=== PATIENT | male | born 1965 | race Caucasian/White ===

== ENCOUNTER 2020-11-05 18:00 | Emergency (ER) | payer OTHER, SELFPAY ==
--- NOTE | ~2020-11-05 | XR_ITS ---
EXAMINATION: XR CHEST CLINICAL INFORMATION: Chest pain COMPARISON: 08/10/2014 TECHNIQUE: Frontal view of the chest was obtained. FINDINGS: No significant abnormality is noted involving the heart, lungs, mediastinum, bony thorax or soft tissues. XR/XR chest 1V IMPRESSION: Unremarkable examination.
[2020-11-05 18:03] VITALS: BP 166/105; PULSE 109; RESP 18; TEMP 36.6; O2SAT 98; BMI 30.3
[2020-11-05 18:48] VITALS: BP 160/88; PULSE 93; RESP 16; O2SAT 98
--- NOTE | 2020-11-05 18:52 | ED_ITS ---
HPI - Chest Pain General Chief Complaint: Chest Pain Stated Complaint: CHEST PAIN HBP Time Seen by Provider: 11/05/20 18:52 Source: patient Mode of arrival: ambulatory Limitations: no limitations History of Present Illness HPI narrative: Patient with history of hypertension no known coronary artery disease no significant family history of coronary artery disease woke up at 07:30 and noticed left-sided chest pain which lasted for about 15-20 seconds without any shortness of breath or diaphoresis no radiation of pain. Patient got better and then again at noon time had similar pain but lasted about 20 seconds got better and since 17:00 patient been having similar pain lasting longer than before almost every 10 minutes patient denies any shortness of breath no cough no syncope no palpitation. Patient never had similar pain in the past. Patient check his blood pressure was 180/100 on arrival patient's blood pressure was 1 60 x 88 pulse rate 93 saturating 98% at room air MD complaint: chest pain Related Data Home Medications Medication Instructions Recorded Confirmed valsartan-hydrochlorothiazide 1 tab PO DAILY 11/05/20 11/05/20 Allergies Allergy/AdvReac Type Severity Reaction Status Date / Time No Known Allergies Allergy Unverified 05/19/20 14:58 [No Known Allergies*] Review of Systems Review of Systems: Constitutional : No Weight loss, No Fever, No Chills ENT/Mouth : No sore throat, No Rhinorrhea Eyes: No Eye Pain, No Swelling Cardiovascular : ++ Chest Pain, no palpitations Respiratory : No Cough, No Sputum, no shortness of breath Gastrointestinal : no Nausea, No Vomiting, No Diarrhea, No abdominal Pain, no black stools Genitourinary : No Dysuria, No Urinary Frequency Musculoskeletal : No joint pain, No Myalgias, No Joint Swelling Skin : No Skin Lesions, No rash Neuro : No Weakness, No Numbness, No Dizziness, No Headache Psych : No Anxiety/Panic, No Depression Heme/Lymph: No Bruising, No Lymphadenopathy Endocrine : No Polyuria, No Polydipsia All other systems reviewed and are negative [facility] Past Medical History Medical History HTN (hypertension) Social History Social History Alcohol intake: current Alcohol intake frequency: 0-2 drinks per day Alcohol type: beer and wine Smoking Status: Never smoker Use of substances other than those prescribed or required for medical reasons: No Advance Directives: No Advance Directives Information Provided: Yes Physical Exam Vital Signs: Vital Signs: Last Vital Signs Temp 98.6 F 11/05/20 22:16 Pulse 92 11/05/20 22:16 Resp 18 11/05/20 22:16 BP 138/94 H 11/05/20 22:16 Pulse Ox 96 11/05/20 22:16 Body Mass Index 30.3 Appearance: Alert. Oriented X3. No acute distress. Eyes: Pupils equal, round and reactive to light. ENT: Pharynx normal. Neck: Normal inspection. Neck supple. CVS: Normal heart rate and rhythm. Pulses normal. Respiratory: No respiratory distress. Breath sounds normal. Abdomen: Soft and nontender. Bowel sounds are present, no mass palpable, no CVA tenderness Skin: Skin warm and dry. Normal skin color. Normal skin turgor. Extremities: No lower extremity edema. Neuro: Oriented X 3. No motor deficit. No sensory deficit. MDM - Chest Pain MDM Narrative Medical decision making narrative: Patient with chest pain etiology not very clear likely from cardiac origin. Initial troponin is 4.3 which is negative will repeat troponin as patient had increased pain since 17:00 although there is no EKG changes Repeat troponin also negative for significant delta change. Patient denies any significant pain at this time. Will discharge patient home advised to follow with drawer liner to take baby aspirin daily Differential Diagnosis Differential diagnosis: Likely stable angina, unstable angina pectoris, atypical chest pain and chest pain Lab Data Result diagrams: 11/05/20 19:33 11/05/20 19:33 Labs: Lab Results 11/05/20 11/05/20 11/05/20 Range/Units 19:33 19:33 19:33 WBC 8.8 (4.8-10.8) X10*3/uL RBC 5.14 (4.60-5.80) X10*6/uL Hgb 16.2 (14.0-18.0) g/dl Hct 46.4 (42-52) % MCV 90.3 (80-98) fL MCH 31.5 (27.0-33.0) pg MCHC 34.9 (31.0-36.0) g/dl RDW 12.0 (11.0-16.0) % Plt Count 243 (160-400) X10*3/uL MPV 9.5 (9.4-12.4) fL Immature Gran % (Auto) 0.7 H (0.0-0.4) % Neut % (Auto) 76.1 H (45-73) % Lymph % (Auto) 13.0 L (20-40) % [place] % (Auto) 8.4 (2-11) % Eos % (Auto) 0.9 (0-4) % Baso % (Auto) 0.9 (0-2) % Lymph # (Auto) 1.1 L (1.2-4.9) X10*3/uL [place] # (Auto) 0.7 (0.1-1.2) X10*3/uL Eos # (Auto) 0.1 (0.0-0.4) X10*3/uL Baso # (Auto) 0.1 (0.0-0.2) X10*3/uL Abs Immat Gran (auto) 0.06 H (0.00-0.03) X10*3/uL Absolute Neuts (auto) 6.7 (2.0-8.3) X10*3/uL Absolute Nucleated RBC 0.000 (0.0-0.012) X10*3/uL Nucleated RBC % (auto) 0.0 (0.0-0.2) /100WBC PT (10.8-13.0) SEC INR (0.9-1.1) APTT (24.1-38.0) SEC Sodium 142 (135-145) mmol/L Potassium 4.9 (3.3-5.1) mmol/L Chloride 104 (96-108) mmol/L Carbon Dioxide 26 (22-29) mmol/L Anion Gap 17 (12-20) BUN 14 (9-16) mg/dL Creatinine 0.88 (0.5-1.4) mg/dL Estim Creat Clear Calc 120.2 Estimated GFR > 60 Random Glucose 101 (60-115) mg/dL Calcium 9.2 (8.4-10.2) mg/dL Troponin I High Sens 4.3 (<3.5-35.0) ng/L 11/05/20 11/05/20 Range/Units 19:33 21:59 WBC (4.8-10.8) X10*3/uL RBC (4.60-5.80) X10*6/uL Hgb (14.0-18.0) g/dl Hct (42-52) % MCV (80-98) fL MCH (27.0-33.0) pg MCHC (31.0-36.0) g/dl RDW (11.0-16.0) % Plt Count (160-400) X10*3/uL MPV (9.4-12.4) fL Immature Gran % (Auto) (0.0-0.4) % Neut % (Auto) (45-73) % Lymph % (Auto) (20-40) % [place] % (Auto) (2-11) % Eos % (Auto) (0-4) % Baso % (Auto) (0-2) % Lymph # (Auto) (1.2-4.9) X10*3/uL [place] # (Auto) (0.1-1.2) X10*3/uL Eos # (Auto) (0.0-0.4) X10*3/uL Baso # (Auto) (0.0-0.2) X10*3/uL Abs Immat Gran (auto) (0.00-0.03) X10*3/uL Absolute Neuts (auto) (2.0-8.3) X10*3/uL Absolute Nucleated RBC (0.0-0.012) X10*3/uL Nucleated RBC % (auto) (0.0-0.2) /100WBC PT 12.2 (10.8-13.0) SEC INR 1.0 (0.9-1.1) APTT 31.6 (24.1-38.0) SEC Sodium (135-145) mmol/L Potassium (3.3-5.1) mmol/L Chloride (96-108) mmol/L Carbon Dioxide (22-29) mmol/L Anion Gap (12-20) BUN (9-16) mg/dL Creatinine (0.5-1.4) mg/dL Estim Creat Clear Calc Estimated GFR Random Glucose (60-115) mg/dL Calcium (8.4-10.2) mg/dL Troponin I High Sens 4.7 (<3.5-35.0) ng/L ECG Data ECG #1: Attestation: I personally reviewed and interpreted this ECG as follows: Interpretation: Normal sinus rhythm heart rate 86 beats per minute normal intervals normal axis patient PACs no acute ST T wave changes impression no ischemia Discharge Plan Discharge Clinical Impression: Chest pain Patient Disposition: Home, Self-Care Instructions: Chest Pain (ED) Additional Instructions: Take baby aspirin daily. Follow-up with drawer liner. Go to the ER if increased chest pain Prescriptions: No Action valsartan-hydrochlorothiazide 160-12.5 mg tablet 1 tab PO DAILY RF: 0 Referrals: Avi Farah MD [Physician] - 1 week Interventions: ED Discharge Assessment Last Done: 11/05/20 23:05 Discharge Date/Time: 11/05/20 23:05
--- NOTE | 2020-11-05 18:58 | ECG_ITS ---
Test Reason : CHEST PAIN Blood Pressure : / mmHG Vent. Rate : 086 BPM Atrial Rate : 086 BPM P-R Int : 170 ms QRS Dur : 080 ms QT Int : 364 ms P-R-T Axes : 047 002 060 degrees QTc Int : 435 ms Sinus rhythm with marked sinus arrhythmia Otherwise normal ECG No previous ECGs available Referred By: Obed Hernandez Electronically Signed By:OMAYRA JON
[2020-11-05 19:19] VITALS: BP 156/90; PULSE 95; RESP 17; TEMP 37.1; O2SAT 98
[2020-11-05] MEDS: Aspirin 81 MG TAB.CHEW 324 MG PO (19:21)
[2020-11-05 19:22] VITALS: BP 156/90; PULSE 106
[2020-11-05] MEDS: Nitroglycerin 2 % Oint 1 GM Packet 1 INCH TRANSDERMA (19:22)
[2020-11-05 19:41] LABS: MANUAL DIFF FLAG NO
[2020-11-05 19:43] LABS: Basophils Absolute Auto 0.1 X10*3/uL (0.0-0.2); Basophils Percent Auto 0.9 % (0-2); Eosinophils Absolute Auto 0.1 X10*3/uL (0.0-0.4); Eosinophils Percent Auto 0.9 % (0-4); Hematocrit 46.4 % (42-52); Hemoglobin 16.2 g/dl (14.0-18.0); Imm Gran Abs Auto 0.06 X10*3/uL (0.00-0.03); Imm Gran Pct Auto 0.7 % (0.0-0.4); Lymphocytes Absolute Auto 1.1 X10*3/uL (1.2-4.9); Mean Corpuscular HGB Conc 34.9 g/dl (31.0-36.0); Mean Corpuscular Hemoglobin 31.5 pg (27.0-33.0); Mean Corpuscular Volume 90.3 fL (80-98); Mean Platelet Volume 9.5 fL (9.4-12.4); Monocytes Absolute Auto 0.7 X10*3/uL (0.1-1.2); Monocytes Percent Auto 8.4 % (2-11); Neutrophils Absolute Auto 6.7 X10*3/uL (2.0-8.3); Neutrophils Percent Auto 76.1 % (45-73); Platelet Count 243 X10*3/uL (160-400); Red Blood Count 5.14 X10*6/uL (4.60-5.80); White Blood Count 8.8 X10*3/uL (4.8-10.8)
[2020-11-05 20:15] LABS: Prothrombin Time 12.2 SEC (10.8-13.0)
[2020-11-05 20:17] LABS: Anion Gap 17 (12-20); Blood Urea Nitrogen 14 mg/dL (9-16); Calcium 9.2 mg/dL (8.4-10.2); Carbon Dioxide 26 mmol/L (22-29); Chloride 104 mmol/L (96-108); Creatinine Clr Calc Pharmacy 120.2; Estimated Glomerular Filt Rate > 60; Glucose Random 101 mg/dL (60-115); Potassium 4.9 mmol/L (3.3-5.1); Sodium 142 mmol/L (135-145)
[2020-11-05 20:18] LABS: Partial Thromboplastin Time 31.6 SEC (24.1-38.0)
[2020-11-05 20:24] LABS: Troponin-I High Sensitivity 4.3 ng/L (<3.5-35.0)
[2020-11-05 21:35] VITALS: BP 138/94; PULSE 98; RESP 16; TEMP 36.6; O2SAT 97
[2020-11-05 22:16] VITALS: BP 138/94; PULSE 92; RESP 18; TEMP 37; O2SAT 96
[2020-11-05 22:36] LABS: Troponin-I High Sensitivity 4.7 ng/L (<3.5-35.0)
== END 2020-11-05 23:05 | disposition home or self-care (01) ==
PROVIDERS: Emergency Provider Internal Medicine; PCP Physician Assistant
DX: R07.9 Chest pain, unspecified (principal); I10 Essential (primary) hypertension
CPT/HCPCS: 36415; 71045; 80048; 84484; 85025; 85610; 85730; 93005; 99284; 99285

== ENCOUNTER → 2020-11-22 11:09 | Outpatient (BNVA) | payer OTHER, SELFPAY | PROVIDERS: PCP Physician Assistant; Visit Provider Nurse Practitioner Family ==

== ENCOUNTER → 2020-11-28 08:09 | Outpatient (REF) | payer OTHER, SELFPAY ==
--- NOTE | 2020-11-28 08:13 | CA_ITS ---
Acquisition Time: 2020-11-28 08:25:31 Total Exercise Time: 00:08:40 Test Indications: Chest Pain Medications: ASA VALSARTAN/HCTZ Protocol: ZACHARY Max HR: 164 BPM 99% of Pred: 165 BPM Max BP: 210/098 mmHG Max Work Load: 10.1 METS Exercise stress test using Zachary protocol, total of 8 min 40 sec. METS 10.10, TAPHR up to 98 %, Test terminated as pt's BP up to 210/98. Pt had no anginal sx. EKG with no arrythmias, mild ST depressions seen inferiorly and lateraly. Hypertensive response to exercise. Test reviewed with Dr. Farah. Referred By: Kathleen Lima Overread By: Simran Jacobs NP
== END ==
LOC: HO.CARD 08:09
PROVIDERS: Visit Provider Nurse Practitioner Family
DX: R07.89 Other chest pain (principal)
CPT/HCPCS: 93016; 93017; 93018

== ENCOUNTER → 2020-12-30 14:02 | Outpatient (REF) | payer OTHER, SELFPAY ==
--- NOTE | 2020-12-30 14:05 | CA_ITS ---
Transthoracic Echocardiogram Patient (Last, First, Middle): Jose Alberto Reina E Gender: Male Date of : 1965 Age: 55 Procedure Date: 12/30/2020 Procedure Type: Transthoracic Echocardiogram Location: OP Height: 185.42 cm Weight: 104.33 kg BSA: 2.28 m2 Heart Rate: bpm BP: 148 / 95 mmHg Hot Head Machine Operator: HOMER Referring MD: Kathleen Lima SENIOR PAINTER-C Environmental Lead: Avi Farah MD Symptoms: R07.89 - Other chest pain Study Quality: Fair ECG Rhythm: Sinus Conclusions: - 1. Normal LV systolic and diastolic function 2. Mildly dilated ascending aorta at the level of sinus of Valsalva 3. Normal cardiac valvular Doppler 4. Normal RV systolic pressure 5. No pericardial effusion Findings Left Ventricle Normal left ventricular size, thickness, and systolic function. The visually estimated ejection fraction is between 65-70%. There is no dynamic left ventricular outflow tract obstruction. Diastolic function is normal for age. There is mild septal asymmetric hypertrophy. Right Ventricle Normal right ventricular cavity size and systolic function. Atria The left atrium is likely dilated. The right atrium is normal in size. Aortic Valve The aortic valve structure and function is likely normal. There is no aortic valve stenosis. There is no aortic valve regurgitation. Mitral Valve Normal mitral valve structure and function. There is trace mitral valve regurgitation. There is no mitral valve stenosis. Pulmonic Valve The pulmonic valve was not well visualized. Tricuspid Valve Likely normal tricuspid valve structure and function. There is trace tricuspid valve regurgitation. The right ventricular systolic pressure is normal. The right ventricular systolic pressure is 29 mmHg. Normal right atrial pressure. There is no evidence of pulmonary hypertension. Great Vessels The pulmonary artery was not well visualized. There is mild dilatation of the sinuses of Valsalva measuring 4.30 cm. Venous The inferior vena cava is normal in size and collapses greater than 50% with inspiration. Pericardium/Pleural There is no evidence of pericardial effusion. Prior Study Comparison No prior study available for comparison. Measurements M-Mode Liner Measurements Normals - Women/Men AOV Cusps: 2.50 1.5-2.6 cm/m2 2D Linear Measurements IVSd: 0.90 0.6-0.9/0.6-1.0 cm LVIDd: 5.00 3.9-5.3/4.2-5.9 cm LVIDd Index: 2.19 2.4-3.2/2.2-3.1 cm/m2 LVIDs: 2.78 2.0-3.6 cm LVPWd: 0.90 0.7-1.1 cm Ao Root: 4.30 2.1-3.5 cm LA Diam: 3.40 2.7-3.8/3.0-4.0 cm LAIDs Index: 1.49 1.5-2.3 cm/m2 LV Mass: 197.88 67-162/88-224 g LV Mass Index: 86.79 43-95/49-115 g/m2 LVOT Diam: 2.50 3.0+(-)1.3 cm 2D Systolic Function EF 4C: 68.80 >55% EF 2C: 62.60 >55% EF BiP: 64.10 >55% Mitral Valve MV Pk E: 1.00 MV PK A: 0.55 MV Decel Time: 171.00 E/A: 1.80 E'Lateral: 10.70 E'Medial: 8.92 E/E' Med: 11.20 E/E' Lat: 9.30 PHT: 50.00 MVA PHT: 4.40 Decel [place]: 5.87 Aortic Valve AoV Pk Jose R: 1.43 AoV Mn Jose R: 1.10 AoV VTI: 0.32 AoV Pk Grad: 8.00 Aov Mn Grad: 5.00 MICHAEL Cont.VTI: 4.24 LVOT LVOT Pk Joes R: 1.23 LVOT Mn Jose R: 0.95 LVOT VTI: 0.28 LVOT Pk Grad: 6.00 LVOT Mn Grad: 4.00 LVOT Diam: 2.50 LVOT Area: 4.91 Diastolic Function MV Pk E: 1.00 MV Pk A: 0.55 E/A: 1.80 E'Medial: 8.92 E/E' Med: 11.20 E' Laterial: 10.70 E/E' Lat: 9.30 Tricuspid Valve TR Pk Jose R: 2.53 TR Pk Grad: 26.00 RA Press: 3.00 RVSP: 29.00 Great Vessels Aorta Ao Root-2D: 4.30 2.0-3.7 cm Sinus of Valsalva: 4.30 2.0-3.5 cm Ao Asc: 3.40 2.1-3.4 cm Ao Arch: 2.90 Pulmonary Valve PV Pk Jose R: 1.17 Peak PV Grad: 5.00 Updated in Other Vendor System with Status of Final Avi Farah MD electronically signed on 12/31/2020 11:36:14 AM with status of Final
== END ==
LOC: HO.CARD 14:02
PROVIDERS: Visit Provider Nurse Practitioner Family
DX: R07.89 Other chest pain (principal)
CPT/HCPCS: 93306

== ENCOUNTER → 2021-01-03 09:38 | Outpatient (BNVA) | payer OTHER, SELFPAY | PROVIDERS: PCP Physician Assistant; Visit Provider Nurse Practitioner Family ==

== ENCOUNTER 2021-01-13 09:52 | Outpatient (REF) | payer OTHER, SELFPAY ==
[2021-01-13 11:00] LABS: Anion Gap 13 (12-20); Blood Urea Nitrogen 13 mg/dL (9-16); Calcium 9.9 mg/dL (8.4-10.2); Carbon Dioxide 30 mmol/L (22-29); Chloride 102 mmol/L (96-108); Estimated Glomerular Filt Rate > 60; Glucose Random 108 mg/dL (60-115); Potassium 4.7 mmol/L (3.3-5.1); Sodium 140 mmol/L (135-145)
== END 2021-01-13 09:53 | disposition home or self-care (01) ==
LOC: HO.LAB 09:52
PROVIDERS: PCP Physician Assistant; Visit Provider Nurse Practitioner Family
DX: I10 Essential (primary) hypertension (principal)
CPT/HCPCS: 36415; 80048

== ENCOUNTER 2021-03-24 08:42 | Outpatient (REF) | payer OTHER, SELFPAY ==
[2021-03-24 09:11] LABS: MANUAL DIFF FLAG NO
[2021-03-24 09:18] LABS: Basophils Absolute Auto 0.1 X10*3/uL (0.0-0.2); Eosinophils Absolute Auto 0.4 X10*3/uL (0.0-0.4); Eosinophils Percent Auto 4.6 % (0-4); Hematocrit 44.9 % (42-52); Hemoglobin 15.6 g/dl (14.0-18.0); Imm Gran Abs Auto 0.04 X10*3/uL (0.00-0.03); Imm Gran Pct Auto 0.5 % (0.0-0.4); Lymphocytes Absolute Auto 1.5 X10*3/uL (1.2-4.9); Lymphocytes Percent Auto 19.5 % (20-40); Mean Corpuscular HGB Conc 34.7 g/dl (31.0-36.0); Mean Corpuscular Hemoglobin 30.8 pg (27.0-33.0); Mean Corpuscular Volume 88.7 fL (80-98); Mean Platelet Volume 9.4 fL (9.4-12.4); Monocytes Absolute Auto 0.9 X10*3/uL (0.1-1.2); Monocytes Percent Auto 10.9 % (2-11); Neutrophils Percent Auto 63.5 % (45-73); Platelet Count 267 X10*3/uL (160-400); Red Blood Count 5.06 X10*6/uL (4.60-5.80); Red Cell Distribution Width 12.1 % (11.0-16.0); White Blood Count 7.9 X10*3/uL (4.8-10.8)
[2021-03-24 09:36] LABS: Alanine Aminotransferase 34 U/L (0-40); Albumin Level 4.1 g/dL (3.5-5.0); Alkaline Phosphatase 60 U/L (39-117); Anion Gap 13 (12-20); Aspartate Amino Transferase 20 U/L (5-37); Bilirubin Total 0.4 mg/dL (0.0-1.0); Blood Urea Nitrogen 11 mg/dL (9-16); Calcium 9.5 mg/dL (8.4-10.2); Carbon Dioxide 26 mmol/L (22-29); Chloride 103 mmol/L (96-108); Cholesterol 221 mg/dL; Estimated Glomerular Filt Rate > 60; Glucose Fasting 101 mg/dL (60-99); HDL Cholesterol 39 mg/dL; LDL Cholesterol Calculated 118 mg/dl; Potassium 4.1 mmol/L (3.3-5.1); Sodium 138 mmol/L (135-145); Total Protein 7.1 g/dL (6.5-8.0); Triglycerides 320 mg/dL
[2021-03-24 09:40] LABS: Estimated Average Glucose 97 mg/dL
[2021-03-24 09:58] LABS: Prostate Specific Antigen Scr 1.22 ng/mL (<0.05-4.0)
== END 2021-03-24 08:43 | disposition home or self-care (01) ==
LOC: HO.LAB 08:42
PROVIDERS: PCP Physician Assistant; Visit Provider Physician Assistant
DX: Z12.5 Encounter for screening for malignant neoplasm of prostate (principal); J30.9 Allergic rhinitis, unspecified; I10 Essential (primary) hypertension; E66.09 Other obesity due to excess calories
CPT/HCPCS: 36415; 80053; 80061; 83036; 84153; 85025

== ENCOUNTER 2021-04-06 07:15 | Outpatient (REF) | payer OTHER, SELFPAY ==
--- NOTE | ~2021-04-06 | XR_ITS ---
EXAMINATION: XR AP STANDING VIEW OF BOTH KNEES XR 2 VIEWS OF THE LEFT KNEE CLINICAL INFORMATION: Left knee pain. COMPARISON: None. TECHNIQUE: AP standing view of both knees and sunrise and lateral views of the left knee. FINDINGS: There is mild narrowing of the medial joint space compartments bilaterally. The lateral joint space and patellofemoral joints are well maintained. No significant spurring is appreciated. No left knee effusion is seen. XR/XR knee standing BI IMPRESSION: Mild narrowing of the medial joint space compartments bilaterally.
--- NOTE | ~2021-04-06 | XR_ITS ---
EXAMINATION: XR AP STANDING VIEW OF BOTH KNEES XR 2 VIEWS OF THE LEFT KNEE CLINICAL INFORMATION: Left knee pain. COMPARISON: None. TECHNIQUE: AP standing view of both knees and sunrise and lateral views of the left knee. FINDINGS: There is mild narrowing of the medial joint space compartments bilaterally. The lateral joint space and patellofemoral joints are well maintained. No significant spurring is appreciated. No left knee effusion is seen. XR/XR knee LT 2V IMPRESSION: Mild narrowing of the medial joint space compartments bilaterally.
== END 2021-04-06 07:16 | disposition home or self-care (01) ==
LOC: HO.HOSX 07:15
PROVIDERS: Visit Provider Physician Assistant
DX: M23.92 Unspecified internal derangement of left knee (principal); M25.561 Pain in right knee; M22.2X9 Patellofemoral disorders, unspecified knee
CPT/HCPCS: 73560; 73565

== ENCOUNTER 2021-04-20 18:47 | Outpatient (REF) | payer OTHER, SELFPAY ==
--- NOTE | ~2021-04-20 | MR_ITS ---
EXAMINATION: MR KNEE WITHOUT CONTRAST, LEFT CLINICAL INFORMATION: Lifting injury. Medial to lateral pain. Symptoms for 2-3 weeks. Pain and swelling. Internal derangement. COMPARISON: Left knee radiographs dated 04/06/2021. TECHNIQUE: MRI of the knee without contrast was performed using routine sequences on a high-field scanner. FINDINGS: MENISCI: Medial Meniscus: Oblique inner margin tearing of the meniscal body which extends through the posterior horn and root. Parameniscal cyst adjacent to the posterior horn/root measuring up to 1.5 cm. Lateral Meniscus: Intact LIGAMENTS: Cruciate: Intact Collateral: Intact EXTENSOR MECHANISM: Intact quadriceps and patellar tendons. There is lobulated subcutaneous fluid ventral to the patella which could represent mild prepatellar bursitis. ARTICULAR CARTILAGE/BONE: Patellofemoral Compartment: Normal Medial Compartment: Weightbearing articular cartilage signal heterogeneity with tiny marginal osteophytes. Marrow edema within the medial tibial plateau, consistent with an osseous contusion. Lateral Compartment: Normal JOINT FLUID AND BURSAE: Small joint effusion and small Hancock's cyst. MR/MR knee LT wo con IMPRESSION: 1. Oblique inner margin tearing of the medial meniscal body extending to the posterior horn and root. Parameniscal cysts adjacent to the posterior horn/root measuring 1.5 cm. 2. Underlying mild osseous contusion within the medial tibial plateau. 3. Mild medial compartment arthrosis. Small joint effusion and small Hancock's cyst.
== END 2021-04-20 18:48 | disposition home or self-care (01) ==
LOC: HO.MRI 18:47
PROVIDERS: Visit Provider Physician Assistant
DX: M23.92 Unspecified internal derangement of left knee (principal)
CPT/HCPCS: 73721

== ENCOUNTER → 2021-05-03 08:37 | Outpatient (BNVA) | payer OTHER, SELFPAY | PROVIDERS: PCP Physician Assistant; Visit Provider Physician Assistant ==

== ENCOUNTER 2021-05-11 19:34 | Outpatient (REF) | payer OTHER, SELFPAY ==
--- NOTE | ~2021-05-11 | MR_ITS ---
EXAMINATION: MR ELBOW WITHOUT CONTRAST, LEFT CLINICAL INFORMATION: Posterior left elbow pain. Anterior tenderness. COMPARISON: None TECHNIQUE: Multisequence MR imaging of the left elbow was obtained without contrast on a high-field strength scanner. FINDINGS: Ulnar collateral ligament: Mild edema adjacent to the proximal ulnar collateral ligament, consistent with a mild ligament sprain. No measurable defect. Common flexor tendon: Edema adjacent to the common flexor tendon, consistent with mild tendinosis. Radial collateral ligament: Intact. Common extensor tendon: Mild common extensor tendinosis. Biceps/triceps tendon: Thickening of the distal biceps tendon with prominent adjacent soft tissue edema, consistent with a distal tendon strain. No measurable tendon defect. Intact triceps tendon. Articular cartilage/bone: Intact articular cartilage. No marrow edema. Ulnar nerve: Intact. Joint fluid/soft tissues: No significant joint effusion. Lobulated soft tissue dorsal to the olecranon, consistent with olecranon bursitis. Adjacent subcutaneous edema. MR/MR elbow LT wo con IMPRESSION: 1. Posterior olecranon bursitis with associated soft tissue edema. 2. Acute strain/partial tear of the distal biceps tendon insertion without a measurable tendon defect. 3. Mild common extensor tendinosis. 4. Mild common flexor tendinosis. Mild straightening of the proximal ulnar collateral ligament without a measurable ligament defect.
== END 2021-05-11 19:35 | disposition home or self-care (01) ==
LOC: HO.MRI 19:34
PROVIDERS: PCP Physician Assistant; Visit Provider Physician Assistant
DX: S46.302D Unspecified injury of muscle, fascia and tendon of triceps, left arm, subsequent encounter (principal)
CPT/HCPCS: 73221

== ENCOUNTER → 2021-06-08 15:37 | Outpatient (BNVA) | payer OTHER, SELFPAY | PROVIDERS: Visit Provider Physician Assistant ==

== ENCOUNTER → 2021-06-22 08:23 | Outpatient (REF) | payer OTHER, SELFPAY ==
--- NOTE | 2021-06-22 08:30 | CA_ITS ---
Transthoracic Echocardiogram Patient (Last, First, Middle): Jose Alberto Reina E Gender: Male Date of : 1965 Age: 56 Procedure Date: 06/22/2021 Procedure Type: Transthoracic Echocardiogram Location: OP Height: 185.42 cm Weight: 101.61 kg BSA: 2.26 m2 Heart Rate: bpm BP: 120 / 75 mmHg Cleaning And Washing Equipment Operator: JESENIA Referring MD: Kathleen Lima ASSEMBLER HANDBAGSRizwana Symptoms: I77.810 - Thoracic aortic ectasia Study Quality: Fair ECG Rhythm: Sinus Conclusions: - The left ventricular systolic function is normal. The calculated ejection fraction is 61% by biplane method. - There is mild aortic annular dilatation, mild dilatation of the sinuses of Valsalva measuring 4.50 cm, and mild dilatation of the ascending aorta measuring 3.70 cm. Findings Left Ventricle Normal left ventricular cavity size. There is mildly increased left ventricular wall thickness. The left ventricular systolic function is normal. The calculated ejection fraction is 61% by biplane method. There is no evidence of regional wall motion abnormalities. Diastolic function is normal for age. There is moderate septal and moderate basal asymmetric hypertrophy. Great Vessels The aortic arch is normal in size. There is mild aortic annular dilatation, mild dilatation of the sinuses of Valsalva measuring 4.50 cm, and mild dilatation of the ascending aorta measuring 3.70 cm. Prior Study Comparison Changes noted compared to prior study dated: 12/30/2020. Previous measurement at sinus of valsalva- 4.3cm. Measurements 2D Linear Measurements IVSd: 1.51 0.6-0.9/0.6-1.0 cm LVIDd: 4.00 3.9-5.3/4.2-5.9 cm LVIDd Index: 1.77 2.4-3.2/2.2-3.1 cm/m2 LVIDs: 2.69 2.0-3.6 cm LVPWd: 1.13 0.7-1.1 cm Ao Root: 4.30 2.1-3.5 cm LV Mass: 237.91 67-162/88-224 g LV Mass Index: 105.27 43-95/49-115 g/m2 2D Systolic Function EF 4C: 49.10 >55% EF 2C: 67.90 >55% EF BiP: 60.50 >55% Mitral Valve MV Pk E: 0.77 MV PK A: 0.45 MV Decel Time: 208.00 E/A: 1.70 E'Lateral: 13.20 E'Medial: 9.14 E/E' Med: 8.40 E/E' Lat: 5.80 PHT: 61.00 MVA PHT: 3.61 Decel Kemper: 3.68 Diastolic Function MV Pk E: 0.77 MV Pk A: 0.45 E/A: 1.70 E'Medial: 9.14 E/E' Med: 8.40 E' Laterial: 13.20 E/E' Lat: 5.80 Great Vessels Aorta Ao Root-2D: 4.30 2.0-3.7 cm Ao Annulus: 3.60 1.4-2.6 cm Sinus of Valsalva: 4.50 2.0-3.5 cm Ao Asc: 3.70 2.1-3.4 cm Ao Arch: 3.00 Updated in Other Vendor System with Status of Final Romel Starr MD electronically signed on 06/24/2021 11:02:45 AM with status of Final
== END ==
LOC: HO.CARD 08:23
PROVIDERS: PCP Physician Assistant; Visit Provider Nurse Practitioner Family
DX: I10 Essential (primary) hypertension (principal); I77.810 Thoracic aortic ectasia; R07.89 Other chest pain
CPT/HCPCS: 93308; Q9957

== ENCOUNTER → 2021-06-28 13:19 | Outpatient (BNVA) | payer OTHER, SELFPAY | PROVIDERS: Referring Provider Physician Assistant; Visit Provider Nurse Practitioner Family ==

== ENCOUNTER 2021-07-13 13:00 | Outpatient (RCR) | payer OTHER, SELFPAY | END 2022-01-04 15:03 | disposition home or self-care (01) | LOC: HO.PTWFD 13:00 | PROVIDERS: PCP Physician Assistant; Visit Provider Physician Assistant | DX: S83.242D Other tear of medial meniscus, current injury, left knee, subsequent encounter (principal) | CPT/HCPCS: 97014; 97110; 97140; 97162; 97164; 97535 ==

== ENCOUNTER 2021-07-14 06:53 | Day surgery (SDC) | payer OTHER, SELFPAY ==
[2021-07-14 07:34] VITALS: BP 130/78; PULSE 76; RESP 16; TEMP 36.4; O2SAT 97; BMI 29.7
--- NOTE | 2021-07-14 07:42 | HO.ANESPROP2 ---
[facility] Active Problems Active Problems: All Active Problems (Updated 07/07/21 @ 15:38 by Leeanna Oglesby RN) Chest discomfort (Acute) Acute gout (Acute) Mild ascending aorta dilatation (Acute) Annual physical exam (Acute) Internal derangement of left knee (Acute) Acute medial meniscus tear of left knee (Acute) Osteoarthritis of left knee (Acute) Left elbow pain (Acute) Injury of triceps (Acute) Strain of left biceps (Acute) Hyperlipidemia (Acute) HTN (hypertension) (Acute) Past Medical History Medical History Carcinoid tumor, rectal, benign HTN (hypertension) Hx of chest pain Hyperlipidemia Rupture of left biceps tendon Seasonal allergies Snores Family History Family History Mother Irregular heart beat Surgical History Surgical History History of Achilles tendon repair History of appendectomy History of umbilical hernia repair Hx of colonoscopy History of Problems with Anesthesia: No Social History Social History Housing: House Alcohol intake: current Alcohol intake frequency: a few times a week Alcohol type: beer and wine Patient Tobacco Use Status: Never used Tobacco e-Cigarette/Vaping Use: Never Used Second Hand Smoke Exposure: No Use of substances other than those prescribed or required for medical reasons: No Are you DNR?: No Advance Directives: No Advance Directives Information Provided: Yes service: No Current occupational status: employed 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 Meds Allergies Allergy/AdvReac Type Severity Reaction Status Date / Time No Known Allergies Allergy Verified 07/07/21 15:42 [No Known Allergies*] Home Medications Medication Instructions Recorded Confirmed Last Taken Type aspirin 81 mg tablet,delayed 81 mg PO DAILY 11/22/20 07/14/21 07/07/21 History release (Adult Low Dose Aspirin) cholecalciferol (vitamin D3) 25 25 mcg PO DAILY 07/07/21 07/07/21 Unknown History mcg (1,000 unit) capsule (Vitamin D3) fexofenadine 180 mg tablet 180 mg PO DAILY 07/07/21 07/07/21 Unknown History omega 1-swt-azl-fish oil 1,000 mg 1 cap PO DAILY 07/07/21 07/07/21 Unknown History (120 mg-180 mg) capsule (Fish Oil) Exam Exam Date and Time: July 14, 2021 0742 Height,Weight and Vital Signs: Height 6 ft 1 in Weight 102.058 kg Last Vital Signs Temp 97.6 F 07/14/21 07:34 Pulse 76 07/14/21 07:34 Resp 16 07/14/21 07:34 BP 130/78 07/14/21 07:34 Pulse Ox 97 07/14/21 07:34 Airway Mallampati Class: II TM Dist: >3cm Neck ROM: Full Loose/Missing/Broken Teeth: No Heart: RRR Lungs: cta Assessment and Plan Assessment Anesthesia Assessment: Anesthesia Plan Discussed and Chart Reviewed Final Anesthetic Review History of Problems with Anesthesia: No NPO: Yes ASA Class: II Final Preanesthetic Review: Meds/Allgs Chart Reviewed, Consent Obtained/Reviewed and Anes Risks/Benef Reviewed Patient Risk: Low Procedure Risk: Low Anesthetic Plan Anesthetic Plan: MAC: Disposition: Standard PACU
--- NOTE | 2021-07-14 07:59 | MHC.SHP ---
Pre-Procedural Eval Section A Date of Service: 07/14/21 The patient is an INPATIENT: No The History & Physical has been completed within 30 days and I have reviewed it.: Yes Section B Chief Complaint: screening Allergies: Allergies Allergy/AdvReac Type Severity Reaction Status Date / Time No Known Allergies Allergy Verified 07/07/21 15:42 [No Known Allergies*] Plan I have reviewed the history and physical and performed a pertinent physical examination on my patient. No changes have occurred unless specified.
[2021-07-14] MEDS: Lactated Ringers 1,000 ML 50 ML IVCONT (08:03)
--- NOTE | 2021-07-14 08:31 | P.BOP_ITS ---
Brief Operative Note Date of Service: 07/14/21 Pre-op diagnosis: screening Post-op diagnosis: other (colon polyps) Procedure: colonoscopy Surgeon: Franco Valdez Anesthesia: MAC Was an Ambulance Dispatcher used for this Procedure?: No Estimated blood loss (mL): 0 Pathology: other (polyps x2) Condition: stable Disposition: PACU
--- NOTE | 2021-07-14 09:50 | OP_ITS ---
SURGEON: Franco Valdez MD INDICATIONS: Colon cancer screening and prior history of colon polyps. PREOPERATIVE DIAGNOSIS: POSTOPERATIVE DIAGNOSIS: PROCEDURE PERFORMED: Colonoscopy to the terminal ileum with snare polypectomy. ESTIMATED BLOOD LOSS: COMPLICATIONS: ANESTHESIA: ASSISTANTS: SPECIMENS: MEDICATIONS: Monitored anesthesia care. DESCRIPTION OF PROCEDURE: History and physical performed. The risks and benefits of the procedure were explained to the patient. Informed consent was obtained. The patient was placed in left lateral decubitus position. A digital rectal exam was performed and was found to be normal. The Olympus pediatric video colonoscope was introduced into the rectum and advanced to the cecum without difficulty. The cecum was identified by transillumination, palpation, and identification of ileocecal valve. Examination was performed and the scope was removed. He tolerated the procedure well and was taken to recovery area in stable condition. FINDINGS: The terminal ileum was normal. The visualized colonic mucosa was normal. Two polyps were identified and removed with a snare, both measured approximately 6 mm. One was located at the ileocecal valve. The second was located at 30 cm. No other polyps were identified. There was mild sigmoid diverticulosis. Retroflexed examination was normal. IMPRESSION: Colon polyps. RECOMMENDATION: Follow up the biopsy results. MD AMINAH Kern/EMILIA / [id number]
== END 2021-07-14 09:25 | disposition home or self-care (01) ==
PROVIDERS: PCP Physician Assistant; Visit Provider Internal Medicine Gastroenterology
PROC: 0DJD8ZZ Inspection of Lower Intestinal Tract, Via Natural or Artificial Opening Endoscopic (ICD-10-PCS; CPT 45378; principal; 2021-07-14 08:10)
DX: Z12.11 Encounter for screening for malignant neoplasm of colon (principal); Z86.010 Personal history of colon polyps; Z83.71 Family history of colonic polyps; D12.0 Benign neoplasm of cecum; K63.5 Polyp of colon; K57.30 Diverticulosis of large intestine without perforation or abscess without bleeding; K64.8 Other hemorrhoids; I10 Essential (primary) hypertension; J30.2 Other seasonal allergic rhinitis; Z79.899 Other long term (current) drug therapy
CPT/HCPCS: 45385; 88305

== ENCOUNTER → 2021-08-02 13:04 | Outpatient (BNVA) | payer OTHER, SELFPAY | PROVIDERS: PCP Physician Assistant; Referring Provider Physician Assistant; Visit Provider Internal Medicine ==

== ENCOUNTER → 2021-08-14 12:57 | Outpatient (REF) | payer OTHER, SELFPAY | LOC: HO.SL 12:57 | PROVIDERS: PCP Physician Assistant; Visit Provider Internal Medicine | DX: G47.33 Obstructive sleep apnea (adult) (pediatric) (principal); R06.83 Snoring; R40.0 Somnolence | CPT/HCPCS: 95806 ==

== ENCOUNTER → 2021-08-31 09:02 | Outpatient (BNVA) | payer OTHER, SELFPAY | PROVIDERS: PCP Physician Assistant; Visit Provider Physician Assistant ==

== ENCOUNTER 2021-10-13 13:30 | Outpatient (RCR) | payer OTHER, SELFPAY ==
--- NOTE | 2021-10-13 15:05 | MHC.OT.DC ---
[address] [phone] F: [phone] Occupational Therapy Discharge Note Provider: CLAYTON Mayer Diagnosis: Elbow bursitis Date of Surgery: Date of Evaluation: Date of Discharge: 10/13/21 Treatments to Date: 15 Cancellations to Date: No Shows to Date: Discharge Status: Discharge Summary: Left elbow circumference equal to right dominant elbow ,however skin fold on right is 5 cm and on left 8 cm. Pt is indep in self massage and compression sleeve. I anticipate con't improvement with self management. Pt with unrelated ulnar wrist pain with mild edema, Pain improved with a Wrist Widget. Possible TFCC strain, pain primarily with rotation. Goals met for olecranon bursitis Electronically Signed By: Cadence Chapman OT CHT CLT Reviewed/agree with student documentation: N/A Therapist: Please Sign and return to therapist, thank you for your referral.
== END 2021-10-13 15:05 | disposition home or self-care (01) ==
LOC: HO.OT 13:30
PROVIDERS: PCP Physician Assistant; Visit Provider Physician Assistant
DX: S46.212D Strain of muscle, fascia and tendon of other parts of biceps, left arm, subsequent encounter (principal)
CPT/HCPCS: 97035; 97140

== ENCOUNTER 2021-10-20 15:55 | Outpatient (REF) | payer OTHER, SELFPAY ==
[2021-10-20 16:37] LABS: Appearance Urine HAZY; Color Urine YELLOW; Glucose Urine UA NEG (NEG); Leukocyte Esterase Urine NEG (NEG); Nitrite Urine NEG (NEG); Urine Blood NEG (NEG); Urine Ketones NEG (NEG); Urine Protein NEG (NEG-TRACE)
[2021-10-20 17:01] LABS: Vitamin D 25-OH Total 30.5 ng/mL (>30)
== END 2021-10-20 15:56 | disposition home or self-care (01) ==
LOC: HO.LAB 15:55
PROVIDERS: PCP Physician Assistant; Visit Provider Physician Assistant
DX: R30.0 Dysuria (principal)
CPT/HCPCS: 36415; 81003; 82306

== ENCOUNTER → 2021-11-07 15:32 | Outpatient (BNVA) | payer OTHER, SELFPAY | PROVIDERS: PCP Physician Assistant; Visit Provider Internal Medicine ==

== ENCOUNTER 2021-12-12 15:57 | Outpatient (REF) | payer OTHER, SELFPAY ==
--- NOTE | ~2021-12-12 | XR_ITS ---
EXAMINATION: XR hand wrist RT, XR hand wrist LT CLINICAL INFORMATION: Pain COMPARISON: None TECHNIQUE: 4 views of the bilateral hands and wrists XR/XR hand wrist RT FINDINGS/IMPRESSION: RIGHT HAND AND WRIST: No fracture or dislocation. Moderate degenerative changes of the first carpometacarpal joint with loss of joint space. There is mild degenerative changes of the fifth distal interphalangeal joint with persistent flexion of the joint across all views. Soft tissues are unremarkable. LEFT HAND AND WRIST: No fracture or dislocation. Joint spaces are maintained. Soft tissues are unremarkable.
--- NOTE | ~2021-12-12 | XR_ITS ---
EXAMINATION: XR hand wrist RT, XR hand wrist LT CLINICAL INFORMATION: Pain COMPARISON: None TECHNIQUE: 4 views of the bilateral hands and wrists XR/XR hand wrist LT FINDINGS/IMPRESSION: RIGHT HAND AND WRIST: No fracture or dislocation. Moderate degenerative changes of the first carpometacarpal joint with loss of joint space. There is mild degenerative changes of the fifth distal interphalangeal joint with persistent flexion of the joint across all views. Soft tissues are unremarkable. LEFT HAND AND WRIST: No fracture or dislocation. Joint spaces are maintained. Soft tissues are unremarkable.
[2021-12-12 16:49] LABS: C Reactive Protein 0.94 mg/dL (< or = 0.50); Rheumatoid Factor < 15.0 IU/mL (<15.0)
[2021-12-12 17:13] LABS: Erythrocyte Sedimentation Rate 2 MM/HR (0-15)
[2021-12-13 15:06] LABS: Anti Nuclear Antibody Screen NEGATIVE (NEGATIVE)
[2021-12-14 16:05] LABS: Cyclic Citrullinated Peptide <16 UNITS
== END 2021-12-12 15:58 | disposition home or self-care (01) ==
LOC: HO.XRAY 15:57
PROVIDERS: PCP Physician Assistant; Visit Provider Physician Assistant
DX: M79.641 Pain in right hand (principal); M79.642 Pain in left hand
CPT/HCPCS: 36415; 73110; 73130; 85652; 86038; 86039; 86140; 86200; 86431

== ENCOUNTER 2022-01-09 08:47 | Outpatient (REF) | payer OTHER, SELFPAY ==
--- NOTE | ~2022-01-09 | XR_ITS ---
EXAMINATION: XR HAND, RIGHT CLINICAL INFORMATION: Pain in the right hand. COMPARISON: Radiograph of the right hand and wrist dated from 12/12/2021. TECHNIQUE: PA, lateral, and oblique views of the right hand. FINDINGS: Persistent pronounced flexure of the DIP joint of the fifth digit. No associated bony fractures are identified. There is surrounding soft tissue swelling around the distal fifth digit. Redemonstration of moderate degenerative osteoarthritis of the first CMC joint and triscaphe space. No unexpected radiopaque foreign bodies. XR/XR hand RT min 3V IMPRESSION: No bony fractures. Persistent flexion of the DLP of the right fifth digit, suggesting ligamentous injury. 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
== END 2022-01-09 08:48 | disposition home or self-care (01) ==
LOC: HO.HOSX 08:47
PROVIDERS: Visit Provider Orthopaedic Surgery
DX: M20.011 Mallet finger of right finger(s) (principal)
CPT/HCPCS: 73130

== ENCOUNTER → 2022-01-18 10:35 | Outpatient (BNVA) | payer OTHER, SELFPAY | PROVIDERS: PCP Physician Assistant; Visit Provider Internal Medicine Rheumatology | DX: M20.011 Mallet finger of right finger(s) (principal) ==

== ENCOUNTER → 2022-01-19 12:47 | Outpatient (BNVA) | payer OTHER, SELFPAY | PROVIDERS: PCP Physician Assistant; Visit Provider Urology | DX: N48.1 Balanitis (principal) ==

== ENCOUNTER 2022-01-19 14:11 | Outpatient (REF) | payer OTHER, SELFPAY ==
--- NOTE | ~2022-01-19 | XR_ITS ---
EXAMINATION: BILATERAL FOOT X-RAY CLINICAL INFORMATION: Pain COMPARISON: Right foot MRI December 2017 and heel x-ray March 2014 TECHNIQUE: 3 views of each foot FINDINGS: Right: Bone alignment is normal. No fracture or dislocation is seen. The joint spaces are normal. Increasing osteophyte formation at the Achilles tendon insertion to the calcaneus. There is increasing cystic change. There are increasing soft tissue calcifications deep to the Achilles tendon. There is increasing soft tissue swelling of the Achilles tendon and overlying superficial soft tissues. Left: No fracture or dislocation. There is mild hallux valgus deformity at the first MTP joint. There is mild degenerative change at the first MTP joint with joint space narrowing and small osteophytes. There is a lucency or cystic change of the first metatarsal head. There is overlying soft tissue swelling. The joint spaces are otherwise normal. No calcaneal spur is seen. There may be soft tissue calcification of the myotendinous junction of the left Achilles tendon. XR/XR foot LT min 3V IMPRESSION: Right: Increasing Achilles tendinopathy. Left: Arthritis and mild hallux valgus deformity at the first MTP joint. Question faint soft tissue calcification at the myotendinous junction of the left Achilles tendon.
--- NOTE | ~2022-01-19 | XR_ITS ---
EXAMINATION: BILATERAL FOOT X-RAY CLINICAL INFORMATION: Pain COMPARISON: Right foot MRI December 2017 and heel x-ray March 2014 TECHNIQUE: 3 views of each foot FINDINGS: Right: Bone alignment is normal. No fracture or dislocation is seen. The joint spaces are normal. Increasing osteophyte formation at the Achilles tendon insertion to the calcaneus. There is increasing cystic change. There are increasing soft tissue calcifications deep to the Achilles tendon. There is increasing soft tissue swelling of the Achilles tendon and overlying superficial soft tissues. Left: No fracture or dislocation. There is mild hallux valgus deformity at the first MTP joint. There is mild degenerative change at the first MTP joint with joint space narrowing and small osteophytes. There is a lucency or cystic change of the first metatarsal head. There is overlying soft tissue swelling. The joint spaces are otherwise normal. No calcaneal spur is seen. There may be soft tissue calcification of the myotendinous junction of the left Achilles tendon. XR/XR foot RT min 3V IMPRESSION: Right: Increasing Achilles tendinopathy. Left: Arthritis and mild hallux valgus deformity at the first MTP joint. Question faint soft tissue calcification at the myotendinous junction of the left Achilles tendon.
[2022-01-19 15:13] LABS: Erythrocyte Sedimentation Rate 3 MM/HR (0-15)
[2022-01-21 15:47] LABS: TS Negative Control Passed; TS Panel A 0; TS Panel B 0; TS Positive Control Passed; TSpotTB Negative (Negative)
[2022-01-22 04:00] LABS: HBS Num1 1.71 mIU/mL (0-7.99); HBc Num1 0.08 S/CO (0.00-0.79); HBsAGNum1 0.22 S/CO (0.00-0.99); Hepatitis B Core Antibody Nonreactive (Nonreactive); Hepatitis B Surface Antigen Negative (Negative); ~HepC Num1 0.15 S/CO (0.00-0.79); ~Hepatitis B Surface Antibody NONREACTIVE (Nonreactive); ~Hepatitis C Antibody Nonreactive (Nonreactive)
[2022-01-24 06:41] LABS: Hepatitis A Antibody IgM 0.16 Index (0-0.79); ~Hepatitis A Antibody IgM Nonreactive (Nonreactive)
== END 2022-01-19 14:12 | disposition home or self-care (01) ==
LOC: HO.LAB 14:11
PROVIDERS: PCP Physician Assistant; Visit Provider Internal Medicine Rheumatology
DX: Z11.1 Encounter for screening for respiratory tuberculosis (principal); M79.672 Pain in left foot; M79.671 Pain in right foot; M79.641 Pain in right hand; M79.642 Pain in left hand; F90.9 Attention-deficit hyperactivity disorder, unspecified type; Z79.899 Other long term (current) drug therapy
CPT/HCPCS: 36415; 73630; 85652; 86140; 86481; 86704; 86706; 86709; 86803; 87340

== ENCOUNTER 2022-01-22 05:51 | Day surgery (SDC) | payer OTHER, SELFPAY ==
--- NOTE | 2022-01-19 09:59 | P.CONAN_ITS ---
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) Foot pain, bilateral (Acute) Mallet deformity of right little finger (Acute) Polyarthralgia (Acute) Bilateral hand pain (Acute) DOROTHY (obstructive sleep apnea) (Acute) Obesity (BMI 30-39.9) (Acute) Essential hypertension (Acute) Ascending aortic aneurysm (Acute) Mild ascending aorta dilatation (Acute) Acute medial meniscus tear of left knee (Acute) Osteoarthritis of left knee (Acute) Hyperlipidemia (Acute) HTN (hypertension) (Acute) Past Medical History Medical History Carcinoid tumor, rectal, benign Foot pain, bilateral HTN (hypertension) Hx of chest pain Hyperlipidemia 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 care use of drug Obesity (BMI 30-39.9) DOROTHY (obstructive sleep apnea) Psoriatic arthritis Rupture of left biceps tendon Seasonal allergies Snores Family History Family History Mother Irregular heart beat Surgical History Surgical History History of Achilles tendon repair History of appendectomy History of umbilical hernia repair Hx of colonoscopy History of Problems with Anesthesia: No Social History Social History Housing: House Alcohol intake: current Alcohol intake frequency: 3 or more drinks per day Alcohol type: beer and wine Patient Tobacco Use Status: Never used Tobacco e-Cigarette/Vaping Use: Never Used Second Hand Smoke Exposure: No Use of substances other than those prescribed or required for medical reasons: No Are you DNR?: No Advance Directives: No Advance Directives Information Provided: Yes service: No Current occupational status: employed 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6 mg PO DAILY PRN tab 11/07/21 01/18/22 Unknown History fexofenadine 180 mg tablet 180 mg PO DAILY PRN 11/07/21 01/18/22 Unknown History betamethasone dipropionate 0.05 % 1 appl TOPICAL DAILY 01/18/22 01/18/22 Unknown History lotion clobetasol 0.025 % topical cream 1 appl TOPICAL DAILY 01/18/22 01/18/22 Unknown History nystatin 100,000 unit/gram topical 1 appl TOPICAL DAILY PRN g 01/18/22 Unknown History cream clobetasol 0.05 % topical cream g TOPICAL 01/19/22 Unknown History Exam Exam Date and Time: January 19, 2022 0959 Narrative Narrative: ECHO 06/2021 Conclusions: - The left ventricular systolic function is normal.? The ? calculated ejection fraction is 61% by biplane method. ? - There is mild aortic annular dilatation, mild dilatation of the sinuses of Valsalva measuring 4.50 cm, and mild dilatation of the ascending aorta measuring 3.70 cm. ? Stress 10/2020 Protocol: LAMONT ? Max HR: 164 BPM? 99% of? Pred: 165 BPM Max BP: 210/098 mmHG Max Work Load: 10.1 METS ? Exercise stress test using Lamont protocol, total of 8 min 40 sec.? METS 10.10, ?TAPHR up to 98 %,? Test terminated as pt's BP up to 210/98.? Pt had no anginal ?sx.? EKG with no arrythmias, mild ST depressions seen inferiorly and lateraly. ?Hypertensive response to exercise.? Test reviewed with Dr. Farah.? 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 - Patient denies illicit drug use Foot pain, bilateral (Acute) Mallet deformity of right little finger (Acute) Polyarthralgia (Acute) Bilateral hand pain (Acute) DOROTHY (obstructive sleep apnea) (Acute). Uses CPAP machine Obesity (BMI 30-39.9) (Acute) Essential hypertension (Acute) Ascending aortic aneurysm (Acute)- 3.7cm Mild ascending aorta dilatation (Acute) Acute medial meniscus tear of left knee (Acute) Osteoarthritis of left knee (Acute) Hyperlipidemia (Acute) HTN (hypertension) (Acute) Past Medical History Medical History Carcinoid tumor, rectal, benign Foot pain, bilateral HTN (hypertension) Hx of chest pain Hyperlipidemia senior care use of drug Obesity (BMI 30-39.9) DOROTHY (obstructive sleep apnea) Psoriatic arthritis Rupture of left biceps tendon Seasonal allergies Snores Family History Family History Mother Irregular heart beat Family history of problems with anesthesia: No Surgical History Surgical History History of Achilles tendon repair History of appendectomy History of umbilical hernia repair Hx of colonoscopy Social History Social History Housing: House Alcohol intake: current Alcohol intake frequency: 3 or more drinks per day Alcohol type: beer and wine Patient Tobacco Use Status: Never used Tobacco e-Cigarette/Vaping Use: Never Used Second Hand Smoke Exposure: No Use of substances other than those prescribed or required for medical reasons: No Are you DNR?: No Advance Directives: No Advance Directives Information Provided: Yes service: No Current occupational status: employed 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6 mg PO DAILY PRN tab 11/07/21 01/18/22 Unknown History fexofenadine 180 mg tablet 180 mg PO DAILY PRN 11/07/21 01/18/22 Unknown History betamethasone dipropionate 0.05 % 1 appl TOPICAL DAILY 01/18/22 01/18/22 Unknown History lotion clobetasol 0.025 % topical cream 1 appl TOPICAL DAILY 01/18/22 01/18/22 Unknown History nystatin 100,000 unit/gram topical 1 appl TOPICAL DAILY PRN g 01/18/22 Unknown History cream clobetasol 0.05 % topical cream g TOPICAL 01/19/22 Unknown History Exam Height,Weight and Vital Signs: Height 6 ft 1 in Weight 104.78 kg Vital Signs Temp Pulse Resp BP Pulse Ox 97.4 F 88 16 149/89 H 97 01/22/22 06:22 01/22/22 06:22 01/22/22 06:22 01/22/22 06:22 01/22/22 06:22 Airway Mallampati Class: III TM Dist: >3cm Neck ROM: Full (Increased neck circumference ) Loose/Missing/Broken Teeth: No Heart: RRR Lungs: CTAB Assessment and Plan Assessment Anesthesia Assessment: Anesthesia Plan Discussed Final Anesthetic Review Family History of Problems with Anesthesia: No NPO: Yes ASA Class: III Final Preanesthetic Review: No Changes in Pt Med Stat, Meds/Allgs Chart Reviewed, Consent Obtained/Reviewed and Anes Risks/Benef Reviewed Patient Risk: Intermediate Procedure Risk: Low Assessment/Block/Sedation in SS: Assess/Block/Sedation-SS Anesthetic Plan Anesthetic Plan: GA Disposition: Standard PACU
[2022-01-22] VITALS (7 sets, daily range): BP systolic 121–149; BP diastolic 78–90; PULSE 84–92; RESP 14–16; TEMP 36.3; O2SAT 96–100; BMI 30.4
--- NOTE | ~2022-01-22 | FL_ITS ---
EXAMINATION: XR FLUOROSCOPY WITH IMAGES CLINICAL INFORMATION: Small finger extensor tendon repair. COMPARISON: Previous x-ray 01/09/2022. TECHNIQUE: Fluoroscopy performed by Edith Meyer MD Fluoroscopy time: 7.6 seconds DAP: 3476 Gy-cm2 Images: 2 FINDINGS: Images demonstrate a K-wire across the DIP joint of the 5th finger. There is anatomic alignment. No fracture is seen. FL/FL guidance in OR IMPRESSION: Fluoroscopic guidance for surgery to the right 5th finger.
[2022-01-22] MEDS: Lactated Ringers 1,000 ML 100 ML IVCONT (06:33)
--- NOTE | 2022-01-22 07:46 | MHC.SHP ---
Pre-Procedural Eval Section A Date of Service: 01/22/22 The patient is an INPATIENT: No Changes since office visit: No Cold of Flu in the past 2 weeks, No New Medical Problems, No Changes in Medication and No Patient answered all questions The History & Physical has been completed within 30 days and I have reviewed it.: Yes Section B Chief Complaint: Mallet finger of right finger(s) Allergies: Allergies Allergy/AdvReac Type Severity Reaction Status Date / Time No Known Allergies Allergy Verified 01/18/22 11:20 [No Known Allergies*] Plan I have reviewed the history and physical and performed a pertinent physical examination on my patient. No changes have occurred unless specified.
--- NOTE | 2022-01-22 07:46 | W.PM.OPN ---
Operative Note Operative Note Date of Service: 01/22/22 Narrative: Operative Note Narrative: Preop diagnosis: 1. Right small finger soft tissue mallet finger Postop diagnosis: Same Procedure: 1. Right small finger D IP joint extensor tendon repair 2. Right small finger D IP joint CRPP 3. Right ulnar nerve block Surgeon: Edith Meyer MD Anesthesia: General Findings: Extensor tendon repair Implants: 0.045 K-wire x1 Tourniquet time: Twenty-three minutes EBL: 5.0 ml Specimen: None Drains: None Complications: None Disposition: Brought to the recovery room in stable condition Plan: Follow-up in 10-14 days for wound check, suture removal . Teach pin site care. Provide with a volar splint to allow for PIP motion Anticipate K-wire removal 6+ weeks after surgery Indications: The patient is a 56 year old man with psoriatic arthritis and a spontaneous soft tissue mallet finger of the right small finger . The risks and benefits of operative treatment, including but not limited to risk of damage to blood vessels, nerves, tendons, infection, recurrence, persistent pain or numbness, incomplete resolution of preoperative symptoms, or need for further surgery were discussed with the patient and they wished to proceed with surgery. Procedure: Once consent was obtained patient was brought back to the operating suite and placed in the operating table in a supine position. . Perioperative antibiotics and anesthesia was administered by the anesthesia team. A tourniquet was applied to the proximal aspect of the right upper extremity and the limb was prepped and draped in a standard surgical fashion. The limb was elevated exsanguinated with Esmarch bandage and the tourniquet inflated to 250 mm of mercury for a total tourniquet time of 23 minutes. an S shaped incision was made over the dorsal aspect of the right small finger D IP joint. The incision was made through the skin to the subcutaneous tissues using a 15. Blade. Tenotomy scissors were then used to dissect down to the level of the extensor tendon and the D IP joint. The extensor tendon was found to have ruptured from the D IP joint, and retracted approximately 8-10 mm. It attempted to heal, with tissue bridging the gap. The patient however has A 45 degree mallet deformity. The D IP joint was reduced into an extended position. A 0.045 K-wire was then advanced retrograde through the tip of the distal phalanx, across the D IP joint and down to the base of the middle phalanx holding the D IP joint in an extended position. Fluoroscopic images were obtained to facilitate placement. Once satisfied with the position of this K-wire the pin was bent cut short and had a pin cap applied. I 1st excised about 5 mm of the healing tissue in the gap created by the retracted tendon. This was done using a 15. Blade. I then used tenotomy scissors to mobilize the tendon. I then repaired the extensor tendon to the insertion on the D IP joint using some 4-0 FiberWire suture. At this point the tourniquet was deflated and hemostasis obtained with a brief period of local pressure and bipolar electrocautery. The wound was copiously irrigated with normal saline. The skin edges were reapproximated with 5-0 nylon suture. An ulnar nerve block was performed by infiltrating about the ulnar nerve at the wrist With some 0.25% Marcaine for postop pain control. A sterile dressing and volar splint extending from the fingertips of the small and ring fingers to the base of the palm was applied. The patient appears to have tolerated the procedure well and with no complications. All digits were well vascularized conclusion of the case.
[2022-01-22] MEDS: Acetaminophen 325 MG TABLET 650 MG PO (10:08)
[2022-01-22] MEDS: oxyCODONE HCl Immed Release 5 MG TABLET PO (10:09)
== END 2022-01-22 11:09 ==
LOC: HO.SSS 05:52
PROVIDERS: PCP Physician Assistant; Visit Provider Orthopaedic Surgery
PROC: (CPT 26433; principal; 2022-01-22 07:30)
DX: M20.011 Mallet finger of right finger(s) (principal); L40.51 Distal interphalangeal psoriatic arthropathy; I10 Essential (primary) hypertension; E78.5 Hyperlipidemia, unspecified; G47.33 Obstructive sleep apnea (adult) (pediatric); D3A.026 Benign carcinoid tumor of the rectum; J30.2 Other seasonal allergic rhinitis; E66.9 Obesity, unspecified; Z68.31 Body mass index [BMI] 31.0-31.9, adult
CPT/HCPCS: 26433; 26776; J0690; J1100; J1885; J2250; J2370; J2405; J3010

== ENCOUNTER → 2022-01-26 12:58 | Outpatient (REF) | payer OTHER, SELFPAY ==
--- NOTE | 2022-01-26 13:02 | CA_ITS ---
Transthoracic Echocardiogram Amended Patient (Last, First, Middle): Jose Alberto Reina E Gender: Male Date of : 1965 Age: 56 Procedure Date: 01/26/2022 Procedure Type: Transthoracic Echocardiogram Location: OP Height: 185.42 cm Weight: 104.33 kg BSA: 2.28 m2 Heart Rate: bpm BP: 142 / 88 mmHg Sub Acute Care Nurse: TO Referring MD: Romel Starr MD [employer] Sales: Lane Figueredo MD Symptoms: I71.2 - Thoracic aortic aneurysm, without rupture Study Quality: Fair ECG Rhythm: Sinus Conclusions: - Normal left ventricular size, thickness, and systolic function. The visually estimated ejection fraction is between 60-65%. Diastolic function is normal for age. - Normal right ventricular cavity size and systolic function. - There is mild dilatation of the ascending aorta measuring 3.70 cm and mild dilatation of the aortic arch measuring 3.40 cm. Findings Left Ventricle Normal left ventricular size, thickness, and systolic function. The visually estimated ejection fraction is between 60-65%. Diastolic function is normal for age. Right Ventricle Normal right ventricular cavity size and systolic function. Atria The left atrium is mildly dilated. The right atrium is normal in size. Aortic Valve There is a normal trileaflet aortic valve. There is no aortic valve stenosis. There is no aortic valve regurgitation. Mitral Valve Normal mitral valve structure and function. There is no mitral valve regurgitation. There is no mitral valve stenosis. Pulmonic Valve Normal pulmonic valve structure and function. Tricuspid Valve Normal tricuspid valve structure and function. There is trace tricuspid valve regurgitation. Normal right atrial pressure. There is no evidence of pulmonary hypertension. Great Vessels There is mild dilatation of the ascending aorta measuring 3.70 cm and mild dilatation of the aortic arch measuring 3.40 cm. The visualized portions of the pulmonary artery and branches are normal. Venous The inferior vena cava is normal in size and collapses greater than 50% with inspiration. Pericardium/Pleural There is no evidence of pericardial effusion. Prior Study Comparison No significant change compared to prior study dated: 06/22/2021. Measurements 2D Linear Measurements IVSd: 1.05 0.6-0.9/0.6-1.0 cm LVIDd: 5.26 3.9-5.3/4.2-5.9 cm LVIDd Index: 2.31 2.4-3.2/2.2-3.1 cm/m2 LVIDs: 2.54 2.0-3.6 cm LVPWd: 0.93 0.7-1.1 cm LA Diam: 3.50 2.7-3.8/3.0-4.0 cm LAIDs Index: 1.54 1.5-2.3 cm/m2 LV Mass: 243.00 67-162/88-224 g LV Mass Index: 106.58 43-95/49-115 g/m2 LVOT Diam: 2.20 3.0+(-)1.3 cm 2D Volumes LA Vol: 30.50 2D Systolic Function EF 4C: 61.40 >55% EF 2C: 58.20 >55% EF BiP: 61.00 >55% Mitral Valve MV Pk E: 0.82 MV PK A: 0.71 MV Decel Time: 209.00 E/A: 1.20 E'Lateral: 11.60 E'Medial: 8.16 E/E' Med: 10.00 E/E' Lat: 7.10 PHT: 61.00 MVA PHT: 3.61 Decel Weston: 3.93 Aortic Valve AoV Pk Jose R: 1.66 AoV Mn Jose R: 1.25 AoV VTI: 0.39 AoV Pk Grad: 11.00 Aov Mn Grad: 7.00 MICHAEL Cont.VTI: 3.24 LVOT LVOT Pk Jose R: 1.56 LVOT Mn Jose R: 1.10 LVOT VTI: 0.33 LVOT Pk Grad: 10.00 LVOT Mn Grad: 6.00 LVOT Diam: 2.20 LVOT Area: 3.80 Diastolic Function MV Pk E: 0.82 MV Pk A: 0.71 E/A: 1.20 E'Medial: 8.16 E/E' Med: 10.00 E' Laterial: 11.60 E/E' Lat: 7.10 Right Ventricle TAPSE (mm): 23.00 TVS' Jose R: 15.00 Tricuspid Valve TR Pk Jose R: 2.02 TR Pk Grad: 16.00 RA Press: 3.00 RVSP: 19.00 Great Vessels Aorta Ao Asc: 3.70 2.1-3.4 cm Ao Arch: 3.40 Updated in Other Vendor System with Status of Final Lane Figueredo MD electronically signed on 02/01/2022 9:43:24 AM with status of Final
== END ==
LOC: HO.CARD 12:58
PROVIDERS: PCP Physician Assistant; Visit Provider Internal Medicine
DX: I71.2 Thoracic aortic aneurysm, without rupture (principal)
CPT/HCPCS: 93306

== ENCOUNTER → 2022-01-31 12:01 | Outpatient (BNVA) | payer OTHER, SELFPAY | PROVIDERS: Visit Provider Orthopaedic Surgery | DX: I71.2 Thoracic aortic aneurysm, without rupture (principal); Z47.89 Encounter for other orthopedic aftercare; I10 Essential (primary) hypertension; R07.89 Other chest pain; G47.33 Obstructive sleep apnea (adult) (pediatric); M20.011 Mallet finger of right finger(s); Z98.890 Other specified postprocedural states | CPT/HCPCS: 93005 ==

== ENCOUNTER 2022-03-07 08:15 | Outpatient (REF) | payer OTHER, SELFPAY ==
--- NOTE | ~2022-03-07 | XR_ITS ---
EXAMINATION: XR HAND, RIGHT CLINICAL INFORMATION: Fracture COMPARISON: Previous x-ray December 2021 TECHNIQUE: PA, lateral, and oblique views of the right hand. FINDINGS: There is a pin or K wire across the DIP joint of the fifth finger. Alignment is anatomic. No fracture or dislocation. The bones are osteopenic. Soft tissues are unremarkable. XR/XR hand RT min 3V IMPRESSION: K wire across the DIP joint of the fifth finger. Osteopenia.
== END 2022-03-07 08:16 | disposition home or self-care (01) ==
LOC: HO.HOSX 08:15
PROVIDERS: Visit Provider Orthopaedic Surgery
DX: M79.641 Pain in right hand (principal)
CPT/HCPCS: 73130

== ENCOUNTER 2022-03-28 12:55 | Outpatient (REF) | payer OTHER, SELFPAY ==
[2022-03-28 13:16] LABS: MANUAL DIFF FLAG NO
[2022-03-28 13:22] LABS: Basophils Absolute Auto 0.1 X10*3/uL (0.0-0.2); Basophils Percent Auto 0.9 % (0-2); Eosinophils Absolute Auto 0.3 X10*3/uL (0.0-0.4); Eosinophils Percent Auto 3.6 % (0-4); Hematocrit 45.7 % (42.0-52.0); Hemoglobin 15.6 g/dl (14.0-18.0); Imm Gran Abs Auto 0.05 X10*3/uL (0.00-0.03); Imm Gran Pct Auto 0.6 % (0.0-0.4); Lymphocytes Absolute Auto 1.4 X10*3/uL (1.2-4.9); Lymphocytes Percent Auto 15.9 % (20-40); Mean Corpuscular HGB Conc 34.1 g/dl (31.0-36.0); Mean Corpuscular Hemoglobin 30.6 pg (27.0-33.0); Mean Corpuscular Volume 89.6 fL (80.0-98.0); Mean Platelet Volume 9.5 fL (9.4-12.4); Monocytes Absolute Auto 0.7 X10*3/uL (0.1-1.2); Monocytes Percent Auto 8.6 % (2-11); Neutrophils Percent Auto 70.4 % (45-73); Platelet Count 303 X10*3/uL (160-400); Red Cell Distribution Width 12.6 % (11.0-16.0); White Blood Count 8.6 X10*3/uL (4.8-10.8)
[2022-03-28 14:18] LABS: Alanine Aminotransferase 24 U/L (0-40); Albumin Level 4.2 g/dL (3.5-5.0); Alkaline Phosphatase 71 U/L (39-117); Anion Gap 13 (12-20); Aspartate Amino Transferase 17 U/L (5-37); Bilirubin Total 0.5 mg/dL (0.0-1.0); Blood Urea Nitrogen 13 mg/dL (9-16); Calcium 9.3 mg/dL (8.4-10.2); Carbon Dioxide 25 mmol/L (22-29); Chloride 107 mmol/L (96-108); Estimated Glomerular Filt Rate > 60; Glucose Random 104 mg/dL (60-115); Potassium 4.8 mmol/L (3.3-5.1); Sodium 140 mmol/L (135-145); Total Protein 7.5 g/dL (6.5-8.0)
== END 2022-03-28 12:56 | disposition home or self-care (01) ==
LOC: HO.LAB 12:55
PROVIDERS: PCP Physician Assistant; Visit Provider Internal Medicine Rheumatology
DX: L40.50 Arthropathic psoriasis, unspecified (principal); Z79.899 Other long term (current) drug therapy
CPT/HCPCS: 36415; 80053; 85025

== ENCOUNTER 2022-05-02 08:15 | Outpatient (REF) | payer OTHER, SELFPAY ==
[2022-05-02 09:38] LABS: Hematocrit 48.5 % (42.0-52.0); Hemoglobin 16.5 g/dl (14.0-18.0); Mean Corpuscular Hemoglobin 30.3 pg (27.0-33.0); Mean Corpuscular Volume 89.2 fL (80.0-98.0); Mean Platelet Volume 9.9 fL (9.4-12.4); Platelet Count 278 X10*3/uL (160-400); Red Blood Count 5.44 X10*6/uL (4.60-5.80); Red Cell Distribution Width 13.1 % (11.0-16.0); White Blood Count 5.9 X10*3/uL (4.8-10.8)
[2022-05-02 10:08] LABS: Alanine Aminotransferase 33 U/L (0-40); Albumin Level 4.2 g/dL (3.5-5.0); Alkaline Phosphatase 69 U/L (39-117); Anion Gap 16 (12-20); Aspartate Amino Transferase 24 U/L (5-37); Bilirubin Total 0.3 mg/dL (0.0-1.0); Blood Urea Nitrogen 12 mg/dL (9-16); Calcium 9.1 mg/dL (8.4-10.2); Carbon Dioxide 24 mmol/L (22-29); Chloride 106 mmol/L (96-108); Cholesterol 220 mg/dL; Estimated Glomerular Filt Rate > 60; Glucose Fasting 101 mg/dL (60-99); HDL Cholesterol 50 mg/dL; LDL Cholesterol Calculated 134 mg/dl; Potassium 4.7 mmol/L (3.3-5.1); Sodium 141 mmol/L (135-145); Total Protein 7.5 g/dL (6.5-8.0); Triglycerides 181 mg/dL
[2022-05-02 10:32] LABS: Prostate Specific Antigen Scr 1.33 ng/mL (<0.05-4.0); TSH reflex Free T4 2.11 uIU/mL (0.32-4.0)
== END 2022-05-02 08:16 | disposition home or self-care (01) ==
LOC: HO.LAB 08:15
PROVIDERS: PCP Physician Assistant; Visit Provider Physician Assistant
DX: Z12.5 Encounter for screening for malignant neoplasm of prostate (principal); I10 Essential (primary) hypertension
CPT/HCPCS: 36415; 80053; 80061; 84153; 84443; 85027

== ENCOUNTER 2022-05-22 09:11 | Outpatient (REF) | payer OTHER, SELFPAY ==
--- NOTE | ~2022-05-22 | XR_ITS ---
EXAMINATION: XR HAND, RIGHT CLINICAL INFORMATION: M79.641 - Pain in right hand COMPARISON: Radiographs right hand 03/07/2022, 01/09/2022 TECHNIQUE: PA, lateral, and oblique views of the right hand. FINDINGS: The 5th finger K wire noted on prior imaging 03/07/2022 has been removed. There is no acute fracture or dislocation. Again, there is hyperflexion at the fifth DIP joint joint. There is questionable irregular contour, or lateral neck middle phalanx. Remainder of the bony structures are unremarkable. XR/XR hand RT min 3V IMPRESSION: Interval removal fifth finger K wires since prior imaging 01/09/2022. Hyperflexion fifth finger DIP joint.
== END 2022-05-22 09:12 | disposition home or self-care (01) ==
LOC: HO.HOSX 09:11
PROVIDERS: Visit Provider Orthopaedic Surgery
DX: M79.641 Pain in right hand (principal)
CPT/HCPCS: 73130

== ENCOUNTER → 2022-08-08 11:03 | Outpatient (BNVA) | payer OTHER, SELFPAY | PROVIDERS: PCP Physician Assistant; Visit Provider Internal Medicine Rheumatology | DX: Z23 Encounter for immunization (principal); L40.50 Arthropathic psoriasis, unspecified; M20.011 Mallet finger of right finger(s); Z79.899 Other long term (current) drug therapy | CPT/HCPCS: 90471; 90686 ==

== ENCOUNTER → 2022-08-16 11:02 | Outpatient (BNVA) | payer OTHER, SELFPAY | PROVIDERS: PCP Physician Assistant; Visit Provider Internal Medicine Rheumatology | DX: Z79.4 Long term (current) use of insulin (principal) ==

== ENCOUNTER → 2022-09-10 11:28 | Outpatient (BNVA) | payer OTHER, SELFPAY | PROVIDERS: PCP Physician Assistant; Visit Provider Internal Medicine | DX: Z13.89 Encounter for screening for other disorder (principal) ==

== ENCOUNTER 2023-01-01 08:38 | Outpatient (REF) | payer OTHER, SELFPAY ==
[2023-01-01 09:29] LABS: MANUAL DIFF FLAG NO
[2023-01-01 09:37] LABS: Basophils Absolute Auto 0.1 X10*3/uL (0.0-0.2); Basophils Percent Auto 1.5 % (0-2); Eosinophils Absolute Auto 0.3 X10*3/uL (0.0-0.4); Eosinophils Percent Auto 5.1 % (0-4); Hematocrit 49.1 % (42.0-52.0); Hemoglobin 17.1 g/dl (14.0-18.0); Imm Gran Abs Auto 0.05 X10*3/uL (0.00-0.03); Imm Gran Pct Auto 0.8 % (0.0-0.4); Lymphocytes Absolute Auto 1.7 X10*3/uL (1.2-4.9); Lymphocytes Percent Auto 27.8 % (20-40); Mean Corpuscular HGB Conc 34.8 g/dl (31.0-36.0); Mean Corpuscular Hemoglobin 31.4 pg (27.0-33.0); Mean Corpuscular Volume 90.3 fL (80.0-98.0); Mean Platelet Volume 9.4 fL (9.4-12.4); Monocytes Absolute Auto 0.7 X10*3/uL (0.1-1.2); Monocytes Percent Auto 11.7 % (2-11); Neutrophils Absolute Auto 3.2 x10*3/uL (2.0-8.3); Neutrophils Percent Auto 53.1 % (45-73); Platelet Count 261 X10*3/uL (160-400); Red Blood Count 5.44 X10*6/uL (4.60-5.80); Red Cell Distribution Width 12.6 % (11.0-16.0); White Blood Count 6.1 X10*3/uL (4.8-10.8)
[2023-01-01 10:00] LABS: C Reactive Protein < 0.10 mg/dL (< or = 0.50)
[2023-01-01 10:19] LABS: Erythrocyte Sedimentation Rate 1 MM/HR (0-15)
== END 2023-01-01 08:39 | disposition home or self-care (01) ==
LOC: HO.LAB 08:38
PROVIDERS: PCP Physician Assistant; Visit Provider Internal Medicine Rheumatology
DX: M20.011 Mallet finger of right finger(s) (principal); M17.12 Unilateral primary osteoarthritis, left knee; L40.50 Arthropathic psoriasis, unspecified; Z79.899 Other long term (current) drug therapy
CPT/HCPCS: 36415; 85025; 85652; 86140

== ENCOUNTER → 2023-01-25 09:50 | Outpatient (REF) | payer OTHER, SELFPAY ==
--- NOTE | 2023-01-25 09:52 | CA_ITS ---
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 The calculated ejection fraction is 69% by biplane method. - Severe focal hypertrophy of the basal septum. - No obvious valvular pathology seen on this study. - There is mild dilatation of the sinuses of Valsalva measuring 4.48 cm and mild dilatation of the ascending aorta measuring 3.70 cm. Findings Left Ventricle Normal left ventricular cavity size. There is mildly increased left ventricular wall thickness. The left ventricular systolic function is normal. The calculated ejection fraction is 69% by biplane method. There is no evidence of regional wall motion abnormalities. Diastolic function is normal for age. Severe focal hypertrophy of the basal septum. Right Ventricle Normal right ventricular cavity size and systolic function. Atria Both atria are normal in size. Aortic Valve There is a normal trileaflet aortic valve. There is mild calcification of the aortic valve. There is no aortic valve stenosis. There is trace (trivial) aortic valve regurgitation. Mitral Valve The mitral valve appears normal. There is no mitral valve regurgitation. There is no mitral valve stenosis. Pulmonic Valve The pulmonic valve is likely normal. Tricuspid Valve There is trace tricuspid valve regurgitation. There is no evidence of pulmonary hypertension. Great Vessels There is mild dilatation of the sinuses of Valsalva measuring 4.48 cm and mild dilatation of the ascending aorta measuring 3.70 cm. Venous The inferior vena cava is normal in size and collapses greater than 50% with inspiration. Pericardium/Pleural There is no evidence of pericardial effusion. Prior Study Comparison No significant change compared to prior study dated: 01/26/2022. Recommendations, Care & Conclusions No obvious valvular pathology seen on this study. Measurements 2D Linear Measurements IVSd: 1.89 0.6-0.9/0.6-1.0 cm LVIDd: 3.62 3.9-5.3/4.2-5.9 cm LVIDd Index: 1.57 2.4-3.2/2.2-3.1 cm/m2 LVIDs: 2.56 2.0-3.6 cm LVPWd: 1.11 0.7-1.1 cm LA Diam: 4.00 2.7-3.8/3.0-4.0 cm LAIDs Index: 1.73 1.5-2.3 cm/m2 LV Mass: 252.39 67-162/88-224 g LV Mass Index: 109.26 43-95/49-115 g/m2 LVOT Diam: 2.30 3.0+(-)1.3 cm 2D Systolic Function EF 4C: 66.30 >55% EF 2C: 72.00 >55% EF BiP: 68.90 >55% Mitral Valve MV VTI: 0.39 MV Pk Jose R: 1.23 MV Mn Jose R: 0.58 MV Pk Grad: 6.00 MV Mn Grad: 2.00 MV Pk E: 0.98 MV PK A: 0.42 MV Decel Time: 214.00 E/A: 2.30 E'Lateral: 10.60 E'Medial: 8.70 E/E' Med: 11.30 E/E' Lat: 9.30 PHT: 63.00 MVA PHT: 3.49 MVA Continuity: 3.73 Decel [place]: 4.58 Aortic Valve AoV Pk Jose R: 1.79 AoV Mn Jose R: 1.30 AoV VTI: 0.37 AoV Pk Grad: 13.00 Aov Mn Grad: 8.00 MICHAEL Cont.VTI: 3.91 LVOT LVOT Pk Jose R: 1.63 LVOT Mn Jose R: 1.19 LVOT VTI: 0.35 LVOT Pk Grad: 11.00 LVOT Mn Grad: 6.00 LVOT Diam: 2.30 LVOT Area: 4.15 Diastolic Function MV Pk E: 0.98 MV Pk A: 0.42 E/A: 2.30 E'Medial: 8.70 E/E' Med: 11.30 E' Laterial: 10.60 E/E' Lat: 9.30 Right Ventricle TAPSE (mm): 20.70 TVS' Jose R: 12.40 Tricuspid Valve TR Pk Jose R: 2.50 TR Pk Grad: 25.00 RA Press: 3.00 RVSP: 28.00 Great Vessels Aorta Sinus of Valsalva: 4.48 2.0-3.5 cm Ao Asc: 3.70 2.1-3.4 cm Updated in Other Vendor System with Status of Final Romel Starr MD electronically signed on 01/27/2023 12:15:03 PM with status of Final
== END ==
LOC: HO.CARD 09:50
PROVIDERS: PCP Physician Assistant; Visit Provider Internal Medicine
DX: I71.20 Thoracic aortic aneurysm, without rupture, unspecified (principal)
CPT/HCPCS: 93306

== ENCOUNTER → 2023-02-01 15:41 | Outpatient (BNVA) | payer OTHER, SELFPAY | PROVIDERS: PCP Physician Assistant; Visit Provider Urology ==

== ENCOUNTER → 2023-02-04 11:07 | Outpatient (BNVA) | payer OTHER, SELFPAY | PROVIDERS: PCP Physician Assistant; Referring Provider Physician Assistant; Visit Provider Internal Medicine | DX: R07.89 Other chest pain (principal); I71.20 Thoracic aortic aneurysm, without rupture, unspecified; I10 Essential (primary) hypertension | CPT/HCPCS: 93005 ==

== ENCOUNTER 2023-03-25 10:40 | Outpatient (AMB) | payer OTHER, SELFPAY ==
--- NOTE | 2023-03-25 10:42 | MHC.OFFVIS ---
Intake Vital Signs 03/25/23 10:44 Height 6 ft 1 in Weight 236 lb 15.951 oz BMI 31.3 BP 124/72 Blood Pressure Location Lt brachial Position Sitting Pulse 91 Pulse Source Pulse Oximeter Pulse Oximetry (%) 96 Oxygen Delivery Method Room Air Intake Visit Reasons: Obstructive sleep apnea Intake Note: Pt presents today for a 6 month follow up for his obstructive sleep apnea. He reports the CPAP has been working well. He is concerned after getting diagnosed with strep throat and has some technical questions about the machine. He wonders if the CPAP caused the strep throat through poor cleaning. He also bought a travel CPAP machine and would like to discuss how to connect the data from this new machine with his older one. Allergies No Known Allergies [No Known Allergies*] Allergy (Verified 03/25/23 10:49) Medication List - Last Reconciled 03/25/23 by Chastity Bond MD adalimumab (Humira(CF) Pen) 40 mg (0.4 mL) subcut Q2W amlodipine 2.5 mg PO DAILY 90 days aspirin (Adult Low Dose Aspirin) 81 mg PO DAILY betamethasone dipropionate 0.05% 1 appl topical DAILY PRN cholecalciferol (vitamin D3) (Vitamin D3) 25 mcg PO DAILY clotrimazole-betamethasone 1-0.05 % 1 appl topical BID 4 weeks colchicine 0.6 mg PO DAILY PRN fexofenadine 180 mg PO DAILY PRN nystatin 1 appl topical DAILY PRN omega 2-bpw-zul-fish oil 1,000 mg (120 mg-180 mg) (Fish Oil) 1 cap PO DAILY valsartan 320 mg PO DAILY Do you need a note to return to daycare/school/sports/work: No HPI Obstructive sleep apnea HPI Details This 58 years old gentleman, is here for follow-up after 6 months. He has moderate obesity, and obstructive sleep apnea for the past many years. He uses his CPAP very regularly, and gets good sleep. He travels frequently. So he has bought a portable unit ( AIR-[employer] ) which he uses whenever he travels. He say is it works very well, except that it does not provide as much to medication as the regular CPAP device. Recently he had a strep throat infection and wonders if the use of CPAP had promoted the infection. Weight new[place] there has been no special change. He also hasPsoriatic arthritis and has been started on Humira, injections. This may be another reason why he is more prone to get respiratory infection. [facility] Medical History Carcinoid tumor, rectal, benign Foot pain, bilateral HTN (hypertension) Hx of chest pain Hyperlipidemia senior care use of drug Obesity (BMI 30-39.9) DOROTHY (obstructive sleep apnea) Psoriatic arthritis Rupture of left biceps tendon Seasonal allergies Snores Surgical History History of Achilles tendon repair History of appendectomy History of umbilical hernia repair Hx of colonoscopy Family History Mother Irregular heart beat Social History Housing: House Alcohol intake: current Alcohol intake frequency: 3 or more drinks per day Alcohol type: beer and wine Patient Tobacco Use Status: Never used Tobacco e-Cigarette/Vaping Use: Never Used Second Hand Smoke Exposure: No service: No Current occupational status: employed 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 Cognitive needs: No Hearing needs: No Vision needs: No Review of Systems Const All systems reviewed & are unremarkable except as noted in HPI and below Eyes Reports no additional complaints ENT Reports nasal congestion (Mild occasional) Card Denies chest pain (History of , not at present), Denies irregular heart rhythm and Denies leg edema Resp Reports no additional complaints, Denies cough and Denies wheezing GI Reports no additional complaints Reports no additional complaints Musc Reports arthralgias (Shoulder and elbow) Skin/Breast Reports system reviewed and no additional complaints, except as documented Neuro Reports no additional complaints Psych Reports no additional complaints Aller/Immun Denies wheezing Physical Exam Vital Signs: Last Vital Signs Pulse 91 03/25/23 10:44 BP 124/72 03/25/23 10:44 Pulse Ox 96 03/25/23 10:44 Oxygen Delivery Method Room Air 03/25/23 10:44 BMI result Body Mass Index 31.3 Const General: healthy appearing (Except for being overweight), comfortable, no acute distress, alert and awake Orientation/consciousness: patient oriented x3 HEENT Head: Yes normal to inspection General nose exam: No nasal polyps present and No nasal discharge present Face and sinus: Yes sinuses nontender Mouth: oropharynx abnormals (Narrow and somewhat crowded, Mallampati class 4) Throat: Yes posterior oropharynx normal Eyes General: appearance normal, both eyes and all related structures Neck Neck: Yes normal visual inspection, Yes no lymphadenopathy, Yes trachea midline, Yes no JVD and Yes other (Neck circumference 18 in) Thyroid: Thyroid normal Chest Chest palpation & inspection: normal inspection of the chest, normal palpation of entire chest wall and no tenderness Resp Effort & Inspection: normal respiratory effort Auscultation: clear to auscultation bilaterally, no crackles and no wheezes Percussion: percussion normal Cardio Palpation: normal PMI Rate: regular rate Rhythm: regular rhythm Heart sounds: no gallops and no murmurs Peripheral pulses: Peripheral pulses 2+ throughout GI Palpation (GI): Soft to palpation, nontender, No hepatosplenomegaly present and no masses Auscultation: normal bowel sounds Back/Spine/Pelvis Thoracic/Lumbar Spine: thoracic and lumbar spine normal to inspection Skin General skin exam: no rashes or lesions noted Neuro General: patient oriented x3 and no focal motor deficits Cranial nerves: Yes CN's II-XII intact bilaterally Extrem General: Yes normal to inspection, Yes no clubbing, cyanosis or edema and Yes no calf tenderness Psych Appearance: grossly normal and well kempt Speech and movement: Normal speech and movement present Results Reviewed Results Reviewed: Compliance report for the la USED NIGHTS , 90% . FOR THE REST 3 NIGHTS HE WAS TRAVELING AND USE THE PORTABLE UNIT. USES NASAL PILLOWS WHICH IS VERY COMFORTABLE, PRESSURE SETTING 6-20 CM, HIS 95 PERCENTILE PRESSURE IS 9-10 CM , RESIDUAL AHI ONLY 0.4. Assessment & Plan Assessment & Plan (1) Obesity (BMI 30-39.9): Comment: This gentleman is moderately obese. He is fully aware of this problem. He tries to remain very active, and watches his diet Code(s): E66.9 - Obesity, unspecified (2) DOROTHY (obstructive sleep apnea): Comment: PATIENT IS A KNOWN CASE OF OBSTRUCTIVE SLEEP APNEA, HE IS VERY REGULAR USER OF THE CPAP. * I TOLD HIM THAT LONG HE IS CLEANING HIS CPAP DEVICE ACCORDING TO INSTRUCTIONS, HE IS NOT APT TO INCREASE THE INCIDENCE OF RESPIRATORY INFECTIONS. HOWEVER HE IS MORE PRONE TO GET RESPIRATORY INFECTIONS DUE TO THE FACT THAT HE IS ON HUMIRA THERAPY, FOR PSORIATIC ARTHRITIS. I LOOKED AT HIS PORTABLE CPAP UNIT, IT IS VERY COMPACT AND CONVENIENT TO USE. HE DOES PROVIDE DAY-TO-DAY COMPLIANCE DATA . WE WILL LOOK INTO IF THE THE COMPLIANCE DATA CAN BE INTEGRATED WITH THE COMPLIANCE REPORT OF HIS REGULAR CPAP. Code(s): G47.33 - Obstructive sleep apnea (adult) (pediatric) Coding Level of Care Code Est Pt Level 3 (98035) Diagnoses Obesity (BMI 30-39.9) E66.9 DOROTHY (obstructive sleep apnea) G47.33
[2023-03-25 10:44] VITALS: BP 124/72; PULSE 91; O2SAT 96; BMI 31.3
== END 2023-03-25 11:15 | disposition home or self-care (01) ==
PROVIDERS: PCP Physician Assistant; Visit Provider Internal Medicine
DX: E66.9 Obesity, unspecified (principal); G47.33 Obstructive sleep apnea (adult) (pediatric)
CPT/HCPCS: 99213

== ENCOUNTER → 2023-03-25 10:40 | Outpatient (BNVA) | payer OTHER, SELFPAY | PROVIDERS: PCP Physician Assistant; Visit Provider Internal Medicine ==

== ENCOUNTER 2023-04-04 10:53 | Outpatient (AMB) | payer OTHER, SELFPAY ==
[2023-04-04 11:06] VITALS: BP 138/86; PULSE 95; TEMP 36.4; O2SAT 95; BMI 30.8
--- NOTE | 2023-04-04 11:06 | A.OFFVIS_ITS ---
Intake Vital Signs 04/04/23 11:06 Height 6 ft 1 in Weight 233 lb 11.04 oz BMI 30.8 BP 138/86 Blood Pressure Location Rt brachial Position Sitting Pulse 95 Pulse Source Pulse Oximeter Temp 97.5 F Temp Source Skin Pulse Oximetry (%) 95 Intake Visit Reasons: Rash Intake Note: Pt seen today for rash. He states it popped up on Saturday. He is on Humira, reports he had strep 3wks ago was on abx, finished abx last and resumed Humira Saturday, woke up next day with spots on legs. Equipment Detailer Required: No Accompanied by: Self / Same As Patient Allergies No Known Allergies [No Known Allergies*] Allergy (Verified 04/04/23 11:07) HPI HPI Comments History of Present Illness Details The patient presents today with complaint of skin rash. This developed 2 days ago. He had taken his Humira shot for his psoriatic arthritis on Saturday. Prior to that he had finished a 10 day course of antibiotics for strep pharyngitis on the previous . That infection was characterized by a sore throat. He did see urgent care. He said they did some kind of throat swab, told him he had strep and gave him a penicillin drug. He had some loose stools with that but otherwise no side effects. Presently has no shortness of breath, chest pain, lightheadedness, fever, chills, or other skin rash. The spots on the legs have remained the same since the came out 2 days ago. He has a picture them and is phone and that seems to be assessment 1 would make from looking at the picture and looking at the legs today. The joints were a bit more achy here than usual this week. He thinks that was because he held the Humira for a about a week and that delayed his dosing. The joints feel fine today. [facility] Medical History (Updated 04/04/23 @ 11:21 by Montez Galdamez MD) Carcinoid tumor, rectal, benign Foot pain, bilateral HTN (hypertension) Hx of chest pain Hyperlipidemia group home use of drug Obesity (BMI 30-39.9) DOROTHY (obstructive sleep apnea) Psoriatic arthritis Rupture of left biceps tendon Seasonal allergies Snores Surgical History History of Achilles tendon repair History of appendectomy History of umbilical hernia repair Hx of colonoscopy Family History Mother Irregular heart beat Social History Housing: House Alcohol intake: current Alcohol intake frequency: 3 or more drinks per day Alcohol type: beer and wine Patient Tobacco Use Status: Never used Tobacco e-Cigarette/Vaping Use: Never Used Second Hand Smoke Exposure: No service: No Current occupational status: employed 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 Card Details: Negative chest pain, edema and syncope Resp Details: Negative for SOB, cough and wheezing GI Details: Negative indigestion/heartburn, nausea, abdominal pain, bowel changes, diarrhea, constipation and bloody stool. Details: Negative for dysuria, hematuria, nocturia, decreased force/flow and genital discharge Skin/Breast Details: Nonpruritic rashes noted above. Negative for itching hives, Raynaud's symptoms, sun sensitivity, and skin cancer Neuro Details: Negative for epilepsy, palsy, stroke, changes in speech, tingling and weakness Psych Details: Negative for anxiety, depression and stress Endo Details: Negative for polyuria and polydypsia Ankit/Lymph Details: Negative for excessive bruising or bleeding. Physical Exam Vital Signs: Last Vital Signs Temp 97.5 F 04/04/23 11:06 Pulse 95 04/04/23 11:06 BP 138/86 04/04/23 11:06 Pulse Ox 95 04/04/23 11:06 BMI result Body Mass Index 30.8 APPEARANCE: Patient in no acute distress EYES no redness, pupils equal and reactive to light, eyelids normal EARS: External ear normal, canal clear and tympanic membrane normal. NOSE/SINUS: Airflow through both nares, no nasal discharge, no bleeding THROAT: Oral mucosa moist, no ulcerations NECK: No thyromegaly or masses, no adenopathy, trachea midline. HEART: Regulrar rhythm, S1-S2 heard, no murmurs, rubs or gallops. LUNG: Clear to percussion and auscultation ABD: Normal bowel sounds, no organomegaly, masses or tenderness. EXTREMITIES: No edema, no calf tenderness, normal peripheral pulses. SKIN: There are small, perhaps 2 mm papules scattered through the skin on the lower legs. None of these are confluent, tender, or blistering. Most of them are slightly palpable and summer flat. JOINT EXAM: Cervical Spine:.? Full range of motion without pain; no tenderness. Thoracic Spine:.? No scoliosis.? No tenderness on palpation. Lumbar Spine:.? Alignment normal.? Full range of motion without pain, no tenderness. Chest Wall:.? No tenderness, swelling, increased warmth or erythema. Hands:? Right:? There is no swelling or tenderness at the base of the thumb.? There is mild swelling at the 1st 2 MCP joints.? The MCP are not tender.? There is no flexor tendon tenderness or triggering.? There is flexion deformity at the 5th DIP.? He seems to have no ability to extend the distal phalanx in that finger. There is no other tenderness or swelling in the hand joints.? Left:? Mild bony enlargement without tenderness at the base of the thumb.? ?There is slight swelling without tenderness at the thumb MCP.? Other MCP joints and PIP joints have no swelling or tenderness.? He has no flexor tendon triggering, thenar atrophy or sensory loss. Wrists:? Left:? There is no pain with flexion extension is 75 degrees.? There is no tenderness, swelling, redness or warmth.? Negative Phalen's and Tinel signs.? Right:Normal pain-free range of motion without tenderness, swelling, increased warmth or erythema.? Negative Phalen's and Tinel signs. Elbows:.? Right:? Normal pain-free range of motion without tenderness, swelling, increased warmth or erythema.? Left:? no discomfort at full extension.? There is some slight thickening over the olecranon bursa without tenderness or swelling.? No redness or warmth.? No tenderness or swelling over the joint space.? There is some mild lateral epicondylar tenderness. Shoulders:.?? Full range of motion without pain. No tenderness, weakness, swelling, increased warmth or erythema. Hips:.? Full range of motion without pain. Hip bursa:.? No tenderness. Knees:? Left:? Normal pain-free range of motion with some minimal medial compartment tenderness.? There is no effusion, redness or warmth.? No popliteal swelling or tenderness.? Right:? Normal pain-free range of motion with mild patellofemoral crepitus but no effusion, tenderness, swelling, increased warmth or erythema.? Ankles:? Left:? No discomfort with extremes of AP motion.? ? The distal Achilles tendon has a firm, nodular mass.? It is slightly tender but not red, warm or fluctuant.?? Right:? Slight discomfort over the Achilles tendon with extremes of motion.? Minimal tenderness but no swelling, increased warmth or erythema. Feet:? Right:? There is mild to moderate bony enlargement with no tenderness at the 1st MTP joint.? There is fusiform enlargement but no tenderness of the 2nd toe consistent with some dactylitis.? Some slight thickening at the 5th MTP but it is not tender.? A few of the nails have some dystrophic changes.? Left:? Mild bony enlargement without tenderness at the 1st MTP.? There is no swelling or t enderness of the other MTP joints or the toes.? The 5th toe slides underneath the 4th toe and is not tender.? ? ? 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 This came on with 1 phase so far. He does not seem ill in terms of systemic symptoms and does not have any signs on exam of an active infection. I suspect this could be a viral rash related to his pharyngitis. He might have had additional infection with a virus that was not tested for. One would not think it was due to the antibiotics since he did not get it in till he was off the antibiotic for 4 days. It did come on the day after the Humira administration but has not progressed and I would think the Humira would still be in his system for now. We will check some blood work looking for abnormalities with renal function, liver function, CBC and inflammatory markers. I told him that if the rash subsides he could do another dose of the Humira as planned in 12 days or so with the usual interval 14 days between the injections. Orders: Orders Comprehensive Met. Panel Today R21 - Rash and other nonspecific skin eruption, Z79.899 - Other [place] [facility] (current[facility] drug therapy C Reactive Protein Today R21 - Rash and other nonspecific skin eruption, Z79.899 - Other terminal clerk (current) drug therapy Protein Creatinine Ratio, Ur Today R21 - Rash and other nonspecific skin eruption, Z79.899 - Other [place] [facility] (current) drug therapy Complete Blood Count Auto Diff Today R21 - Rash and other nonspecific skin eruption, Z79.899 - Other terminal clerk (current) drug therapy Erythrocyte Sedimentation Rate Today R21 - Rash and other nonspecific skin eruption, Z79.899 - Other [place] [facility] (current) drug therapy Coding Level of Care Code Est Pt Level 3 (64285) Diagnoses 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
== END 2023-04-04 11:23 | disposition home or self-care (01) ==
PROVIDERS: PCP Physician Assistant; Visit Provider Internal Medicine Rheumatology
DX: Z79.899 Other long term (current) drug therapy (principal); L40.50 Arthropathic psoriasis, unspecified; R21 Rash and other nonspecific skin eruption
CPT/HCPCS: 99213

== ENCOUNTER → 2023-04-04 10:53 | Outpatient (BNVA) | payer OTHER, SELFPAY | PROVIDERS: PCP Physician Assistant; Visit Provider Internal Medicine Rheumatology ==

== ENCOUNTER 2023-04-04 12:34 | Outpatient (REF) | payer OTHER, SELFPAY ==
[2023-04-04 13:15] LABS: MANUAL DIFF FLAG NO
[2023-04-04 13:44] LABS: Basophils Absolute Auto 0.1 X10*3/uL (0.0-0.2); Basophils Percent Auto 1.6 % (0-2); Eosinophils Absolute Auto 0.2 X10*3/uL (0.0-0.4); Eosinophils Percent Auto 2.1 % (0-4); Hematocrit 47.7 % (42.0-52.0); Hemoglobin 16.3 g/dl (14.0-18.0); Imm Gran Abs Auto 0.09 X10*3/uL (0.00-0.03); Imm Gran Pct Auto 1.3 % (0.0-0.4); Lymphocytes Absolute Auto 2.1 X10*3/uL (1.2-4.9); Mean Corpuscular HGB Conc 34.2 g/dl (31.0-36.0); Mean Corpuscular Volume 90.7 fL (80.0-98.0); Monocytes Absolute Auto 0.6 X10*3/uL (0.1-1.2); Platelet Count 358 X10*3/uL (160-400); Red Blood Count 5.26 X10*6/uL (4.60-5.80); Red Cell Distribution Width 11.7 % (11.0-16.0)
[2023-04-04 14:19] LABS: Alanine Aminotransferase 43 U/L (0-40); Albumin Level 4.2 g/dL (3.5-5.0); Alkaline Phosphatase 55 U/L (39-117); Anion Gap 18 (12-20); Aspartate Amino Transferase 21 U/L (5-37); Bilirubin Total 0.5 mg/dL (0.0-1.0); Blood Urea Nitrogen 10 mg/dL (9-16); C Reactive Protein 0.35 mg/dL (< or = 0.50); Carbon Dioxide 23 mmol/L (22-29); Chloride 106 mmol/L (96-108); Estimated Glomerular Filt Rate > 60; Glucose Random 149 mg/dL (60-115); Potassium 4.5 mmol/L (3.3-5.1); Sodium 142 mmol/L (135-145)
[2023-04-04 14:31] LABS: Erythrocyte Sedimentation Rate 7 MM/HR (0-15)
[2023-04-04 14:50] LABS: Creatinine Urine 261.82 mg/dL; Total Protein Urine Random 26 mg/dL (<12)
== END 2023-04-04 12:35 | disposition home or self-care (01) ==
LOC: HO.10HDL 12:34
PROVIDERS: Visit Provider Internal Medicine Rheumatology
DX: R21 Rash and other nonspecific skin eruption (principal); Z79.899 Other long term (current) drug therapy
CPT/HCPCS: 36415; 80053; 84156; 85025; 85652; 86140

== ENCOUNTER 2023-05-11 09:43 | Outpatient (REF) | payer OTHER, SELFPAY ==
[2023-05-11 10:31] LABS: Hematocrit 46.5 % (42.0-52.0); Hemoglobin 16.4 g/dl (14.0-18.0); Mean Corpuscular HGB Conc 35.3 g/dl (31.0-36.0); Mean Corpuscular Hemoglobin 31.6 pg (27.0-33.0); Mean Corpuscular Volume 89.6 fL (80.0-98.0); Mean Platelet Volume 9.6 fL (9.4-12.4); Platelet Count 255 X10*3/uL (160-400); Red Blood Count 5.19 X10*6/uL (4.60-5.80); Red Cell Distribution Width 12.3 % (11.0-16.0)
[2023-05-11 11:20] LABS: Alanine Aminotransferase 49 U/L (0-40); Albumin Level 4.1 g/dL (3.5-5.0); Alkaline Phosphatase 48 U/L (39-117); Anion Gap 12 (12-20); Aspartate Amino Transferase 25 U/L (5-37); Bilirubin Total 0.8 mg/dL (0.0-1.0); Blood Urea Nitrogen 11 mg/dL (9-16); Calcium 9.3 mg/dL (8.4-10.2); Carbon Dioxide 26 mmol/L (22-29); Chloride 105 mmol/L (96-108); Cholesterol 226 mg/dL (<200); Estimated Glomerular Filt Rate > 60; Glucose Fasting 110 mg/dL (60-99); HDL Cholesterol 48 mg/dL (>40); LDL Cholesterol Calculated 140 mg/dL (<100); Potassium 4.4 mmol/L (3.3-5.1); Sodium 139 mmol/L (135-145); Total Protein 7.4 g/dL (6.5-8.0); Triglycerides 192 mg/dL (<150)
[2023-05-11 11:32] LABS: Prostate Specific Antigen Scr 1.04 ng/mL (<0.05-4.0)
[2023-05-11 11:37] LABS: TSH reflex Free T4 1.62 uIU/mL (0.32-4.0)
== END 2023-05-11 09:44 | disposition home or self-care (01) ==
LOC: HO.LAB 09:43
PROVIDERS: PCP Physician Assistant; Visit Provider Physician Assistant
DX: Z12.5 Encounter for screening for malignant neoplasm of prostate (principal); I10 Essential (primary) hypertension; E78.2 Mixed hyperlipidemia
CPT/HCPCS: 36415; 80053; 80061; 84153; 84443; 85027

== ENCOUNTER 2023-05-13 13:32 | Outpatient (REF) | payer OTHER, SELFPAY ==
[2023-05-13 14:47] LABS: Creatinine Urine 84.52 mg/dL; Microalbumin Urine < 5.0 mg/L
== END 2023-05-13 13:33 | disposition home or self-care (01) ==
LOC: HO.LNP 13:32
PROVIDERS: Visit Provider Physician Assistant
DX: I10 Essential (primary) hypertension (principal); R73.09 Other abnormal glucose; E78.2 Mixed hyperlipidemia
CPT/HCPCS: 82043; 82570

== ENCOUNTER 2023-05-13 15:29 | Outpatient (AMB) | payer OTHER, SELFPAY ==
[2023-05-13 15:36] VITALS: BP 128/88; PULSE 88; RESP 16; O2SAT 99; BMI 30.9
--- NOTE | 2023-05-13 15:36 | A.OFFPC_ITS ---
Vital Signs 05/13/23 15:36 Height 6 ft 1 in Weight 234 lb 2 oz BMI 30.9 BP 128/88 Blood Pressure Location Lt brachial Position Sitting Respiration 16 Pulse 88 Pulse Source Pulse Oximeter Pulse Oximetry (%) 99 Oxygen Delivery Method Room Air Intake Visit Reasons: Annual Exam Intake Note: Patient is here today for a physical. Enterprise Services Manager Required: No Accompanied by: Self / Same As Patient Allergies No Known Allergies [No Known Allergies*] Allergy (Verified 05/13/23 16:08) Medication List - Last Reconciled 05/13/23 by Cameron Man PA-C adalimumab (Humira(CF) Pen) 40 mg (0.4 mL) subcut Q2W amlodipine 2.5 mg PO DAILY 90 days aspirin (Adult Low Dose Aspirin) 81 mg PO DAILY betamethasone dipropionate 0.05% 1 appl topical DAILY PRN cholecalciferol (vitamin D3) (Vitamin D3) 25 mcg PO DAILY clotrimazole-betamethasone 1-0.05 % 1 appl topical BID 4 weeks fexofenadine 180 mg PO DAILY PRN nystatin 1 appl topical DAILY PRN omega 4-eky-itc-fish oil 1,000 mg (120 mg-180 mg) (Fish Oil) 1 cap PO DAILY valsartan 320 mg PO DAILY Tobacco use date assessed: 05/13/23 Dental Screening Dental Screen Date: 05/13/23 Did you have a dental visit in the last 12 months?: Yes Did you have a dental problem in the last 6 months where you did not have access to dental care?: No Was dental information given to patient?: Patient has dentist HPI Annual Exam HPI Details Rico is a 58 y/o M here today for a PE . Patient has a pmhx significant for HLD,? HTN, Allergic rhinitis.DOROTHY, Psoriatic arthritis .. Psoriatic arthritis: Has establish care with [facility] a&p technician in has had workup consistent with psoriatic arthritis in his hands. Has been started on Humira and pain and symptoms have been much better Would like to reestablish with a dog license officer supervisor for his psoriasis. ?.. ?HTN: Patient reports his blood? pressure has been controlled, gets his blood pressure taken at his podiatry? office and has been stable, No issues with headaches or chest pain reported. .. DOROTHY: HAs started on CPAP machine and feels his sleep is much improved. He also has noted his blood pressures have been much more controlled. ?. ?Labs: Reviewed with patient and noted elevated fasting blood sugar. ?Vaccine: Tdap UTD (2012) , UTD Shingrix? vaccine, UTD with COVID? done in near future, UTD with PCV ?.. ?Colonoscopy-last done in? 2020--> tubular adenoma polyp Gets colon done q 5 years due to fmhx of colon PFSH Medical History (Updated 05/15/23 @ 07:43 by Cameron Man PA-C) Mallet deformity of right little finger Psoriatic arthritis residential use of drug Foot pain, bilateral DOROTHY (obstructive sleep apnea) Obesity (BMI 30-39.9) Hx of chest pain Rupture of left biceps tendon Carcinoid tumor, rectal, benign Seasonal allergies Snores Hyperlipidemia HTN (hypertension) Surgical History History of appendectomy History of Achilles tendon repair Hx of colonoscopy History of umbilical hernia repair Family History Mother Irregular heart beat Social History (Updated 05/13/23 @ 16:16 by Cameron Man PA-C) Housing: House Alcohol intake: current Alcohol intake frequency: 3 or more drinks per day Alcohol type: beer and wine Patient Tobacco Use Status: Never used Tobacco e-Cigarette/Vaping Use: Never Used Second Hand Smoke Exposure: No service: No Current occupational status: employed 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 1. Little interest or pleasure in doing things: not at all 2. Feeling down, depressed, or hopeless: not at all 3. Trouble falling or staying asleep, or sleeping too much: not at all 4. Feeling tired or having little energy: not at all 5. Poor appetite or overeating: not at all 6. Feeling bad about yourself - or that you are a failure or have let yourself or your family down: not at all 7. Trouble concentrating on things, such as reading the newspaper or watching television: not at all 8. Moving or speaking so slowly that other people could have noticed. Or the o pposite - being so fidgety or restless that you have been moving around a lot more than usual: not at all 9. Thoughts that you would be better off or of hurting yourself in some way: not at all Total score: 0 Depression Screening Interpretation: Negative 82484 - PHQ-9 Billing: Yes Source: Developed by Drs. Papi Roblero, Alisa Hernandez, Charles Colon and colleagues, with an educational paula from [employer]. Thrive Questionnaire Date Thrive assessed: 05/13/23 I am a: Patient What is your living situation today?: I have a steady place to live Within the past 12 months, did the food you bought not last and you didn't have the money to get more?: Never true Within the past 12 months, did you worry whether your food would run out before you got money to buy more?: Never true Do you have trouble paying for medicines?: No Do you have trouble getting transportation to medical appointments?: No Do you have trouble paying your heating and electricity bill?: No Do you have trouble taking care of your child, family member or friend?: No Do you have trouble with day-to-day activities such as bathing, preparing meals, shopping, managing finances, etc.?: No Are you currently unemployed and looking for a job?: No Are you interested in more education?: No Please select the resources that you would like help with: None Currently or been in a relationship where the following occur: no concerns reported AUDIT C Alcohol Use Questionnaire (AUDIT-C) 1. How often do you have a drink containing alcohol?: 2-3 times a week 3. How often do you have six or more drinks on one occasion?: Never Total Score: 3 KAREN-7 AMB Questionnaire KAREN-7 Date KAREN - 7 assessed: 05/13/23 Feeling nervous, anxious, or on edge: 0 = Not at all Not being able to stop or control worryin = Not at all Worrying too much about different things: 0 = Not at all Trouble relaxin = Not at all Being so restless that it is hard to sit still: 0 = Not at all Becoming easily annoyed or irritable: 0 = Not at all Feeling afraid as if something awful might happen: 0 = Not at all Total KAREN-7 score (0-4 normal; 5-9 mild; 10-14 moderate; 15-21 severe): 0 Source: Developed by Drs. Papi Roblero, Alisa Hernandez, Charles Colon and colleagues, with an educational paula from [employer]. KAREN-7 Assessment Billing KAREN-7 Assessment Tool: KAREN-7 Assessment 35404 Review of Systems Const Denies body aches, Denies chills, Denies excessive sweating, Denies fatigue, Denies fever(s) and Denies headache(s) Eyes Denies blurry vision ENT Denies dysphagia, Denies vertigo, Denies dizziness, Denies headache(s), Denies hearing loss and Denies tinnitus Card Denies chest pain, Denies chest pain with activity, Denies syncope, Denies irreg ular heart rhythm and Denies dyspnea Resp Denies chest congestion, Denies cough, Denies hemoptysis, Denies dyspnea and Denies wheezing GI Denies abdominal pain, Denies melena, Denies hematochezia, Denies coffee ground emesis, Denies dysphagia, Denies diarrhea, Denies nausea and Denies vomiting Denies difficulty urinating, Denies dysuria, Denies urinary frequency, Denies urinary hesitancy and Denies urinary urgency Musc Denies arthralgias, Denies limited range of motion, Denies muscle cramps and Denies muscle weakness Skin/Breast Denies rash and Denies skin ulcer Neuro Denies Abnormal speech present, Denies confusion, Denies vertigo, Denies dizziness, Denies syncope, Denies headache(s), Denies memory loss and Denies seizure-like activity Psych Denies anxiety, Denies confusion, Denies depression, Denies memory loss, Denies panic attacks and Denies paranoia Endo Denies excessive sweating, Denies fatigue, Denies flushing, Denies polydipsia and Denies polyuria Aller/Immun Denies wheezing Physical exam (Primary Care) Vital Signs: Last Vital Signs Pulse 88 05/13/23 15:36 Resp 16 05/13/23 15:36 BP 128/88 09/11/23 15:36 Pulse Ox 99 05/13/23 15:36 Oxygen Delivery Method Room Air 05/13/23 15:36 BMI result Body Mass Index 30.9 BMI Assessment/Plan discussion: High Tobacco/Smoking Status: Tobacco use Status Tobacco use date assessed 05/13/23 05/13/23 15:43 Patient Tobacco Use Status Never used Tobacco 05/13/23 16:16 e-Cigarette/Vaping Use Never Used 05/13/23 16:16 PHQ-9: PHQ-9 Score PHQ-9: Total score 0 05/13/23 16:09 Depression Screening Interpretation: Negative Thrive Assessment: Date of Thrive Assessment Date Thrive assessed 05/13/23 05/13/23 15:43 Currently or been in a relationship where the following occur: no concerns reported Const Other: Obese General: cooperative, comfortable, no acute distress, alert and awake; No confusion Orientation/consciousness: oriented to person, oriented to place, patient oriented x3 and No confusion HENMT Head: Yes normocephalic Ears: external ears normal and TM's normal bilaterally Face and sinus: No sinus tenderness Mouth: Normal oral and palatal mucosa present and tongue normal Teeth and gingiva: dentition normal and gingiva normal Throat: Yes posterior oropharynx normal, Yes tonsils normal and Yes uvula midline Eyes Conjunctivae: conjunctivae normal Sclerae: sclerae normal Pupils: Equal, round and reactive pupils present EOM: EOMs intact bilaterally Direct Ophthalmoscopy: No no photophobia Neck Neck: Yes no lymphadenopathy, No tender and Yes no JVD Thyroid: Thyroid normal Carotids: no bruits Chest Chest palpation & inspection: no tenderness Resp Effort & Inspection: normal respiratory effort, no audible wheezes, not labored and no stridor Auscultation: no crackles, no rales, no rhonchi and no wheezes Cardio Jugular venous distension: no JVD Rate: regular rate, not bradycardic and not tachycardic Rhythm: regular rhythm Bruits: no carotid bruits Peripheral pulses: Peripheral pulses 2+ throughout GI Inspection: Yes normal to inspection, No abdominal wall ecchymosis and No visible herniation Palpation (GI): Soft to palpation, nontender, no guarding, not rigid and No hepatosplenomegaly present Auscultation: normoactive bowel sounds General: Yes no CVA tenderness Back/Spine/Pelvis Back: no CVA tenderness and No back tenderness Cervical Spine: cervical ROM normal Thoracic/Lumbar Spine: thoracic and lumbar spine normal to inspection, straight leg raise negative bilaterally, No thoraco-lumbar ROM limited and No lumbar spinal tenderness Skin Lesions: no lesions Rashes: no rashes Wounds: no wounds Neuro General: oriented to person, oriented to place, patient oriented x3, CN's II-XI intact bilaterally and No confusion Cranial nerves: Yes Equal, round and reactive pupils present and Yes Normal accommodation reflex present Cognition (Neuro): normal cognition Speech: No Abnormal speech present Gait exam (Neuro): Normal gait present Motor exam (neuro): 5/5 motor strength present throughout Extrem Right upper extremity: full ROM; no cyanosis Left upper extremity: full ROM; no cyanosis Right lower extremity: no edema Left lower extremity: no edema Psych Appearance: grossly normal Mental Status: mental status grossly normal Affect: normal affect Attitude: cooperative Thought process: Normal thought process present Assessment and Plan Assessment & Plan (1) Annual physical exam: Code(s): Z00.00 - Encounter for general adult medical examination without abnormal findings (2) Psoriatic arthritis: Comment: Humira since 08/23 Code(s): L40.50 - Arthropathic psoriasis, unspecified Plan: Now followed by a&p technician and continues on disease modifying drug (Humira) which has drastically reduced his arthritic flares. (3) Essential hypertension: Code(s): I10 - Essential (primary) hypertension Plan: Patient's blood pressure acceptable in office today. Will continue current dose of valsartan with goal blood pressure be below 140/90 (4) Hyperlipidemia: Code(s): E78.5 - Hyperlipidemia, unspecified Qualifiers: Hyperlipidemia type: mixed hyperlipidemia Qualified Code(s): E78.2 - Mixed hyperlipidemia Plan: Patient's most recent lipid panel showing elevated total cholesterol and slightly elevated LDL. At this time patient interested in starting medication for his cholesterol like to work on lifestyle modifications. Continues again on [place] threes. (5) Impaired glucose metabolism: Code(s): R73.09 - Other abnormal glucose Plan: Patient's most recent fasting blood sugar at 110. Will work on lifestyle modifications to reduce his elevated fasting blood sugar. (6) Psoriasis: Code(s): L40.9 - Psoriasis, unspecified Plan: Would like to establish care with another dog license officer supervisor as he would like refills on special compound cream for his psoriasis plaques on his hands. (7) DOROTHY (obstructive sleep apnea): Comment: PATIENT IS A KNOWN CASE OF OBSTRUCTIVE SLEEP APNEA, HE IS VERY REGULAR USER OF THE CPAP. * I TOLD HIM THAT LONG HE IS CLEANING HIS CPAP DEVICE ACCORDING TO INSTRUCTIONS, HE IS NOT APT TO INCREASE THE INCIDENCE OF RESPIRATORY INFECTIONS. HOWEVER HE IS MORE PRONE TO GET RESPIRATORY INFECTIONS DUE TO THE FACT THAT HE IS ON HUMIRA THERAPY, FOR PSORIATIC ARTHRITIS. I LOOKED AT HIS PORTABLE CPAP UNIT, IT IS VERY COMPACT AND CONVENIENT TO USE. HE DOES PROVIDE DAY-TO-DAY COMPLIANCE DATA . WE WILL LOOK INTO IF THE THE COMPLIANCE DATA CAN BE INTEGRATED WITH THE COMPLIANCE REPORT OF HIS REGULAR CPAP. Code(s): G47.33 - Obstructive sleep apnea (adult) (pediatric) Plan: Patient does follow pulmonology in does use CPAP on a nightly basis with good effect (8) Obese: Code(s): E66.9 - Obesity, unspecified Qualifiers: Obesity type: due to excess calories Obesity classification: adult class 1 (BMI 30 - 34.9) Serious obesity comorbidity presence: without serious comorbidity Body mass index: BMI 30.0-30.9 Qualified Code(s): E66.09 - Other obesity due to excess calories; Z68.30 - Body mass index [BMI] 30.0-30.9, adult Plan: Patient does understand his BMI is over 30 will work on being more physically active and adapting to better eating habits to reduce his weight Orders: Orders Hemoglobin A1c 05/13/23 R73.09 - Other abnormal glucose Lipid Panel 05/13/23 E78.2 - Mixed hyperlipidemia Microalbumin, Random (w Creat) 05/13/23 I10 - Essential (primary) hypertension Comprehensive [place]. Panel Fast 05/13/23 R73.09 - Other abnormal glucose Complete Blood Count no Diff 05/13/23 I10 - Essential (primary) hypertension Coding Level of Care Code Est Pt Prev Care 40-64y(54100) Diagnoses Annual physical exam Z00.00 Psoriatic arthritis L40.50 Essential hypertension I10 Mixed hyperlipidemia E78.2 Hyperlipidemia type: mixed hyperlipidemia Impaired glucose metabolism R73.09 Psoriasis L40.9 DOROTHY (obstructive sleep apnea) G47.33 Class 1 obesity due to excess calories without serious comorbidity with body mass index (BMI) of 30.0 to 30.9 in adult E66.09; Z68.30 Obesity type: due to excess calories Obesity classification: adult class 1 (BMI 30 - 34.9) Serious obesity comorbidity presence: without serious comorbidity Body mass index: BMI 30.0-30.9 Additional Codes KAREN-7 Assessment Billing - KAREN-7 Assessment Tool: KAREN-7 Assessment [id number] ([id number])
== END 2023-05-13 16:35 | disposition home or self-care (01) ==
PROVIDERS: PCP Physician Assistant; Visit Provider Physician Assistant
DX: Z00.00 Encounter for general adult medical examination without abnormal findings (principal); L40.50 Arthropathic psoriasis, unspecified; Z68.30 Body mass index [BMI] 30.0-30.9, adult; I10 Essential (primary) hypertension; E66.09 Other obesity due to excess calories; E78.2 Mixed hyperlipidemia; R73.09 Other abnormal glucose; L40.9 Psoriasis, unspecified; G47.33 Obstructive sleep apnea (adult) (pediatric)
CPT/HCPCS: 99396

== ENCOUNTER 2023-06-03 08:50 | Outpatient (AMB) | payer OTHER, SELFPAY ==
--- NOTE | 2023-06-03 09:01 | A.OFFVIS_ITS ---
Intake Vital Signs 06/03/23 09:06 Height 6 ft 1 in Weight 239 lb 10.279 oz BMI 31.6 BP 120/70 Blood Pressure Location Rt brachial Position Sitting Pulse 87 Pulse Source Pulse Oximeter Temp 97.3 F Temp Source Skin Pulse Oximetry (%) 97 Oxygen Delivery Method Room Air Intake Visit Reasons: PSA Intake Note: Patient presents today for PsA follow up. Reports increased feet pain. Humira does not last the 2 weeks but is able to tolerate pain for a few days until next dose. [employer] Founder Required: No Accompanied by: Self / Same As Patient Allergies No Known Allergies [No Known Allergies*] Allergy (Verified 06/03/23 09:08) HPI HPI Comments History of Present Illness Details The patient returns for evaluation of his psoriatic arthritis and psoriasis. He says he feels reasonably comfortable with the current Humira at 40 mg every 2 weeks. There is still some discomfort in the right 5th MTP and the 5th PIP joints in each hand. These tend to respond after the Humira with becoming less swollen and tender. At his last visit he had these pruritic papules on the legs. He finally decided this was probably some sand fleas that had attacked him while he was on [employer]. Those skin lesions have not returned. He has not noticed any recent psoriasis. [facility] Medical History (Updated 05/15/23 @ 07:43 by Cameron Man PA-C) Mallet deformity of right little finger Psoriatic arthritis detention use of drug Foot pain, bilateral DOROTHY (obstructive sleep apnea) Obesity (BMI 30-39.9) Hx of chest pain Rupture of left biceps tendon Carcinoid tumor, rectal, benign Seasonal allergies Snores Hyperlipidemia HTN (hypertension) Surgical History History of appendectomy History of Achilles tendon repair Hx of colonoscopy History of umbilical hernia repair Family History Mother Irregular heart beat Social History (Updated 05/13/23 @ 16:16 by Cameron Man PA-C) Housing: House Alcohol intake: current Alcohol intake frequency: 3 or more drinks per day Alcohol type: beer and wine Patient Tobacco Use Status: Never used Tobacco e-Cigarette/Vaping Use: Never Used Second Hand Smoke Exposure: No service: No Current occupational status: employed 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 Skin/Breast Details: Negative for itching, rash, hives, Raynaud's symptoms, sun sensitivity, and skin cancer Ankit/Lymph Details: Negative for excessive bruising or bleeding. Physical Exam Vital Signs: Last Vital Signs Temp 97.3 F 06/03/23 09:06 Pulse 87 06/03/23 09:06 BP 120/70 06/03/23 09:06 Pulse Ox 97 06/03/23 09:06 Oxygen Delivery Method Room Air 06/03/23 09:06 BMI result Body Mass Index 31.6 APPEARANCE: Patient in no acute distress EYES no redness, pupils equal and reactive to light, eyelids normal Cervical Spine:.? Full range of motion without pain; no tenderness. Thoracic Spine:.? No scoliosis.? No tenderness on palpation. Lumbar Spine:.? Alignment normal.? Full range of motion without pain, no tenderness. Chest Wall:.? No tenderness, swelling, increased warmth or erythema. Hands:? Right:? There is no swelling or tenderness at the base of the thumb.? There is mild swelling at the 1st 2 MCP joints.? The MCP are not tender.? There is no flexor tendon tenderness or triggering.? There is flexion deformity at the 5th DIP.? He seems to have no ability to extend the distal phalanx in that finger. There is Slight tenderness without swelling at the 5th PIP joint.? Left:? Mild bony enlargement without tenderness at the base of the thumb.? ?There is slight swelling without tenderness at the thumb MCP.? Other MCP joints and PIP joints have no swelling But there is some slight tenderness at the 5th PIP. He has no flexor tendon triggering, thenar atrophy or sensory loss. Wrists:? Left:? There is no pain with flexion extension is 75 degrees.? There is no tenderness, swelling, redness or warmth.? Negative Phalen's and Tinel signs.? Right:Normal pain-free range of motion without tenderness, swelling, increased warmth or erythema.? Negative Phalen's and Tinel signs. Elbows:.? Right:? Normal pain-free range of motion without tenderness, swelling, increased warmth or erythema.? Left:? no discomfort at full extension.? There is some slight thickening over the olecranon bursa without tenderness or swelling.? No redness or warmth.? No tenderness or swelling over the joint space.? There is some mild lateral epicondylar tenderness. Shoulders:.?? Full range of motion without pain. No tenderness, weakness, swelling, increased warmth or erythema. Hips:.? Full range of motion without pain. Hip bursa:.? No tenderness. Knees:? Left: Normal pain-free range of motion with some minimal medial compartment tenderness.? There is no effusion, redness or warmth.? No popliteal swelling or tenderness.? Right:? Normal pain-free range of motion with mild patellofemoral crepitus but no effusion, tenderness, swelling, increased warmth or erythema.? Ankles:? Left:? No discomfort with extremes of AP motion.? ? The distal Achilles tendon has a firm, nodular mass.? It is slightly tender but not red, warm or fluctuant.?? Right:? Slight discomfort over the Achilles tendon with extremes of motion.? Minimal tenderness but no swelling, increased warmth or erythema. Feet:? Right:? There is mild to moderate bony enlargement with no tenderness at the 1st MTP joint.? There is no swelling or tenderness in the other toes . He has some slight thickening at the 5th MTP but it is not tender. A few of the nails have some dystrophic changes.? Left:? Mild bony enlargement without tenderness at the 1st MTP.? There is slight soft tissue swelling in the medial aspect of the heel. This almost feels like a callus. It is minimally tender. No redness or warmth or breaks in the skin. He has slight swelling of the 5th MTP which is slightly tender. The 5th toe slides underneath the 4th toe and is not tender.? ? Results Reviewed Results Reviewed: Laboratory Tests 04/04/23 05/11/23 12:40 10:17 WBC 7.0 Hgb 16.4 ESR 7 C-Reactive Protein 0.35 Assessment & Plan Assessment & Plan (1) Psoriasis: Code(s): L40.9 - Psoriasis, unspecified (2) long term use of drug: Code(s): Z79.899 - Other correction (current) drug therapy (3) Psoriatic arthritis: Comment: Shannon since 08/23 Code(s): L40.50 - Arthropathic psoriasis, unspecified Plan Psoriatic arthritis with certainly some improvement in the swelling and tenderness of his joints. The left heel has this subcutaneous nodule which is rather unusual, I suspect that is a cyst involving the plantar fascia. We will get an x-ray of the calcaneus to see if there is any bony involvement. He may need to see a labor training manager if it becomes more bothersome. There is no psoriasis evident so that seemingly is helped by the [place]. He will continue treatment as above and we will plan follow-up in 5-6 months. Orders: Orders XR calcaneus LT min 2V Today L40.50 - Arthropathic psoriasis, unspecified Coding Level of Care Code Est Pt Level 3 (35053) Diagnoses Psoriasis L40.9 detention use of drug Z79.899 Psoriatic arthritis L40.50
[2023-06-03 09:06] VITALS: BP 120/70; PULSE 87; TEMP 36.3; O2SAT 97; BMI 31.6
== END 2023-06-03 09:53 | disposition home or self-care (01) ==
PROVIDERS: PCP Physician Assistant; Visit Provider Internal Medicine Rheumatology
DX: L40.9 Psoriasis, unspecified (principal); Z79.899 Other long term (current) drug therapy; L40.50 Arthropathic psoriasis, unspecified
CPT/HCPCS: 99213

== ENCOUNTER → 2023-06-03 08:50 | Outpatient (BNVA) | payer OTHER, SELFPAY | PROVIDERS: PCP Physician Assistant; Visit Provider Internal Medicine Rheumatology | DX: L40.50 Arthropathic psoriasis, unspecified (principal); Z79.899 Other long term (current) drug therapy ==

== ENCOUNTER 2023-06-05 11:22 | Outpatient (REF) | payer OTHER, SELFPAY | END 2023-06-05 11:23 | disposition home or self-care (01) | LOC: HO.XRAY 11:22 | PROVIDERS: PCP Physician Assistant; Visit Provider Internal Medicine Rheumatology | DX: L40.50 Arthropathic psoriasis, unspecified (principal) | CPT/HCPCS: 73650 ==

== ENCOUNTER 2023-09-24 10:48 | Outpatient (AMB) | payer OTHER, SELFPAY ==
[2023-09-24 10:52] VITALS: BP 140/84; PULSE 75; O2SAT 99; BMI 32.9
--- NOTE | 2023-09-24 10:52 | MHC.OFFVIS ---
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: No Allergies No Known Allergies [No Known Allergies*] Allergy (Verified 09/24/23 11:04) Medication List - Last Reconciled 09/24/23 by Chastity Bond MD adalimumab (Humira(CF) Pen) 40 mg (0.4 mL) subcut Q2W amlodipine 2.5 mg PO DAILY 90 days aspirin (Adult Low Dose Aspirin) 81 mg PO DAILY betamethasone dipropionate 0.05% 1 appl topical DAILY PRN cholecalciferol (vitamin D3) (Vitamin D3) 25 mcg PO DAILY clotrimazole-betamethasone 1-0.05 % 1 appl topical BID 4 weeks fexofenadine 180 mg PO DAILY PRN nystatin 1 appl topical DAILY PRN omega 0-php-pvn-fish oil 1,000 mg (120 mg-180 mg) (Fish Oil) 1 cap PO DAILY valsartan 320 mg PO DAILY Do you need a note to return to daycare/school/sports/work: No HPI Obstructive sleep apnea HPI Details TOYIN IS 58 YEARS OLD MALE, VERY PLEASANT AND FRIENDLY. HE HAS A KNOWN CASE OF OBSTRUCTIVE SLEEP APNEA DIAGNOSED SINCE LAST YEAR. HE HAS BEEN USING CPAP VERY REGULARLY EVERY NIGHT. HE TRAVELS FREQUENTLY AND USES A SMALL SIZED COMPACT CPAP DEVICE WHEN HE TRAVELS. THAT USAGE OF TRAVELING DEVICE DOES NOT SHOW UP ON HIS COMPLIANCE. HE CLAIMS THAT HE SLEEPS MUCH BETTER AND WAKES UP REFRESHED. USES NASAL PILLOWS , WHICH IS COMFORTABLE. HAS NO ISSUES WITH THE CPAP DEVICE. [facility]LY [facility] Medical History Mallet deformity of right little finger Psoriatic arthritis senior care use of drug Foot pain, bilateral DOROTHY (obstructive sleep apnea) Obesity (BMI 30-39.9) Hx of chest pain Rupture of left biceps tendon Carcinoid tumor, rectal, benign Seasonal allergies Snores Hyperlipidemia HTN (hypertension) Surgical History History of appendectomy History of Achilles tendon repair Hx of colonoscopy History of umbilical hernia repair Family History Mother Irregular heart beat Social History Housing: House Alcohol intake: current Alcohol intake frequency: 3 or more drinks per day Alcohol type: beer and wine Patient Tobacco Use Status: Never used Tobacco e-Cigarette/Vaping Use: Never Used Second Hand Smoke Exposure: No service: No Current occupational status: employed 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 Cognitive needs: No Hearing needs: No Vision needs: No Review of Systems Const All systems reviewed & are unremarkable except as noted in HPI and below Eyes Reports no additional complaints ENT Reports nasal congestion (Mild occasional) Card Denies chest pain (History of , not at present), Denies irregular heart rhythm and Denies leg edema Resp Reports no additional complaints, Denies cough and Denies wheezing GI Reports no additional complaints Reports no additional complaints Musc Reports arthralgias (Shoulder and elbow) Skin/Breast Reports system reviewed and no additional complaints, except as documented Neuro Reports no additional complaints Psych Reports no additional complaints Aller/Immun Denies wheezing Physical Exam Vital Signs: Last Vital Signs Pulse 75 09/24/23 10:52 BP 140/84 H 09/24/23 10:52 Pulse Ox 99 09/24/23 10:52 Oxygen Delivery Method Room Air 09/24/23 10:52 BMI result Body Mass Index 32.9 Const General: healthy appearing (Except for being overweight), comfortable, no acute distress, alert and awake Orientation/consciousness: patient oriented x3 HEENT Head: Yes normal to inspection General nose exam: No nasal polyps present and No nasal discharge present Face and sinus: Yes sinuses nontender Mouth: oropharynx abnormals (Narrow and somewhat crowded, Mallampati class 4) Throat: Yes posterior oropharynx normal Eyes General: appearance normal, both eyes and all related structures Neck Neck: Yes normal visual inspection, Yes no lymphadenopathy, Yes trachea midline, Yes no JVD and Yes other (Neck circumference 18 in) Thyroid: Thyroid normal Chest Chest palpation & inspection: normal inspection of the chest, normal palpation of entire chest wall and no tenderness Resp Effort & Inspection: normal respiratory effort Auscultation: clear to auscultation bilaterally, no crackles and no wheezes Percussion: percussion normal Cardio Palpation: normal PMI Rate: regular rate Rhythm: regular rhythm Heart sounds: no gallops and no murmurs Peripheral pulses: Peripheral pulses 2+ throughout GI Palpation (GI): Soft to palpation, nontender, No hepatosplenomegaly present and no masses Auscultation: normal bowel sounds Back/Spine/Pelvis Thoracic/Lumbar Spine: thoracic and lumbar spine normal to inspection Skin General skin exam: no rashes or lesions noted Neuro General: patient oriented x3 and no focal motor deficits Cranial nerves: Yes CN's II-XII intact bilaterally Extrem General: Yes normal to inspection, Yes no clubbing, cyanosis or edema and Yes no calf tenderness Psych Appearance: grossly normal and well kempt Speech and movement: Normal speech and movement present Results Reviewed Results Reviewed: THE COMPLIANCE REPORT FOR THE LAST 30 NIGHTS SHOWS THAT HE HAS USED 27/30 NIGHTS, 90%. THOSE 3 NIGHTS WHICH ARE NOT SHOWN ON THE COMPLIANCE REPORT, IS DUE TO HIS TRAVELING AND USING THE TRAVEL MODEL OF CPAP. AVERAGE USE IT PER NIGHT 7 HOURS 24 MINUTES. NO SIGNIFICANT AIR LEAK RESIDUAL AHI ONLY 0.6 Assessment & Plan Assessment & Plan (1) Obesity (BMI 30-39.9): Comment: This gentleman is moderately obese. He is fully aware of this problem. He tries to remain very active, and watches his diet Code(s): E66.9 - Obesity, unspecified Plan: DISCUSSED WITH HIM THAT HE HAS GAINED SOME WEIGHT AND HE NEEDS TO CONTROL HIS DIET MORE EFFECTIVELY. HIS ABILITY TO EXERCISE MORE ACTIVELY IS LIMITED BECAUSE OF PSORIATIC ARTHRITIS (2) DOROTHY (obstructive sleep apnea): Comment: PATIENT IS A KNOWN CASE OF OBSTRUCTIVE SLEEP APNEA, HE IS VERY REGULAR USER OF THE CPAP. Went traveling he uses a small compact portable CPAP device. HIS COMPLIANCE IS VERY GOOD. Code(s): G47.33 - Obstructive sleep apnea (adult) (pediatric) Plan: COMMENDED FOR GOOD COMPLIANCE AND ADVISED TO CONTINUE USING CPAP REGULARLY Coding Level of Care Code Est Pt Level 3 (77973) Diagnoses Obesity (BMI 30-39.9) E66.9 DOROTHY (obstructive sleep apnea) G47.33
== END 2023-09-24 11:15 | disposition home or self-care (01) ==
PROVIDERS: PCP Physician Assistant; Visit Provider Internal Medicine
DX: E66.9 Obesity, unspecified (principal); G47.33 Obstructive sleep apnea (adult) (pediatric)
CPT/HCPCS: 99213

== ENCOUNTER → 2023-09-24 10:48 | Outpatient (BNVA) | payer OTHER, SELFPAY | PROVIDERS: PCP Physician Assistant; Visit Provider Internal Medicine ==

== ENCOUNTER 2023-11-12 15:32 | Outpatient (AMB) | payer OTHER, SELFPAY ==
[2023-11-12 15:53] VITALS: BP 152/86; PULSE 108; O2SAT 95; BMI 32.5
--- NOTE | 2023-11-12 15:53 | MHC.PC.OV ---
Vital Signs 11/12/23 15:53 Height 6 ft 1 in Weight 246 lb BMI 32.5 BP 152/86 H Blood Pressure Location Lt brachial Position Sitting Pulse 108 H Pulse Source Pulse Oximeter Pulse Oximetry (%) 95 Intake Visit Reasons: f/u HTN/ HLD - IGM Animal Health Technician Required: No Accompanied by: Self / Same As Patient Allergies No Known Allergies [No Known Allergies*] Allergy (Verified 11/12/23 16:26) Medication List - Last Reconciled 11/12/23 by Cameron Man PA-C adalimumab (Humira(CF) Pen) 40 mg (0.4 mL) subcut Q2W amlodipine 2.5 mg PO DAILY aspirin (Adult Low Dose Aspirin) 81 mg PO DAILY betamethasone dipropionate 0.05% 1 appl topical DAILY PRN cholecalciferol (vitamin D3) (Vitamin D3) 25 mcg PO DAILY clotrimazole-betamethasone 1-0.05 % 1 appl topical BID 4 weeks fexofenadine 180 mg PO DAILY PRN nystatin 1 appl topical DAILY PRN omega 4-mrp-emo-fish oil 1,000 mg (120 mg-180 mg) (Fish Oil) 1 cap PO DAILY valsartan 320 mg PO DAILY Tobacco use date assessed: 11/12/23 Dental Screening Dental Screen Date: 11/12/23 Did you have a dental visit in the last 12 months?: Yes Did you have a dental problem in the last 6 months where you did not have access to dental care?: No Was dental information given to patient?: Patient has dentist HPI f/u HTN/ HLD - IGM HPI Details Rico is a 58 y/o M here today for a follow up . Patient has a pmhx significant for HLD,? HTN, Allergic rhinitis.DOROTHY, Psoriatic arthritis .. Psoriatic arthritis: Has established care with [place] principal statistical programmer in has had workup consistent with psoriatic arthritis in his hands. Has been started on Humira and pain and symptoms have been much better Would like to reestablish with a admission nurse coordinator for his psoriasis. He reports his Humira will stopping covered by his insurance and will need an alternative. He will be following up with new principal statistical programmer next month ?.. ?HTN: Patient's blood pressure elevated today in office, he reports it has been few stressful weeks due to family issues. He does not regularly check his blood pressure at home. He denies any chest pain, dizziness or headaches. .. DOROTHY: Has started on CPAP machine and feels his sleep is much improved. Continues follow up with pulmonology He also has noted his blood pressures have been much more controlled. ?. 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 Foot pain, bilateral DOROTHY (obstructive sleep apnea) Obesity (BMI 30-39.9) Hx of chest pain Rupture of left biceps tendon Carcinoid tumor, rectal, benign Seasonal allergies Snores Hyperlipidemia HTN (hypertension) Surgical History History of appendectomy History of Achilles tendon repair Hx of colonoscopy History of umbilical hernia repair Family History Mother Irregular heart beat Social History Housing: House Alcohol intake: current Alcohol intake frequency: 3 or more drinks per day Alcohol type: beer and wine Patient Tobacco Use Status: Never used Tobacco e-Cigarette/Vaping Use: Never Used Second Hand Smoke Exposure: No service: No Current occupational status: employed 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 1. Little interest or pleasure in doing things: not at all 2. Feeling down, depressed, or hopeless: not at all 3. Trouble falling or staying asleep, or sleeping too much: not at all 4. Feeling tired or having little energy: not at all 5. Poor appetite or overeating: not at all 6. Feeling bad about yourself - or that you are a failure or have let yourself or your family down: not at all 7. Trouble concentrating on things, such as reading the newspaper or watching television: not at all 8. Moving or speaking so slowly that other people could have noticed. Or the opposite - being so fidgety or restless that you have been moving around a lot more than usual: not at all 9. Thoughts that you would be better off or of hurting yourself in some way: not at all Total score: 0 Depression Screening Interpretation: Negative Depression Screening Done: Yes 59922 - PHQ-9 Billing: Yes Source: Developed by Drs. Papi Roblero, Alisa Hernandez, Charles Colon and colleagues, with an educational paula from [employer]. Thrive Questionnaire Date Thrive assessed: 11/12/23 I am a: Patient What is your living situation today?: I have a steady place to live Within the past 12 months, did the food you bought not last and you didn't have the money to get more?: Never true Within the past 12 months, did you worry whether your food would run out before you got money to buy more?: Never true Do you have trouble paying for medicines?: No Do you have trouble getting transportation to medical appointments?: No Do you have trouble paying your heating and electricity bill?: No Do you have trouble taking care of your child, family member or friend?: No Do you have trouble with day-to-day activities such as bathing, preparing meals, shopping, managing finances, etc.?: No Are you currently unemployed and looking for a job?: No Are you interested in more education?: No Please select the resources that you would like help with: None Currently or been in a relationship where the following occur: no concerns reported THRIVE Score: 0 AUDIT C Alcohol Use Questionnaire (AUDIT-C) 1. How often do you have a drink containing alcohol?: 2-3 times a week 2. How many drinks containing alcohol do you have on a typical day when you are drinking?: 3 or 4 3. How often do you have six or more drinks on one occasion?: Never Total Score: 4 KAREN-7 AMB Questionnaire KAREN-7 Date KAREN - 7 assessed: 11/12/23 Feeling nervous, anxious, or on edge: 0 = Not at all Not being able to stop or control worryin = Not at all Worrying too much about different things: 0 = Not at all Trouble relaxin = Not at all Being so restless that it is hard to sit still: 0 = Not at all Becoming easily annoyed or irritable: 0 = Not at all Feeling afraid as if something awful might happen: 0 = Not at all Total KAREN-7 score (0-4 normal; 5-9 mild; 10-14 moderate; 15-21 severe): 0 Source: Developed by Drs. Papi Roblero, Alisa Hernandez, Charles Colon and colleagues, with an educational paula from [employer]. KAREN-7 Assessment Billing KAREN-7 Assessment Tool: KAREN-7 Assessment [id number] Review of Systems Const Denies headache(s) Eyes Denies loss of vision ENT Denies vertigo, Denies dizziness, Denies headache(s) and Denies sore throat Card Denies chest pain, Denies leg edema and Denies lightheadedness Resp Denies cough, Denies hemoptysis and Denies wheezing GI Denies abdominal pain, Denies melena, Denies constipation, Denies diarrhea and Denies vomiting Denies dysuria, Denies urinary frequency and Denies urinary urgency Musc Denies arthralgias, Denies joint swelling, Denies numbness and Denies tingling Neuro Denies Abnormal speech present, Denies behavioral changes, Denies vertigo, Denies dizziness, Denies headache(s), Denies loss of vision, Denies memory loss, Denies numbness and Denies tingling Psych Denies anxiety, Denies behavioral changes, Denies depression, Denies memory loss and Denies panic attacks Ankit/Lymph Denies easy bleeding and Denies easy bruising Aller/Immun Denies wheezing Physical exam (Primary Care) Vital Signs: Last Vital Signs Pulse 108 H 11/12/23 15:53 BP 152/86 H 11/12/23 15:53 Pulse Ox 95 11/12/23 15:53 BMI result Body Mass Index 32.5 Tobacco/Smoking Status: Tobacco use Status Tobacco use date assessed 11/12/23 11/12/23 15:58 Patient Tobacco Use Status Never used Tobacco 11/12/23 15:58 e-Cigarette/Vaping Use Never Used 11/12/23 15:58 PHQ-9: PHQ-9 Score PHQ-9: Total score 0 11/13/23 08:07 Depression Screening Interpretation: Negative Thrive Assessment: Date of Thrive Assessment Date Thrive assessed 11/12/23 11/12/23 15:58 Currently or been in a relationship where the following occur: no concerns reported Const General: healthy appearing, no acute distress, alert and awake Nutritional Appearance: well nourished Orientation/consciousness: oriented to person, oriented to place and oriented to time HENMT Ears: TM's normal bilaterally General nose exam: Normal nasal mucous membranes and turbinates present Eyes Conjunctivae: conjunctivae normal Sclerae: sclerae normal Pupils: Equal, round and reactive pupils present Neck Neck: Yes no lymphadenopathy and Yes no JVD Thyroid: Thyroid normal Carotids: no bruits Resp Effort & Inspection: normal respiratory effort and not tachypneic Auscultation: no crackles, no rales, no rhonchi and no wheezes Cardio Rate: regular rate Rhythm: regular rhythm Heart sounds: no murmurs and normal S1 and S2 GI Palpation (GI): Soft to palpation, nontender, no hepatomegaly and no splenomegaly Auscultation: normal bowel sounds Skin General skin exam: no rashes or lesions noted and dry skin Neuro General: oriented to person, oriented to place and oriented to time Cranial nerves: Yes Equal, round and reactive pupils present Speech: No Abnormal speech present Gait exam (Neuro): Normal gait present Motor exam (neuro): no tremor noted Extrem Right upper extremity: full ROM Left upper extremity: full ROM Right lower extremity: full ROM; no edema Left lower extremity: full ROM; no edema Psych Mental Status: mental status grossly normal Speech and movement: Normal speech and movement present Affect: normal affect Attitude: cooperative Thought process: Normal thought process present Assessment and Plan Assessment & Plan (1) Psoriatic arthritis: Comment: Humira since 08/23 Code(s): L40.50 - Arthropathic psoriasis, unspecified Plan: Now followed by principal statistical programmer and continues on disease modifying drug (Humira) which has drastically reduced his arthritic flares. He will be following up with Rheumatology (2) Essential hypertension: Code(s): I10 - Essential (primary) hypertension Plan: Patient's blood pressure slightly elevated today in office. He reports his life has been somewhat stressful as of late due to his mother being placed in a care home. Will continue current dose of valsartan with goal blood pressure be below 140/90 (3) Hyperlipidemia: Code(s): E78.5 - Hyperlipidemia, unspecified Qualifiers: Hyperlipidemia type: mixed hyperlipidemia Qualified Code(s): E78.2 - Mixed hyperlipidemia Plan: Patient's most recent lipid panel showing elevated total cholesterol and slightly elevated LDL. At this time patient interested in starting medication for his cholesterol like to work on lifestyle modifications. Continues again on Boaz threes ect.. . (4) Impaired glucose metabolism: Code(s): R73.09 - Other abnormal glucose Plan: Patient's most recent fasting blood sugar at 110. Will work on lifestyle modifications to reduce his elevated fasting blood sugar. (5) Psoriasis: Code(s): L40.9 - Psoriasis, unspecified Plan: Would like to establish care with another admission nurse coordinator as he would like refills on special compound cream for his psoriasis plaques on his hands. (6) DOROTHY (obstructive sleep apnea): Comment: PATIENT IS A KNOWN CASE OF OBSTRUCTIVE SLEEP APNEA, HE IS VERY REGULAR USER OF THE CPAP. Went traveling he uses a small compact portable CPAP device. HIS COMPLIANCE IS VERY GOOD. Code(s): G47.33 - Obstructive sleep apnea (adult) (pediatric) Plan: Patient does follow pulmonology in does use CPAP on a nightly basis with good effect (7) Obese: Code(s): E66.9 - Obesity, unspecified Qualifiers: Body mass index: BMI 30.0-30.9 Obesity classification: adult class 1 (BMI 30 - 34.9) Obesity type: due to excess calories Serious obesity comorbidity presence: without serious comorbidity Qualified Code(s): E66.09 - Other obesity due to excess calories; Z68.30 - Body mass index [BMI] 30.0-30.9, adult Plan: Patient does understand his BMI is over 30 will work on being more physically active and adapting to better eating habits to reduce his weight Orders: Orders Hemoglobin A1c 6 Months R73.09 - Other abnormal glucose Comprehensive [place]. Panel Fast 6 Months I10 - Essential (primary) hypertension Lipid Panel 6 Months E78.2 - Mixed hyperlipidemia Prostate Specific Antigen Scr 6 Months E78.2 - Mixed hyperlipidemia, Z12.5 - Encounter for screening for malignant neoplasm of prostate Referrals Dermatology Referral L40.9 - Psoriasis, unspecified Coding Level of Care Code Est Pt Level 4 (61865) Diagnoses Psoriatic arthritis L40.50 Essential hypertension I10 Mixed hyperlipidemia E78.2 Hyperlipidemia type: mixed hyperlipidemia Impaired glucose metabolism R73.09 Psoriasis L40.9 DOROTHY (obstructive sleep apnea) G47.33 Class 1 obesity due to excess calories without serious comorbidity with body mass index (BMI) of 30.0 to 30.9 in adult E66.09; Z68.30 Body mass index: BMI 30.0-30.9 Obesity classification: adult class 1 (BMI 30 - 34.9) Obesity type: due to excess calories Serious obesity comorbidity presence: without serious comorbidity Additional Codes KAREN-7 Assessment Billing - KAREN-7 Assessment Tool: KAREN-7 Assessment [id number] ([id number])
== END 2023-11-12 16:46 | disposition home or self-care (01) ==
PROVIDERS: PCP Physician Assistant; Visit Provider Physician Assistant
DX: L40.50 Arthropathic psoriasis, unspecified (principal); I10 Essential (primary) hypertension; E78.2 Mixed hyperlipidemia; R73.09 Other abnormal glucose; L40.9 Psoriasis, unspecified; G47.33 Obstructive sleep apnea (adult) (pediatric); E66.09 Other obesity due to excess calories; Z68.30 Body mass index [BMI] 30.0-30.9, adult
CPT/HCPCS: 99214

== ENCOUNTER 2023-12-04 10:00 | Outpatient (REF) | payer OTHER, SELFPAY ==
[2023-12-04 10:42] LABS: Hemoglobin 16.7 g/dl (14.0-18.0); Mean Corpuscular HGB Conc 34.8 g/dl (31.0-36.0); Mean Corpuscular Hemoglobin 31.3 pg (27.0-33.0); Mean Corpuscular Volume 90.1 fL (80.0-98.0); Mean Platelet Volume 9.8 fL (9.4-12.4); Platelet Count 247 X10*3/uL (160-400); Red Blood Count 5.33 X10*6/uL (4.60-5.80); White Blood Count 6.9 X10*3/uL (4.8-10.8)
[2023-12-04 11:20] LABS: Estimated Average Glucose 94 mg/dL; Hemoglobin A1c % 4.9 % (<6.0)
[2023-12-04 11:32] LABS: Creatinine Urine 136.94 mg/dL; Microalbum/Creatinine Ratio Ur 5.8 ug/mg cr (<30)
[2023-12-04 11:33] LABS: Alanine Aminotransferase 53 U/L (0-40); Albumin Level 4.1 g/dL (3.5-5.0); Alkaline Phosphatase 47 U/L (39-117); Anion Gap 11 (12-20); Aspartate Amino Transferase 24 U/L (5-37); Bilirubin Total 0.9 mg/dL (0.0-1.0); Blood Urea Nitrogen 16 mg/dL (9-16); Calcium 9.3 mg/dL (8.4-10.2); Carbon Dioxide 28 mmol/L (22-29); Chloride 103 mmol/L (96-108); Cholesterol 219 mg/dL (<200); Estimated Glomerular Filt Rate > 60; Glucose Fasting 106 mg/dL (60-99); HDL Cholesterol 50 mg/dL (>40); LDL Cholesterol Calculated 130 mg/dL (<100); Potassium 4.7 mmol/L (3.3-5.1); Sodium 137 mmol/L (135-145); Total Protein 7.3 g/dL (6.5-8.0); Triglycerides 199 mg/dL (<150)
== END 2023-12-04 10:01 | disposition home or self-care (01) ==
LOC: HO.10HDL 10:00
PROVIDERS: Visit Provider Physician Assistant
DX: I10 Essential (primary) hypertension (principal); R73.09 Other abnormal glucose; E78.2 Mixed hyperlipidemia
CPT/HCPCS: 36415; 80053; 80061; 82043; 82570; 83036; 85027

== ENCOUNTER 2023-12-04 10:26 | Outpatient (AMB) | payer OTHER, SELFPAY ==
--- NOTE | 2023-12-04 10:28 | MHC.OFFVIS ---
Intake Vital Signs 12/04/23 10:29 Height 6 ft 1 in Weight 247 lb 12.793 oz BMI 32.7 BP 128/80 Blood Pressure Location Rt brachial Position Sitting Pulse 71 Pulse Source Pulse Oximeter Pulse Oximetry (%) 99 Oxygen Delivery Method Room Air Intake Visit Reasons: psa Intake Note: Patient last seen by Dr Galdamez 06/03/23 presents today for follow up. Reports issues with ins and Humira. 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 Accompanied by: Self / Same As Patient Allergies No Known Allergies [No Known Allergies*] Allergy (Verified 12/04/23 10:39) Medication List - Last Reconciled 12/04/23 by Yumiko Longoria MD amlodipine 2.5 mg PO DAILY aspirin (Adult Low Dose Aspirin) 81 mg PO DAILY betamethasone dipropionate 0.05% 1 appl topical DAILY PRN cholecalciferol (vitamin D3) (Vitamin D3) 25 mcg PO DAILY clotrimazole-betamethasone 1-0.05 % 1 appl topical BID 4 weeks fexofenadine 180 mg PO DAILY PRN Humira(CF) Pen (adalimumab) 40 mg (0.4 mL) subcut Q2W NS nystatin 1 appl topical DAILY PRN omega 8-gdh-yzp-fish oil 1,000 mg (120 mg-180 mg) (Fish Oil) 1 cap PO DAILY valsartan 320 mg PO DAILY HPI HPI Comments History of Present Illness Details 58-year-old male with psoriasis and psoriatic arthritis returns for follow-up. States that he has been doing fairly well overall. No new symptoms. Recently his psoriasis has been worse especially on his palms. He gets intermittent pain in his elbows. Also gets intermittent pain in his fingers. Today his right index is swollen. He states that he had similar swelling about 2 years ago affecting his right 5th DIP, then it ruptured. Then he had surgery but it was not successful. Continues to have bilateral heel pain with walking. His symptoms have improved since he started the Humira Most recent history by Dr. Galdamez 06/2023: The patient returns for evaluation of his psoriatic arthritis and psoriasis. He says he feels reasonably comfortable with the current Humira at 40 mg every 2 weeks. There is still some discomfort in the right 5th MTP and the 5th PIP joints in each hand. These tend to respond after the Humira with becoming less swollen and tender. At his last visit he had these pruritic papules on the legs. He finally decided this was probably some sand fleas that had attacked [place] Those skin lesions have not returned. He has not noticed any recent psoriasis. 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 Foot pain, bilateral DOROTHY (obstructive sleep apnea) Obesity (BMI 30-39.9) Hx of chest pain Rupture of left biceps tendon Carcinoid tumor, rectal, benign Seasonal allergies Snores Hyperlipidemia HTN (hypertension) Surgical History History of appendectomy History of Achilles tendon repair Hx of colonoscopy History of umbilical hernia repair Family History Mother Irregular heart beat Social History Housing: House Alcohol intake: current Alcohol intake frequency: 3 or more drinks per day Alcohol type: beer and wine Patient Tobacco Use Status: Never used Tobacco e-Cigarette/Vaping Use: Never Used Second Hand Smoke Exposure: No service: No Current occupational status: employed 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 Cognitive needs: No Hearing needs: No Vision needs: No Review of Systems Musc Reports arthralgias, Reports joint swelling and Reports stiffness Skin/Breast Reports lesions and Reports rash Physical Exam Vital Signs: Last Vital Signs Pulse 71 12/04/23 10:29 BP 128/80 12/04/23 10:29 Pulse Ox 99 12/04/23 10:29 Oxygen Delivery Method Room Air 12/04/23 10:29 BMI result Body Mass Index 32.7 Const General: cooperative, healthy appearing and comfortable Nutritional Appearance: obese Orientation/consciousness: patient oriented x3 Limitations: no limitations HEENT Head: Yes normocephalic and Yes atraumatic Mouth: moist mucous membranes Resp Effort & Inspection: normal respiratory effort and able to speak in complete sentences Auscultation: clear to auscultation bilaterally Skin Other: Psoriasis patches on both palms Neuro General: patient oriented x3 Extrem Other: Mallet deformity right little finger Right index dactylitis No active synovitis otherwise Soft tissue swelling both heels posteriorly and medially Right foot bunion and bunionette Assessment & Plan Assessment & Plan (1) Psoriasis: Code(s): L40.9 - Psoriasis, unspecified (2) 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 This is his 1st visit with me. He used to follow-up with Dr. Gadlamez. His symptoms are fairly well controlled on current dose of Humira 40 mg every other week. However he continues to have psoriasis patches and has intermittent synovitis. Today as dactylitis affecting right index. Patient is in the process of changing his Humira to a biosimilar. He prefers a biosimilar pen injector. Continue with adalimumab 40 mg every other week. Labs before next visit in 4 months. Will consider advancing it to every week Plan I spent 30 minutes reviewing patient's chart, evaluating patient, ordering diagnostic workup, counseling patient and documenting in the chart Orders: Orders Complete Blood Count Auto Diff 4 Months L40.50 - Arthropathic psoriasis, unspecified C Reactive Protein 4 Months L40.50 - Arthropathic psoriasis, unspecified Erythrocyte Sedimentation Rate 4 Months L40.50 - Arthropathic psoriasis, unspecified Comprehensive Met. Panel 4 Months L40.50 - Arthropathic psoriasis, unspecified Hepatitis A,B,C Profile 4 Months Z11.59 - Encounter for screening for other viral diseases T Spot TB 4 Months Z11.7 - Encounter for testing for latent tuberculosis infection HLA B27 4 Months M45.9 - Ankylosing spondylitis of unspecified sites in spine Coding Level of Care Code Est Pt Level 4 (62047) Diagnoses Psoriasis L40.9 correction use of drug Z79.899 Psoriatic arthritis L40.50
[2023-12-04 10:29] VITALS: BP 128/80; PULSE 71; O2SAT 99; BMI 32.7
== END 2023-12-04 11:12 | disposition home or self-care (01) ==
PROVIDERS: PCP Physician Assistant; Visit Provider Student in an Organized Health Care Education/Training Program
DX: L40.9 Psoriasis, unspecified (principal); Z79.899 Other long term (current) drug therapy; L40.50 Arthropathic psoriasis, unspecified
CPT/HCPCS: 99214

== ENCOUNTER → 2024-01-22 12:59 | Outpatient (REF) | payer OTHER, SELFPAY ==
--- NOTE | 2024-01-22 13:02 | CA_ITS ---
Transthoracic Echocardiogram Patient (Last, First, Middle): Jose Alberto Reina E Gender: Male Date of : 1965 Age: 58 Procedure Date: 01/22/2024 Procedure Type: Transthoracic Echocardiogram Location: OP Height: 185.42 cm Weight: 109.77 kg BSA: 2.33 m2 Heart Rate: bpm BP: 148 / 88 mmHg Graphics Software Engineer: TO Referring MD: Romel Starr MD Culinary Arts Teacher: Avi Farah MD Symptoms: I71.2 - Thoracic aortic aneurysm, without rupture Study Quality: Fair ECG Rhythm: Sinus Conclusions: - 1. Normal LV ejection fraction 60 65% with impaired relaxation filling pattern 2. Moderately dilated left atrium 3. Mildly dilated ascending aorta and moderately dilated aortic root 4. Normal cardiac valvular Doppler 5. No gross pericardial effusion Findings Left Ventricle Normal left ventricular size, thickness, and systolic function. The visually estimated ejection fraction is between 60-65%. There is no dynamic left ventricular outflow tract obstruction. Spectral Doppler is indicative of an impaired relaxation filling pattern. E/E prime ratio is between 8 and 15 consistent with indeterminate filling pressures. There is moderate septal asymmetric hypertrophy. Right Ventricle Normal right ventricular cavity size and systolic function. Atria The left atrium is moderately dilated. There is no evidence of interatrial shunt. The right atrium is likely dilated. Aortic Valve There is mild calcification of the aortic valve. There is mild thickening of the aortic valve. There is no aortic valve stenosis. There is no aortic valve regurgitation. Mitral Valve There is mild anterior and posterior mitral leaflet thickening. There is trace mitral valve regurgitation. There is no mitral valve stenosis. Pulmonic Valve The pulmonic valve was not well visualized. Tricuspid Valve Likely normal tricuspid valve structure and function. There is trace tricuspid valve regurgitation. The right ventricular systolic pressure is normal. The right ventricular systolic pressure is 21 mmHg. Normal right atrial pressure. There is no evidence of pulmonary hypertension. Great Vessels The pulmonary artery was not well visualized. There is moderate dilatation of the sinuses of Valsalva and mild dilatation of the ascending aorta. Venous The inferior vena cava is normal in size and collapses greater than 50% with inspiration. Pericardium/Pleural There is no evidence of pericardial effusion. Prior Study Comparison No significant change compared to prior study dated: 01/25/2023. Measurements 2D Linear Measurements IVSd: 1.61 0.6-0.9/0.6-1.0 cm LVIDd: 4.13 3.9-5.3/4.2-5.9 cm LVIDd Index: 1.77 2.4-3.2/2.2-3.1 cm/m2 LVIDs: 2.72 2.0-3.6 cm LVPWd: 0.91 0.7-1.1 cm LA Diam: 3.50 2.7-3.8/3.0-4.0 cm LAIDs Index: 1.50 1.5-2.3 cm/m2 LV Mass: 233.13 67-162/88-224 g LV Mass Index: 100.06 43-95/49-115 g/m2 LVOT Diam: 2.40 3.0+(-)1.3 cm 2D Systolic Function EF 4C: 64.90 >55% EF 2C: 60.90 >55% EF BiP: 62.70 >55% Mitral Valve MV Pk E: 0.85 MV PK A: 0.42 MV Decel Time: 230.00 E/A: 2.00 E'Lateral: 8.92 E'Medial: 6.09 E/E' Med: 14.00 E/E' Lat: 9.60 PHT: 67.00 MVA PHT: 3.28 Decel [place]: 3.71 Aortic Valve AoV Pk Jose R: 1.71 AoV Mn Jose R: 1.23 AoV VTI: 0.38 AoV Pk Grad: 12.00 Aov Mn Grad: 7.00 MICHAEL Cont.VTI: 3.86 LVOT LVOT Pk Jose R: 1.40 LVOT Mn Jose R: 0.94 LVOT VTI: 0.33 LVOT Pk Grad: 8.00 LVOT Mn Grad: 4.00 LVOT Diam: 2.40 LVOT Area: 4.52 Diastolic Function MV Pk E: 0.85 MV Pk A: 0.42 E/A: 2.00 E'Medial: 6.09 E/E' Med: 14.00 E' Laterial: 8.92 E/E' Lat: 9.60 Right Ventricle TAPSE (mm): 24.00 TVS' Jose R: 11.60 Tricuspid Valve TR Pk Jose R: 2.14 TR Pk Grad: 18.00 RA Press: 3.00 RVSP: 21.00 Great Vessels Aorta Sinus of Valsalva: 4.63 2.0-3.5 cm Ao Asc: 3.80 2.1-3.4 cm Ao Arch: 3.70 Updated in Other Vendor System with Status of Final Avi Farah MD electronically signed on 01/22/2024 2:36:15 PM with status of Final
== END ==
LOC: HO.CARD 12:59
PROVIDERS: PCP Physician Assistant; Visit Provider Internal Medicine
DX: I71.20 Thoracic aortic aneurysm, without rupture, unspecified (principal)
CPT/HCPCS: 93306

== ENCOUNTER → 2024-01-22 13:02 | Outpatient (BNV) | payer OTHER, SELFPAY | PROVIDERS: PCP Physician Assistant; Visit Provider Internal Medicine Cardiovascular Disease | DX: I42.2 Other hypertrophic cardiomyopathy (principal); I35.8 Other nonrheumatic aortic valve disorders | CPT/HCPCS: 93306 ==

== ENCOUNTER 2024-01-23 09:52 | Outpatient (REF) | payer OTHER, SELFPAY ==
[2024-01-23 11:48] LABS: MANUAL DIFF FLAG NO
[2024-01-23 11:54] LABS: Basophils Absolute Auto 0.1 X10*3/uL (0.0-0.2); Basophils Percent Auto 1.3 % (0-2); Eosinophils Absolute Auto 0.3 X10*3/uL (0.0-0.4); Eosinophils Percent Auto 4.9 % (0-4); Hematocrit 47.6 % (42.0-52.0); Hemoglobin 16.8 g/dl (14.0-18.0); Imm Gran Abs Auto 0.06 X10*3/uL (0.00-0.03); Lymphocytes Absolute Auto 1.2 X10*3/uL (1.2-4.9); Lymphocytes Percent Auto 19.8 % (20-40); Mean Corpuscular HGB Conc 35.3 g/dl (31.0-36.0); Mean Corpuscular Hemoglobin 32.4 pg (27.0-33.0); Mean Corpuscular Volume 91.7 fL (80.0-98.0); Monocytes Absolute Auto 0.8 X10*3/uL (0.1-1.2); Monocytes Percent Auto 12.2 % (2-11); Neutrophils Absolute Auto 3.8 x10*3/uL (2.0-8.3); Neutrophils Percent Auto 60.8 % (45-73); Platelet Count 230 X10*3/uL (160-400); Red Blood Count 5.19 X10*6/uL (4.60-5.80); Red Cell Distribution Width 12.6 % (11.0-16.0); White Blood Count 6.2 X10*3/uL (4.8-10.8)
[2024-01-23 12:40] LABS: Alanine Aminotransferase 54 U/L (0-40); Albumin Level 4.2 g/dL (3.5-5.0); Alkaline Phosphatase 54 U/L (39-117); Aspartate Amino Transferase 28 U/L (5-37); Bilirubin Direct 0.2 mg/dL (0.0-0.5); Bilirubin Total 0.6 mg/dL (0.0-1.0); Lipase 27 U/L (8-78); Total Protein 7.5 g/dL (6.5-8.0)
== END 2024-01-23 09:53 | disposition home or self-care (01) ==
LOC: HO.WFDLDS 09:52
PROVIDERS: Visit Provider Internal Medicine Gastroenterology
DX: R07.89 Other chest pain (principal); R79.89 Other specified abnormal findings of blood chemistry
CPT/HCPCS: 36415; 80076; 83690; 85025

== ENCOUNTER 2024-02-06 07:57 | Outpatient (REF) | payer OTHER, SELFPAY ==
--- NOTE | ~2024-02-06 | US_ITS ---
EXAMINATION: US ABDOMEN COMPLETE CLINICAL INFORMATION: Chest pain, pressure, elevated LFTs, abnormal findings on blood chemistry. COMPARISON: CT abdomen 01/27/2015. Ultrasound abdomen complete 01/17/2015. TECHNIQUE: Real-time imaging of the abdominal viscera. Limited visualization due to bowel gas. FINDINGS: PANCREAS: Limited visualization of pancreatic tail and head. Imaged portion of pancreatic body is unremarkable. ABDOMINAL AORTA: Limited visualization. INFERIOR VENA CAVA: Visualized portions are normal. LIVER: Increased hepatic parenchymal heterogeneity and echogenicity could be associated with hepatocellular disease/hepatic steatosis and substantially limits visualization. Correlation with liver function tests and clinical exam recommended to determine further management. 0.7 cm left hepatic cyst. GALLBLADDER: No gallstones. No gallbladder wall thickening. COMMON BILE DUCT: Normal in caliber measuring 0.3 cm in diameter. RIGHT KIDNEY: 0.9 cm midpole cyst. There is no indication for additional imaging at this time. No hydronephrosis or renal calculi. The kidney measures 12.3 cm in maximum dimension. LEFT KIDNEY: No hydronephrosis. No renal calculi. Limited visualization. The kidney measures 12.6 cm in maximum dimension. SPLEEN: Normal. The spleen measures 13.8 cm in maximum dimension. FREE FLUID: None. US/US abdomen complete IMPRESSION: 1. Increased hepatic parenchymal heterogeneity and echogenicity could be associated with hepatocellular disease/hepatic steatosis and substantially limits visualization. Correlation with liver function tests and clinical exam recommended to determine further management. 2. Cholelithiasis.
== END 2024-02-06 07:58 | disposition home or self-care (01) ==
LOC: HO.US 07:57
PROVIDERS: PCP Physician Assistant; Visit Provider Internal Medicine Gastroenterology
DX: R07.89 Other chest pain (principal); R79.89 Other specified abnormal findings of blood chemistry
CPT/HCPCS: 76700

== ENCOUNTER 2024-02-12 12:19 | Outpatient (AMB) | payer OTHER, SELFPAY ==
[2024-02-12 12:33] VITALS: BP 134/78; PULSE 61; BMI 31.7
--- NOTE | 2024-02-12 12:33 | A.OFFVIS_ITS ---
Vital Signs 02/12/24 12:33 Height 6 ft 1 in Weight 240 lb 4.862 oz BMI 31.7 BP 134/78 Blood Pressure Location Lt brachial Position Sitting Pulse 61 Pulse Source Monitor Intake Visit Reasons: 1 year with echo Allergies No Known Allergies [No Known Allergies*] Allergy (Verified 12/04/23 10:39) Medication List - Last Reconciled 02/12/24 by Romel Starr MD adalimumab-adaz (Hyrimoz(CF) Pen) 40 mg (0.4 mL) subcut Q2W amlodipine 2.5 mg PO DAILY aspirin (Adult Low Dose Aspirin) 81 mg PO DAILY betamethasone dipropionate 0.05% 1 appl topical DAILY PRN cholecalciferol (vitamin D3) (Vitamin D3) 25 mcg PO DAILY clotrimazole-betamethasone 1-0.05 % 1 appl topical BID 4 weeks fexofenadine 180 mg PO DAILY PRN Humira(CF) Pen (adalimumab) 40 mg (0.4 mL) subcut Q2W NS nystatin 1 appl topical DAILY PRN omega 7-czq-tun-fish oil 1,000 mg (120 mg-180 mg) (Fish Oil) 1 cap PO DAILY valsartan 320 mg PO DAILY HPI Comments Details: Jose Alberto returns for follow-up. He he was seen in the past for chest pain, hypertension as well as aortic aneurysm. Overall, no specific concerns. He states he is doing very well with absolutely no cardiac symptoms. 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 Foot pain, bilateral DOROTHY (obstructive sleep apnea) Obesity (BMI 30-39.9) Hx of chest pain Rupture of left biceps tendon Carcinoid tumor, rectal, benign Seasonal allergies Snores Hyperlipidemia HTN (hypertension) Surgical History History of appendectomy History of Achilles tendon repair Hx of colonoscopy History of umbilical hernia repair Family History Mother Irregular heart beat Social History Housing: House Alcohol intake: current Alcohol intake frequency: 3 or more drinks per day [place] type: beer and wine Patient Tobacco Use Status: Never used Tobacco e-Cigarette/Vaping Use: Never Used Second Hand Smoke Exposure: No service: No Current occupational status: employed 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 Cognitive needs: No Hearing needs: No Vision needs: No Review of Systems Const Denies weakness ENT Denies dizziness Card Denies chest pain, Denies chest pain with activity, Denies syncope, Denies rapid heart rate, Denies pedal edema, Denies edema, Denies leg edema, Denies lightheadedness, Denies palpitations, Denies dyspnea, Denies dyspnea on exertion and Denies orthopnea Resp Denies cough, Denies dyspnea and Denies dyspnea on exertion GI Denies hematochezia and Denies change in stool character Musc Denies abnormal gait, Denies muscle cramps, Denies muscle weakness, Denies numbness, Denies radiating pain into limb and Denies tingling Neuro Denies abnormal gait, Denies dizziness, Denies syncope, Denies numbness, Denies tingling and Denies weakness Endo Denies palpitations Physical Exam Vital Signs: Last Vital Signs Pulse 61 02/12/24 12:33 BP 134/78 02/12/24 12:33 BMI result Body Mass Index 31.7 Const General: comfortable and no acute distress Orientation/consciousness: patient oriented x3 HEENT Other: Unremarkable Head: Yes normal to inspection Neck Neck: Yes normal visual inspection Chest Chest palpation & inspection: normal inspection of the chest Resp Auscultation: clear to auscultation bilaterally Cardio Palpation: normal PMI Heart sounds: S1 normal heart sound present, S2 normal heart sound present, no gallops, no murmurs and no rubs GI Palpation (GI): Soft to palpation Back/Spine/Pelvis Other: unremarkable Skin General skin exam: no rashes or lesions noted Neuro General: patient oriented x3 Extrem General: Yes normal to inspection Psych Mental Status: mental status grossly normal Office Procedures EKG Details: EKG with sinus rhythm at 61/Min; voltage criteria for LVH; [place] [id number], Complete Assessment & Plan Assessment & Plan (1) Ascending aortic aneurysm: Code(s): I71.2 - Thoracic aortic aneurysm, without rupture Category: Medical Plan: In the most recent echocardiogram, ascending aorta measures 4.6 cm sinus of Valsalva and 3.8 cm in the tubular portion. We will continue to monitor. At this time, no specific implications. (2) Essential hypertension: Code(s): I10 - Essential (primary) hypertension Category: Medical Plan: On valsartan/amlodipine. Off hydrochlorothiazide due to cramps. Seems stable. (3) DOROTHY (obstructive sleep apnea): Comment: Code(s): G47.33 - Obstructive sleep apnea (adult) (pediatric) Category: Medical Plan: Home sleep study shows severe obstructive sleep apnea. Continue CPAP. (4) Obesity (BMI 30-39.9): Code(s): E66.9 - Obesity, unspecified Category: Medical Plan: Overall, unchanged from before. Ideally, weight loss would help. Coding Level of Care Code Est Pt Level 4 (09026) Diagnoses Ascending aortic aneurysm I71.2 Essential hypertension I10 DOROTHY (obstructive sleep apnea) G47.33 Obesity (BMI 30-39.9) E66.9 CPT Codes EKG - CPT: 13004-[id number], Complete ([id number])
== END 2024-02-12 13:09 | disposition home or self-care (01) ==
PROVIDERS: PCP Physician Assistant; Visit Provider Internal Medicine
DX: I71.20 Thoracic aortic aneurysm, without rupture, unspecified (principal); I10 Essential (primary) hypertension; G47.33 Obstructive sleep apnea (adult) (pediatric); E66.9 Obesity, unspecified
CPT/HCPCS: 93010; 99214

== ENCOUNTER → 2024-02-12 12:19 | Outpatient (BNVA) | payer OTHER, SELFPAY | PROVIDERS: PCP Physician Assistant; Visit Provider Internal Medicine | DX: I71.20 Thoracic aortic aneurysm, without rupture, unspecified (principal); I10 Essential (primary) hypertension; G47.33 Obstructive sleep apnea (adult) (pediatric); E66.9 Obesity, unspecified; Z68.31 Body mass index [BMI] 31.0-31.9, adult; Z79.899 Other long term (current) drug therapy; Z99.89 Dependence on other enabling machines and devices | CPT/HCPCS: 93005 ==

== ENCOUNTER 2024-03-30 13:09 | Outpatient (REF) | payer OTHER, SELFPAY ==
[2024-03-30 13:31] LABS: MANUAL DIFF FLAG NO
[2024-03-30 14:03] LABS: Basophils Absolute Auto 0.1 X10*3/uL (0.0-0.2); Basophils Percent Auto 1.3 % (0-2); Eosinophils Absolute Auto 0.3 X10*3/uL (0.0-0.4); Eosinophils Percent Auto 4.1 % (0-4); Hematocrit 47.6 % (42.0-52.0); Hemoglobin 16.4 g/dl (14.0-18.0); Imm Gran Abs Auto 0.07 X10*3/uL (0.00-0.03); Lymphocytes Absolute Auto 1.4 X10*3/uL (1.2-4.9); Lymphocytes Percent Auto 20.9 % (20-40); Mean Corpuscular HGB Conc 34.5 g/dl (31.0-36.0); Mean Corpuscular Hemoglobin 31.7 pg (27.0-33.0); Mean Corpuscular Volume 91.9 fL (80.0-98.0); Mean Platelet Volume 9.8 fL (9.4-12.4); Monocytes Absolute Auto 0.5 X10*3/uL (0.1-1.2); Monocytes Percent Auto 7.2 % (2-11); Neutrophils Absolute Auto 4.5 x10*3/uL (2.0-8.3); Neutrophils Percent Auto 65.5 % (45-73); Platelet Count 247 X10*3/uL (160-400); Red Blood Count 5.18 X10*6/uL (4.60-5.80); Red Cell Distribution Width 12.4 % (11.0-16.0); White Blood Count 6.8 X10*3/uL (4.8-10.8)
[2024-03-30 14:47] LABS: Alanine Aminotransferase 55 U/L (0-40); Albumin Level 4.2 g/dL (3.5-5.0); Alkaline Phosphatase 51 U/L (39-117); Anion Gap 14 (12-20); Aspartate Amino Transferase 28 U/L (5-37); Bilirubin Total 0.6 mg/dL (0.0-1.0); Blood Urea Nitrogen 11 mg/dL (9-16); C Reactive Protein 0.11 mg/dL (< or = 0.50); Calcium 9.3 mg/dL (8.4-10.2); Carbon Dioxide 24 mmol/L (22-29); Chloride 106 mmol/L (96-108); Estimated Glomerular Filt Rate > 60; Glucose Random 146 mg/dL (60-115); Sodium 140 mmol/L (135-145); Total Protein 7.3 g/dL (6.5-8.0)
[2024-03-30 14:48] LABS: Erythrocyte Sedimentation Rate 2 MM/HR (0-15)
[2024-03-31 04:33] LABS: HBc Num1 0.09 S/CO (0.00-0.79); HBsAGNum1 0.33 S/CO (0.00-0.99); Hepatitis A Antibody IgM 0.19 Index (0-0.79); Hepatitis B Core Antibody Nonreactive (Nonreactive); Hepatitis B Surface Antigen Negative (Negative); ~HepC Num1 0.15 S/CO (0.00-0.79); ~Hepatitis A Antibody IgM Nonreactive (Nonreactive); ~Hepatitis B Surface Antibody NONREACTIVE (Nonreactive); ~Hepatitis C Antibody Nonreactive (Nonreactive)
[2024-04-02 02:29] LABS: TS Negative Control Passed; TS Panel A 0; TS Panel B 0; TS Positive Control Passed; TSpotTB Negative (Negative)
[2024-04-02 20:44] LABS: HLA B27 Negative (Negative)
== END 2024-03-30 13:10 | disposition home or self-care (01) ==
LOC: HO.LAB 13:09
PROVIDERS: PCP Physician Assistant; Visit Provider Student in an Organized Health Care Education/Training Program
DX: L40.50 Arthropathic psoriasis, unspecified (principal); Z11.59 Encounter for screening for other viral diseases; M45.9 Ankylosing spondylitis of unspecified sites in spine; Z11.7 Encounter for testing for latent tuberculosis infection
CPT/HCPCS: 36415; 80053; 85025; 85652; 86140; 86481; 86704; 86706; 86709; 86803; 86812; 87340

== ENCOUNTER 2024-03-30 13:30 | Outpatient (AMB) | payer OTHER, SELFPAY ==
[2024-03-30 13:39] VITALS: BP 110/70; PULSE 112; O2SAT 95; BMI 32.7
--- NOTE | 2024-03-30 13:39 | MHC.OFFVIS ---
Vital Signs 03/30/24 13:39 Height 6 ft 1 in Weight 248 lb 0.321 oz BMI 32.7 BP 110/70 Blood Pressure Location Lt brachial Position Sitting Pulse 112 H Pulse Source Pulse Oximeter Pulse Oximetry (%) 95 Oxygen Delivery Method Room Air Intake Visit Reasons: favio Intake Note: pt is here for follow up and states he is fine, using cpap at night, travels with portable.. Barrel Raiser Required: No Allergies No Known Allergies [No Known Allergies*] Allergy (Verified 03/30/24 13:52) Medication List - Last Reconciled 03/30/24 by Chastity Bond MD amlodipine 2.5 mg PO DAILY aspirin (Adult Low Dose Aspirin) 81 mg PO DAILY betamethasone dipropionate 0.05% 1 appl topical DAILY PRN cholecalciferol (vitamin D3) (Vitamin D3) 25 mcg PO DAILY clotrimazole-betamethasone 1-0.05 % 1 appl topical BID 4 weeks fexofenadine 180 mg PO DAILY PRN Hyrimoz(CF) Pen (adalimumab-adaz) 40 mg (0.4 mL) subcut Q2W NS nystatin 1 appl topical DAILY PRN omega 0-llp-bwp-fish oil 1,000 mg (120 mg-180 mg) (Fish Oil) 1 cap PO DAILY valsartan 320 mg PO DAILY Do you need a note to return to daycare/school/sports/work: No HPI HPI favio: Details: MR. CANNON, 59 years old very pleasant gentleman, is here after 6 months for follow-up the sleep apnea. He is a regular user of CPAP every night, and sleeps well. There is no issue with the use of CPAP. He travels quite frequently and then carries his portable CPAP device with. So the compliance record does not reflect the use of portable device. He spends the sometime in his summer house in [place], and also has visited his son down in [place]. During these times he tends to enjoy food. As he has gained about 8 lb of weight, about which we have talked in detail. 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 Foot pain, bilateral FVAIO (obstructive sleep apnea) Obesity (BMI 30-39.9) Hx of chest pain Rupture of left biceps tendon Carcinoid tumor, rectal, benign Seasonal allergies Snores Hyperlipidemia HTN (hypertension) Surgical History History of appendectomy History of Achilles tendon repair Hx of colonoscopy History of umbilical hernia repair Family History Mother Irregular heart beat Social History Housing: House Alcohol intake: current Alcohol intake frequency: 3 or more drinks per day Alcohol type: beer and wine Patient Tobacco Use Status: Never used Tobacco e-Cigarette/Vaping Use: Never Used Second Hand Smoke Exposure: No service: No Current occupational status: employed 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 Cognitive needs: No Hearing needs: No Vision needs: No Review of Systems Const All systems reviewed & are unremarkable except as noted in HPI and below Eyes Reports no additional complaints ENT Reports nasal congestion (Mild occasional) Card Denies chest pain (History of , not at present), Denies irregular heart rhythm and Denies leg edema Resp Reports no additional complaints, Denies cough and Denies wheezing GI Reports no additional complaints Reports no additional complaints Musc Reports arthralgias (Shoulder and elbow) Skin/Breast Reports system reviewed and no additional complaints, except as documented Neuro Reports no additional complaints Psych Reports no additional complaints Aller/Immun Denies wheezing Physical Exam Vital Signs: Last Vital Signs Pulse 112 H 03/30/24 13:39 BP 110/70 03/30/24 13:39 Pulse Ox 95 03/30/24 13:39 Oxygen Delivery Method Room Air 03/30/24 13:39 BMI result Body Mass Index 32.7 Const General: healthy appearing (Except for being overweight), comfortable, no acute distress, alert and awake Orientation/consciousness: patient oriented x3 HEENT Head: Yes normal to inspection General nose exam: No nasal polyps present and No nasal discharge present Face and sinus: Yes sinuses nontender Mouth: oropharynx abnormals (Narrow and somewhat crowded, Mallampati class 4) Throat: Yes posterior oropharynx normal Eyes General: appearance normal, both eyes and all related structures Neck Neck: Yes normal visual inspection, Yes no lymphadenopathy, Yes trachea midline, Yes no JVD and Yes other (Neck circumference 18 in) Thyroid: Thyroid normal Chest Chest palpation & inspection: normal inspection of the chest, normal palpation of entire chest wall and no tenderness Resp Effort & Inspection: normal respiratory effort Auscultation: clear to auscultation bilaterally, no crackles and no wheezes Percussion: percussion normal Cardio Palpation: normal PMI Rate: regular rate Rhythm: regular rhythm Heart sounds: no gallops and no murmurs Peripheral pulses: Peripheral pulses 2+ throughout GI Palpation (GI): Soft to palpation, nontender, No hepatosplenomegaly present and no masses Auscultation: normal bowel sounds Back/Spine/Pelvis Thoracic/Lumbar Spine: thoracic and lumbar spine normal to inspection Skin General skin exam: no rashes or lesions noted Neuro General: patient oriented x3 and no focal motor deficits Cranial nerves: Yes CN's II-XII intact bilaterally Extrem General: Yes normal to inspection, Yes no clubbing, cyanosis or edema and Yes no calf tenderness Psych Appearance: grossly normal and well kempt Speech and movement: Normal speech and movement present Results Reviewed Results Reviewed: Compliance report shows that he has used 17/30 nights, 57%. However on the other nights he has used his portable CPAP device. Average use it per night 6 hours 37 minutes. No significant air leak. And residual AHI only 0.4 Assessment & Plan Assessment & Plan (1) Obesity (BMI 30-39.9): Comment: He is fully aware of being overweight and recent gain up weight by 8 lb Code(s): E66.9 - Obesity, unspecified Category: Medical Plan: Talked about diet and need to increase the level of exercise, (2) FAVIO (obstructive sleep apnea): Comment: Diagnosed to have obstructive sleep apnea, 2 years ago, it has been well treated with the use of CPAP. He denies any daytime sleepiness Code(s): G47.33 - Obstructive sleep apnea (adult) (pediatric) Category: Medical Plan: Encouraged to keep on using CPAP every night even when he is traveling. There are no issues with the CPAP machine or. The mask at this time Coding Level of Care Code Est Pt Level 3 (86318) Diagnoses Obesity (BMI 30-39.9) E66.9 FAVIO (obstructive sleep apnea) G47.33
== END 2024-03-30 13:53 | disposition home or self-care (01) ==
PROVIDERS: PCP Physician Assistant; Visit Provider Internal Medicine
DX: E66.9 Obesity, unspecified (principal); G47.33 Obstructive sleep apnea (adult) (pediatric)
CPT/HCPCS: 99213

== ENCOUNTER 2024-04-06 10:28 | Outpatient (AMB) | payer OTHER, SELFPAY ==
--- NOTE | 2024-04-06 10:44 | MHC.OFFVIS ---
Vital Signs 04/06/24 10:46 Height 6 ft 1 in Weight 246 lb 11.156 oz BMI 32.5 BP 130/70 Blood Pressure Location Lt brachial Position Sitting Pulse 89 Pulse Source Pulse Oximeter Pulse Oximetry (%) 98 Oxygen Delivery Method Room Air Intake Visit Reasons: PsA/CM Intake Note: Patient last seen on 12/04/23 present today for follow up and test results. Allergies No Known Allergies [No Known Allergies*] Allergy (Verified 03/30/24 13:52) Medication List - Last Reconciled 04/06/24 by Yumiko Longoria MD amlodipine 2.5 mg PO DAILY aspirin (Adult Low Dose Aspirin) 81 mg PO DAILY betamethasone dipropionate 0.05% 1 appl topical DAILY PRN cholecalciferol (vitamin D3) (Vitamin D3) 25 mcg PO DAILY clotrimazole-betamethasone 1-0.05 % 1 appl topical BID 4 weeks fexofenadine 180 mg PO DAILY PRN Hyrimoz(CF) Pen (adalimumab-adaz) 40 mg (0.4 mL) subcut Q2W NS nystatin 1 appl topical DAILY PRN omega 8-lrz-usq-fish oil 1,000 mg (120 mg-180 mg) (Fish Oil) 1 cap PO DAILY valsartan 320 mg PO DAILY HPI Comments Details: 59-year-old male with psoriasis and psoriatic arthritis returns for follow-up. States that he has been doing fairly well overall. He was switched to the bio similar Hyrimoz about a month ago, he feels about the same. 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 Most recent history by Dr. Galdamez 06/2023: The patient returns for evaluation of his psoriatic arthritis and psoriasis. He says he feels reasonably comfortable with the current Humira at 40 mg every 2 weeks. There is still some discomfort in the right 5th MTP and the 5th PIP joints in each hand. These tend to respond after the Humira with becoming less swollen and tender. At his last visit he had these pruritic papules on the legs. He finally decided this was probably some sand fleas that had attacked him while he was on [employer]. Those skin lesions have not returned. He has not noticed any recent psoriasis. [facility] Medical History Mallet deformity of right little finger Psoriatic arthritis intermediate use of drug Foot pain, bilateral DOROTHY (obstructive sleep apnea) Obesity (BMI 30-39.9) Hx of chest pain Rupture of left biceps tendon Carcinoid tumor, rectal, benign Seasonal allergies Snores Hyperlipidemia HTN (hypertension) Surgical History History of appendectomy History of Achilles tendon repair Hx of colonoscopy History of umbilical hernia repair Family History Mother Irregular heart beat Social History Housing: House Alcohol intake: current Alcohol intake frequency: 3 or more drinks per day Alcohol type: beer and wine Patient Tobacco Use Status: Never used Tobacco e-Cigarette/Vaping Use: Never Used Second Hand Smoke Exposure: No service: No Current occupational status: employed 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 Cognitive needs: No Hearing needs: No Vision needs: No Review of Systems Musc Reports arthralgias, Reports joint swelling and Reports stiffness Skin/Breast Reports lesions and Reports rash Physical Exam Vital Signs: Last Vital Signs Pulse 89 04/06/24 10:46 BP 130/70 04/06/24 10:46 Pulse Ox 98 04/06/24 10:46 Oxygen Delivery Method Room Air 04/06/24 10:46 BMI result Body Mass Index 32.5 Const General: cooperative, healthy appearing and comfortable Nutritional Appearance: obese Orientation/consciousness: patient oriented x3 Limitations: no limitations HEENT Head: Yes normocephalic and Yes atraumatic Mouth: moist mucous membranes Resp Effort & Inspection: normal respiratory effort and able to speak in complete sentences Auscultation: clear to auscultation bilaterally Skin Other: Psoriasis patches on both palms Neuro General: patient oriented x3 Extrem Other: Mallet deformity right little finger Right index dactylitis No active synovitis otherwise Soft tissue swelling both heels posteriorly and medially Right foot bunion and bunionette Assessment & Plan Assessment & Plan (1) Psoriatic arthritis: Comment: Shannon since 08/23 Code(s): L40.50 - Arthropathic psoriasis, unspecified Category: Medical Plan: This is a 59-year-old male with psoriatic arthritis who presents for follow-up. He was switched to the bio similar Hyrimoz about a month ago. That he feels it is equivalent to Humira. Continues to have pain swelling and stiffness of his right index, continues to have psoriasis on his palms. States that Hyrimoz works well for 7-10 days then he starts to have feel more joint pain and stiffness. Advance Humira to 40 mg weekly. We will work on prior authorization. Labs before next visit in 4 months (2) Psoriasis: Code(s): L40.9 - Psoriasis, unspecified Category: Medical Plan: As mentioned above, continues to have ongoing psoriasis. 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 Patient fully aware. Advised patient to seek medical care JANICE if patient has an infection and advised patient to stop the medication until the infection is resolved. Plan I spent 30 minutes reviewing patient's chart, evaluating patient, ordering diagnostic workup, counseling patient and documenting in the chart Coding Level of Care Code Est Pt Level 4 (11468) Diagnoses Psoriatic arthritis L40.50 Psoriasis L40.9 intermediate use of drug Z79.899
[2024-04-06 10:46] VITALS: BP 130/70; PULSE 89; O2SAT 98; BMI 32.5
== END 2024-04-06 11:27 | disposition home or self-care (01) ==
PROVIDERS: PCP Physician Assistant; Visit Provider Student in an Organized Health Care Education/Training Program
DX: L40.50 Arthropathic psoriasis, unspecified (principal); L40.9 Psoriasis, unspecified; Z79.899 Other long term (current) drug therapy
CPT/HCPCS: 99214

== ENCOUNTER → 2024-04-06 10:28 | Outpatient (BNVA) | payer OTHER, SELFPAY | PROVIDERS: PCP Physician Assistant; Visit Provider Student in an Organized Health Care Education/Training Program ==

== ENCOUNTER 2024-05-12 08:48 | Outpatient (REF) | payer OTHER, SELFPAY ==
[2024-05-12 10:55] LABS: Alanine Aminotransferase 65 U/L (0-40); Alkaline Phosphatase 50 U/L (39-117); Anion Gap 13 (12-20); Aspartate Amino Transferase 31 U/L (5-37); Blood Urea Nitrogen 18 mg/dL (9-16); Calcium 9.1 mg/dL (8.4-10.2); Carbon Dioxide 24 mmol/L (22-29); Chloride 104 mmol/L (96-108); Cholesterol 220 mg/dL (<200); Estimated Glomerular Filt Rate > 60; Glucose Fasting 105 mg/dL (60-99); HDL Cholesterol 47 mg/dL (>40); LDL Cholesterol Calculated 125 mg/dL (<100); Sodium 137 mmol/L (135-145); Total Protein 7.1 g/dL (6.5-8.0); Triglycerides 240 mg/dL (<150)
[2024-05-12 11:21] LABS: Prostate Specific Antigen Scr 1.23 ng/mL (<0.05-4.0)
[2024-05-12 11:25] LABS: Estimated Average Glucose 100 mg/dL; Hemoglobin A1c % 5.1 % (<6.0)
== END 2024-05-12 08:49 | disposition home or self-care (01) ==
LOC: HO.10HDL 08:48
PROVIDERS: Visit Provider Physician Assistant
DX: Z12.5 Encounter for screening for malignant neoplasm of prostate (principal); I10 Essential (primary) hypertension; E78.2 Mixed hyperlipidemia; R73.09 Other abnormal glucose
CPT/HCPCS: 36415; 80053; 80061; 83036; 84153

== ENCOUNTER 2024-05-14 13:23 | Outpatient (AMB) | payer OTHER, SELFPAY ==
--- NOTE | 2024-05-14 13:25 | MHC.PC.OV ---
Vital Signs 05/14/24 13:29 Height 6 ft 1 in Weight 247 lb 4 oz BMI 32.6 BP 134/78 Blood Pressure Location Lt brachial Position Sitting Pulse 96 Pulse Source Pulse Oximeter Pulse Oximetry (%) 98 Oxygen Delivery Method Room Air Intake Visit Reasons: Annual Exam Intake Note: Patient is here today for a physical. Statistical Typist Required: No Accompanied by: Self / Same As Patient Allergies No Known Allergies [No Known Allergies*] Allergy (Verified 05/14/24 13:31) Medication List - Last Reconciled 05/14/24 by Cameron Man PA-C amlodipine 2.5 mg PO DAILY aspirin (Adult Low Dose Aspirin) 81 mg PO DAILY betamethasone dipropionate 0.05% 1 appl topical DAILY PRN cholecalciferol (vitamin D3) (Vitamin D3) 25 mcg PO DAILY clotrimazole-betamethasone 1-0.05 % 1 appl topical BID 4 weeks fexofenadine 180 mg PO DAILY PRN Hyrimoz(CF) Pen (adalimumab-adaz) 40 mg (0.4 mL) subcut Q2W NS nystatin 1 appl topical DAILY PRN omega 9-grn-oog-fish oil 1,000 mg (120 mg-180 mg) (Fish Oil) 1 cap PO DAILY valsartan 320 mg PO DAILY Tobacco use date assessed: 11/12/23 Dental Screening Dental Screen Date: 11/12/23 HPI Annual Exam HPI Details Rico is a 59 y/o M here today for a routine annual physical . Patient has a pmhx significant for HLD,? HTN, .DOROTHY, Psoriatic arthritis .. Psoriatic arthritis: Followed by [facility] vp digital marketing in has had workup consistent with psoriatic arthritis in his hands. Has been started on Humira on a biweekly basis though feels that Humira is not as effective as it once was. Still having a lot of joint pains and stiffness. Also his psoriasis skin issues every appeared. He is followed by a finger cobbler as well for his psoriasis. .. Heel foot lesion: Followed by a hvac commercial salesperson in his due for surgery to remove a mass from his left heel. ?.. ?HTN: Patient's blood pressure elevated today in office, he reports it has been few stressful weeks due to family issues. He does not regularly check his blood pressure at home. He denies any chest pain, dizziness or headaches. .. Borderline high cholesterol: Most recent fasting lipid panel showing borderline high cholesterol. He will continue working on lifestyle and dietary modifications to reduce his cholesterol .. DOROTHY: Has started on CPAP machine and feels his sleep is much improved. Continues follow up with pulmonology He also has noted his blood pressures have been much more controlled. Colonoscopy-last done in? 2020--> tubular adenoma polyp Gets colon done q 5 years due to fmhx of colon Vaccines: Up-to-date with pneumonia, tetanus, shingles, COVID vaccine. 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 Foot pain, bilateral DOROTHY (obstructive sleep apnea) Obesity (BMI 30-39.9) Hx of chest pain Rupture of left biceps tendon Carcinoid tumor, rectal, benign Seasonal allergies Snores Hyperlipidemia HTN (hypertension) Surgical History History of appendectomy History of Achilles tendon repair Hx of colonoscopy History of umbilical hernia repair Family History Mother Irregular heart beat Social History (Updated 05/14/24 @ 13:34 by Cameron Man PA-C) Housing: House Alcohol intake: current Alcohol intake frequency: a few times a week Alcohol type: beer and wine Patient Tobacco Use Status: Never used Tobacco e-Cigarette/Vaping Use: Never Used Second Hand Smoke Exposure: No service: No Current occupational status: employed 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 1. Little interest or pleasure in doing things: not at all 2. Feeling down, depressed, or hopeless: not at all 3. Trouble falling or staying asleep, or sleeping too much: not at all 4. Feeling tired or having little energy: not at all 5. Poor appetite or overeating: not at all 6. Feeling bad about yourself - or that you are a failure or have let yourself or your family down: not at all 7. Trouble concentrating on things, such as reading the newspaper or watching television: not at all 8. Moving or speaking so slowly that other people could have noticed. Or the opposite - being so fidgety or restless that you have been moving around a lot more than usual: not at all 9. Thoughts that you would be better off or of hurting yourself in some way: not at all Total score: 0 Depression Screening Interpretation: Negative Depression Screening Done: Yes 88533 - PHQ-9 Billing: Yes Source: Developed by Drs. Papi Roblero, Alisa Hernandez, Charles Colon and colleagues, with an educational paula from [employer]. Thrive Questionnaire Date Thrive assessed: 05/14/24 I am a: Patient What is your living situation today?: I have a steady place to live Within the past 12 months, did the food you bought not last and you didn't have the money to get more?: I choose not to answer this question Within the past 12 months, did you worry whether your food would run out before you got money to buy more?: I choose not to answer this question Do you have trouble paying for medicines?: I choose not to answer this question Do you have trouble getting transportation to medical appointments?: I choose not to answer this question Do you have trouble paying your heating and electricity bill?: I choose not to answer this question Do you have trouble taking care of your child, family member or friend?: I choose not to answer this question Do you have trouble with day-to-day activities such as bathing, preparing meals, shopping, managing finances, etc.?: I choose not to answer this question Are you currently unemployed and looking for a job?: I choose not to answer this question Are you interested in more education?: I choose not to answer this question Please select the resources that you would like help with: None Currently or been in a relationship where the following occur: No concerns reported THRIVE Score: 0 AUDIT C Alcohol Use Questionnaire (AUDIT-C) 1. How often do you have a drink containing alcohol?: 4 or more times a week 2. How many drinks containing alcohol do you have on a typical day when you are drinking?: 3 or 4 3. How often do you have six or more drinks on one occasion?: Less than monthly Total Score: 6 KAREN-7 AMB Questionnaire KAREN-7 Date KAREN - 7 assessed: 05/14/24 Feeling nervous, anxious, or on edge: 0 = Not at all Not being able to stop or control worryin = Not at all Worrying too much about different things: 0 = Not at all Trouble relaxin = Not at all Being so restless that it is hard to sit still: 0 = Not at all Becoming easily annoyed or irritable: 0 = Not at all Feeling afraid as if something awful might happen: 0 = Not at all Total KAREN-7 score (0-4 normal; 5-9 mild; 10-14 moderate; 15-21 severe): 0 Source: Developed by Drs. Papi Roblero, Alisa Hernandez, Charles Colon and colleagues, with an educational paula from [employer]. KAREN-7 Assessment Billing KAREN-7 Assessment Tool: KAREN-7 Assessment 43436 Physical exam (Primary Care) Tobacco/Smoking Status: Tobacco use Status Tobacco use date assessed 11/12/23 05/14/24 13:27 Patient Tobacco Use Status Never used Tobacco 05/14/24 13:27 e-Cigarette/Vaping Use Never Used 05/14/24 13:27 PHQ-9: PHQ-9 Score PHQ-9: Total score 0 05/14/24 13:27 Depression Screening Interpretation: Negative Thrive Assessment: Date of Thrive Assessment Date Thrive assessed 05/14/24 05/14/24 13:27 Currently or been in a relationship where the following occur: No concerns reported Assessment and Plan Assessment & Plan (1) Annual physical exam: Code(s): Z00.00 - Encounter for general adult medical examination without abnormal findings (2) Psoriatic arthritis: Comment: Shannon since 08/23 Code(s): L40.50 - Arthropathic psoriasis, unspecified Plan: Continues to follow [facility]. He is on Humira every 2 weeks though feels in his not as effective as it once was. Still having quite a bit of arthritic pain which has not allow him to be more physically active. Unfortunately has gained weight does not being as physically active as he once was. (3) Essential hypertension: Code(s): I10 - Essential (primary) hypertension Plan: Patient's blood pressure slightly elevated today in office. He reports his life has been somewhat stressful as of late due to his mother being placed in a penitentiary. Will continue current dose of valsartan with goal blood pressure be below 140/90 (4) Hyperlipidemia: Code(s): E78.5 - Hyperlipidemia, unspecified Qualifiers: Hyperlipidemia type: mixed hyperlipidemia Qualified Code(s): E78.2 - Mixed hyperlipidemia Plan: Patient's most recent lipid panel showing elevated total cholesterol and slightly elevated LDL. At this time patient interested in starting medication for his cholesterol like to work on lifestyle modifications. Continues again on [place] threes ect.. . (5) Impaired glucose metabolism: Code(s): R73.09 - Other abnormal glucose Plan: Patient's most recent fasting blood sugar at 105, A1c of 5.1. Will work on lifestyle modifications to reduce his elevated fasting blood sugar. (6) Psoriasis: Code(s): L40.9 - Psoriasis, unspecified Plan: Has establish care with Dermatology, has been using topical steroids over his psoriasis skin issues. Also on Humira though has not been managing his skin issues. It is believed that Humira has not been fully effective for both the psoriasis in his arthritis. There was thought to increase his frequency of him your injections to weekly though insurance has not covered this. (7) DOROTHY (obstructive sleep apnea): Comment: Diagnosed to have obstructive sleep apnea, 2 years ago, it has been well treated with the use of CPAP. He denies any daytime sleepiness Code(s): G47.33 - Obstructive sleep apnea (adult) (pediatric) Plan: Patient does follow pulmonology in does use CPAP on a nightly basis with good effect (8) Obese: Code(s): E66.9 - Obesity, unspecified Qualifiers: Obesity type: due to excess calories Obesity classification: adult class 1 (BMI 30 - 34.9) Serious obesity comorbidity presence: without serious comorbidity Body mass index: BMI 30.0-30.9 Qualified Code(s): E66.09 - Other obesity due to excess calories; Z68.30 - Body mass index [BMI] 30.0-30.9, adult Plan: Patient does understand his BMI is over 30 will work on being more physically active and adapting to better eating habits to reduce his weight. He is interested in establishing care with a plastic sheets finishing supervisor to give her guidance on low inflammatory diet secondary to his inflammatory arthritis. Orders: Orders Comprehensive [place]. Panel Fast Today R73.09 - Other abnormal glucose Microalbumin, Random (w Creat) Today I10 - Essential (primary) hypertension Lipid Panel Today E78.2 - Mixed hyperlipidemia Complete Blood Count no Diff Today I10 - Essential (primary) hypertension Hemoglobin A1c Today R73.09 - Other abnormal glucose Prostate Specific Antigen Scr Today I10 - Essential (primary) hypertension, Z12.5 - Encounter for screening for malignant neoplasm of prostate Referrals Nutrition/Dietitian Referral E66.09 - Other obesity due to excess calories, L40.9 - Psoriasis, unspecified, Z68.30 - Body mass index [BMI] 30.0-30.9, adult Patient Instructions: Goal: Blood pressure to remain below 140/90, , capture good control over his inflammatory arthritis Barriers: Adherence to physical activity and healthy eating habits Coding Level of Care Code Est Pt Prev Care 40-64y(80564) Diagnoses Annual physical exam Z00.00 Psoriatic arthritis L40.50 Essential hypertension I10 Mixed hyperlipidemia E78.2 Hyperlipidemia type: mixed hyperlipidemia Impaired glucose metabolism R73.09 Psoriasis L40.9 DOROTHY (obstructive sleep apnea) G47.33 Class 1 obesity due to excess calories without serious comorbidity with body mass index (BMI) of 30.0 to 30.9 in adult E66.09; Z68.30 Obesity type: due to excess calories Obesity classification: adult class 1 (BMI 30 - 34.9) Serious obesity comorbidity presence: without serious comorbidity Body mass index: BMI 30.0-30.9 Additional Codes KAREN-7 Assessment Billing - KAREN-7 Assessment Tool: KAREN-7 Assessment [id number] ([id number])
[2024-05-14 13:29] VITALS: BP 134/78; PULSE 96; O2SAT 98; BMI 32.6
== END 2024-05-14 13:59 | disposition home or self-care (01) ==
PROVIDERS: PCP Physician Assistant; Visit Provider Physician Assistant
DX: Z00.00 Encounter for general adult medical examination without abnormal findings (principal); L40.50 Arthropathic psoriasis, unspecified; I10 Essential (primary) hypertension; E78.2 Mixed hyperlipidemia; R73.09 Other abnormal glucose; L40.9 Psoriasis, unspecified; G47.33 Obstructive sleep apnea (adult) (pediatric); E66.09 Other obesity due to excess calories; Z68.30 Body mass index [BMI] 30.0-30.9, adult
CPT/HCPCS: 99396

== ENCOUNTER 2024-07-02 12:29 | Outpatient (AMB) | payer OTHER, SELFPAY ==
--- NOTE | 2024-07-02 12:32 | A.OFFVIS_ITS ---
VS Expanded 07/02/24 12:34 07/02/24 12:41 Height 6 ft 1 in 6 ft 1 in Weight 247 lb 12.793 oz 247 lb BMI 32.7 32.6 Intake Visit Reasons: low inflammatory diet/CONFIRMED Allergies No Known Allergies [No Known Allergies*] Allergy (Verified 05/14/24 13:31) Nutrition Presentation Details: Pt presents for MNT obesity Pt has hx of psoriatic arthritis, reports having gained about 20 lbs in the last 2 yrs food frequency fruits 3-4/d dairy > 5 serving non starchy veg> 4 serving/d protein:fish 1/wk, beef+++, poultry ++ starches> 25 beverages:w ater, low sugar etoh: >2 serving smoking denies physical activity daily life activites BS Monitoring Most Recent Diabetes Results: Cholesterol 220 mg/dL (<200) H 05/12/24 HDL Cholesterol 47 mg/dL (>40) 05/12/24 Triglycerides 240 mg/dL (<150) H 05/12/24 Creatinine 0.80 mg/dL (0.5-1.4) 05/12/24 Blood Urea Nitrogen 18 mg/dL (9-16) H 05/12/24 Sodium 137 mmol/L (135-145) 05/12/24 Potassium 4.0 mmol/L (3.3-5.1) 05/12/24 Chloride 104 mmol/L (96-108) 05/12/24 Carbon Dioxide 24 mmol/L (22-29) 05/12/24 Calcium 9.1 mg/dL (8.4-10.2) 05/12/24 AST 31 U/L (5-37) 05/12/24 ALT 65 U/L (0-40) H 05/12/24 Total Protein 7.1 g/dL (6.5-8.0) 05/12/24 Albumin 4.0 g/dL (3.5-5.0) 05/12/24 NFX-Prcrodx-Pp.Jeor Equation Height: 6 ft 1 in Weight: 247 lb Resting Metabolic Rate: 1992.85 Calculated Activity Level: Sedentary Calories Needed to Maintain Weight: 2391.42 Diagnosis Nutrition problem #1: food nutri know defi As related to (etiology) #1: diagnosis As evidenced by (sign/symptom) #1: knowledge deficit of diet [facility] Medical History Mallet deformity of right little finger Psoriatic arthritis 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 Foot pain, bilateral DOROTHY (obstructive sleep apnea) Obesity (BMI 30-39.9) Hx of chest pain Rupture of left biceps tendon Carcinoid tumor, rectal, benign Seasonal allergies Snores Hyperlipidemia HTN (hypertension) Surgical History History of appendectomy History of Achilles tendon repair Hx of colonoscopy History of umbilical hernia repair Family History Mother Irregular heart beat Social History (Updated 05/14/24 @ 13:34 by Cameron Man PA-C) Housing: House Alcohol intake: current Alcohol intake frequency: a few times a week Alcohol type: beer and wine Patient Tobacco Use Status: Never used Tobacco e-Cigarette/Vaping Use: Never Used Second Hand Smoke Exposure: No service: No Current occupational status: employed 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 Cognitive needs: No Hearing needs: No Vision needs: No Assessment & Plan Assessment & Plan (1) Obesity (BMI 30-39.9): Code(s): E66.9 - Obesity, unspecified Category: Medical Plan: Wt: 112 Kg ( 06/2024 ) Est kcal needs as per MSJ: 2400 (40% carb, 30% protein/fat) Est fluid needs as per 25-30 ml/d: 3400 Est prot per day as per 1 g/kg bw: 112 Recommend fiber intake : 8-10 g per day and gradually increase to 25-28 g per day for women and 35-38 g for men or as tolerated Recommend sodium intake per day : less than 2300 mg Educated patient on: ( R = reviewed V = verbalizes understanding N/R = needs review N/A = not applicable * Food sources of carbohydrate, adequate serving sizes and its role in various health conditions: R * Differences between complex carbohydrates a simple carbohydrates, role of fiber in diet: R * Lean protein sources of foods: R * Differences between types of fats and role in diet (mono on saturated fat fatty acids, saturated fatty acids, trans fats): R basic * Food sources of sodium in salt and healthy modifications for heart health in kidney health: R V R/V * Vitamins and minerals: R V N/R * Healthy plate method concept: R * Physical activity: Benefits a precaution: R V N/R Patient Instructions: Practice mindful eating Choose lean protein foods following healthy plat method (less than 100 g carb at a meal, 3x/d) Coding Level of Care Code Nutr Indiv Intake (84295) Diagnoses Obesity (BMI 30-39.9) E66.9 Time Spent (min) 30
[2024-07-02 12:34] VITALS: BMI 32.7
[2024-07-08 09:22] VITALS: BMI 32.6
== END 2024-07-02 13:25 | disposition home or self-care (01) ==
LOC: HO.ENCR 12:30
PROVIDERS: PCP Physician Assistant; Visit Provider Dietitian, Registered
DX: E66.9 Obesity, unspecified (principal)

== ENCOUNTER → 2024-07-02 12:29 | Outpatient (BNVA) | payer OTHER, SELFPAY | PROVIDERS: PCP Physician Assistant; Visit Provider Dietitian, Registered | DX: E66.9 Obesity, unspecified (principal); Z68.32 Body mass index [BMI] 32.0-32.9, adult; Z71.3 Dietary counseling and surveillance | CPT/HCPCS: 97802 ==

== ENCOUNTER 2024-08-06 12:35 | Outpatient (AMB) | payer OTHER, SELFPAY ==
--- NOTE | 2024-08-06 12:38 | A.OFFVIS_ITS ---
Vital Signs 3 08/06/24 12:39 Height 6 ft 1 in Weight 243 lb 2.718 oz BMI 32.1 BP 132/84 Blood Pressure Location Lt brachial Position Sitting Pulse 95 Pulse Source Pulse Oximeter Intake Visit Reasons: PSA Intake Note: Patient last seen by Doctor Yumiko Longoria on 04/06/24. Presents today for PSA follow up. Speech And Language Specialist Required: No Accompanied by: Self / Same As Patient Allergies No Known Allergies [No Known Allergies*] Allergy (Verified 08/06/24 12:41) Medication List - Last Reconciled 08/06/24 by Yumiko Longoria MD amlodipine 2.5 mg PO DAILY aspirin (Adult Low Dose Aspirin) 81 mg PO DAILY betamethasone dipropionate 0.05% 1 appl topical DAILY PRN cholecalciferol (vitamin D3) (Vitamin D3) 25 mcg PO DAILY clotrimazole-betamethasone 1-0.05 % 1 appl topical BID 4 weeks colchicine 0.6 mg PO DAILY fexofenadine 180 mg PO DAILY PRN Hyrimoz(CF) Pen (adalimumab-adaz) 40 mg (0.4 mL) subcut Q2W NS nystatin 1 appl topical DAILY PRN omega 8-ace-yso-fish oil 1,000 (120-180) mg (Fish Oil) 1 cap PO DAILY valsartan 320 mg PO DAILY HPI Comments Details: 59-year-old male with psoriasis and psoriatic arthritis returns for follow-up. He finally had surgery for left foot bunion and bunionette. He states that the stitches should, today. He held the Hyrimoz perioperatively for about 6 weeks. He is on crutches. He started tomorrow after his postop visit today. He states that his skin has been a little bit worse in his palms. Has been having some joint pains especially his right index, left pinky. No other significant joint pain. Most recent history by Dr. Galdamez 06/2023: The patient returns for evaluation of his psoriatic arthritis and psoriasis. He says he feels reasonably comfortable with the current Humira at 40 mg every 2 weeks. There is still some discomfort in the right 5th MTP and the 5th PIP joints in each hand. These tend to respond after the Humira with becoming less swollen and tender. At his last visit he had these pruritic papules on the legs. He finally decided this was probably some sand fleas that had attacked him while he was on [place]. Those skin lesions have not returned. He has not noticed any recent psoriasis. 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 Foot pain, bilateral DOROTHY (obstructive sleep apnea) Obesity (BMI 30-39.9) Hx of chest pain Rupture of left biceps tendon Carcinoid tumor, rectal, benign Seasonal allergies Snores Hyperlipidemia HTN (hypertension) Surgical History History of bunionectomy History of appendectomy History of Achilles tendon repair Hx of colonoscopy History of umbilical hernia repair Family History Mother Irregular heart beat Social History Housing: House Alcohol intake: current Alcohol intake frequency: a few times a week Alcohol type: beer and wine Patient Tobacco Use Status: Never used Tobacco e-Cigarette/Vaping Use: Never Used Second Hand Smoke Exposure: No service: No Current occupational status: employed 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 Cognitive needs: No Hearing needs: No Vision needs: No Review of Systems Musc Reports arthralgias, Reports joint swelling and Reports stiffness Skin/Breast Reports lesions and Reports rash Physical Exam Vital Signs: Last Vital Signs Pulse 95 08/06/24 12:39 BP 132/84 08/06/24 12:39 BMI result Body Mass Index 32.1 Const General: cooperative, healthy appearing and comfortable Nutritional Appearance: obese Orientation/consciousness: patient oriented x3 Limitations: no limitations HEENT Head: Yes normocephalic and Yes atraumatic Mouth: moist mucous membranes Resp Effort & Inspection: normal respiratory effort and able to speak in complete sentences Auscultation: clear to auscultation bilaterally Skin Other: Psoriasis patches on both palms Few flaky patches inside right ear Neuro General: patient oriented x3 Extrem Other: Right index dactylitis Assessment & Plan Assessment & Plan (1) Psoriatic arthritis: Comment: Shannon since 08/23 Code(s): L40.50 - Arthropathic psoriasis, unspecified Category: Medical Plan: This is a 59-year-old male with psoriatic arthritis who presents for follow-up. He held the Hyrimoz perioperatively for about 6 weeks for his bunion and bunionette surgery. He should restart it tomorrow after his postop check today. Has been slightly worsening joint pains, nothing significant. Rashes on his palms are a little worse. Last visit we had discussed potentially increasing the Hyrimoz to once weekly injection. It was denied. Patient states that he has been receiving shipment of the medication. Advised patient to start using it weekly until he runs out then use it every other week We discussed switching to Taltz. Patient will look up its cost Labs before next visit in 3 months (2) Psoriasis: Code(s): L40.9 - Psoriasis, unspecified Category: Medical Plan: As mentioned above, continues to have ongoing psoriasis. Plan as above (3) intermediate use of drug: Code(s): Z79.899 - Other usp (current) drug therapy Category: Medical Plan: Side effects of adalimumab were discussed with the patient in detail including increased risk of infection, demyelinating disease, reactivation of latent TB, possible increased risk of solid and skin tumors. Patient fully aware. Advised patient to seek medical care JANICE if patient has an infection and advised patient to stop the medication until the infection is resolved. Plan I spent 25 minutes reviewing patient's chart, evaluating patient, ordering diagnostic workup, counseling patient and documenting in the chart Orders: Orders 2 Comprehensive Met. Panel 3 Months L40.50 - Arthropathic psoriasis, unspecified C Reactive Protein 3 Months L40.50 - Arthropathic psoriasis, unspecified Erythrocyte Sedimentation Rate 3 Months L40.50 - Arthropathic psoriasis, unspecified Complete Blood Count Auto Diff 3 Months L40.50 - Arthropathic psoriasis, unspecified Coding Level of Care Code Est Pt Level 4 (00381) Complex EM visit Add On G2211 Diagnoses Psoriatic arthritis L40.50 Psoriasis L40.9 terminal gauger use of drug Z79.899
[2024-08-06 12:39] VITALS: BP 132/84; PULSE 95; BMI 32.1
--- OUTSIDE RECORDS SUMMARY | 2024-08-12 02:10 | XMS_ITS ---
Author Organization [facility] Address [address] [place] [address] Care Team Providers Care Patient Service Technician Pst Name Role Phone Cameron Man Primary Care Provider Unavailab Jez Bianchi Unavailable [phone] Encounters Encounter Location Date Provider [facility] [address] [address] 05/25/2024 Jez Narvaez Plan Of Treatment No Information Progress Notes * DAVISJose Alberto Marmolejo EDOB: [birth year] (59 yo M)Acc No.[id number]:05/25/2024 Progress Notes Patient:?Jose Alberto CANNON Provider:?Jez Narvaez DPM :1965???Age:59 Y???Sex:Male Sal e:05/25/2024 Address:[address] [place], [place] [address] Pcp:Cameron Man Subjective: * Chief Complaints: * ??? * Medical History:? Objective: * Vitals:? Assessment: Plan: * Treatment: * Images: * The named appointment provid er may or may not be the originator of this progress note, and it is not deemed complete until electronically signed by the appointment provider. Sign off status: Pending * Provider:?Jez Narvaez DPM Date:?2023 Generated for Printi dar/Faxing/eTransmitting on:?08/12/2024 02:10 AM EST
--- OUTSIDE RECORDS SUMMARY | 2024-08-12 02:10 | XMS_ITS | Continuity of Care Document ---
Author Organization [facility] ter Address [address] [place] [address]- Care Team Providers Care Dirt Supervisor Name Role Phone Cameron Pastrana Primary Care Physician Encounter [facility] [place] [facility] Date(s): 07/15/24 - 07/15/[address] [address] Discharge Disposition: A-D/C Home Attending Physician: Korey Sweeney DPM Admitting Physician: Korey Sweeney DPM Referring Physician: Korey Sweeney DPM Encounter Type: Disch Daystay Allergies, Adverse Reactions, Alerts No Known Medication Allergies Substance Criticality Severity Reaction Reaction Severity Status Other Environmental Allergy SEASONAL environmental allergies Active Medications Amlodipine = 2.5 mg, By Mouth, Daily in AM, 0 Refills, Maintenance, 07/14/24 1:38:00 PM EST, Partial fill uponpatient request if the prescription is for a schedule II opioid drug. Start Date: 07/14/24 Status: Ordered Repeat number: 1 aspirin 81 mg oral delayed release tablet 81 mg, 1, tablet, By Mouth, Daily in AM, # 30 tablet, Refills 0, Maintenance, 07/14/24 1:39:00 PM EST, Partial fill upon patient request if the prescription is for a schedule II opioid drug. Start Date: 07/14/24 Status: Ordered Quantity: 30.0 Unit: tablet Repeat number: 1 Hyrimoz Prefilled Syringe 40 mg/0.4mL subcutaneous kit Subcutaneous Injection, every 2 weeks, 0 Refills, Maintenance, 07/14/24 1:40:00 PM EST, Partial fill upon patient request if the prescription is for a schedule II opioid drug. Start Date: 07/14/24 Status: Ordered Repeat number: 1 Valsartan = 320 mg, By Mouth, Daily in AM, 0 Refills, Maintenance, 07/14/24 1:39:00 PM EST, Partial fill uponpatient request if the prescription is for a schedule II opioid drug. Start Date: 07/14/24 Status: Ordered Repeat number: 1 Problem List Condition Confirmation Course Effective Dates Status Health St atus Informant Obese class I Confirmed Active Vital Signs Most recent to oldest [Reference Range]: 1 2 3 Height 185.4 cm (07/15/24 12:42 PM) 185.4 cm (07/14/24 1:43 PM) Weight 111.3 kg (07/15/24 12:42 PM) 111.3 kg (07/14/24 1:43 PM) Oxygen Saturation [94-100 %] 97 % (07/15/24 4:15 PM) 100 % (07/15/24 4:00 PM) 94 % (07/15/24 3:55 PM) Pulse Rate [55-90 bpm] 92 bpm *H* (07/15/24 12:42 PM) Body Mass Index [18.5-24.99 kg/m2] 32.38 kg/m2 *>HHI* (07/15/24 12:42 PM) 32.38 kg/m2 *>HHI* (07/14/24 1:43 PM) Blood Pressure [90-138/55-84 mm Hg] 144/91mm Hg *H* (07/15/24 4:15 PM) 141/99mm Hg *H* (07/15/24 4:00 PM) 131/88mm Hg (07/15/24 3:45 PM) Respiratory Rate [16-30 br/min] 19 br/min (07/15/24 4:15 PM) 20 br/min (07/15/24 4:00 PM) 15 br/min *L* (07/15/24 3:55 PM) Temperature [96.8-100.4 DegF] 97.4 DegF (07/15/24 4:15 PM) 97.6 DegF (07/15/24 3:35 PM) 99.0 DegF (07/15/24 12:42 PM) Liters per Minute 5 L/min (07/15/24 3:30 PM) Mode of Delivery (Oxygen) Room air (07/15/24 4:15 PM) Room air (07/15/24 4:00 PM) Room air (07/15/24 3:45 PM) Blood pressure sites Arm, left (07/15/24 4:00 PM) Arm, left (07/15/24 3:30 PM) Arm, left (07/15/24 12:42 PM) Temperature Route Temporal (07/15/24 4:15 PM) Temporal (07/15/24 3:30 PM) Temporal (07/15/24 12:42 PM) Dry Weight 111.0 kg (07/15/24 12:42 PM) 111.3 kg (07/14/24 1:43 PM) Weight Obtained Via Patient/family state d (07/14/24 1:43 PM) Dry Weight Obtained Via Standing scale (07/15/24 12:42 PM) Patient/family stated (07/14/24 1:43 PM) History and physical note * Event Display: History and Physical Hospital Authored Date: * Event Display: History and Physical Hospital Authored Date: Note * Anayeli Gan RN: PERFORM Event Display: Discharge/Transfer Note Hospital Authored Date: [id number] Nursing Discharge Note Entered On: 07/15/2024 17:39 EST Performed On: 07/15/2024 17:39 EST by Anayeli Gan RN Nursing Discharge Note 2 Discharge Time : 07/15/2024 17:27 EST Discharge Level of Care at Discharge : Home/Skilled Nursing/Foster Care Patient Left Unit Via : Wheelchair Patient Accompanied Off Unit with : Significant other DC Instructions Provided & Signed by Pt : Yes Patient Understands D/C Instructions : Yes Verbalized Understanding of D/C Plan By : Patient, Significant other Patient Instructions Discharge Signed : Yes Did Pt have Specialty Bed or Wound Vac : No Anayeli Gan RN - 07/15/2024 17:39 EST * Anayeli Gan RN: PERFORM Event Display: Patient Education/Instruction Authored Date: [id number] Surgery Adult Discharge Instructions [address] [id number] Name: TOYIN CANNON : 1965?? Visit: 07/15/2024 11:24?? Current Date: 07/15/2024 15:55 ?? Account: [id number]?? Surgery Discharge Instructions We would like to thank you for allowing us to assist you with your healthcare needs. The following includes patient education materials and information regarding your injury/illness. Our entire staffstrives to provide an excellent experience for our patients and their families. PLEASE ENSURE YOU FOLLOW-UP PER THE INSTRUCTIONS BELOW! ?? YOUR OPINION IS IMPORTANT TO US! Please complete the survey you may receive by mail or email. Your feedback will be used to make improvements to the healthcare experiences of our patients and their families. Surveys are administered by [employer] ?? If further treatment with your primary care physician or another doctor is recommended, it is important for you to keep the appointment. Call your primary care physician or return to the Emergency Department immediately if your condition worsens, fails to improve, or new symptoms develop. If you need to find a doctor, you can call [facility] for a referral at [phone] or toll free at [phone] ([phone]) or log in to [email or web address].. ?? [facility], in keeping with [facility] guidance, no longer requires face masks for staff, patientsor visitors in most situations. Similiar to time spent indoors at other locations, there is the chance that you were exposed to repiratory viruses during your time with us (such as flu or COVID-19). If you develop symptoms concerning for a viral respiratory infection, please seek testing (and treatment if indicated) from your medical provider or home test kit. ?? You can view and manage your care through the patient portal or by using a health care radha of your choosing. [email or web address] is a website that allows you to securely view your medical information including your hospital discharge summary, office visit summaries, medications and follow-up visits. You can also request appointments, renew medications, and request access to your medical information using a health care radha of your choosing, or just ask a question. You are entitled to know the individuals who participated in your treatment. This information is available within your medical record and will be provided upon your request. You can enroll at [email or web address] or register d uring your next office visit. You have been discharged from [facility], Patient Care Unit: [facility]??. If you have any questions regarding these instructions after you leave, please call us and we will be happy to assist you. [facility] Your Care Team Attending Physician Korey Sweeney DPM?? Consulting Providers Mague Ramos DO?? Reason for Admission BIBIANA HARRELL LEFT BUNIONECTOMY Primary Care Provider Cameron Pastrana? Advance Directive Health Care Proxy on File No What to do next Instructions From Your Doctor ?? Orders?? Instructions from your Care Team *Advance diet back to regular as tolerated. *Wear Post-op shoe and use crutches. PARTIAL weight bearing to Left foot with crutches. *Please take all medications as prescribed. *Please call the office if you experience severe pain, bleeding, loss of sensation to foot, extremebruising, or fevers. *Call the office to schedule follow-up appointment at? Next Tylenol due at 7PM Next Ibuprofen dose due at 10PM You Need to Schedule the Following Appointments Follow Up with??Korey Sweeney DPM Where: [address] [facility] [place] [address]- Discharge Medications TOYIN CANNON :1965 Visit Date:07/15/2024 Medications: Please continue your medications until treatment is completed or stopped by your provider. You may resume your daily prescription medications. Discuss any questions related to medications with your provider. What How Much When Instructions Next Dose Unchanged Adalimumab (Hyrimoz Prefilled Syringe 40 mg/ 0.4mL subcutaneous kit) Subcutaneous Injection every 2 weeks ?? Unchanged Amlodipine 2.5 Milligram Oral Daily in the morning Unchanged Aspirin (aspirin 81 mg oral delayed release tablet) 1 tab(s) Oral Daily in the morning Unchanged Valsartan 320 Milligram Oral Daily in the morning Allergies (NKA means No Known Allergies) No Known Medication Allergies Other Environmental Allergy??(SEASONAL environmental allergies) Education Materials Below is the list of Educational Leaflet Providered with your Discharge Instructions. [employer] Ign[employer] Patient Education - Surgery Medical Daystay Surgical Overnight Discharge Instructions?? [employer] Patient Education - ??NSAID Analgesic Schedule?? Valuables and Belongings I fully understand and agree that [facility] accepts no responsibility for all my personal property including clothing, toilet articles, radios, jewelry, dentures, hearing aids, rings, money, or any other property that is in my possession or is brought to me after admission. I understand certain valuables may be placed in a hospital safe for a short period of time. I understand that the hospital is not liable for loss or damage due to accident, fire, or other natural occurrence while said property is in the safe. I accept full responsibility for any personal property that I keep with me, and will not hold the hospital responsible in case of loss or disappearance. I acknowledge that i have been encouraged to send valuables and belongings home. ?? Review of Valuable and Belonging List: With patient Date for Pt to Sign Valuables/Belongings: 07/15/24 12:42:00 ?? Valuables & Belongings ?? Clothes Electronic devices Jewelry Monetary Items Personal devices Miscellaneous Medications (Valuables) Valuables at Bedside Jacket, Pants, Shirt, Shoes, Undergarments Cell phone Wedding band Wallet ? Valuables Sent Home ? Valuables Sent to Security ? Valuables Sent to Locker ? Other Discharge Information ? Pulmonary Rehab Status?? Pulmonary Rehab Discharge Status?? Respiratory Rate: 23 br/min ? Common Emergency Awareness Tips IS IT A STROKE? Act FAST and Check for these signs: FACE Does the face look uneven? ARM Does one arm drift down? SPEECH Does their speech sound strange? TIME Call at any sign of stroke ?? Heart Attack Signs Chest discomfort: Most heart attacks involve discomfort in the center of the chest and lasts more than a few minutes, or goes away and comes back. It can feel like uncomfortable pressure, squeezing, fullness or pain. Discomfort in upper body: Symptoms can include pain or discomfort in one or both arms, back, neck, jaw or stomach. Shortness of breath: With or without discomfort. Other signs: Breaking out in a cold sweat, nausea, or lightheaded. Remember, MINUTES DO MATTER. If you experience any of these heart attack warning signs, call to get immediate medical attention! ?? Smoking can increase your chances of developing chronic health problems and can cause harmful effects to other family members in your house. If you smoke, you are strongly encouraged to quit. Please call [facility] at [phone] or [phone] ([phone]) or log in to [email or web address] for referrals to smoking cessation programs. ?? The National Suicide Prevention Hotline is available 25/03 if you or someone you know needs to find a reason to keep living. By calling 8-472-806-Helixis (8889) you'll be connected to a skilled, trained counselor at a crisis center in your area. SURGERY DISCHARGE INSTRUCTIONS SIGNATURE PAGE TOYIN CANNON Location:[facility] Registration Date and Time:07/15/2024 11:24 EST Primary Care Physician: Cameron Pastrana, Attending Physician: Korey Sweeney DPM, I DAVIS TOYIN, have received the above patient education materials/instructions and have verbalized understanding. If ambulance or transport services are being used I further acknowledge being given a choice of service. ?? If you need to contact me, please call me at this number: . Patient/Bingo Floater Name: Patient/Bingo Floater Signature: Relationship to Patient: Witness Name/Signature: Date: * Anayeli Gan RN: PERFORM Event Display: Patient Education Leaflets Authored Date: [id number] Surgery Medical Daystay Surgical Overnight Discharge Instructions ?? 295 Medical Daystay/Surgical Overnight Discharge Instructions ? Since your coordination and judgment may be altered by medication and/or anesthesia, a responsible adult must drive you home from the hospital. ? If you have received medication for pain or sedation while under our care, you should not drive, operate machinery, drink alcohol, or sign any legal documents for 24 hours.?? You should have someone with you at home tonight. ? Remain at home the day of discharge.?? You may be up and about unless otherwise instructed by your physician. ? You may resume your daily prescription medication schedule.?? Any depressant medication should be avoided for 24 hours unless otherwise instructed by your surgeon or anesthesiologist. ? Call your physician for a follow-up appointment.? If you experience unusual or severe pain not relied by your pain medication, excessive bleedingor drainage, persistent nausea and vomiting, excessive swelling or redness, foul odor from incisionsite or fever over 100.6F, you need to call your physician. ? A follow-up phone call by a nurse will be made the day after your procedure.?? If you have stayed with us over night, you will not be receiving a follow-up phone call. ? Nausea and vomiting are a common side effect of prescription pain medication.?? We recommend that pills are not taken on an empty stomach.?? While taking any prescription pain medication you should not drive or drink alcohol. ? * Anayeli Gan RN: PERFORM Event Display: Patient Education Leaflets Authored Date: [id number] NSAID Analgesic Schedule ?? 604 NSAID???s Analgesic Schedule ?? Pain is the primary source of illness following your procedure and can include dehydration, difficulty and painful swallowing, and weight loss. These symptoms can lead to increased post-operative visits and hospital readmission. The best way to control pain is to take pain medications regularly. Your doctor has recommended both Ibuprofen and Acetaminophen (generic/store brands are okay, too). These can be picked up over the counter at your pharmacy of choice. Follow the instructions on the bottle to determine the proper dosage to give. The simplest way to take these medications it to rotate the two at 3-hour intervals. Here is a sample diagram. The time you take your medications may vary from this example. Do not give Ibuprofen more than every 6 hours or Acetaminophen every 4 hours. Do not give Acetaminophen if your doctor has given you a prescription that contains Acetaminophen. ? Patient Care team information Care Team Personnel Name: Cameron Pastrana Position: Reference Physician Member Role: PCP Address: [address] [place] [address]- Telecom: Name: Montez Galdamez Position: S Outreach Member Role: Lifetime Consulting Physician Insurance Providers Guarantor name: Health Plan Information #: 1 Payer: Member Number: [id number] Policy Number: KIMBER Group Number: [id number] Health Plan Information #: 2 Payer: Member Number: [id number] Policy Number: NA Group Number: [id number]
--- OUTSIDE RECORDS SUMMARY | 2024-08-12 02:10 | XMS_ITS | Continuity of Care Document ---
Author Organization [facility] ter Address [address] [place] [address]- Care Team Providers Care Solar Panel Installer Name Role Phone Not on Staff, PCP Primary Care Physician Unavail able Encounter [facility] Date(s): 06/11/24 - 07/11/[address] [address]- Attending Physician: Korey Sweeney DPM Admitting Physician: Korey Sweeney DPM Patient Care team information Care Team Personnel Name: Not on Staff, PCP Position: [facility] Physician (General Medicine) Member Role: PCP Name: Montez Galdamez Position: [facility] Outreach Member Role: Lifetime Consulting Physician
--- OUTSIDE RECORDS SUMMARY | 2024-08-12 02:11 | XMS_ITS ---
Author Organization [facility] Address [address] [place] [address] Care Team Providers Care Crime Prevention Worker Name Role Phone ThornburgCameron peck Primary Care Provider Unavailab Jez Bianchi Unavailable [phone] REASON FOR VISIT ON Encounters Encounter Location Date Provider Diagnosis [address] [address] 02/18/2024 Jez Narvaez Plan Of Treatment No Information Progress Notes * Jose Alberto CANNON EDOB: [birth year] (58 yo M)Acc No.[id number]:02/18/2024 Patient:?Jose Alberto Cannon :1965???Age:58 Y???Sex:Male Address:[address] [place] [address], [address] * true * Date:? Generated for Printi dar/Tamika/eTransmitting on:?08/12/2024 02:10 AM EST
--- OUTSIDE RECORDS SUMMARY | 2024-08-12 02:11 | XMS_ITS | Patient Health Record ---
[facility] Address [address] [place] [address] Care Team Providers Care Glue Bone Crusher Name Role Phone Cameron Man Primary Care Provider Unavailab Jez Bianchi Unavailable [phone] Allergies No Known Allergies Reason For Referral No Information Medications Medication SIG (Take, Route, Frequency, Duration) Notes Start Date End Date Status Fexofenadine HCl 180 MG 1 tablet as need ed Orally Once a day Active Walking Boot/Pneumatic As directed Wear Daily for Until further notice 04/09/2018 Active Physical Therapy . . . 2-3x/week for 3-4 weeks 01/01/2018 Not-Taking Valsartan 160 MG 1 tablet Orally Once a day Active hydroCHLOROthiazide 12.5 MG 1 capsule in the morning Orally Once a day Active Atorvastatin Calcium 10 MG 1 tablet Oral ly Once a day Not-Taking Immunizations Vaccine Route Administration Date Status Comme nts COVID-19 Pfizer BioNTech Vaccine Unknown 10/16/2020 Administered Second Does: 11/06/2020 Social History Tobacco Use: Social History Observation Description Date Details (start date - stop date) Never Smoker NA - NA Tobacco Use/Smoking Question Answer Notes Are you a: nonsmoker Additional Findings: Tobacco Non-User Current no n-smoker Alcohol Screen Question Answer Notes Did you have a drink contain ing alcohol in the past year? Yes How often did you have a dri nk containing alcohol in the past year? 2 to 4 times a month (2 points) How many drinks did you have on a typical day when you were drinking in the past year? 1 or 2 drinks (0 point) How often did you have 6 or more drinks on one occasion in the past year? Never (0 point) Points 2 Interpretation Negative Tobacco use other than smoking: Question Answer Notes Are you an other tobacco user? No Problems Problem Type SNOMED Code ICD Code Onset Dates Problem Status W/U Status Risk Notes Problem 456269222 Equinus contract ure of right ankle (M24.571) Active confirmed Problem 22060253 Osteoarthritis o f left ankle and foot (M19.072) Active confirmed Encounters Encounter Location Date Provider Diagnosis [facility] [address] [place] [address] 02/18/2024 Jez Narvaez Plan Of Treatment Pending Test Test Name Order Date MRI : Foot, right 12/11/2017 X ray : Foot, left 3V 12/11/2017 X ray : Foot, right 3V 12/11/2017 X ray : Foot, right 3V 12/23/2020 Insurance Providers Payer Name Payer Address Payer Phone Subscriber Number Group Number Insured Name Patient Relationship to Insured Coverage Start Date Coverage End Date [facility] [id number] [address] [address] [place] [address] [id number] Jose Alberto Reina Self - patient is the insured Medical (General) History Medical History History ICD Code High blood pressure Surgical History Surgery Date(Month/Year) Hernia Repair 2014 achilles tendon repair 2007 appendectomy 1979
== END 2024-08-06 13:10 | disposition home or self-care (01) ==
PROVIDERS: PCP Physician Assistant; Visit Provider Student in an Organized Health Care Education/Training Program
DX: L40.50 Arthropathic psoriasis, unspecified (principal); L40.9 Psoriasis, unspecified; Z79.899 Other long term (current) drug therapy
CPT/HCPCS: 99214

== ENCOUNTER 2024-08-07 08:43 | Outpatient (REF) | payer OTHER, SELFPAY ==
[2024-08-07 09:10] LABS: MANUAL DIFF FLAG NO
[2024-08-07 09:12] LABS: Basophils Absolute Auto 0.1 X10*3/uL (0.0-0.2); Basophils Percent Auto 1.2 % (0-2); Eosinophils Absolute Auto 0.4 X10*3/uL (0.0-0.4); Eosinophils Percent Auto 4.8 % (0-4); Hematocrit 46.2 % (42.0-52.0); Hemoglobin 16.3 g/dl (14.0-18.0); Imm Gran Abs Auto 0.06 X10*3/uL (0.00-0.03); Imm Gran Pct Auto 0.7 % (0.0-0.4); Lymphocytes Absolute Auto 1.5 X10*3/uL (1.2-4.9); Lymphocytes Percent Auto 17.2 % (20-40); Mean Corpuscular HGB Conc 35.3 g/dl (31.0-36.0); Mean Corpuscular Hemoglobin 31.3 pg (27.0-33.0); Mean Corpuscular Volume 88.8 fL (80.0-98.0); Mean Platelet Volume 8.8 fL (9.4-12.4); Monocytes Absolute Auto 0.8 X10*3/uL (0.1-1.2); Monocytes Percent Auto 9.6 % (2-11); Neutrophils Absolute Auto 5.6 x10*3/uL (2.0-8.3); Neutrophils Percent Auto 66.5 % (45-73); Platelet Count 331 X10*3/uL (160-400); Red Cell Distribution Width 11.8 % (11.0-16.0); White Blood Count 8.5 X10*3/uL (4.8-10.8)
[2024-08-07 09:25] LABS: Uric Acid 9.1 mg/dL (3.4-7.0)
[2024-08-07 09:31] LABS: D Dimer High Sensitivity 389 NG/ML
--- OUTSIDE RECORDS SUMMARY | 2024-08-12 05:51 | XMS_ITS ---
Author Organization [facility] Address [address] [place] [address] Care Team Providers Care Entertainment Reporter Name Role Phone Cameron Man Primary Care Provider Unavailab Franco Hernández Jr Unavailable ALLERGIES Allergen (clinical drug ingredient) Drug/Non Drug Allergy documented on EMR Reaction Allergy Type Onset Date Status seasonal (uncoded) Unknown Allergy A ctive REASON FOR VISIT Patient presents today for a fatty liver MEDICATIONS Medication SIG (Take, Route, Frequency, Duration) Notes Start Date End Date Status Fish Oil 1000 MG 1 capsule Orally Onc e a day for 30 day(s) Active Aspirin 81 81 MG 1 tablet Orally Once a day for 30 day(s) Active Vicky as needed Active amLODIPine Besylate 2.5 MG Oral for 90 Active Vitamin D (Cholecalciferol) 25 MCG (1000 UT) 1 capsule Orally Once a day for 30 day(s) Active Hyrimoz 40 MG/0.4ML Subcutaneous for 28 Active Multivitamin - as directed Orally Active Valsartan 320 MG 1 tablet Orally Once a day Active VITAL SIGNS BMI 32.06 kg/m2 08/06/2024 Blood pressure systolic 00 mm Hg 08/06/20 24 Blood pressure diastolic 00 mm Hg 024 Height 73 in 08/06/2024 Weight 243 lbs 08/06/2024 Encounters Encounter Location Date Provider Diagnosis [facility] [address] [place] [address] 08/06/2024 Franco Valdez Jr Fatty liver K76.0 ASSESSMENTS Encounter Date Diagnosis Assessment Notes Treatment Notes Treatment Clinical Notes 08/06/2024 Fatty liver (ICD-10 - K76.0) PLAN OF TREATMENT Pending Test Test Name Order Date LIVER PROFILE 08/06/2024 IRON + IBC (FE) 08/06/2024 FERRITIN 08/06/2024 CBC w DIFF 08/06/2024 MITOCHONDRIAL AB 08/06/2024 SMOOTH MUSCLE ANTIBODIES 08/06/2024 Liver Fibrosis Pnl 08/06/2024 Next Appt Details Provider Name:Franco cassidy Jr, 08/05/2025 01:35:00 PM, [address] [place] [address], [address], [place], [address],
--- OUTSIDE RECORDS SUMMARY | 2024-08-12 05:52 | XMS_ITS | Patient Health Record ---
Author Organization [facility] Address [address] [place] [address] Care Team Providers Care Lead Care Manager Name Role Phone Cameron Man Primary Care Provider Unavailab Franco Hernández Jr Unavailable ALLERGIES Allergen (clinical drug ingredient) Drug/Non Drug Allergy documented on EMR Reaction Allergy Type Onset Date Status seasonal (uncoded) Unknown Allergy A ctive RESULTS Component Value Reference Range Notes Complete Blood Count Auto Di ff Reviewed date:01/24/2024 04:42:12 PM Interpretation: Performing Lab:[facility], [address] [place] [id number] Notes/Report: White Blood Count 6.2 4.8-10.8 X10*3/uL Red Blood Count 5.19 4.60-5.80 X10*6/uL Hemoglobin 16.8 14.0-18.0 g/dl Hematocrit 47.6 42.0-52.0 % Mean Corpuscular Volume 91.7 80.0-98.0 fL Mean Corpuscular Hemoglobin 32.4 27.0-33.0 pg Mean Corpuscular HGB Conc 35.3 31.0-36.0 g/dl Red Cell Distribution Width 12.6 11.0-16.0 % Platelet Count 230 160-400 X10*3/uL Mean Platelet Volume 10.0 9.4-12.4 fL Neutrophils Percent Auto 60.8 45-73 % Imm Gran Pct Auto 1.0 0.0-0.4 % Lymphocytes Percent Auto 19.8 20-40 % Monocytes Percent Auto 12.2 2-11 % Eosinophils Percent Auto 4.9 0-4 % Basophils Percent Auto 1.3 0-2 % NRBC Pct Auto 0.0 0.0-0.2 /100WBC Neutrophils Absolute Auto 3.8 2.0-8.3 x10*3/u L Imm Gran Abs Auto 0.06 0.00-0.03 X10*3/uL Lymphocytes Absolute Auto 1.2 1.2-4.9 X10*3/u L Monocytes Absolute Auto 0.8 0.1-1.2 X10*3/uL Eosinophils Absolute Auto 0.3 0.0-0.4 X10*3/u L Basophils Absolute Auto 0.1 0.0-0.2 X10*3/uL NRBC Abs Auto 0.000 0.0-0.012 X10*3/uL Liver Panel Reviewed date:01/24/2024 04:42:07 PM Interpretation: Performing Lab:[address] [phone] Notes/Report: Bilirubin Total 0.6 0.0-1.0 mg/dL Bilirubin Direct 0.2 0.0-0.5 mg/dL Aspartate Amino Transferase 28 5-37 U/L Alanine Aminotransferase 54 0-40 U/L Total Protein 7.5 6.5-8.0 g/dL Albumin Level 4.2 3.5-5.0 g/dL Alkaline Phosphatase 54 39-117 U/L Lipase Reviewed date:01/24/2024 04:41:58 PM Interpretation: Performing Lab:[facility], [address] [place] [phone] Notes/Report: Lipase 27 8-78 U/L US abdomen complete Reviewed date:02/27/2024 07:57:13 AM Interpretation: Performing Lab: Notes/Report: [address] [address] Ultrasound Report Signed with Addenda Patient: Toyin Cannon MR#: [id number] : 1965 Acct:[id number] Age/Sex: 58 / M ADM Date: 02/06/24 Loc: HO.US Attending Dr: Franco Valdez MD Ordering Physician: Franco Valdez MD Date of Service: 02/06/24 Procedure(s): US abdomen complete Accession Number(s): [id number] cc: Franco Valdez MD; Cameron Man PA-C ADDENDUM . The previous of addendum is to clarify a discrepancy due to project engineering director error in the original report regarding gallbladder which should read as follows: Gallbladder: No gallstones. No gallbladder wall thickening. IMPRESSION: 1. Increased hepatic parenchymal heterogeneity and echogenicity could be associated with hepatocellular disease/hepatic steatosis and substantially limits visualization. Correlation with liver function tests and clinical exam recommended to determine further management. 2. No gallstones. No gallbladder wall thickening. Addendum Dictated By: Mayela Mercedes MD Addendum Signed By: <Electronically signed by Mayela Mercedes MD in OV> 02/24/24 0458 Addendum Cosigned By: DD/ /23/759 TD/TT: / EXAMINATION: US ABDOMEN COMPLETE CLINICAL INFORMATION: Chest pain, pressure, elevated LFTs, abnormal findings on blood chemistry. COMPARISON: CT abdomen 01/27/2015. Ultrasound abdomen complete 01/17/2015. TECHNIQUE: Real-time imaging of the abdominal viscera. Limited visualization due to bowel gas. FINDINGS: PANCREAS: Limited visualization of pancreatic tail and head. Imaged portion of pancreatic body is unremarkable. ABDOMINAL AORTA: Limited visualization. INFERIOR VENA CAVA: Visualized portions are normal. LIVER: Increased hepatic parenchymal heterogeneity and echogenicity could be associated with hepatocellular disease/hepatic steatosis and substantially limits visualization. Correlation with liver function tests and clinical exam recommended to determine further management. 0.7 cm left hepatic cyst. GALLBLADDER: No gallstones. No gallbladder wall thickening. COMMON BILE DUCT: Normal in caliber measuring 0.3 cm in diameter. RIGHT KIDNEY: 0.9 cm midpole cyst. There is no indication for additional imaging at this time. No hydronephrosis or renal calculi. The kidney measures 12.3 cm in maximum dimension. LEFT KIDNEY: No hydronephrosis. No renal calculi. Limited visualization. The kidney measures 12.6 cm in maximum dimension. SPLEEN: Normal. The spleen measures 13.8 cm in maximum dimension. FREE FLUID: None. US/US abdomen complete IMPRESSION: 1. Increased hepatic parenchymal heterogeneity and echogenicity could be associated with hepatocellular disease/hepatic steatosis and substantially limits visualization. Correlation with liver function tests and clinical exam recommended to determine further management. 2. Cholelithiasis. Dictated By: Mayela Mercedes MD Signed By: <Electronically signed by Mayela Mercedes MD in OV> 02/19/24928 DD/ 9 TD/TT: Carpenter Repairer: REASON FOR REFERRAL No Information MEDICATIONS Medication SIG (Take, Route, Frequency, Duration) Notes Start Date End Date Status Hyrimoz 40 MG/0.4ML Subcutaneous for 28 Active Fish Oil 1000 MG 1 capsule Orally Onc e a day for 30 day(s) Active Aspirin 81 81 MG 1 tablet Orally Once a day for 30 day(s) Active Vicky as needed Active amLODIPine Besylate 2.5 MG Oral for 90 Active Multivitamin - as directed Orally Active Vitamin D (Cholecalciferol) 25 MCG (1000 UT) 1 capsule Orally Once a day for 30 day(s) Active Valsartan 320 MG 1 tablet Orally Once a day Active IMMUNIZATIONS Vaccine Route Administration Date Status Comme nts Influenza Unknown 06/16/2021 Refused SOCIAL HISTORY Sex Assigned At : Social History Observation Description Sex Assigned At Unknown PROBLEMS Problem Type ICD Code Onset Dates Problem Status W/U Status Risk SNOMED Code Notes Problem Colon cancer screening (Z12.11) Active confirmed 477522180 Problem Elevated LFTs (R79.89) Active confirmed 000017759 Problem Fatty liver (K76.0) Active confirmed 057987409 Problem Hemorrhoids, unspecified hemorrhoid type (K64.9) Active confirmed 29724314 Problem Rectal carcinoid tumor (D3A.026) Active confirmed 638680615 Problem Chest pressure (R07.89) Active confirmed 570346786 Problem Black stools (K92.1) Active confirmed 063031327 VITAL SIGNS Blood pressure diastolic 00 mm Hg 08/06/2024 Height 73 in 08/06/2024 Blood pressure systolic 00 mm Hg 08/06/2024 Weight 243 lbs 08/06/2024 BMI 32.06 kg/m2 08/06/2024 Encounters Encounter Location Date Provider Diagnosis [facility] [address] [place] [phone] 07/22/2024 Franco Valdez Jr [facility] [address] [facility] [place] [address] 08/06/2024 Farnco Valdez Jr Fatty liver K76.0 [facility] [address] [place] [phone] 01/22/2024 Franco Valdez Jr Chest pressure R07.89 ; Elevated LFTs R79.89 and Black stools K92.1 [facility] [address] [place] [phone] 01/24/2024 Franco Valdez Jr [facility] [address] [place] [phone] 02/20/2024 Franco Valdez Jr Generalized abdominal pain R10.84 [facility] [address] [place] [phone] 02/27/2024 Franco Valdez Jr [facility] [address] [place] [phone] 06/09/2024 Franco Valdez Jr ASSESSMENTS Encounter Date Diagnosis Assessment Notes Treatment Notes Treatment Clinical Notes 08/06/2024 Fatty liver (ICD-10 - K76.0) 01/22/2024 Elevated LFTs (ICD-10 - R79.89) 01/22/2024 Chest pressure (ICD-10 - R07.89) 02/20/2024 Generalized abdominal pain (ICD-10 - R10.84) 01/22/2024 Black stools (ICD-10 - K92.1) PLAN OF TREATMENT Pending Test Test Name Order Date COLONOSCOPY WITH BIOPSY 06/08/2011 LIVER PROFILE 08/06/2024 LIVER PROFILE 01/22/2024 LIPASE 01/22/2024 IRON + IBC (FE) 08/06/2024 FERRITIN 08/06/2024 CBC w DIFF 01/22/2024 CBC w DIFF 08/06/2024 MITOCHONDRIAL AB 08/06/2024 SMOOTH MUSCLE ANTIBODIES 08/06/2024 US ABD 01/22/2024 HIDA SCAN GB WITH CCK 02/20/2024 Liver Fibrosis Pnl 08/06/2024 Future Test Test Name Order Date COLONOSCOPY 01/11/2016 COLONOSCOPY 06/16/2021 Next Appt Details Provider Name:Franco cassidy Jr, 08/05/2025 01:35:00 PM, [address], [address], [place], [address], Insurance Providers Payer Name Payer Address Payer Phone Subscriber Number Group Number Insured Name Patient Relationship to Insured Coverage Start Date Coverage End Date [facility] [address] [address] [place] [address] [id number] TOYIN CANNON Self - patient is the insured MEDICAL (GENERAL) HISTORY Medical History History ICD Code seasonal allergies Rectal carcinoid, incidental ly found at time of colonoscopy 2010, followup flexible sigmoidoscopy and colonoscopy negative. Hypertension borderline high cholesterol torn meniscus in left knee ruptured bicep your left arm Surgical History Surgery Date(Month/Year) appendectomy Achilles tendon repair, left umbilical hernia repair bunionectomy 2023
--- OUTSIDE RECORDS SUMMARY | 2024-08-12 05:52 | XMS_ITS ---
Author Organization [facility] Address [address] [place] [address] Care Team Providers Care Human Resources Manager Manufacturing Name Role Phone Cameron Man Primary Care Provider Unavailab Franco Hernández Jr REASON FOR VISIT fatty liver Encounters Encounter Location Date Provider Diagnosis [facility] [address] [place] [address] 07/22/2024 Franco Valdez Jr PLAN OF TREATMENT Next Appt Details Provider Name:Franco cassidy Jr, 08/05/2025 01:35:00 PM, [address], [address], [place], [address],
--- OUTSIDE RECORDS SUMMARY | 2024-08-12 05:52 | XMS_ITS ---
Author Organization [facility] Address [address] [place] [address] Care Team Providers Care Program Paraprofessional Name Role Phone Cameron Man Primary Care Provider Unavailab Franco Hernández Jr Unavailable [phone] REASON FOR VISIT r/s july appt Encounters Encounter Location Date Provider Diagnosis [facility] [address] [place] [address] 06/09/2024 Franco Valdez Jr PLAN OF TREATMENT Next Appt Details Provider Name:Franco cassidy Jr, 08/05/2025 01:35:00 PM, [address], [address], [place], [address],
== END 2024-08-07 08:44 | disposition home or self-care (01) ==
LOC: HO.LAB 08:43
PROVIDERS: PCP Physician Assistant; Visit Provider Podiatrist Foot & Ankle Surgery
DX: I82.402 Acute embolism and thrombosis of unspecified deep veins of left lower extremity (principal); M10.072 Idiopathic gout, left ankle and foot
CPT/HCPCS: 36415; 84550; 85025; 85379

== ENCOUNTER 2024-08-14 09:09 | Outpatient (REF) | payer OTHER, SELFPAY ==
[2024-08-14 10:26] LABS: Hematocrit 45.6 % (42.0-52.0); Hemoglobin 15.7 g/dl (14.0-18.0); Mean Corpuscular HGB Conc 34.4 g/dl (31.0-36.0); Mean Corpuscular Hemoglobin 31.2 pg (27.0-33.0); Mean Corpuscular Volume 90.5 fL (80.0-98.0); Mean Platelet Volume 9.8 fL (9.4-12.4); Platelet Count 307 X10*3/uL (160-400); Red Blood Count 5.04 X10*6/uL (4.60-5.80); Red Cell Distribution Width 11.9 % (11.0-16.0); White Blood Count 7.6 X10*3/uL (4.8-10.8)
[2024-08-14 10:41] LABS: Estimated Average Glucose 100 mg/dL; Hemoglobin A1c % 5.1 % (<6.0); Total Hemoglobin (HGBA1C) 3944.2617 umol/L
[2024-08-14 10:49] LABS: D Dimer High Sensitivity 202 NG/ML
[2024-08-14 11:13] LABS: Prostate Specific Antigen Scr 1.77 ng/mL (<0.05-4.0)
[2024-08-14 11:26] LABS: Alanine Aminotransferase 60 U/L (0-40); Alkaline Phosphatase 64 U/L (39-117); Anion Gap 10 (12-20); Aspartate Amino Transferase 29 U/L (5-37); Bilirubin Total 0.6 mg/dL (0.0-1.0); Blood Urea Nitrogen 11 mg/dL (9-16); Calcium 9.6 mg/dL (8.4-10.2); Carbon Dioxide 26 mmol/L (22-29); Chloride 110 mmol/L (96-108); Cholesterol 177 mg/dL (<200); Estimated Glomerular Filt Rate > 60; Glucose Fasting 90 mg/dL (60-99); HDL Cholesterol 35 mg/dL (>40); LDL Cholesterol Calculated 119 mg/dL (<100); Potassium 4.8 mmol/L (3.3-5.1); Sodium 141 mmol/L (135-145); Total Protein 7.2 g/dL (6.5-8.0); Triglycerides 118 mg/dL (<150)
[2024-08-14 11:32] LABS: Microalbum/Creatinine Ratio Ur 6.9 ug/mg cr (<30)
== END 2024-08-14 09:10 | disposition home or self-care (01) ==
LOC: HO.LAB 09:09
PROVIDERS: PCP Physician Assistant; Visit Provider Physician Assistant
DX: R73.09 Other abnormal glucose (principal); E78.2 Mixed hyperlipidemia; I10 Essential (primary) hypertension; Z12.5 Encounter for screening for malignant neoplasm of prostate; R79.89 Other specified abnormal findings of blood chemistry; M10.9 Gout, unspecified
CPT/HCPCS: 36415; 80053; 80061; 82043; 82570; 83036; 84153; 84550; 85027; 85379

== ENCOUNTER 2024-09-16 12:39 | Outpatient (AMB) | payer BC, SELFPAY ==
[2024-09-16 12:53] VITALS: BMI 31.1
--- NOTE | 2024-09-16 12:53 | MHC.AMNUTRGE ---
VS Expanded 09/16/24 12:53 Height 6 ft 1 in Weight 235 lb 7.259 oz BMI 31.1 Intake Visit Reasons: Low inflammatory diet Allergies No Known Allergies [No Known Allergies*] Allergy (Verified 08/06/24 12:41) Nutrition Presentation Details: Pt presents for MNT f/u for low inflammatory diet Pt has hx of psoriasis arthristis, Impaired glucose metabolism, obesity. Pt reports making dietary modifications, reducing intake of higher fat foods, and in general reducing portion sizes. Pt reports feeling well. Reports having had a recent episode of gout ( had gout attack many years ago) and has questions regarding purine in foods. BS Monitoring Most Recent Diabetes Results: Microalb/Creat Ratio 6.9 ug/mg cr (<30) 08/14/24 Cholesterol 177 mg/dL (<200) 08/14/24 HDL Cholesterol 35 mg/dL (>40) L 08/14/24 Triglycerides 118 mg/dL (<150) 08/14/24 Creatinine 0.74 mg/dL (0.5-1.4) 08/14/24 Blood Urea Nitrogen 11 mg/dL (9-16) 08/14/24 Sodium 141 mmol/L (135-145) 08/14/24 Potassium 4.8 mmol/L (3.3-5.1) 08/14/24 Chloride 110 mmol/L (96-108) H 08/14/24 Carbon Dioxide 26 mmol/L (22-29) 08/14/24 Calcium 9.6 mg/dL (8.4-10.2) 08/14/24 AST 29 U/L (5-37) 08/14/24 ALT 60 U/L (0-40) H 08/14/24 Total Protein 7.2 g/dL (6.5-8.0) 08/14/24 Albumin 4.0 g/dL (3.5-5.0) 08/14/24 [facility] Medical History Mallet deformity of right little finger 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 arthritis 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 Foot pain, bilateral DOROTHY (obstructive sleep apnea) Obesity (BMI 30-39.9) Hx of chest pain Rupture of left biceps tendon Carcinoid tumor, rectal, benign Seasonal allergies Snores Hyperlipidemia HTN (hypertension) Surgical History History of bunionectomy History of appendectomy History of Achilles tendon repair Hx of colonoscopy History of umbilical hernia repair Family History Mother Irregular heart beat Social History Housing: House Alcohol intake: current Alcohol intake frequency: a few times a week Alcohol type: beer and wine Patient Tobacco Use Status: Never used Tobacco e-Cigarette/Vaping Use: Never Used Second Hand Smoke Exposure: No service: No Current occupational status: employed 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 Cognitive needs: No Hearing needs: No Vision needs: No Assessment & Plan Assessment & Plan (1) Obesity (BMI 30-39.9): Code(s): E66.9 - Obesity, unspecified Category: Medical Plan: Wt: 112 Kg ( 06/2024 ), 107 kg (09/2024) Est kcal needs as per MSJ: 2400 (40% carb, 30% protein/fat) Est fluid needs as per 25-30 ml/d: 3400 Est prot per day as per 1 g/kg bw: 112 Recommend fiber intake : 8-10 g per day and gradually increase to 25-28 g per day for women and 35-38 g for men or as tolerated Recommend sodium intake per day : less than 2300 mg Educated patient on: ( R = reviewed V = verbalizes understanding N/R = needs review N/A = not applicable Food sources of carbohydrate, adequate serving sizes and its role in various health conditions: R Differences between complex carbohydrates a simple carbohydrates, role of fiber in diet: R Lean protein sources of foods: R Differences between types of fats and role in diet (mono on saturated fat fatty acids, saturated fatty acids, trans fats): R basic Food sources of sodium in salt and healthy modifications for heart health in kidney health: R V R/V Vitamins and minerals: R V N/R Healthy plate method concept: R Physical activity: Benefits a precaution: R V N/R Patient Instructions: Continue working on reducing high fat foods as established Alternate breakfasts with fruits/cottage cheese or oatmeal/fruit/nuts or meal replacement Keep hydrated by having water/herb fruit flavor infused water see iist of purine in foods- mailed Coding Level of Care Code Nutr Indiv Subseq (96039) Diagnoses Obesity (BMI 30-39.9) E66.9 Time Spent (min) 30
--- OUTSIDE RECORDS SUMMARY | 2024-09-16 14:57 | XMS_ITS ---
Author Name [facility] Unknown History of Medication Use Medication Directions Dispensed Refills Start Date End Date Stat us doxycycline (VIBRA-TABS) 100 MG tablet Take 1 tablet (100 mg total) by mouth 2 (two) times a day for 5 days Not for /lactatio n 09/14/2024 09/01/9999 active valsartan (DIOVAN) 320 MG tablet 09/14/2024 09/01/9999 active allopurinoL (ZYLOPRIM) 100 MG tablet TAKE 1 TABLET BY MOUTH EVERY DAY 09/14/2024 09/01/9999 active colchicine 0.6 mg tablet TAKE 1 TABLET BY MOUTH EVERY DAY 09/14/2024 09/01/9999 aborted Humira,CF, Pen 40 mg/0.4 mL kit 09/14/2024 09/01/9999 active amLODIPine (NORVASC) 2.5 MG tablet TAKE 1 TABLET BY MOUTH EVERY DAY 09/14/2024 09/01/9999 active aspirin 81 MG chewable tablet 1 tablet 09/14/2024 09/01/9999 active Problems Problem Status Onset Date Problem Type Date of Resolution Source Cough, unspecified type active EncounterDiagnosisAct [facility] Acute non-recurrent maxillary sinusitis active EncounterDiagnosisAct [facility]
== END 2024-09-16 13:52 | disposition home or self-care (01) ==
PROVIDERS: PCP Physician Assistant; Visit Provider Dietitian, Registered
DX: E66.9 Obesity, unspecified (principal)

== ENCOUNTER → 2024-09-16 12:39 | Outpatient (BNVA) | payer OTHER, SELFPAY | PROVIDERS: PCP Physician Assistant; Visit Provider Dietitian, Registered | DX: E66.9 Obesity, unspecified (principal); Z68.31 Body mass index [BMI] 31.0-31.9, adult; Z71.3 Dietary counseling and surveillance | CPT/HCPCS: 97803 ==

== ENCOUNTER → 2024-09-29 10:54 | Outpatient (RCR) | payer OTHER, SELFPAY | END | disposition home or self-care (01) | LOC: HO.OT 08-17 10:58 | PROVIDERS: Visit Provider Physician Assistant | DX: S46.212D Strain of muscle, fascia and tendon of other parts of biceps, left arm, subsequent encounter (principal) | CPT/HCPCS: 97033; 97035; 97140; 97166; 97530 ==

== ENCOUNTER 2024-10-01 13:21 | Outpatient (AMB) | payer BC, SELFPAY ==
[2024-10-01 13:28] VITALS: BP 120/78; PULSE 91; O2SAT 97; BMI 31.8
--- NOTE | 2024-10-01 13:28 | A.OFFVIS_ITS ---
Vital Signs 10/01/24 13:28 Height 6 ft 1 in Weight 241 lb 6.499 oz BMI 31.8 BP 120/78 Blood Pressure Location Lt brachial Position Sitting Pulse 91 Pulse Source Pulse Oximeter Pulse Oximetry (%) 97 Oxygen Delivery Method Room Air Intake Visit Reasons: Obstructive sleep apnea Intake Note: pt is here for follow up and feels good, using cpap, supplies going well Combatant Swimmer Required: No Allergies No Known Allergies [No Known Allergies*] Allergy (Verified 10/01/24 13:45) Medication List - Last Reconciled 10/01/24 by Chastity Bond MD allopurinol 100 mg PO DAILY 90 days amlodipine 2.5 mg PO DAILY aspirin (Adult Low Dose Aspirin) 81 mg PO DAILY betamethasone dipropionate 0.05% 1 appl topical DAILY PRN cholecalciferol (vitamin D3) (Vitamin D3) 25 mcg PO DAILY clotrimazole-betamethasone 1-0.05 % 1 appl topical BID 4 weeks colchicine 0.6 mg PO DAILY fexofenadine 180 mg PO DAILY PRN Hyrimoz(CF) Pen (adalimumab-adaz) 40 mg (0.4 mL) subcut Q2W NS nystatin 1 appl topical DAILY PRN omega 7-ecx-qaf-fish oil 1,000 (120-180) mg (Fish Oil) 1 cap PO DAILY prednisone 10 mg PO DIRECTED 6 days valsartan 320 mg PO DAILY Do you need a note to return to daycare/school/sports/work: No HPI HPI Obstructive sleep apnea: Details: This 59 years old gentleman with the moderate obesity is a known case of obstructive sleep apnea. He is a very regular user of CPAP with nasal pillows, Uses every night and in fact he takes the mini CPAP device with him when he travels. He just can not sleep well without using the CPAP. 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 He monitors his compliance with the [employer] (now [employer]hone radha. And he does use on an average about 6 hours every night. He has no issues with the CPAP at this time, but wants to try the N-30 nasal interface. COUNT INCLUDES THE [facility] Medical History Mallet deformity of right little finger Psoriatic arthritis jail use of drug Foot pain, bilateral DOROTHY (obstructive sleep apnea) Obesity (BMI 30-39.9) Hx of chest pain Rupture of left biceps tendon Carcinoid tumor, rectal, benign Seasonal allergies Snores Hyperlipidemia HTN (hypertension) Surgical History History of bunionectomy History of appendectomy History of Achilles tendon repair Hx of colonoscopy History of umbilical hernia repair Family History Mother Irregular heart beat Social History Housing: House Alcohol intake: current Alcohol intake frequency: a few times a week Alcohol type: beer and wine Patient Tobacco Use Status: Never used Tobacco e-Cigarette/Vaping Use: Never Used Second Hand Smoke Exposure: No service: No Current occupational status: employed 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 Cognitive needs: No Hearing needs: No Vision needs: No Review of Systems Const All systems reviewed & are unremarkable except as noted in HPI and below Eyes Reports no additional complaints ENT Reports nasal congestion (Mild occasional) Card Denies chest pain (History of , not at present), Denies irregular heart rhythm and Denies leg edema Resp Reports no additional complaints, Denies cough and Denies wheezing GI Reports no additional complaints Reports no additional complaints Musc Reports arthralgias (Shoulder and elbow) Skin/Breast Reports system reviewed and no additional complaints, except as documented Neuro Reports no additional complaints Psych Reports no additional complaints Aller/Immun Denies wheezing Physical Exam Vital Signs: Last Vital Signs Pulse 91 10/01/24 13:28 BP 120/78 10/01/24 13:28 Pulse Ox 97 10/01/24 13:28 Oxygen Delivery Method Room Air 10/01/24 13:28 BMI result Body Mass Index 31.8 Const General: healthy appearing (Except for being overweight), comfortable, no acute distress, alert and awake Orientation/consciousness: patient oriented x3 HEENT Head: Yes normal to inspection General nose exam: No nasal polyps present and No nasal discharge present Face and sinus: Yes sinuses nontender Mouth: oropharynx abnormals (Narrow and somewhat crowded, Mallampati class 4) Throat: Yes posterior oropharynx normal Eyes General: appearance normal, both eyes and all related structures Neck Neck: Yes normal visual inspection, Yes no lymphadenopathy, Yes trachea midline, Yes no JVD and Yes other (Neck circumference 18 in) Thyroid: Thyroid normal Chest Chest palpation & inspection: normal inspection of the chest, normal palpation of entire chest wall and no tenderness Resp Effort & Inspection: normal respiratory effort Auscultation: clear to auscultation bilaterally, no crackles and no wheezes Percussion: percussion normal Cardio Palpation: normal PMI Rate: regular rate Rhythm: regular rhythm Heart sounds: no gallops and no murmurs Peripheral pulses: Peripheral pulses 2+ throughout GI Palpation (GI): Soft to palpation, nontender, No hepatosplenomegaly present and no masses Auscultation: normal bowel sounds Back/Spine/Pelvis Thoracic/Lumbar Spine: thoracic and lumbar spine normal to inspection Skin General skin exam: no rashes or lesions noted Neuro General: patient oriented x3 and no focal motor deficits Cranial nerves: Yes CN's II-XII intact bilaterally Extrem General: Yes normal to inspection, Yes no clubbing, cyanosis or edema and Yes no calf tenderness Psych Appearance: grossly normal and well kempt Speech and movement: Normal speech and movement present Assessment & Plan Assessment & Plan (1) Obesity (BMI 30-39.9): Comment: He has moderate obesity, usually he controls his, weight well has gained about 5 lb of weight in the last 6 months. He has seen a dietitian and is trying to restrict his calories intake. Code(s): E66.9 - Obesity, unspecified Category: Medical Plan: Encouraged to lose weight and try to bring BMI below 30. (2) DOROTHY (obstructive sleep apnea): Comment: Diagnosed to have obstructive sleep apnea, 3 years ago, it has been well treated with the use of CPAP. He denies any daytime sleepiness. He is a very regular user of CPAP, claims that his sleep quality is good and he has no daytime sleepiness Code(s): G47.33 - Obstructive sleep apnea (adult) (pediatric) Category: Medical Plan: Commended for good compliance and advised to keep on using the CPAP. Regularly every night Prescription for N 30 nasal interface is sent. Coding Level of Care Code Est Pt Level 3 (98534) Diagnoses Obesity (BMI 30-39.9) E66.9 DOROTHY (obstructive sleep apnea) G47.33
--- OUTSIDE RECORDS SUMMARY | 2024-10-01 17:15 | XMS_ITS | Patient Health Record ---
Author [facility] Address [address] [place] [address] Care Team Providers Care Physiognomist Name Role Phone Cameron Man Primary Care Provider Unavailab Jez Bianchi Unavailable [phone] Allergies No Known Allergies Reason For Referral [...] Problem Status W/U Status Risk Notes Problem [id number] Equinus contract ure of right ankle (M24.571) Active confirmed Problem 42184196 Osteoarthritis o f left ankle and foot (M19.072) Active confirmed Encounters Encounter Location Date Provider Diagnosis [facility] [address] [place] [address] 02/18/2024 Jez Narvaez Plan Of Treatment Pending Test Test Name Order Date MRI : Foot, right 12/11/2017 X ray : Foot, left 3V 12/11/2017 X ray : Foot, right 3V 12/11/2017 X ray : Foot, right 3V 12/23/2020 Insurance Providers Payer Name Payer Address Payer Phone Subscriber Number Group Number Insured Name Patient Relationship to Insured Coverage Start Date Coverage End Date [facility] re-[id number] [address] [address] [place] [address] [id number] Jose Alberto Reina Self - patient is the insured Medical (General) History Medical History History ICD Code High blood pressure Surgical History Surgery Date(Month/Year) Hernia Repair 2014 achilles tendon repair 2007 appendectomy 1979
--- OUTSIDE RECORDS SUMMARY | 2024-10-01 17:15 | XMS_ITS | Patient Health Record ---
Author Organization [facility] Address [address] [place] [address] Care Team Providers Care Cracker Off Name Role Phone Cameron Man Primary Care Provider Unavailab Franco Hernández Jr Unavailable [phone] ALLERGIES Allergen (clinical drug ingredient) Drug/Non Drug Allergy documented on EMR Reaction Allergy Type Onset Date Status seasonal (uncoded) Unknown Allergy A ctive RESULTS Component Value Reference Range Notes Complete Blood Count Auto Di ff Reviewed date:01/24/2024 04:42:12 PM Interpretation: Performing Lab:[facility], [address] [place] [address] Notes/Report: White Blood Count 6.2 4.8-10.8 X10*3/uL [...] Panel Reviewed date:01/24/2024 04:42:07 PM Interpretation: Performing Lab:[address] [address] Notes/Report: Bilirubin Total 0.6 0.0-1.0 mg/dL Bilirubin Direct 0.2 0.0-0.5 mg/dL Aspartate Amino Transferase 28 5-37 U/L Alanine Aminotransferase 54 0-40 U/L Total Protein 7.5 6.5-8.0 g/dL Albumin Level 4.2 3.5-5.0 g/dL Alkaline Phosphatase 54 39-117 U/L Lipase Reviewed date:01/24/2024 04:41:58 PM Interpretation: Performing Lab:[facility], [address] [place] [address] Notes/Report: Lipase 27 8-78 U/L US abdomen complete Reviewed date:02/27/2024 07:57:13 AM Interpretation: Performing Lab: Notes/Report: [address] [address] Ultrasound Report Signed with Addenda Patient: Toyin Cannon MR#: [id number] : 1965 Acct:[id number] Age/Sex: 58 / M ADM Date: 02/06/24 Loc: HO.US Attending Dr: Franco Valdez MD Ordering Physician: Franco Valdez MD Date of Service: 02/06/24 Procedure(s): US abdomen complete Accession Number(s): [id number] cc: Franco Valdez MD; Cameron Man PA-C ADDENDUM . The previous of addendum is to clarify a discrepancy due to replacer error in the original report regarding gallbladder [...] MD in OV> 02/19/24928 DD/ 9 TD/TT: Offshore Diver: REASON FOR REFERRAL No Information MEDICATIONS Medication [...] Problem Colon cancer screening (Z12.11) Active confirmed 517790436 Problem Elevated LFTs (R79.89) Active confirmed 993401419 Problem Fatty liver (K76.0) Active confirmed 19 1292179 Problem Hemorrhoids, unspecified hemorrhoid type (K64.9) Active confirmed 94315784 Problem Rectal carcinoid tumor (D3A.026) Active confirmed 904892211 Problem Chest pressure (R07.89) Active confirmed 917767301 Problem Gastroesophageal reflux disease, unspecified whether esophagitis present (K21.9) Active confirmed 537522522 Problem Black stools (K92.1) Active confirmed 2 29736254 VITAL SIGNS Blood pressure diastolic 00 mm Hg 08/06/2024 Height 73 in 08/06/2024 Blood pressure systolic 00 mm Hg 08/06/2024 Weight 243 lbs 08/06/2024 BMI 32.06 kg/m2 08/06/2024 Encounters Encounter Location Date Provider Diagnosis [facility] [address] [place] [address] 07/22/2024 Franco Valdez Jr [facility] [address] [facility] [place] [address] 08/06/2024 Franco Valdez Jr Fatty liver K76.0 ; Gastroesophageal reflux disease, unspecified whether esophagitis present K21.9 and Colon cancer screening Z12.11 [facility] [address] [facility] [place] [address] 01/22/2024 Franco Valdez Jr Chest pressure R07.89 ; Elevated LFTs R79.89 and Black stools K92.1 [facility] [address] [place] [address] [place] [address] 01/24/2024 Franco Valdez Jr [facility] [address] [facility] [place] [address] 02/20/2024 Franco Valdez Jr Generalized abdominal pain R10.84 [facility] [address] [place] [address] 02/27/2024 Franco Valdez Jr [facility] [address] [place] [address] 06/09/2024 Franco Valdez Jr ASSESSMENTS Encounter Date Diagnosis Assessment Notes Treatment Notes Treatment Clinical Notes 08/06/2024 Fatty liver (ICD-10 - K76.0) Fatty liver - nonalcoholic material was printed 08/06/2024 Gastroesophageal reflux disease, unspecified whether esophagitis present (ICD-10 - K21.9) 01/22/2024 Elevated LFTs (ICD-1 0 - R79.89) 01/22/2024 Chest pressure (ICD- 10 - R07.89) 02/20/2024 Generalized abdomina l pain (ICD-10 - R10.84) 08/06/2024 Colon cancer screeni ng (ICD-10 - Z12.11) 01/22/2024 Black stools (ICD-10 - K92.1) PLAN [...] Provider Name:Franco cassidy Jr, 08/05/2025 01:35:00 PM, [address] [place] [address], [address], [place], [address], Insurance Providers Payer Name Payer Address Payer Phone Subscriber Number Group Number Insured Name Patient Relationship to Insured Coverage Start Date Coverage End Date [facility] [address] [address] [place] [address] [id number] TOYIN CANNON Self - patient is the insured MEDICAL (GENERAL) HISTORY Medical History History ICD Code seasonal allergies Rectal carcinoid, incidental ly found at time of colonoscopy 2010, followup flexible sigmoidoscopy and colonoscopy negative. Hypertension borderline high cholesterol torn meniscus in left knee Torn biceps left arm Colonoscopy 07/23 2 to adenoma, five-yea r followup Psoriatic arthritis Surgical History Surgery Date(Month/Year) appendectomy Achilles tendon repair, left umbilical hernia repair bunionectomy 2023
--- OUTSIDE RECORDS SUMMARY | 2024-10-01 17:15 | XMS_ITS ---
Author Organization [facility] Address [address] [place] [address] Care Team Providers Care Chemical Lab Technician Name Role Phone Cameron Man Primary Care Provider Unavailab Jez Bianchi Unavailable [phone] Encounters Encounter Location Date Provider Diagnosis [facility] [address] [address] 05/25/2024 Jez Narvaez Plan Of Treatment No Information Progress Notes * DAVISJose Alberto Marmolejo EDOB: [birth year] (59 yo M)Acc No.[id number]:05/25/2024 Progress Notes Patient:?Jose Alberto CANNON Provider:?Jez Narvaez DPM :1965???Age:59 Y???Sex:Male Sal e:05/25/2024 Address:[address] [place], [place] [phone] Pcp:Cameron Man Subjective: * Chief Complaints: * ??? * Medical History:? Objective: * Vitals:? Assessment: Plan: * Treatment: * Images: * The named appointment provid er may or may not be the originator of this progress note, and it is not deemed complete until electronically signed by the appointment provider. Sign off status: Pending * Provider:?Jez Narvaez DPM Date:?2023 Generated for Printi dar/Faxing/eTransmitting on:?10/01/2024 05:15 PM EST
--- OUTSIDE RECORDS SUMMARY | 2024-10-01 17:15 | XMS_ITS ---
Author Organization [facility] Address [address] [place] [address] Care Team Providers Care Change Room Attendant Name Role Phone Donovan Cameron Primary Care Provider Unavailab Franco Hernández Jr Unavailable [phone] ALLERGIES Allergen (clinical drug ingredient) Drug/Non Drug [...] 1 tablet Orally Once a day Active PROBLEMS Problem Type ICD Code Onset Dates Problem Status W/U Status Risk SNOMED Code Notes Problem Gastroesophageal reflux disease, unspecified whether esophagitis present (K21.9) Active confirmed 780559021 VITAL SIGNS BMI 32.06 kg/m2 08/06/2024 Blood pressure systolic 00 mm Hg 08/06/20 24 Blood pressure diastolic 00 mm Hg 024 Height 73 in 08/06/2024 Weight 243 lbs 08/06/2024 Encounters Encounter Location Date Provider Diagnosis [facility] [address] [place] [address] 08/06/2024 Franco Valdez Jr Fatty liver K76.0 ; Gastroesophageal reflux disease, unspecified whether esophagitis present K21.9 and Colon cancer screening Z12.11 ASSESSMENTS Encounter Date Diagnosis Assessment Notes Treatment Notes Treatment Clinical Notes 08/06/2024 Fatty liver (ICD-10 - K76.0) Fatty liver - nonalcoholic material was printed 08/06/2024 Gastroesophageal reflux disease, unspecified whether esophagitis present (ICD-10 - K21.9) 08/06/2024 Colon cancer screeni ng (ICD-10 - Z12.11) PLAN OF TREATMENT Treatment Notes Assessment Notes Fatty liver Fatty liver - nonalc oholic material was printed Pending Test Test Name Order Date LIVER PROFILE 08/06/2024 IRON + IBC (FE) 08/06/2024 FERRITIN 08/06/2024 CBC w DIFF 08/06/2024 MITOCHONDRIAL AB 08/06/2024 SMOOTH MUSCLE ANTIBODIES 08/06/2024 Liver Fibrosis Pnl 08/06/2024 Next Appt Details Follow Up: 1 Year, Reason: Provider Name:Franco cassidy Jr, 08/05/2025 01:35:00 PM, [address], [address], [place], [address],
--- OUTSIDE RECORDS SUMMARY | 2024-10-01 17:15 | XMS_ITS ---
Author Organization [facility] Address [address] [place] [address] Care Team Providers Care Airport Tower Controller Name Role Phone Cameron Man Primary Care Provider Unavailab Franco Hernández Jr REASON FOR VISIT fatty liver Encounters Encounter Location Date Provider Diagnosis [facility] [address] [place] [address] 07/22/2024 Franco Valdez Jr PLAN OF TREATMENT Next Appt Details Provider Name:Franco cassidy Jr, 08/05/2025 01:35:00 PM, [address], [address], [place], [address],
--- OUTSIDE RECORDS SUMMARY | 2024-10-01 17:16 | XMS_ITS ---
Author Organization [facility] Address [address] [place] [address] Care Team Providers Care Equal Opportunity Representative Name Role Phone Cameron Man Primary Care Provider Unavailab Jez Bianchi Unavailable [phone] REASON FOR VISIT ON Encounters Encounter Location Date Provider Diagnosis [address] [address] 02/18/2024 Jez Narvaez Plan Of Treatment No Information Progress Notes * Jose Alberto CANNON EDOB: [birth year] (58 yo M)Acc No.[id number]:02/18/2024 Patient:?Jose Alberto Cannon :1965???Age:58 Y???Sex:Male Address:[address] [place] [address], [address] * true * Date:? Generated for Printi dar/Tamika/eTransmitting on:?10/01/2024 05:15 PM EST
--- OUTSIDE RECORDS SUMMARY | 2024-10-01 17:16 | XMS_ITS ---
Author Organization [facility] Address [address] [place] [address] Care Team Providers Care Senior Engineering Associate Name Role Phone Cameron Man Primary Care Provider Unavailab Franco Hernández Jr Unavailable [phone] REASON FOR VISIT r/s july appt Encounters Encounter Location Date Provider Diagnosis [facility] [address] [place] [address] 06/09/2024 Franco Valdez Jr PLAN OF TREATMENT Next Appt Details Provider Name:Franco cassidy Jr, 08/05/2025 01:35:00 PM, [address] [facility], [address], [place], [address],
== END 2024-10-01 13:45 | disposition home or self-care (01) ==
PROVIDERS: PCP Physician Assistant; Visit Provider Internal Medicine
DX: E66.9 Obesity, unspecified (principal); G47.33 Obstructive sleep apnea (adult) (pediatric)
CPT/HCPCS: 99213

== ENCOUNTER 2024-10-01 13:21 | Outpatient (REF) | payer OTHER, SELFPAY | END 2024-10-01 13:22 | disposition home or self-care (01) | LOC: HO.LAB 13:21 | PROVIDERS: PCP Physician Assistant; Visit Provider Internal Medicine | DX: M10.9 Gout, unspecified (principal); Z13.89 Encounter for screening for other disorder ==

== ENCOUNTER 2024-10-01 13:45 | Outpatient (REF) | payer BC, SELFPAY ==
[2024-10-01 14:57] LABS: Uric Acid 6.4 mg/dL (3.4-7.0)
== END 2024-10-01 13:46 | disposition home or self-care (01) ==
LOC: HO.LAB 13:45
PROVIDERS: PCP Physician Assistant; Visit Provider Physician Assistant
DX: M10.9 Gout, unspecified (principal)
CPT/HCPCS: 36415; 84550

== ENCOUNTER 2024-11-02 09:51 | Outpatient (REF) | payer BC, SELFPAY ==
[2024-11-02 10:16] LABS: MANUAL DIFF FLAG NO
[2024-11-02 10:18] LABS: Basophils Absolute Auto 0.1 X10*3/uL (0.0-0.2); Basophils Percent Auto 1.5 % (0-2); Eosinophils Absolute Auto 0.3 X10*3/uL (0.0-0.4); Eosinophils Percent Auto 4.4 % (0-4); Hematocrit 45.9 % (42.0-52.0); Hemoglobin 15.7 g/dl (14.0-18.0); Imm Gran Abs Auto 0.05 X10*3/uL (0.00-0.03); Imm Gran Pct Auto 0.8 % (0.0-0.4); Lymphocytes Absolute Auto 1.7 X10*3/uL (1.2-4.9); Lymphocytes Percent Auto 28.5 % (20-40); Mean Corpuscular HGB Conc 34.2 g/dl (31.0-36.0); Mean Corpuscular Hemoglobin 30.7 pg (27.0-33.0); Mean Corpuscular Volume 89.8 fL (80.0-98.0); Mean Platelet Volume 9.2 fL (9.4-12.4); Monocytes Absolute Auto 0.6 X10*3/uL (0.1-1.2); Monocytes Percent Auto 10.8 % (2-11); Neutrophils Absolute Auto 3.2 x10*3/uL (2.0-8.3); Platelet Count 307 X10*3/uL (160-400); Red Blood Count 5.11 X10*6/uL (4.60-5.80); Red Cell Distribution Width 13.2 % (11.0-16.0); White Blood Count 5.9 X10*3/uL (4.8-10.8)
--- OUTSIDE RECORDS SUMMARY | 2024-11-02 11:05 | XMS_ITS ---
Author Organization [facility] Address [address] [place] [address] Care Team Providers Care Promotions Firm Accounts Manager Name Role Phone Frank Manolas Primary Care Provider Unavailab Franco Hernández Jr Unavailable [phone] ALLERGIES Allergen (clinical drug ingredient) Drug/Non Drug [...] unspecified whether esophagitis present (K21.9) Active confirmed 080638477 VITAL SIGNS Blood pressure systolic 00 mm Hg 08/06/20 24 Blood pressure diastolic 00 mm Hg 024 Height 73 in 08/06/2024 Weight 243 lbs 08/06/2024 BMI 32.06 kg/m2 08/06/2024 Encounters Encounter Location Date Provider Diagnosis [facility] [address] [place] [address] 08/06/2024 Franco Valdez Jr Fatty liver K76.0 [...] 01:35:00 PM, [address], [address], [place], [address],
--- OUTSIDE RECORDS SUMMARY | 2024-11-02 11:05 | XMS_ITS ---
Author Organization [facility] Address [address] [place] [address] Care Team Providers Care Mammography Technologist Name Role Phone Cameron Man Primary Care Provider Unavailab Franco Hernández Jr [phone] REASON FOR VISIT fatty liver Encounters Encounter Location Date Provider Diagnosis [facility] [address] [place] [address] 07/22/2024 Franco Valdez Jr PLAN OF TREATMENT Next Appt Details Provider Name:Franco cassidy Jr, 08/05/2025 01:35:00 PM, [address], [address], [place], [address],
--- OUTSIDE RECORDS SUMMARY | 2024-11-02 11:05 | XMS_ITS | Patient Health Record ---
Author Organization [facility] Address [address] [place] [address] Care Team Providers Care Machine Gun Mechanic Name Role Phone Cameron Man Primary Care Provider Unavailab Jez Bianchi Unavailable [phone] Allergies No Known Allergies Reason For Referral [...] Problem Status W/U Status Risk Notes Problem 552533195 Equinus contract ure of right ankle (M24.571) Active confirmed Problem 69261588 Osteoarthritis o f left ankle and foot (M19.072) Active confirmed Encounters Encounter Location Date Provider Diagnosis [facility] [address] [place] [address] 02/18/2024 Jez Narvaez Plan Of Treatment Pending Test Test Name Order Date MRI : Foot, right 12/11/2017 X ray : Foot, left 3V 12/11/2017 X ray : Foot, right 3V 12/11/2017 X ray : Foot, right 3V 12/23/2020 Insurance Providers Payer Name Payer Address Payer Phone Subscriber Number Group Number Insured Name Patient Relationship to Insured Coverage Start Date Coverage End Date [id number] [address] [address] [place] [address] [id number] Jose Alberto Reina Self - patient is the insured Medical (General) History Medical History History ICD Code High blood pressure Surgical History Surgery Date(Month/Year) Hernia Repair 2014 achilles tendon repair 2007 appendectomy 1979
--- OUTSIDE RECORDS SUMMARY | 2024-11-02 11:06 | XMS_ITS | Patient Health Record ---
Author Organization [facility] Address [address] [place] [address] Care Team Providers Care Computer Numerical Control Operator Name Role Phone Cameron Man Primary Care Provider Unavailab Franco Hernández Jr Unavailable ALLERGIES Allergen (clinical drug ingredient) Drug/Non Drug Allergy documented on EMR Reaction Allergy Type Onset Date Status seasonal (uncoded) Unknown Allergy A ctive RESULTS Component Value Reference Range Notes Complete Blood Count Auto Di ff Reviewed date:01/24/2024 04:42:12 PM Interpretation: Performing Lab:[facility], [address] [place] [address] Notes/Report: White Blood Count 6.2 4.8-10.8 X10*3/uL [...] Panel Reviewed date:01/24/2024 04:42:07 PM Interpretation: Performing Lab:[address] [address] Notes/Report: Bilirubin Total 0.6 0.0-1.0 mg/dL Bilirubin Direct 0.2 0.0-0.5 mg/dL Aspartate Amino Transferase 28 5-37 U/L Alanine Aminotransferase 54 0-40 U/L Total Protein 7.5 6.5-8.0 g/dL Albumin Level 4.2 3.5-5.0 g/dL Alkaline Phosphatase 54 39-117 U/L Lipase Reviewed date:01/24/2024 04:41:58 PM Interpretation: Performing Lab:[facility], [address] [place] [address] Notes/Report: Lipase 27 8-78 U/L US abdomen complete Reviewed date:02/27/2024 07:57:13 AM Interpretation: Performing Lab: Notes/Report: [address] [address] Ultrasound Report Signed with Addenda Patient: Toyin Cannon MR#: [id number] : 1965 Acct:[id number] Age/Sex: 58 / M ADM Date: 02/06/24 Loc: HO.US Attending Dr: Franco Valdez MD Ordering Physician: Franco Valdez MD Date of Service: 02/06/24 Procedure(s): US abdomen complete Accession Number(s): [id number] cc: Franco Valdez MD; Cameron Man PA-C ADDENDUM . 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) Active confirmed 380808805 Problem Chest pressure (R07.89) Active confirmed 914488161 Problem Gastroesophageal reflux disease, unspecified whether esophagitis present (K21.9) Active confirmed 570657770 Problem Black stools (K92.1) Active confirmed 2 75526254 VITAL SIGNS Blood pressure diastolic 00 mm Hg 08/06/2024 Height 73 in 08/06/2024 Blood pressure systolic 00 mm Hg 08/06/2024 Weight 243 lbs 08/06/2024 BMI 32.06 kg/m2 08/06/2024 Encounters Encounter Location Date Provider Diagnosis [facility] [address] [place] [address] 07/22/2024 Franco Valdez Jr [facility] [address] [place] [facility] [address] 08/06/2024 Franco Valdez Jr Fatty liver K76.0 ; Gastroesophageal reflux disease, unspecified whether esophagitis present K21.9 and Colon cancer screening Z12.11 [facility] [address] [facility] [place] [address] 01/22/2024 Franco Valdez Jr Chest pressure R07.89 ; Elevated LFTs R79.89 and Black stools K92.1 [facility] [address] [facility] [place] [address] 01/24/2024 Franco Valdez Jr [facility] [address] [facility] [address] 02/20/2024 Franco Valdez Jr Generalized abdominal pain R10.84 [facility] [address] [place] [address] 02/27/2024 Franco Valdez Jr [facility] [address] [place] [address] 06/09/2024 Franco Valdez Jr ASSESSMENTS Encounter Date [...] 08/06/2024 FERRITIN 08/06/2024 CBC w DIFF 08/06/2024 CBC w DIFF 01/22/2024 MITOCHONDRIAL AB 08/06/2024 SMOOTH MUSCLE ANTIBODIES 08/06/2024 US ABD 01/22/2024 HIDA SCAN GB WITH CCK 02/20/2024 Liver Fibrosis Pnl 08/06/2024 Future Test Test Name Order Date COLONOSCOPY 01/11/2016 COLONOSCOPY 06/16/2021 Next Appt Details Provider Name:Franco cassidy Jr, 08/05/2025 01:35:00 PM, [address] [place] [address], [address], [place], [address], Insurance Providers Payer Name Payer Address Payer Phone Subscriber Number Group Number Insured Name Patient Relationship to Insured Coverage Start Date Coverage End Date [facility] [address] [address] [place] [id number] TOYIN CANNON Self - patient is the [...]
--- OUTSIDE RECORDS SUMMARY | 2024-11-02 11:06 | XMS_ITS ---
Author Organization [facility] Address [address] [place] [address] Care Team Providers Care Sanitation Officer Name Role Phone Cameron Man Primary Care Provider Unavailab Jez Bianchi Unavailable [phone] Encounters Encounter Location Date Provider [facility] [address] [address] 05/25/2024 Jez Narvaez Plan Of Treatment No Information Progress Notes * DAVISRicoJose Alberto EDOB: [birth year] (59 yo M)Acc No.[id number]:05/25/2024 Progress Notes Patient:?Jose Alberto CANNON Provider:?Jez Narvaez DPM :1965???Age:59 Y???Sex:Male Sal e:05/25/2024 Address:[address] [place], [place] [id number] Pcp:Cameron Man Subjective: * Chief Complaints: * ??? * Medical History:? Objective: * Vitals:? Assessment: Plan: * Treatment: * Images: * The named appointment provid er may or may not be the originator of this progress note, and it is not deemed complete until electronically signed by the appointment provider. Sign off status: Pending * Provider:?Jez Narvaez DPM Date:?2023 Generated for Printi dar/Faxing/eTransmitting on:?11/02/2024 11:05 AM EST
--- OUTSIDE RECORDS SUMMARY | 2024-11-02 11:06 | XMS_ITS ---
Author Organization [facility] Address [address] [place] [address] Care Team Providers Care Inspector Semiconductor Wafer Name Role Phone Dos RiosCameron peck Primary Care Provider Unavailab Jez Bianchi Unavailable [phone] REASON FOR VISIT ON Encounters Encounter Location Date Provider Diagnosis [address] [address] 02/18/2024 Jez Narvaez Plan Of Treatment No Information Progress Notes * Jose Alberto CANNON EDOB: [birth year] (58 yo M)Acc No.[id number]:02/18/2024 Patient:?Jose Alberto Cannon :1965???Age:58 Y???Sex:Male Address:[address] [place] [address], [address] * true * Date:? Generated for Adrii dar/Tamika/eTransmitting on:?11/02/2024 11:06 AM EST
--- OUTSIDE RECORDS SUMMARY | 2024-11-02 11:06 | XMS_ITS ---
Author Organization [facility] Address [address] [place] [address] Care Team Providers Care Meat Grader Name Role Phone Cameron Man Primary Care Provider Unavailab Franco Hernández Jr Unavailable REASON FOR VISIT r/s july appt Encounters Encounter Location Date Provider Diagnosis [facility] [address] [place] [address] 06/09/2024 Franco Valdez Jr PLAN OF TREATMENT Next Appt Details Provider Name:Fracno cassidy Jr, 08/05/2025 01:35:00 PM, [address] [facility], [address], [place], [address],
[2024-11-02 11:09] LABS: Erythrocyte Sedimentation Rate 2 MM/HR (0-15)
[2024-11-02 12:01] LABS: Uric Acid 7.3 mg/dL (3.4-7.0)
[2024-11-02 12:19] LABS: Alanine Aminotransferase 33 U/L (0-40); Albumin Level 4.1 g/dL (3.5-5.0); Alkaline Phosphatase 57 U/L (39-117); Anion Gap 12 (12-20); Aspartate Amino Transferase 20 U/L (5-37); Bilirubin Total 0.4 mg/dL (0.0-1.0); Blood Urea Nitrogen 11 mg/dL (9-16); C Reactive Protein 0.14 mg/dL (< or = 0.50); Calcium 9.1 mg/dL (8.4-10.2); Carbon Dioxide 27 mmol/L (22-29); Chloride 107 mmol/L (96-108); Estimated Glomerular Filt Rate > 60; Glucose Random 100 mg/dL (60-115); Potassium 4.1 mmol/L (3.3-5.1); Sodium 142 mmol/L (135-145); Total Protein 7.7 g/dL (6.5-8.0)
== END 2024-11-02 09:52 | disposition home or self-care (01) ==
LOC: HO.10HDL 09:51
PROVIDERS: Physician Assistant; Visit Provider Student in an Organized Health Care Education/Training Program
DX: L40.50 Arthropathic psoriasis, unspecified (principal); M10.9 Gout, unspecified
CPT/HCPCS: 36415; 80053; 84550; 85025; 85652; 86140

== ENCOUNTER 2024-11-05 14:23 | Outpatient (AMB) | payer BC, SELFPAY ==
--- NOTE | 2024-11-05 14:24 | MHC.OFFVIS ---
Vital Signs 11/05/24 14:28 Height 6 ft 1 in Weight 243 lb 13.3 oz BMI 32.2 BP 120/80 Blood Pressure Location Lt brachial Position Sitting Pulse 102 H Pulse Source Pulse Oximeter Pulse Oximetry (%) 98 Oxygen Delivery Method Room Air Intake Visit Reasons: PsA Intake Note: Patient presents for PsA. Allergies No Known Allergies [No Known Allergies*] Allergy (Verified 11/05/24 14:27) Medication List - Last Reconciled 11/05/24 by Jessica Cervantes MD allopurinol 100 mg PO DAILY 90 days amlodipine 2.5 mg PO DAILY aspirin (Adult Low Dose Aspirin) 81 mg PO DAILY betamethasone dipropionate 0.05% 1 appl topical DAILY PRN cholecalciferol (vitamin D3) (Vitamin D3) 25 mcg PO DAILY clotrimazole-betamethasone 1-0.05 % 1 appl topical BID 4 weeks colchicine 0.6 mg PO DAILY fexofenadine 180 mg PO DAILY PRN Hyrimoz(CF) Pen (adalimumab-adaz) 40 mg (0.4 mL) subcut Q2W NS nystatin 1 appl topical DAILY PRN omega 2-isv-vea-fish oil 1,000 (120-180) mg (Fish Oil) 1 cap PO DAILY prednisone 10 mg PO DIRECTED 6 days valsartan 320 mg PO DAILY HPI Comments Details: Patient is a 59-year-old female with hypertension, hyperlipidemia complicated by ascending aortic aneurysm, non crystal proven gout, polyarticular osteoarthritis, psoriasis, and psoriatic arthritis Interval History: Patient last seen 08/06/[address] Longoria. At that time patient was on Hyrimoz but he had held it perioperatively for left foot bunion and bunionette surgery. As a result he was having some joint pains especially his right index and left pinky but nothing significant. We had wanted to increase the frequency of his medication however this was denied by the insurance. We are considering switching the medication to Taltz but patient wanted to look up the cost to him with his insurance. Restarted Hymiroz in September 2024 Has been having pain and swelling of his right great toe Also with pain involving his bilateral hands Has increased the frequency of Humira to every 10 days Rheumatologic History: PsO - Dx 2006 PsA - Dx 2019 - 08/2022. Started Humira - 12/2023. Switched to Hymrioz Initial history: The patient presents for evaluation of multiple areas of joint pain in the setting of a twenty year history of psoriasis. The psoriasis is mostly on the palms of his hands but sometimes in the scalp. This is controlled with a topical compound ointment prescribed by Dermatology. The patient had torn ligaments when in college at the right ankle. In 2006 he had a ruptured left Achilles tendon. This was surgically repaired. For about 8 or 9 years he has noted a lump on the right heel in the Achilles region. Surgery was proposed but it does not bother him all that much. He gets occasional painful swelling in the 1st toe bilaterally. He was given prn colchicine for this which seems to help when he experiences it. It is more likely to occur in the left 1st toe. There is also some pain and swelling of the 2nd and 4th toes. That seems to be more chronic but does worsen on some days. For about a year now he has been having left knee pain. There is a documented medial meniscal tear seen on MRI. He has been treating this with physical therapy. He ate seeking another orthopedic opinion about possible surgery. In April he had an injury to the biceps tendon lifting a heavy object. Around that time he also developed painful swelling of the left olecranon bursa. That improved with physical therapy. In December he noted some pain and swelling of the left wrist. This was while undergoing treatment for the bursitis with some compressive bandages. Also in December he developed some pain in the right 5th DIP joint. This was followed a few days later by a flexion deformity. He is thought to have an extensor tendon tear. Surgery is planned in a few days. He does take naproxen occasionally for symptoms, this is the hbrx-nec-mccfcyd, 1 or 2 a day but sometimes goes many days without any treatment. Current Rheumatology Medication(s): Hymiroz 40mg SC every 2 weeks [facility] Medical History (Updated 11/05/24 @ 15:56 by Jessica Cervantes MD) Mallet deformity of right little finger Psoriatic arthritis Foot pain, bilateral DOROTHY (obstructive sleep apnea) Obesity (BMI 30-39.9) Hx of chest pain Rupture of left biceps tendon Carcinoid tumor, rectal, benign Seasonal allergies Snores Hyperlipidemia HTN (hypertension) Surgical History (Reviewed 11/05/24 @ 14:28 by Brittney Mtz [facility]) History of bunionectomy History of appendectomy History of Achilles tendon repair Hx of colonoscopy History of umbilical hernia repair Family History Mother Irregular heart beat Social History Housing: House Alcohol intake: current Alcohol intake frequency: a few times a week Alcohol type: beer and wine Patient Tobacco Use Status: Never used Tobacco e-Cigarette/Vaping Use: Never Used Second Hand Smoke Exposure: No service: No Current occupational status: employed Current occupation: [email or web address] Cognitive needs: No Hearing needs: No Vision needs: No Review of Systems Const Details: Review of Systems Constitutional: Denies fever, chills, weight loss ENT: Denies vision changes, eye pain or eye redness, dental caries, dry mouth GI: Denies nausea, vomiting, diarrhea, abdominal pain, change in BM Pulm: Denies SOB, WATERMAN, hemoptysis, wheezing Cards: Denies chest pain, palpitations Skin: Denies Raynaud's, rash, nail changes, photosensitivity, [employer]: Denies headaches, weakness, paresthesias, recurrent falls MSK: as per HPI All other systems reviewed and are unremarkable except noted above Physical Exam Vital Signs: Last Vital Signs Pulse 102 H 11/05/24 14:28 BP 120/80 11/05/24 14:28 Pulse Ox 98 11/05/24 14:28 Oxygen Delivery Method Room Air 11/05/24 14:28 BMI result Body Mass Index 32.2 Vital signs reviewed Physical Examination CONSTITUITIONAL Patient alert and cooperative. Well appearing and in no apparent painful distress HEENT Conjunctiva and sclera clear. ?Pupils equal round and reactive to light. ?No lymphadenopathy. ? CHEST/RESPIRATORY SYSTEM Normal respiratory effort and able to speak in complete sentences. ?Clear to auscultation bilaterally. ?No crackles, rales, rhonchi, wheezes heard. CARDIAC SYSTEM Regular rate and rhythm. ?S1 and S2 heard no murmurs. ?Radial pulses intact bilaterally MSK Hands: ?Good gripper attacher strength bilaterally. No deformities noted. ?Swelling noted to MCPs and PIPs. With tenderness to palpation. Right 5th digit with non reducible flexion at the PIP joint. Heberden's nodes noted throughout. Wrists: ?Full range of motion at the wrists without pain. ?No tenderness to palpation or synovitis noted to the wrists. Elbows: Full range of motion without pain. No tenderness, weakness, swelling, increased warmth or erythema. Shoulders: Full range of motion without pain. No tenderness, weakness, swelling, increased warmth or erythema. Knees: ?Full range of motion. ?No tenderness, swelling, increased warmth or erythema.? Bilateral crepitations felt. Ankles: Full range of motion. ?No tenderness, swelling, increased warmth or erythema.? Feet: ?Positive squeeze test with pain with palpation of the right great toe MTP Tender points:?No tenderness to palpation of the bilateral trapezius, supraspinatus, greater trochanters, anterior costochondral junctions, bilateral gluteal areas, bilateral suboccipital muscle insertions SKIN Palmar surface with scaly plaques bilaterally. Results Reviewed Results Reviewed: Laboratory Tests 11/02/24 11/02/24 09:06 09:56 WBC 5.9 RBC 5.11 Hgb 15.7 Hct 45.9 Plt Count 307 ESR 2 Sodium 142 Potassium 4.1 Chloride 107 Carbon Dioxide 27 BUN 11 Creatinine 0.75 Uric Acid 7.3 H Calcium 9.1 Total Bilirubin 0.4 AST 20 ALT 33 Alkaline Phosphatase 57 C-Reactive Protein 0.14 Total Protein 7.7 Albumin 4.1 Infectious labs 03/30/24 13:29 Hepatitis A IgM Ab Nonreactive Hep Bs Antigen Negative Hep Bs Antibody NONREACTIVE Hep B Core Total Ab Nonreactive Hepatitis C Ab (EIA) Nonreactive TB Test (T-Spot) Com Negative Assessment & Plan Assessment & Plan (1) Psoriatic arthritis: Comment: PsO - Dx 2006 PsA - Dx 2019 - 08/2022. Started Humira - 12/2023. Switched to Hymrioz Code(s): L40.50 - Arthropathic psoriasis, unspecified Category: Medical Plan: #PsA Patient is a 59-year-old male with psoriasis complicated by psoriatic arthritis currently not under control with Humira. Insurance denied weekly Humira and also we will not pay for Taltz. 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 Uric acid goal for this patient is less than 5. Patient currently not at goal. We will increase his allopurinol Plan - Allopurinol 200mg daily - Colchicine 0.6mg daily for prophylaxis - RTC 3 months - Labs before visit: UA (3) Encounter for monitoring of adalimumab therapy: Code(s): Z51.81 - Encounter for therapeutic drug level monitoring; Z79.620 - intermission coordinator (current) use of immunosuppressive biologic Plan: #Long-term Use of TNF Inhibitors: Adalimumab Discussed with the patient the benefits and risks of TNF inhibitors for the management of the rheumatic condition Benefits include reduce pain, maintenance of remission and reduction of flares as well as ?progression of the disease Risks include injection sites/infusion reactions, serious infections (such as bacterial infections, opportunistic infections), malignancy, delaminating syndromes, autoimmune phenomena, CHF exacerbations, palmar plantar psoriasis and cytopenias Recommended rotating injection sites, and holding medication during and for up to 1 week after resolution of a febrile illness or open skin wound (4) On allopurinol therapy: Code(s): Z79.899 - Other nursing home (current) drug therapy Plan: #Long-term Current Use of Allopurinol Risks and benefits of allopurinol discussed with patient Benefits include decreased gout flares, remission of gout and reduction of tophi Risks include allopurinol hypersensitivity syndrome which is a severe cutaneous adverse reaction associated with allopurinol use particularly in patients who are HLA B*5801 positive, increased transaminases, GI upset including diarrhea, nausea and vomiting, and other dermatologic manifestations. Plan I spent 38 minutes reviewing the record and labs, taking a history, examining the patient, discussing the treatment plan and documenting in the medical record Orders: Orders C Reactive Protein 3 Months L40.50 - Arthropathic psoriasis, unspecified, M10.9 - Gout, unspecified Hepatitis A,B,C Profile 3 Months L40.50 - Arthropathic psoriasis, unspecified, M10.9 - Gout, unspecified HIV Ab/Ag 3 Months L40.50 - Arthropathic psoriasis, unspecified, M10.9 - Gout, unspecified Uric Acid 3 Months L40.50 - Arthropathic psoriasis, unspecified, M10.9 - Gout, unspecified Complete Blood Count Auto Diff 3 Months L40.50 - Arthropathic psoriasis, unspecified, M10.9 - Gout, unspecified Comprehensive Met. Panel 3 Months L40.50 - Arthropathic psoriasis, unspecified, M10.9 - Gout, unspecified Erythrocyte Sedimentation Rate 3 Months L40.50 - Arthropathic psoriasis, unspecified, M10.9 - Gout, unspecified T Spot TB 3 Months L40.50 - Arthropathic psoriasis, unspecified, M10.9 - Gout, unspecified Medications: New colchicine 0.6 mg PO DAILY 90 tabs 1RF M10.9 - Gout, unspecified methotrexate sodium 15 mg (6 x 2.5 mg) PO QWEEK 90 days 78 tabs 1RF L40.50 - Arthropathic psoriasis, unspecified folic acid 1 mg PO DAILY 90 tabs 1RF L40.50 - Arthropathic psoriasis, unspecified Changed From allopurinol 100 mg PO DAILY 90 days 90 tabs 1RF M10.9 - Gout, unspecified To allopurinol 200 mg (2 x 100 mg) PO DAILY 90 days 180 tabs 1RF M10.9 - Gout, unspecified Refilled Hyrimoz(CF) Pen (adalimumab-adaz) 40 mg (0.4 mL) subcut Q2W 2 mL 5RF NS M10.9 - Gout, unspecified Discontinued prednisone Taking 3 tablets x2 days, 2 tablets x2 days, 1 tablet x2 days Discontinued Reason: Patient no longer taking 10 mg PO DIRECTED 6 days 12 tabs 0RF M10.9 - Gout, unspecified Coding Level of Care Code Est Pt Level 4 (27255) Complex EM visit Add On G2211 Diagnoses Psoriatic arthritis L40.50 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
[2024-11-05 14:28] VITALS: BP 120/80; PULSE 102; O2SAT 98; BMI 32.2
--- OUTSIDE RECORDS SUMMARY | 2024-11-05 17:40 | XMS_ITS ---
Author Organization [facility] Address [address] [place] [id number] Care Team Providers Care Network Developer Name Role Phone BurtonsvilleCameron peck Primary Care Provider Unavailab Jez Bianchi Unavailable [phone] REASON FOR VISIT ON Encounters Encounter Location Date Provider Diagnosis [address] [address] 02/18/2024 Jez Narvaez Plan Of Treatment No Information Progress Notes * Jose Alberto CANNON EDOB: [birth year] (58 yo M)Acc No.[id number]:02/18/2024 Patient:?Jose Alberto Cannon :1965???Age:58 Y???Sex:Male Address:[address] [place] [address], [address] * true * Date:? Generated for Adrii dar/Tamika/eTransmitting on:?11/05/2024 05:40 PM EST
--- OUTSIDE RECORDS SUMMARY | 2024-11-05 17:40 | XMS_ITS ---
Author Organization [facility] Address [address] [place] [address] Care Team Providers Care Meter/Relay Technician Name Role Phone Cameron Man Primary Care Provider Unavailab Franco Hernández Jr [phone] REASON FOR VISIT fatty liver Encounters Encounter Location Date Provider Diagnosis [facility] [address] [place] [address] 07/22/2024 Franco Valdez Jr Plan Of Treatment Next Appt Details Provider Name:Franco cassidy Jr, 08/05/2025 01:35:00 PM, [address], [address], [place], [address], Progress Notes * TOYIN CANNON EDOB: [birth year] (59 yo M)Acc No.[id number]:07/22/2024 Progress Notes Patient:?DAVIS TOYIN Reece Provider:?Franco Valdez MD :1965???Age:59 Y???Sex:Male Sal e:07/22/2024 Address:[address] [place], [place] Pcp:Cameron Man Subjective: * Chief Complaints: * ???1. Fatty liver. * Medical History:? Objective: * Vitals:? Assessment: Plan: * Treatment: * * The named appointment provid er may or may not be the originator of this progress note, and it is not deemed complete until electronically signed by the appointment provider. Sign off status: Pending * Provider:?Franco Valdez MD Date:?1 09/21/2023 Generated for Lisy dodge/Tamika/Sonia on:?11/05/2024 05:39 PM EST
--- OUTSIDE RECORDS SUMMARY | 2024-11-05 17:40 | XMS_ITS ---
Author Organization [facility] Address [address] [place] [address] Care Team Providers Care Consumer Attorney Name Role Phone Frank Manolas Primary Care Provider Unavailab Franco Hernández Jr Unavailable [phone] Allergies Allergen (clinical drug ingredient) Drug/Non Drug Allergy documented on EMR Reaction Allergy Type Onset Date Status seasonal (uncoded) Unknown Allergy A ctive REASON FOR VISIT Patient presents today for a fatty liver Medications Medication SIG (Take, Route, Frequency, Duration) [...] 1 tablet Orally Once a day Active Problems Problem Type SNOMED Code ICD Code Onset Dates Problem Status W/U Status Risk Notes Problem [id number] Gastroesophageal reflux disease, unspecified whether esophagitis present (K21.9) Active confirmed Vital Signs Blood pressure systolic 00 mm Hg 08/06/20 24 Blood pressure diastolic 00 mm Hg 024 Height 73 in 08/06/2024 Weight 243 lbs 08/06/2024 BMI 32.06 kg/m2 08/06/2024 Encounters Encounter Location Date Provider Diagnosis [facility] [address] [place] [address] 08/06/2024 Franco Valdez Jr Fatty liver K76.0 ; Gastroesophageal reflux disease, unspecified whether esophagitis present K21.9 and Colon cancer screening Z12.11 Assessments Encounter Date Diagnosis (ICD Code) Assessment Notes Treatment Notes Treatment Clinical Notes Section Notes 08/06/2024 Fatty liver (ICD-10 - K76.0) Fatty liver - nonalcoholic material was printed Currently, he is doing well. Reviewed his ultrasound and laboratory he will followup laboratory testing. We discussed diet, lifestyle modifications, and reflux today. He is doing well his present regimen we'll continue this. He is up-to-date on colorectal cancer screening and his last colonoscopy showed no signs of recurrent rectal carcinoid. He will be due for followup in July of 2026. We reviewed this today. 08/06/2024 Gastroesophageal reflux disease, unspecified whether esophagitis present (ICD-10 - K21.9) Currently, he is doing well. Reviewed his ultrasound and laboratory he will followup laboratory testing. We discussed diet, lifestyle modifications, and reflux today. He is doing well his present regimen we'll continue this. He is up-to-date on colorectal cancer screening and his last colonoscopy showed no signs of recurrent rectal carcinoid. He will be due for followup in July of 2026. We reviewed this today. 08/06/2024 Colon cancer screening (ICD-10 - Z12.11) Currently, he is doing well. Reviewed his ultrasound and laboratory he will followup laboratory testing. We discussed diet, lifestyle modifications, and reflux today. He is doing well his present regimen we'll continue this. He is up-to-date on colorectal cancer screening and his last colonoscopy showed no signs of recurrent rectal carcinoid. He will be due for followup in July of 2026. We reviewed this today. Plan Of Treatment Treatment Notes Assessment Notes Fatty liver Fatty liver - nonalc oholic material was printed Pending Test Test Name Order Date LIVER PROFILE 08/06/2024 IRON + IBC (FE) 08/06/2024 FERRITIN 08/06/2024 CBC w DIFF 08/06/2024 MITOCHONDRIAL AB 08/06/2024 SMOOTH MUSCLE ANTIBODIES 08/06/2024 Liver Fibrosis Pnl 08/06/2024 Next Appt Details Follow Up: 1 Year, Reason: Provider Name:Franco cassidy , 08/05/2025 01:35:00 PM, [address], [address], [place], [address], Progress Notes * TOYIN CANNON EDOB: [birth year] (59 yo M)Acc No.[id number]:08/06/2024 Progress Notes Patient:?TOYIN CANNON Provider:?Franco Valdez MD :1965???Age:59 Y???Sex:Male Sal e:08/06/2024 [facility] Pcp:Cameron Man Subjective: * Chief Complaints: * ???1. Patient presents today for a fatty liver. * HPI: ???New symptom(s):? The patient is a pleasant 59-year-old man seen today in followup of multiple GI issues. He has a history of fatty liver and underwent ultrasound imaging in January of this year. This showed increased hepatic parenchymal heterogeneity in echogenicity consistent with fatty changes. No gallstones were identified. Liver function tests in May showed a mild elevation of his ALT at 65 and were otherwise normal. We reviewed this today. He feels well and has no complaints of jaundice, pruritus, or fatigue. He did have some upper abdominal pain over 5 day. Which resolved. He takes TUMS on a p.r.n. basis about once a month for reflux symptoms. ?His last colonoscopy in July 2021 and showed a tubular adenoma and five-year followup was recommended. We discussed this today. * Medical History:?Seasonal al lergies, Rectal carcinoid, incidentally found at time of colonoscopy 2010, followup flexible sigmoidoscopy and colonoscopy negative., Hypertension, Borderline high cholesterol, Torn meniscus in left knee, Torn biceps left arm, Colonoscopy 07/23 2 to adenoma, five-year followup, Psoriatic arthritis. * Surgical History:?appendecto my , Achilles tendon repair, left , umbilical hernia repair , bunionectomy 2023. * Family History:?Father: dece ased 75 yrs, pancreatic cancer.?Mother: alive.?Maternal Grand Mother: in age 40, diagnosed with Colon cancer.? Positive for colon polyps in his sister requiring surgery. * Social History:?Tobacco Use:?Tobacco Use/Smoking?Are you a: nonsmoker.?Drugs/Alcohol:?Alcohol Screen?Points: 4, Interpretation: Positive.?Miscellaneous:?Marital status: . Occupation: [employer]. * Medications:?Taking Valsarta n 320 MG Tablet 1 tablet Orally Once a day, Taking Multivitamin - Liquid as directed Orally , Taking Vitamin D (Cholecalciferol) 25 MCG (1000 UT) Capsule 1 capsule Orally Once a day, Taking Fish Oil 1000 MG Capsule 1 capsule Orally Once a day, Taking Aspirin 81 81 MG Tablet Chewable 1 tablet Orally Once a day, Taking Vicky as needed, Taking amLODIPine Besylate 2.5 MG Tablet Oral , Taking Hyrimoz 40 MG/0.4ML Solution Auto-injector Subcutaneous , Discontinued MiraLax (colon prep) 17 GM/SCOOP Powder mixed with Gatorade or Crystal Light Orally begin at 5:00 p.m. the day before the procedure, Medication List reviewed and reconciled with the patient * Allergies:?Seasonal. Objective: * Vitals:?Wt: 243 lbs, Ht: 73 in, BMI:32.06 Index, BP: 00/00 mm Hg. * Examination: ???General Examination: ???On examination today, he appears well. Skin is anicteric. Lungs are clear. Heart shows regular rate and rhythm. Abdomen is soft without focal masses or tenderness. Extremities are without edema. Assessment: * Assessment: 1.?Fatty liver - K76.0 (Prim yady)?2.?Gastroesophageal reflux disease, unspecified whether esophagitis present - K21.9?3.?Colon cancer screening - Z12.11? Currently, he is doing well. Reviewed his ultrasound and laboratory he will followup laboratory testing. We discussed diet, lifestyle modifications, and reflux today. He is doing well his present regimen we'll continue this. He is up-to-date on colorectal cancer screening and his last colonoscopy showed no signs of recurrent rectal carcinoid. He will be due for followup in July of 2026. We reviewed this today. Plan: * Treatment: * Procedure Codes:?3017F COLOR ECTAL CA SCREEN DOC REV, G9903 Pt scrn tbco id as non user, G9744 PATIENT NOT ELIG D/T ACTIVE DX HTN * Preventive Medicine:? ??Counseling:?Care goal follow-up plan:?Above Normal BMI Follow-up?Giving encouragement to exercise,?BMI management provided?Yes.? * Follow Up:?1 Year * * Sign off status: Completed true * Provider:?Franco Valdez MD Date:?1 10/07/2023 Generated for Teedot ng/Fajosé miguelg/eTransmitting on:?11/05/2024 05:39 PM EST History and Physical Notes * HPI (History of Present Illness) Category Sub-Category Detail Notes Category Not es New symptom(s) The patient is a pleasant 59-year-old man seen today in followup of multiple GI issues. He has a history of fatty liver and underwent ultrasound imaging in January of this year. This showed increased hepatic parenchymal heterogeneity in echogenicity consistent with fatty changes. No gallstones were identified. Liver function tests in May showed a mild elevation of his ALT at 65 and were otherwise normal. We reviewed this today. He feels well and has no complaints of jaundice, pruritus, or fatigue. He did have some upper abdominal pain over 5 day. Which resolved. He takes TUMS on a p.r.n. basis about once a month for reflux symptoms. His last colonoscopy in July 2021 and showed a tubular adenoma and five-year followup was recommended. We discussed this today. Examination Category Sub-Category Detail Notes Category Not es General Examination On exami nation today, he appears well. Skin is anicteric. Lungs are clear. Heart shows regular rate and rhythm. Abdomen is soft without focal masses or tenderness. Extremities are without edema.
--- OUTSIDE RECORDS SUMMARY | 2024-11-05 17:40 | XMS_ITS ---
Author Organization [facility] Address [address] [place] [address] Care Team Providers Care Molded Goods Inspector Trimmer Name Role Phone Cameron Man Primary Care Provider Unavailab Jez Bianchi Unavailable [phone] Encounters Encounter Location Date Provider [facility] [address] [address] 05/25/2024 Jez Narvaez Plan Of Treatment No Information Progress Notes * DAVISRicoJose Alberto EDOB: [birth year] (59 yo M)Acc No.[id number]:05/25/2024 Progress Notes Patient:?Jose Alberto CANNON Provider:?Jez Narvaez DPM :1965???Age:59 Y???Sex:Male Sal e:05/25/2024 Address:[address] [place], [place] [id number] Pcp:Cameron Man Subjective: * Chief Complaints: * ??? * Medical History:? Objective: * Vitals:? Assessment: Plan: * Treatment: * Images: * The named appointment provid er may or may not be the originator of this progress note, and it is not deemed complete until electronically signed by the appointment provider. Sign off status: Pending * Provider:?Jez Narvaez DPM Date:?2023 Generated for Printi dar/Faxing/eTransmitting on:?11/05/2024 05:40 PM EST
--- OUTSIDE RECORDS SUMMARY | 2024-11-05 17:40 | XMS_ITS ---
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 Name Role Phone Cameron Man Primary Care Provider Unavailab Franco Hernández Jr REASON FOR VISIT r/s july appt Encounters Encounter Location Date Provider Diagnosis [facility] [address] [facility] [address] [place] [phone] 06/09/2024 Franco Valdez Jr Plan Of Treatment Next Appt Details Provider Name:Franco cassidy Jr, 08/05/2025 01:35:00 PM, [address], [address], [place], [address], Progress Notes * TOYIN CANNONDOB: 5 (59 yo M)Acc No.[id number]:06/09/2024 Patient:?DAVISTOYIN :1965???Age:59 Y???Sex:Male Address:[address] [place] [address] * true * Date:? Generated for Lisy dodge/Tamika/eTransmitting on:?11/05/2024 05:40 PM EST
--- OUTSIDE RECORDS SUMMARY | 2024-11-05 17:40 | XMS_ITS | Patient Health Record ---
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) Active confirmed Problem 18659058 Osteoarthritis o f left ankle and foot (M19.072) Active confirmed Encounters Encounter Location Date Provider Diagnosis [facility] [address] [place] [address] 02/18/2024 Jez Narvaez Plan Of Treatment Pending Test Test Name Order Date MRI : Foot, right 12/11/2017 X ray : Foot, left 3V 12/11/2017 X ray : Foot, right 3V 12/11/2017 X ray : Foot, right 3V 12/23/2020 Insurance Providers Payer Name Payer Address Payer Phone Subscriber Number Group Number Insured Name Patient Relationship to Insured Coverage Start Date Coverage End Date [facility] re-[id number] [address] [address] [place] [phone] [id number] Jose Alberto Reina Self - patient is the insured Medical (General) History Medical History History ICD Code High blood pressure Surgical History Surgery Date(Month/Year) Hernia Repair 2014 achilles tendon repair 2007 appendectomy 1979
--- OUTSIDE RECORDS SUMMARY | 2024-11-05 17:40 | XMS_ITS | Patient Health Record ---
Author Organization [facility] Address [address] [place] [address] Care Team Providers Care Bi Report Developer Name Role Phone Cameron Man Primary Care Provider Unavailab Franco Hernández Jr Unavailable [phone] Allergies Allergen (clinical drug ingredient) Drug/Non Drug Allergy documented on EMR Reaction Allergy Type Onset Date Status seasonal (uncoded) Unknown Allergy A ctive Results Component Value Reference Range Notes Complete Blood Count Auto Di ff Reviewed date:01/24/2024 04:42:12 PM Interpretation: Performing Lab:[facility], [address] [place] [address] Notes/Report: White Blood Count 6.2 4.8-10.8 X10*3/uL [...] Panel Reviewed date:01/24/2024 04:42:07 PM Interpretation: Performing Lab:[address] [address] Notes/Report: Bilirubin Total 0.6 0.0-1.0 mg/dL Bilirubin Direct 0.2 0.0-0.5 mg/dL Aspartate Amino Transferase 28 5-37 U/L Alanine Aminotransferase 54 0-40 U/L Total Protein 7.5 6.5-8.0 g/dL Albumin Level 4.2 3.5-5.0 g/dL Alkaline Phosphatase 54 39-117 U/L Lipase Reviewed date:01/24/2024 04:41:58 PM Interpretation: Performing Lab:[facility], [address] [place] [phone] Notes/Report: Lipase 27 8-78 U/L US abdomen complete Reviewed date:02/27/2024 07:57:13 AM Interpretation: Performing Lab: Notes/Report: [address] [address] Ultrasound Report Signed with Addenda Patient: Toyin Cannon MR#: [id number] : 1965 Acct:[id number] Age/Sex: 58 / M ADM Date: 02/06/24 Loc: HO.US Attending Dr: Franco Valdez MD Ordering Physician: Franco Valdez MD Date of Service: 02/06/24 Procedure(s): US abdomen complete Accession Number(s): [id number] cc: Franco Valdez MD; Cameron Man PA-C ADDENDUM . The previous of addendum is to clarify a discrepancy due to sample card maker error in the original report regarding gallbladder [...] signed by Mayela Mercedes MD in OV> 02/19/24 0929 DD/ 0830 TD/TT: Tobacco Sorter: [place] [address] Ultrasound Report Signed with Addenda Patient: Rico Cannon MR#: [id number] : 1965 Acct:[id number] Age/Sex: 58 / M ADM Date: 02/06/24 Loc: HO.US Attending Dr: Melody Valdez MD Ordering Physician: Franco Valdez MD Date of Service: 02/06/24 Procedure(s): US abd omen complete Accession Number(s): [id number] cc: Franco Valdez MD; Cameron Man PA-C ADDENDUM . The previous of ad dendum is to clarify a discrepancy due to sample card maker error in the original report regarding gallbladder which should read as follows: Gallbladder: No gall stones. No gallbladder wall thickening. IMPRESSION: 1. Increased hepatic parenchymal heterogeneity and echogenicity could be associated with hepatocellular disease/hepatic steatosis and substantially limits visualization. Correlation with liver function tests and clinical e xam recommended to determine further management. 2. No gallstones. No gallbladder wall thickening. Addendum Dictated By : Mayela Mercedes MD Addendum Signed By: <Electronically signed by Mayela Mercedes MD in OV> 02/24/24 0458 Addendum Cosigned By: DD/ /23/759 TD/TT: / EXAMINATION: US ABDOMEN COMPLETE CLINICAL INFORMATION: Chest pain, pressure , elevated LFTs, abnormal findings on blood chemistry. COMPARISON: CT abdomen 5. Ultrasound abdomen complete 01/17/2015. TECHNIQUE: Real-time imaging of the abdominal viscera. Limited visualizatio n due to bowel gas. FINDINGS: PANCREAS: Limited visualization of pancreatic tail and head. Imaged portion of pancreati c body is unremarkable. ABDOMINAL AORTA: Gutierrez ited visualization. INFERIOR VENA CAVA: Visualized portions are normal. LIVER: Increased hep atic parenchymal heterogeneity and echogenicity could be associated with hepatocellular disease/hepatic steatosis and substantially limits visualization. Correlation with liver function tests and clinical e xam recommended to determine further management. 0.7 cm left hepatic cyst. GALLBLADDER: No gall stones. No gallbladder wall thickening. COMMON BILE DUCT: No rmal in caliber measuring 0.3 cm in diameter. RIGHT KIDNEY: 0.9 cm midpole cyst. There is no indication for additional imaging a t this time. No hydronephrosis or renal calculi. The kidney measures 12.3 cm in maximum dimension. LEFT KIDNEY: No hydronephrosis. No renal calculi. Limited visualization. The k idney measures 12.6 cm in maximum dimension. SPLEEN: Normal. The spleen measures 13.8 cm in maximum dimension. FREE FLUID: None. U S/US abdomen complete IMPRESSION: 1. Increased hepatic parenchymal heterogeneity and echogenicity could be associated with hepatocellular disease/hepatic steatosis and substantially limits visualization. Correlation with liver function tests and clinical e xam recommended to determine further management. 2. Cholelithiasis. Dictated By: Mayela Brown MD Signed By: <Pascale mckay signed by Mayela Mercedes MD in OV> 02/19/24928 DD/ 9 TD/TT: Tobacco Sorter: Reason For Referral No Information Medications Medication [...] 1 tablet Orally Once a day Active Immunizations Vaccine Route Administration Date Status Comme nts Influenza Unknown 06/16/2021 Refused Problems Problem Type SNOMED Code ICD Code Onset Dates Problem Status W/U Status Risk Notes Problem 768474403 Colon cancer screening (Z12.11) Active confirmed Problem 129428991 Elevated LFTs (R79.89) Active confirmed Problem 330105498 Fatty liver (K76.0) Active confirmed Problem 31531241 Hemorrhoids, unspecified hemorrhoid type (K64.9) Active confirmed Problem 243317028 Rectal carcinoid tumor (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) Active confirmed Problem 457620599 Chest pressure (R07.89) Active confirmed Problem 717127684 Gastroesophageal reflux disease, unspecified whether esophagitis present (K21.9) Active confirmed Problem 686678389 Black stools (K92.1) Active confirmed Vital Signs Blood pressure diastolic 00 mm Hg 08/06/2024 Height 73 in 08/06/2024 Blood pressure systolic 00 mm Hg 08/06/2024 Weight 243 lbs 08/06/2024 BMI 32.06 kg/m2 08/06/2024 Encounters Encounter Location Date Provider Diagnosis [facility] [address] [place] [address] 08/06/2024 Franco Valdez Jr Fatty liver K76.0 ; Gastroesophageal reflux disease, unspecified whether esophagitis present K21.9 and Colon cancer screening Z12.11 [facility] [address] [place] [address] 01/22/2024 Franco Valdez Jr Chest pressure R07.89 ; Elevated LFTs R79.89 and Black stools K92.1 [facility] [address] [place] [address] 01/24/2024 Franco Valdez Jr [facility] [address] [place] [address] 02/20/2024 Franco Valdez Jr Generalized abdominal pain R10.84 [facility] [address] [place] [address] 02/27/2024 Franco Valdez Jr [facility] [address] [place] [phone] 06/09/2024 Franco Valdez Jr Assessments Encounter Date Diagnosis (ICD Code) Assessment [...] July of 2026. We reviewed this today. 01/22/2024 Elevated LFTs (ICD-10 - R79.89) 01/22/2024 Chest pressure (ICD-10 - R07.89) 02/20/2024 Generalized abdominal pain (ICD-10 - R10.84) 08/06/2024 Colon cancer screening (ICD-10 - Z12.11) [...] July of 2026. We reviewed this today. 01/22/2024 Black stools (ICD-10 - K92.1) Plan Of Treatment Pending Test Test Name Order Date COLONOSCOPY [...] Name:Franco cassidy Jr, 08/05/2025 01:35:00 PM, [address], [address], [place], [address], Insurance Providers Payer Name Payer Address Payer Phone Subscriber Number Group Number Insured Name Patient Relationship to Insured Coverage Start Date Coverage End Date [facility] [address] [place] [id number] TOYIN CANNON Self - patient is the insured Medical (General) History Medical History History ICD Code seasonal allergies [...]
== END 2024-11-05 15:16 | disposition home or self-care (01) ==
PROVIDERS: PCP Physician Assistant; Visit Provider Student in an Organized Health Care Education/Training Program
DX: L40.50 Arthropathic psoriasis, unspecified (principal); M1A.49X1 Other secondary chronic gout, multiple sites, with tophus (tophi); Z51.81 Encounter for therapeutic drug level monitoring; Z79.620 Long term (current) use of immunosuppressive biologic; Z79.899 Other long term (current) drug therapy
CPT/HCPCS: 99214

== ENCOUNTER → 2024-11-05 14:23 | Outpatient (BNVA) | payer BC, SELFPAY | PROVIDERS: PCP Physician Assistant; Visit Provider Student in an Organized Health Care Education/Training Program ==

== ENCOUNTER 2024-11-11 12:36 | Outpatient (REF) | payer BC, SELFPAY ==
[2024-11-11 13:11] LABS: MANUAL DIFF FLAG NO
[2024-11-11 13:14] LABS: Basophils Absolute Auto 0.1 X10*3/uL (0.0-0.2); Eosinophils Absolute Auto 0.3 X10*3/uL (0.0-0.4); Eosinophils Percent Auto 4.3 % (0-4); Hematocrit 45.6 % (42.0-52.0); Hemoglobin 15.9 g/dl (14.0-18.0); Imm Gran Abs Auto 0.03 X10*3/uL (0.00-0.03); Imm Gran Pct Auto 0.5 % (0.0-0.4); Lymphocytes Absolute Auto 1.3 X10*3/uL (1.2-4.9); Lymphocytes Percent Auto 22.3 % (20-40); Mean Corpuscular HGB Conc 34.9 g/dl (31.0-36.0); Mean Corpuscular Hemoglobin 31.1 pg (27.0-33.0); Mean Corpuscular Volume 89.1 fL (80.0-98.0); Mean Platelet Volume 9.4 fL (9.4-12.4); Monocytes Absolute Auto 0.7 X10*3/uL (0.1-1.2); Monocytes Percent Auto 11.4 % (2-11); Neutrophils Absolute Auto 3.5 x10*3/uL (2.0-8.3); Neutrophils Percent Auto 60.5 % (45-73); Platelet Count 249 X10*3/uL (160-400); Red Blood Count 5.12 X10*6/uL (4.60-5.80); Red Cell Distribution Width 13.3 % (11.0-16.0); White Blood Count 5.8 X10*3/uL (4.8-10.8)
[2024-11-11 13:32] LABS: Alanine Aminotransferase 40 U/L (0-40); Albumin Level 4.2 g/dL (3.5-5.0); Alkaline Phosphatase 55 U/L (39-117); Aspartate Amino Transferase 26 U/L (5-37); Bilirubin Direct 0.2 mg/dL (0.0-0.5); Bilirubin Total 0.8 mg/dL (0.0-1.0); Iron 145 mcg/dL (45-160); Percent Iron Saturation 42 % (15-50); Total Iron Binding Capacity 345 mcg/dL (228-428); Total Protein 7.7 g/dL (6.5-8.0); Unsaturated Iron Binding 200 ug/dL
[2024-11-11 13:47] LABS: Ferritin 221 ng/mL (20-250)
--- OUTSIDE RECORDS SUMMARY | 2024-11-11 14:41 | XMS_ITS ---
Author Organization [facility] Address [address] [place] [id number] Care Team Providers Care Communications Controller Name Role Phone Frank Manolas Primary Care Provider Unavailab Franco Hernández Jr Unavailable Allergies Allergen (clinical drug ingredient) Drug/Non Drug [...] Problem Status W/U Status Risk Notes Problem [id number] Gastroesophageal reflux disease, unspecified whether esophagitis present (K21.9) Active confirmed Vital Signs Blood pressure systolic 00 mm Hg 08/06/20 24 Blood pressure diastolic 00 mm Hg 024 Height 73 in 08/06/2024 Weight 243 lbs 08/06/2024 BMI 32.06 kg/m2 08/06/2024 Encounters Encounter Location Date Provider Diagnosis [facility] [address] [place] [address] 08/06/2024 Franco Valdez Jr Fatty liver K76.0 [...] 01:35:00 PM, [address], [address], [place], [address], Progress Notes * TOYIN CANNON EDOB: [birth year] (59 yo M)Acc No.[id number]:08/06/2024 Progress Notes Patient:?TOYIN CANNON Provider:?Franco Valdez MD :1965???Age:59 Y???Sex:Male Sal e:08/06/2024 [facility] Pcp:Cameron Man Subjective: * Chief Complaints: * [...] Screen?Points: 4, Interpretation: Positive.?Miscellaneous:?Marital status: . 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 * Medications:?Taking Valsarta n 320 MG Tablet [...] Provider:?Franco Valdez MD Date:?1 10/07/2023 Generated for TechFaith ng/Fajosé miguelg/eTransmitting on:?11/11/2024 02:41 PM EDT History and Physical Notes * HPI (History [...]
--- OUTSIDE RECORDS SUMMARY | 2024-11-11 14:41 | XMS_ITS ---
[facility] Address [address] [place] [id number] Care Team Providers Care Wildlife Control Agent Name Role Phone WebsterChhaya pecks Primary Care Provider Unavailab Jez Bianchi Unavailable [phone] REASON FOR VISIT ON Encounters Encounter Location Date Provider Diagnosis [address] [address] 02/18/2024 Jez Narvaez Plan Of Treatment No Information Progress Notes * Jose Alberto CANNON EDOB: [birth year] (58 yo M)Acc No.[id number]:02/18/2024 Patient:?Jose Alberto Cannon :1965???Age:58 Y???Sex:Male Address:[address] [place] [address], [address] * true * Date:? Generated for Printi ng/Fajosé miguelg/eTransmitting on:?11/11/2024 02:41 PM EDT
--- OUTSIDE RECORDS SUMMARY | 2024-11-11 14:41 | XMS_ITS ---
Author Organization [facility] Address [address] [place] [address] Care Team Providers Care Sales Representative Health Insurance Name Role Phone Cmaeron Man Primary Care Provider Unavailab Franco Hernández Jr REASON FOR VISIT fatty liver Encounters Encounter Location Date Provider Diagnosis [facility] [address] [place] [address] 07/22/2024 Franco Valdez Jr Plan Of Treatment Next Appt Details Provider Name:Franco cassidy Jr, 08/05/2025 01:35:00 PM, [address], [address], [place], [address], Progress Notes * TOYIN CANNON EDOB: [birth year] (59 yo M)Acc No.[id number]:07/22/2024 Progress Notes Patient:?DAVIS TOYIN Reece Provider:?Franco Valdez MD :1965???Age:59 Y???Sex:Male Sal e:07/22/2024 Address:[address] [place], [place] Pcp:Cameron Man Subjective: * Chief Complaints: * [...] MD Date:?1 09/21/2023 Generated for Lisy dodge/Tamika/Sonia on:?11/11/2024 02:41 PM EDT
--- OUTSIDE RECORDS SUMMARY | 2024-11-11 14:41 | XMS_ITS | Patient Health Record ---
Author Organization [facility] Address [address] [place] [address] Care Team Providers Care Aerospace Technician Name Role Phone Cameron Man Primary Care Provider Unavailab Franco Hernández Jr Unavailable [phone] Allergies Allergen (clinical drug ingredient) Drug/Non Drug Allergy documented on EMR Reaction Allergy Type Onset Date Status seasonal (uncoded) Unknown Allergy A ctive Results Component Value Reference Range Notes Complete Blood Count Auto Di ff Reviewed date:01/24/2024 04:42:12 PM Interpretation: Performing Lab:[facility], [address] [place] [phone] Notes/Report: White Blood Count 6.2 4.8-10.8 X10*3/uL [...] Panel Reviewed date:01/24/2024 04:42:07 PM Interpretation: Performing Lab:[address] [address] Notes/Report: Bilirubin Total 0.6 0.0-1.0 mg/dL Bilirubin Direct 0.2 0.0-0.5 mg/dL Aspartate Amino Transferase 28 5-37 U/L Alanine Aminotransferase 54 0-40 U/L Total Protein 7.5 6.5-8.0 g/dL Albumin Level 4.2 3.5-5.0 g/dL Alkaline Phosphatase 54 39-117 U/L Lipase Reviewed date:01/24/2024 04:41:58 PM Interpretation: Performing Lab:[facility], [address] [place] [phone] Notes/Report: Lipase 27 8-78 U/L US abdomen complete Reviewed date:02/27/2024 07:57:13 AM Interpretation: Performing Lab: Notes/Report: [address] [address] Ultrasound Report Signed with Addenda Patient: Toyin Cannon MR#: [id number] : 1965 Acct:[id number] Age/Sex: 58 / M ADM Date: 02/06/24 Loc: HO.US Attending Dr: Franco Valdez MD Ordering Physician: Franco Valdez MD Date of Service: 02/06/24 Procedure(s): US abdomen complete Accession Number(s): [id number] cc: Franco Valdez MD; Cameron Man PA-C ADDENDUM . The previous of addendum is to clarify a discrepancy due to elevated work platform operator error in the original report regarding gallbladder [...] in OV> 02/19/24 0929 DD/ 0830 TD/TT: Senior Software Engineer Analytics: [place] [address] Ultrasound Report Signed with Addenda Patient: Rico Cannon MR#: [id number] : 1965 Acct:[id number] Age/Sex: 58 / M ADM Date: 02/06/24 Loc: HO.US Attending Dr: Melody Valdez MD Ordering Physician: Franco Valdez MD Date of Service: 02/06/24 Procedure(s): US abd omen complete Accession Number(s): [id number] cc: Franco Valdez MD; Cameron Man PA-C ADDENDUM . The previous of ad dendum is to clarify a discrepancy due to elevated work platform operator error in the original report regarding gallbladder [...] in OV> 02/19/24 0929 DD/ 0830 TD/TT: Senior Software Engineer Analytics: Complete Blood Count Auto Di ff (Not yet reviewed by provider) Interpretation: Performing Lab:[facility], [address] [place] [address] Notes/Report: White Blood Count 5.8 4.8-10.8 X10*3/uL Red Blood Count 5.12 4.60-5.80 X10*6/uL Hemoglobin 15.9 14.0-18.0 g/dl Hematocrit 45.6 42.0-52.0 % Mean Corpuscular Volume 89.1 80.0-98.0 fL Mean Corpuscular Hemoglobin 31.1 27.0-33.0 pg Mean Corpuscular HGB Conc 34.9 31.0-36.0 g/dl Red Cell Distribution Width 13.3 11.0-16.0 % Platelet Count 249 160-400 X10*3/uL Mean Platelet Volume 9.4 9.4-12.4 fL Neutrophils Percent Auto 60.5 45-73 % Imm Gran Pct Auto 0.5 0.0-0.4 % Lymphocytes Percent Auto 22.3 20-40 % Monocytes Percent Auto 11.4 2-11 % Eosinophils Percent Auto 4.3 0-4 % Basophils Percent Auto 1.0 0-2 % NRBC Pct Auto 0.0 0.0-0.2 /100WBC Neutrophils Absolute Auto 3.5 2.0-8.3 x10*3/u L Imm Gran Abs Auto 0.03 0.00-0.03 X10*3/uL Lymphocytes Absolute Auto 1.3 1.2-4.9 X10*3/u L Monocytes Absolute Auto 0.7 0.1-1.2 X10*3/uL Eosinophils Absolute Auto 0.3 0.0-0.4 X10*3/u L Basophils Absolute Auto 0.1 0.0-0.2 X10*3/uL NRBC Abs Auto 0.000 0.0-0.012 X10*3/uL Liver Panel (Not yet reviewe d by provider) Interpretation: Performing Lab:[address] [address] Notes/Report: Bilirubin Total 0.8 0.0-1.0 mg/dL Bilirubin Direct 0.2 0.0-0.5 mg/dL Aspartate Amino Transferase 26 5-37 U/L Alanine Aminotransferase 40 0-40 U/L Total Protein 7.7 6.5-8.0 g/dL Albumin Level 4.2 3.5-5.0 g/dL Alkaline Phosphatase 55 39-117 U/L IRON PROFILE (Not yet review ed by provider) Interpretation: Performing Lab:[address] [address] Notes/Report: Iron 145 45-160 mcg/dL Total Iron Binding Capacity 345 228-428 mcg/d L Percent Iron Saturation 42 15-50 % Unsaturated Iron Binding 200 Ferritin (Not yet reviewed b y provider) Interpretation: Performing Lab:[address] [address] Notes/Report: Ferritin 221 20-250 ng/mL Reason For Referral No Information Medications Medication [...] Problem Status W/U Status Risk Notes Problem 482452221 Colon cancer screening (Z12.11) Active confirmed Problem 584364618 Elevated LFTs (R79.89) Active confirmed Problem 567319293 Fatty liver (K76.0) Active confirmed Problem 49862833 Hemorrhoids, unspecified hemorrhoid type (K64.9) Active confirmed Problem 114298007 Rectal carcinoid tumor (D3A.026) Active confirmed Problem 631212627 Chest pressure (R07.89) Active confirmed Problem 459002561 Gastroesophageal reflux disease, unspecified whether esophagitis present (K21.9) Active confirmed Problem 398170086 Black stools (K92.1) Active confirmed Vital Signs Blood pressure diastolic 00 mm Hg 08/06/2024 Height 73 in 08/06/2024 Blood pressure systolic 00 mm Hg 08/06/2024 Weight 243 lbs 08/06/2024 BMI 32.06 kg/m2 08/06/2024 Encounters Encounter Location Date Provider Diagnosis [facility] [address] [place] [address] 08/06/2024 Franco Valdez Jr Fatty liver K76.0 ; Gastroesophageal reflux disease, unspecified whether esophagitis present K21.9 and Colon cancer screening Z12.11 [facility] [address] [place] [address] 01/22/2024 Franco Valdez Jr Chest pressure R07.89 ; Elevated LFTs R79.89 and Black stools K92.1 [facility] [address] [place] [address] 01/24/2024 Franco Valdez Jr [facility] [address] [place] [address] 02/20/2024 Franco Valdez Jr Generalized abdominal pain R10.84 [facility] [address] [place] [address] 02/27/2024 Franco Valdez Jr [facility] [address] [place] [address] 06/09/2024 Franco Valdez Jr Assessments Encounter Date [...] Date COLONOSCOPY WITH BIOPSY 06/08/2011 LIVER PROFILE 01/22/2024 LIVER PROFILE 08/06/2024 LIPASE 01/22/2024 IRON + IBC (FE) 08/06/2024 FERRITIN 08/06/2024 CBC w DIFF 08/06/2024 CBC w DIFF 01/22/2024 MITOCHONDRIAL AB 08/06/2024 SMOOTH MUSCLE ANTIBODIES 08/06/2024 US ABD 01/22/2024 HIDA SCAN GB WITH CCK 02/20/2024 Complete Blood Count Auto Diff Liver Panel 11/11/2024 IRON PROFILE 11/11/2024 Ferritin 11/11/2024 Liver Fibrosis Pnl 08/06/2024 Future Test Test Name Order Date COLONOSCOPY 01/11/2016 COLONOSCOPY 06/16/2021 Next Appt Details Provider Name:Franco cassidy Jr, 08/05/2025 01:35:00 PM, [address] [place] [address], [address], [place], [address], Insurance Providers Payer Name Payer Address Payer Phone Subscriber Number Group Number Insured Name Patient Relationship to Insured Coverage Start Date Coverage End Date [facility] [address] [address] [place] [address] [id number] TOYIN CANNON Self - patient is the [...]
--- OUTSIDE RECORDS SUMMARY | 2024-11-11 14:41 | XMS_ITS | Patient Health Record ---
Author [facility] Address [address] [place] [address] Care Team Providers Care Client Administrator Name Role Phone Cameron Man Primary Care Provider Unavailab Jez Bianchi Unavailable [phone] Allergies No Known Allergies Reason For Referral [...] Problem Status W/U Status Risk Notes Problem 102926596 Equinus contract ure of right ankle (M24.571) Active confirmed Problem 27866765 Osteoarthritis o f left ankle and foot (M19.072) Active confirmed Encounters Encounter Location Date Provider Diagnosis [facility] [address] [place] [address] 02/18/2024 Jez Narvaez Plan Of Treatment Pending Test Test Name Order Date MRI : Foot, right 12/11/2017 X ray : Foot, left 3V 12/11/2017 X ray : Foot, right 3V 12/11/2017 X ray : Foot, right 3V 12/23/2020 Insurance Providers Payer Name Payer Address Payer Phone Subscriber Number Group Number Insured Name Patient Relationship to Insured Coverage Start Date Coverage End Date [facility] re-[id number] [address] [address] [place] [address] [id number] Jose Alberto Reina Self - patient is the insured Medical (General) History Medical History History ICD Code High blood pressure Surgical History Surgery Date(Month/Year) Hernia Repair 2014 achilles tendon repair 2007 appendectomy 1979
--- OUTSIDE RECORDS SUMMARY | 2024-11-11 14:41 | XMS_ITS ---
Author Organization [facility] Address [address] [place] [address] Care Team Providers Care Revenue Stamp Clerk Name Role Phone Cameron Man Primary Care Provider Unavailab Jez Bianchi Unavailable [phone] Encounters Encounter Location Date Provider [facility] [address] [address] 05/25/2024 Jez Narvaez Plan Of Treatment No Information Progress Notes * DAVISRicoJose Alberto EDOB: [birth year] (59 yo M)Acc No.[id number]:05/25/2024 Progress Notes Patient:?Jose Alberto CANNON Provider:?Jez Narvaez DPM :1965???Age:59 Y???Sex:Male Sal e:05/25/2024 Address:[address] [place], [place] [id number] Pcp:Cameron Man Subjective: * Chief Complaints: * ??? * Medical History:? Objective: * Vitals:? Assessment: Plan: * Treatment: * Images: * The named appointment provid er may or may not be the originator of this progress note, and it is not deemed complete until electronically signed by the appointment provider. Sign off status: Pending * Provider:?Jez Narvaez DPM Date:?2023 Generated for Printi dar/Faxing/eTransmitting on:?11/11/2024 02:41 PM EDT
--- OUTSIDE RECORDS SUMMARY | 2024-11-11 14:42 | XMS_ITS ---
Author Organization [facility] Address [address] [place] [address] Care Team Providers Care Tissue Inserter Name Role Phone Cameron Man Primary Care Provider Unavailab Franco Hernández Jr [phone] REASON FOR VISIT r/s july appt Encounters Encounter Location Date Provider Diagnosis [facility] [address] [facility] [address] [place] [address] 06/09/2024 Franco Valdez Jr Plan Of Treatment Next Appt Details Provider Name:Franco cassidy Jr, 08/05/2025 01:35:00 PM, [address] [facility], [address], [place], [address], Progress Notes * TOYIN CANNONDOB: 5 (59 yo M)Acc No.[id number]:06/09/2024 Patient:?DAVISTOYIN :1965???Age:59 Y???Sex:Male Address:[address] [place] [address] * true * Date:? Generated for Lisy dodge/Tamika/eTransmitting on:?11/11/2024 02:41 PM EDT
[2024-11-13 16:18] LABS: Mitochondrial Antibodies NEGATIVE (NEGATIVE)
[2024-11-16 23:44] LABS: Smooth Muscle Antibody <20 U (<20)
[2024-11-17 01:38] LABS: FIB-ALT 27 U/L (9-46); FIB-Alpha-2-Macroglobulin 105 mg/dL (106-279); FIB-Apolipoprotein A1 199 mg/dL (94-176); FIB-GGT 34 U/L (3-85); FIB-Haptoglobin 138 mg/dL (43-212); FIB-Total Bilirubin 0.7 mg/dL (0.2-1.2); Liver Fibrosis Score 0.07; Liver Fibrosis Stage F0; Nec Inflam Act Grade A0; Nec Inflam Act Score 0.09
== END 2024-11-11 12:37 | disposition home or self-care (01) ==
LOC: HO.10HDL 12:36
PROVIDERS: Visit Provider Internal Medicine Gastroenterology
DX: K76.0 Fatty (change of) liver, not elsewhere classified (principal)
CPT/HCPCS: 36415; 80076; 81596; 82728; 83540; 85025; 86015; 86381

== ENCOUNTER 2024-11-11 13:43 | Outpatient (AMB) | payer BC, SELFPAY ==
--- NOTE | 2024-11-11 13:55 | A.OFFPC_ITS ---
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 Accompanied by: Self / Same As Patient Allergies No Known Allergies [No Known Allergies*] Allergy (Verified 11/11/24 14:21) Medication List - Last Reconciled 11/11/24 by Cameron Man PA-C allopurinol 200 mg (2 x 100 mg) PO DAILY 90 days amlodipine 2.5 mg PO DAILY aspirin (Adult Low Dose Aspirin) 81 mg PO DAILY betamethasone dipropionate 0.05% 1 appl topical DAILY PRN cholecalciferol (vitamin D3) (Vitamin D3) 25 mcg PO DAILY clotrimazole-betamethasone 1-0.05 % 1 appl topical BID 4 weeks colchicine 0.6 mg PO DAILY fexofenadine 180 mg PO DAILY PRN folic acid 1 mg PO DAILY Hyrimoz(CF) Pen (adalimumab-adaz) 40 mg (0.4 mL) subcut Q2W NS methotrexate sodium 15 mg (6 x 2.5 mg) PO QWEEK 90 days nystatin 1 appl topical DAILY PRN omega 3-wrt-ahj-fish oil 1,000 (120-180) mg (Fish Oil) 1 cap PO DAILY valsartan 320 mg PO DAILY Tobacco use date assessed: 11/11/24 Dental Screening Dental Screen Date: 11/11/24 Did you have a dental visit in the last 12 months?: Yes Did you have a dental problem in the last 6 months where you did not have access to dental care?: No Was dental information given to patient?: Patient has dentist HPI f/u HTN/ arthritis 2 HPI0 Details Rico is a 59 y/o M here today for a follow-up visit. Patient has a pmhx significant for HLD,? HTN, .DOROTHY, Psoriatic arthritis Concern--> An unusual soft tissue swelling occurring in the left elbow area has prompted consideration of diagnostic imaging to rule out underlying complications related to gout or other etiologies, such as a lipoma or bursitis. .. Psoriatic arthritis: Followed by [place] insurance agent in has had workup consistent with psoriatic arthritis in his hands. He is now on Humira and methotrexate. Still having a lot of joint pains and stiffness. He is followed by a dancing instructor as well for his psoriasis. GOUT--> Recently elevated uric acid levels and increased toe swelling post-foot surgery have necessitated revisions in the treatment approach to gout, including initiating colchicine and adjusting allopurinol dosages. The patient's long- standing psoriatic arthritis, previously managed with Humira, is under review due to decreased symptom control, though methotrexate is not favored due to concerns about side effects. .. ?.. ?HTN: Patient's blood pressure acceptable today in office, he reports it has been few stressful weeks due to family issues. He does not regularly check his blood pressure at home. He denies any chest pain, dizziness or headaches. .. Borderline high cholesterol: Most recent fasting lipid panel showing borderline high cholesterol. He will continue working on lifestyle and dietary modifications to reduce his cholesterol .. DOROTHY: Has started on CPAP machine and feels his sleep is much improved. Continues follow up with pulmonology He also has noted his blood pressures have been much more controlled. Laboratory Tests 08/14/24 10/01/24 11/02/24 09:33 14:00 09:56 Eos % (Auto) Uric Acid 9.0 H 6.4 7.3 H Iron 11/11/24 12:40 Eos % (Auto) 4.3 H Uric Acid Iron 145 [facility] Medical History (Updated 11/11/24 @ 15:08 by Cameron Man PA-C) Ascending aortic aneurysm Mallet deformity of right little finger Psoriatic arthritis Foot pain, bilateral DOROTHY (obstructive sleep apnea) Obesity (BMI 30-39.9) Hx of chest pain Rupture of left biceps tendon Carcinoid tumor, rectal, benign Seasonal allergies Snores Hyperlipidemia HTN (hypertension) Surgical History History of bunionectomy History of appendectomy History of Achilles tendon repair Hx of colonoscopy History of umbilical hernia repair Family History Mother Irregular heart beat Social History Housing: House Alcohol intake: current Alcohol intake frequency: a few times a week Alcohol type: beer and wine Patient Tobacco Use Status: Never used Tobacco e-Cigarette/Vaping Use: Never Used Second Hand Smoke Exposure: No service: No Current occupational status: employed 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 1. Little interest or pleasure in doing things: not at all 2. Feeling down, depressed, or hopeless: not at all 3. Trouble falling or staying asleep, or sleeping too much: not at all 4. Feeling tired or having little energy: not at all 5. Poor appetite or overeating: not at all 6. Feeling bad about yourself - or that you are a failure or have let yourself or your family down: not at all 7. Trouble concentrating on things, such as reading the newspaper or watching television: not at all 8. Moving or speaking so slowly that other people could have noticed. Or the opposite - being so fidgety or restless that you have been moving around a lot more than usual: not at all 9. Thoughts that you would be better off or of hurting yourself in some way: not at all Total score: 0 Depression Screening Interpretation: Negative Depression Screening Done: Yes Source: Developed by Drs. Papi Roblero, Alisa Hernandez, Charles Colon and colleagues, with an educational paula from [employer]. Thrive Questionnaire Date Thrive assessed: 11/11/24 I am a: Patient What is your living situation today?: I have a steady place to live Within the past 12 months, did the food you bought not last and you didn't have the money to get more?: I choose not to answer this question Within the past 12 months, did you worry whether your food would run out before you got money to buy more?: I choose not to answer this question Do you have trouble paying for medicines?: I choose not to answer this question Do you have trouble getting transportation to medical appointments?: I choose not to answer this question Do you have trouble paying your heating and electricity bill?: I choose not to answer this question Do you have trouble taking care of your child, family member or friend?: I choose not to answer this question Do you have trouble with day-to-day activities such as bathing, preparing meals, shopping, managing finances, etc.?: I choose not to answer this question Are you currently unemployed and looking for a job?: I choose not to answer this question Are you interested in more education?: I choose not to answer this question Please select the resources that you would like help with: None Currently or been in a relationship where the following occur: No concerns reported THRIVE Score: 0 AUDIT C Alcohol Use Questionnaire (AUDIT-C) 1. How often do you have a drink containing alcohol?: 4 or more times a week 2. How many drinks containing alcohol do you have on a typical day when you are drinking?: 1 or 2 3. How often do you have six or more drinks on one occasion?: Less than monthly Total Score: 5 KAREN-7 AMB Questionnaire KAREN-7 Date KAREN - 7 assessed: 11/11/24 Feeling nervous, anxious, or on edge: 0 = Not at all Not being able to stop or control worryin = Not at all Worrying too much about different things: 0 = Not at all Trouble relaxin = Not at all Being so restless that it is hard to sit still: 0 = Not at all Becoming easily annoyed or irritable: 0 = Not at all Feeling afraid as if something awful might happen: 0 = Not at all Total KAREN-7 score (0-4 normal; 5-9 mild; 10-14 moderate; 15-21 severe): 0 Source: Developed by Drs. Papi Roblero, Alisa Hernandez, Charles Colon and colleagues, with an educational paula from [employer]. Review of Systems Const Denies headache(s) Eyes Denies loss of vision ENT Denies vertigo, Denies dizziness, Denies headache(s) and Denies sore throat Card Denies chest pain, Denies leg edema and Denies lightheadedness Resp Denies cough, Denies hemoptysis and Denies wheezing GI Denies abdominal pain, Denies melena, Denies constipation, Denies diarrhea and Denies vomiting Denies dysuria, Denies urinary frequency and Denies urinary urgency Musc Denies arthralgias, Denies joint swelling, Denies numbness and Denies tingling Neuro Denies Abnormal speech present, Denies behavioral changes, Denies vertigo, Denies dizziness, Denies headache(s), Denies loss of vision, Denies memory loss, Denies numbness and Denies tingling Psych Denies anxiety, Denies behavioral changes, Denies depression, Denies memory loss and Denies panic attacks Ankit/Lymph Denies easy bleeding and Denies easy bruising Aller/Immun Denies wheezing Physical exam (Primary Care) Vital Signs: Last Vital Signs Pulse 78 11/11/24 13:57 BP 130/72 11/11/24 13:57 Pulse Ox 97 11/11/24 13:57 Oxygen Delivery Method Room Air 11/11/24 13:57 BMI result Body Mass Index 32.1 Tobacco/Smoking Status: Tobacco use Status Tobacco use date assessed 11/11/24 11/11/24 14:01 Patient Tobacco Use Status Never used Tobacco 11/11/24 14:01 e-Cigarette/Vaping Use Never Used 11/11/24 14:01 PHQ-9: PHQ-9 Score PHQ-9: Total score 0 11/11/24 14:01 Depression Screening Interpretation: Negative Thrive Assessment: Date of Thrive Assessment Date Thrive assessed 11/11/24 11/11/24 14:01 Currently or been in a relationship where the following occur: No concerns reported Const General: healthy appearing, no acute distress, alert and awake Nutritional Appearance: well nourished Orientation/consciousness: oriented to person, oriented to place and oriented to time HENMT Ears: TM's normal bilaterally General nose exam: Normal nasal mucous membranes and turbinates present Eyes Conjunctivae: conjunctivae normal Sclerae: sclerae normal Pupils: Equal, round and reactive pupils present Neck Neck: Yes no lymphadenopathy and Yes no JVD Thyroid: Thyroid normal Carotids: no bruits Resp Effort & Inspection: normal respiratory effort and not tachypneic Auscultation: no crackles, no rales, no rhonchi and no wheezes Cardio Rate: regular rate Rhythm: regular rhythm Heart sounds: no murmurs and normal S1 and S2 GI Palpation (GI): Soft to palpation, nontender, no hepatomegaly and no splenomegaly Auscultation: normal bowel sounds Skin General skin exam: no rashes or lesions noted and dry skin Neuro General: oriented to person, oriented to place and oriented to time Cranial nerves: Yes Equal, round and reactive pupils present Speech: No Abnormal speech present Gait exam (Neuro): Normal gait present Motor exam (neuro): no tremor noted Extrem Right upper extremity: full ROM Left upper extremity: full ROM Elbow/forearm/wrist images: 2 1. LEFT ELBOW WITH PALPABLE SOFT MOBILE LUMP JUST UNDERNEATH HIS NOTABLE BURSA. 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 Will continue his current dose antihypertensive medication with goal blood pressure to remain below 140/90 (2) Mass of left elbow: Code(s): R22.32 - Localized swelling, mass and lump, left upper limb Category: Medical Plan: As per HPI will try to get ultrasound of the soft tissue of the area. Could be bursitis versus a local lipoma. (3) Gout: Code(s): M10.9 - Gout, unspecified Category: Medical Qualifiers: Gout site: multiple sites Gout etiology: other secondary cause C hronicity: chronic Presence of tophus: with tophus Qualified Code(s): M1A.49X1 - Other secondary chronic gout, multiple sites, with tophus (tophi) Plan: Increased allopurinol to 200 mg and started on colchicine, considering recent laboratory results and current gout status. Continues to follow a low purine diet (4) Psoriatic arthritis: Comment: PsO - Dx 2007 PsA - Dx 08/2022. Started Humira - 12/2023. Switched to Rhoda Code(s): L40.50 - Arthropathic psoriasis, unspecified Category: Medical Plan: Continues to follow [place] rheumatology. Continues to unfortunately have joint pains. Current treatment with Humira continues. Discussed methotrexate but patient declined due to side effects. (5) Hyperlipidemia: Code(s): E78.5 - Hyperlipidemia, unspecified Category: Medical Qualifiers: Hyperlipidemia type: mixed hyperlipidemia Qualified Code(s): E78.2 - Mixed hyperlipidemia Plan: Cholesterol levels remained stable at 177 mg/dL previously. Monitoring and future testing planned per protocol. He is also on colchicine daily (6) Class 1 obesity: Code(s): E66.811 - Obesity, class 1 Category: Medical Plan: Patient does understand his BMI is over 30 will work on being more physically active and adapting to better eating habits to reduce his weight. Orders: Orders 2 Comprehensive [place]. Panel Fast Today R73.09 - Other abnormal glucose Lipid Panel Today E78.2 - Mixed hyperlipidemia Prostate Specific Antigen Scr Today I10 - Essential (primary) hypertension, Z12.5 - Encounter for screening for malignant neoplasm of prostate Hemoglobin A1c Today R73.09 - Other abnormal glucose Microalbumin, Random (w Creat) Today I10 - Essential (primary) hypertension US extremity nonvascular skinner Today R22.32 - Localized swelling, mass and lump, left upper limb
[2024-11-11 13:57] VITALS: BP 130/72; PULSE 78; O2SAT 97; BMI 32.1
== END 2024-11-11 14:41 | disposition home or self-care (01) ==
LOC: HO.HMCH 13:44
PROVIDERS: PCP Physician Assistant; Visit Provider Physician Assistant
DX: I10 Essential (primary) hypertension (principal); L40.50 Arthropathic psoriasis, unspecified; E66.811 Obesity, class 1; Z68.32 Body mass index [BMI] 32.0-32.9, adult; R22.32 Localized swelling, mass and lump, left upper limb; M1A.49X1 Other secondary chronic gout, multiple sites, with tophus (tophi); E78.2 Mixed hyperlipidemia

== ENCOUNTER 2024-11-17 14:26 | Outpatient (REF) | payer BC, SELFPAY ==
--- NOTE | ~2024-11-17 | US_ITS ---
CLINICAL HISTORY: R22.32 - Lump posterior elbow below bursa Limited soft tissue ultrasound Comparison: None Findings: Grayscale and color Doppler images of the area of concern were obtained with a high-frequency linear transducer. In the subcutaneous fat of the left posterior elbow there is an anechoic avascular collection which is not well-defined. Images of right posterior elbow were also obtained for comparison and are normal. Impression: Olecranon bursitis is favored. Rupture of the olecranon bursa may also be considered, as the palpable abnormality is reported to be below the bursa and is not well-defined. If there are signs/symptoms of infection phlegmon/developing abscess is possible. Soft tissue edema is considered less likely; the anechoic avascular region is more focal than typically seen with subcutaneous edema. This document has been electronically signed by: Amena Archuleta MD on 11/19/2024 15:58:27
--- OUTSIDE RECORDS SUMMARY | 2024-11-17 17:11 | XMS_ITS ---
Author Organization [facility] Address [address] [place] [address] Care Team Providers Care Agricultural Education Instructor Name Role Phone Frank Manolas Primary Care [...] Problem Status W/U Status Risk Notes Problem 132063469 Gastroesophageal reflux disease, unspecified whether esophagitis present (K21.9) Active confirmed Vital Signs Blood pressure systolic 00 mm Hg 08/06/20 24 Blood pressure diastolic 00 mm Hg 024 Height 73 in 08/06/2024 Weight 243 lbs 08/06/2024 BMI 32.06 kg/m2 08/06/2024 Encounters Encounter Location Date Provider Diagnosis [facility] [address] [place] [address] 08/06/2024 Franco Valdez Jr Fatty liver K76.0 [...] 01:35:00 PM, [address], [address], [place], [address], Progress Notes * TOYIN CANNON EDOB: [birth year] (59 yo M)Acc No.[id number]:08/06/2024 Progress Notes Patient:?TOYIN CANNON Provider:?Franco Valdez MD :1965???Age:59 Y???Sex:Male Sal e:08/06/2024 [facility] Pcp:Cameron Man Subjective: * Chief Complaints: * [...] Screen?Points: 4, Interpretation: Positive.?Miscellaneous:?Marital status: . 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 * Medications:?Taking Valsarta n 320 [...] Provider:?Franco Valdez MD Date:?1 10/07/2023 Generated for Flexcom ng/Fajosé miguelg/eTransmitting on:?11/17/2024 05:11 PM EDT History and Physical Notes * [...]
--- OUTSIDE RECORDS SUMMARY | 2024-11-17 17:11 | XMS_ITS ---
Author Organization [facility] Address [address] [place] [address] Care Team Providers Care Machine Wiper Name Role Phone Cameron Man Primary Care Provider Unavailab Franco Hernández Jr REASON FOR VISIT labs Encounters Encounter Location Date Provider Diagnosis [facility] [address] [facility] [address] [place] [address] 11/17/2024 Franco Valdez Jr Plan Of Treatment Next Appt Details Provider Name:Franco cassidy Jr, 08/05/2025 01:35:00 PM, [address] [facility], [address], [place], [address], Progress Notes * TOYIN CANNON EDOB: [birth year] (59 yo M)Acc No.[id number]:11/17/2024 Patient:?TOYIN CANNON :1965???Age:59 Y???Sex:Male Address:[address] [place] [address] * true * Date:? Generated for Printi ng/Faxing/eTransmitting on:?11/17/2024 05:11 PM EDT
--- OUTSIDE RECORDS SUMMARY | 2024-11-17 17:11 | XMS_ITS ---
Author Organization [facility] Address [address] [place] [address] Care Team Providers Care Launchman Name Role Phone Cameron Man Primary Care Provider Unavailab Franco Hernández Jr REASON FOR VISIT fatty liver Encounters Encounter Location Date Provider Diagnosis [facility] [address] [place] [address] 07/22/2024 Franco Valdez Jr Plan Of Treatment Next Appt Details Provider Name:Franco cassidy Jr, 08/05/2025 01:35:00 PM, [address], [address], [place], [address], Progress Notes * TOYIN CANNON EDOB: [birth year] (59 yo M)Acc No.[id number]:07/22/2024 Progress Notes Patient:?DAVIS TOYIN Reece Provider:?Franco Valdez MD :1965???Age:59 Y???Sex:Male Sal e:07/22/2024 Address:[address] [place] [address] [place], [place] Pcp:Cameron Man Subjective: * Chief Complaints: * [...] MD Date:?1 09/21/2023 Generated for Lisy dodge/Tamika/Sonia on:?11/17/2024 05:11 PM EDT
--- OUTSIDE RECORDS SUMMARY | 2024-11-17 17:11 | XMS_ITS | Patient Health Record ---
Author Organization [facility] [place] Address [address] [place] [address] Care Team Providers Care Hydraulic Hammer Operator Name Role Phone Cameron Man Primary Care Provider Unavailab Jez Bianchi Unavailable [phone] Allergies No Known Allergies Reason For Referral [...] Problem Status W/U Status Risk Notes Problem 936050607 Equinus contract ure of right ankle (M24.571) Active confirmed Problem 44996501 Osteoarthritis o f left ankle and foot (M19.072) Active confirmed Encounters Encounter Location Date Provider Diagnosis [facility] [address] [place] [address] 02/18/2024 Jez Narvaez Plan Of Treatment Pending Test Test Name Order Date MRI : Foot, right 12/11/2017 X ray : Foot, left 3V 12/11/2017 X ray : Foot, right 3V 12/11/2017 X ray : Foot, right 3V 12/23/2020 Insurance Providers Payer Name Payer Address Payer Phone Subscriber Number Group Number Insured Name Patient Relationship to Insured Coverage Start Date Coverage End Date [facility] re-[id number] [address] [address] [place] [address] [id number] Jose Alberto Reina Self - patient is the insured Medical (General) History Medical History History ICD Code High blood pressure Surgical History Surgery Date(Month/Year) Hernia Repair 2014 achilles tendon repair 2007 appendectomy 1979
--- OUTSIDE RECORDS SUMMARY | 2024-11-17 17:11 | XMS_ITS ---
Author Organization [facility] Address [address] [place] [address] Care Team Providers Care Coffee Roaster Name Role Phone Cameron Man Primary Care Provider Unavailab Jez Bianchi Unavailable [phone] Encounters Encounter Location Date Provider [facility] [address] [address] 05/25/2024 Jez Narvaez Plan Of Treatment No Information Progress Notes * DAVISRicoJose Alberto EDOB: [birth year] (59 yo M)Acc No.[id number]:05/25/2024 Progress Notes Patient:?Jose Alberto CANNON Provider:?Jez Narvaez DPM :1965???Age:59 Y???Sex:Male Sal e:05/25/2024 Address:[address] [place], [place] [address] Pcp:Cameron Man Subjective: * Chief Complaints: * ??? * Medical History:? Objective: * Vitals:? Assessment: Plan: * Treatment: * Images: * The named appointment provid er may or may not be the originator of this progress note, and it is not deemed complete until electronically signed by the appointment provider. Sign off status: Pending * Provider:?Jez Narvaez DPM Date:?2023 Generated for Printi dar/Faxing/eTransmitting on:?11/17/2024 05:11 PM EDT
--- OUTSIDE RECORDS SUMMARY | 2024-11-17 17:12 | XMS_ITS ---
Author Organization [facility] Address [address] [place] [address] Care Team Providers Care Principal Embedded Software Engineer Name Role Phone BirdsboroCameron peck Primary Care Provider Unavailab Jez Bianchi Unavailable [phone] REASON FOR VISIT ON Encounters Encounter Location Date Provider Diagnosis [address] [address] 02/18/2024 Jez Narvaez Plan Of Treatment No Information Progress Notes * Jose Alberto CANNON EDOB: [birth year] (58 yo M)Acc No.[id number]:02/18/2024 Patient:?Jose Alberto Cannon :1965???Age:58 Y???Sex:Male Address:[address] [place] [address], [address] * true * Date:? Generated for Printi ng/Fajosé miguelg/eTransmitting on:?11/17/2024 05:11 PM EDT
--- OUTSIDE RECORDS SUMMARY | 2024-11-17 17:12 | XMS_ITS | Patient Health Record ---
Author Organization [facility] Address [address] [place] [address] Care Team Providers Care Carpet Renovator Name Role Phone Cameron Man Primary Care Provider Unavailab Franco Hernández Jr Unavailable Allergies Allergen (clinical drug ingredient) Drug/Non Drug Allergy documented on EMR Reaction Allergy Type Onset Date Status seasonal (uncoded) Unknown Allergy A ctive Results Component Value Reference Range Notes Complete Blood Count Auto Di ff Reviewed date:01/24/2024 04:42:12 PM Interpretation: Performing Lab:[facility], [address] [place] [phone] Notes/Report: White Blood Count 6.2 4.8-10.8 X10*3/uL [...] 0.0-0.2 /100WBC Neutrophils Absolute Auto 3.8 2.0-8.3 x10*3/uL Imm Gran Abs Auto 0.06 0.00-0.03 X10*3/uL Lymphocytes Absolute Auto 1.2 1.2-4.9 X10*3/uL Monocytes Absolute Auto 0.8 0.1-1.2 X10*3/uL Eosinophils Absolute Auto 0.3 0.0-0.4 X10*3/uL Basophils Absolute Auto 0.1 0.0-0.2 X10*3/uL NRBC Abs Auto 0.000 0.0-0.012 X10*3/uL Liver Panel Reviewed date:01/24/2024 04:42:07 PM Interpretation: Performing Lab:[address] [address] Notes/Report: Bilirubin Total 0.6 0.0-1.0 mg/dL Bilirubin Direct 0.2 0.0-0.5 mg/dL Aspartate Amino Transferase 28 5-37 U/L Alanine Aminotransferase 54 0-40 U/L Total Protein 7.5 6.5-8.0 g/dL Albumin Level 4.2 3.5-5.0 g/dL Alkaline Phosphatase 54 39-117 U/L Lipase Reviewed date:01/24/2024 04:41:58 PM Interpretation: Performing Lab:[facility], [address] [place] [phone] Notes/Report: Lipase 27 8-78 U/L US abdomen complete Reviewed date:02/27/2024 07:57:13 AM Interpretation: Performing Lab: Notes/Report: [address] [address] Ultrasound Report Signed with Almas Patient: Toyin Cannon MR#: [id number] : 1965 Acct:[id number] Age/Sex: 58 / M ADM Date: 02/06/24 Loc: HO.US Attending Dr: Franco Valdez MD Ordering Physician: Franco Valdez MD Date of Service: 02/06/24 Procedure(s): US abdomen complete Accession Number(s): [id number] cc: Franco Valdez MD; Cameron Man PA-C ADDENDUM . The previous of addendum is to clarify a discrepancy due to administrative asst error in the original report regarding gallbladder [...] in OV> 02/19/24 0929 DD/ 0830 TD/TT: Well Drill Operator Cable Tool: [place] [id number] Ultrasound Report Signed with Addenda Patient: Toyin Cannon MR#: [id number] : 1965 Acct:[id number] Age/Sex: 58 / M ADM Date: 02/06/24 Loc: HO.US Attending Dr: Melody Valdez MD Ordering Physician: Franco Valdez MD Date of Service: 02/06/24 Procedure(s): US abdomen complete Accession Number(s): [id number] cc: Franco Valdez MD; Cameron Man PA-C ADDENDUM . The previous of addendum is to clarify a discrepancy due to administrative asst error in the original report regarding gallbladder [...] pancreati c body is unremarkable. ABDOMINAL AORTA: Limited visualization. [...] in OV> 02/19/24 0929 DD/ 0830 TD/TT: Well Drill Operator Cable Tool: Complete Blood Count Auto Di ff Reviewed date:11/12/2024 08:02:24 AM Interpretation: Performing Lab:[facility], [address] [place] [phone] Notes/Report: White Blood Count 5.8 4.8-10.8 X10*3/uL [...] 0.0-0.2 /100WBC Neutrophils Absolute Auto 3.5 2.0-8.3 x10*3/uL Imm Gran Abs Auto 0.03 0.00-0.03 X10*3/uL Lymphocytes Absolute Auto 1.3 1.2-4.9 X10*3/uL Monocytes Absolute Auto 0.7 0.1-1.2 X10*3/uL Eosinophils Absolute Auto 0.3 0.0-0.4 X10*3/uL Basophils Absolute Auto 0.1 0.0-0.2 X10*3/uL NRBC Abs Auto 0.000 0.0-0.012 X10*3/uL Liver Panel Reviewed date:11/12/2024 08:02:15 AM Interpretation: Performing Lab:[address] [address] Notes/Report: Bilirubin Total 0.8 0.0-1.0 mg/dL Bilirubin Direct 0.2 0.0-0.5 mg/dL Aspartate Amino Transferase 26 5-37 U/L Alanine Aminotransferase 40 0-40 U/L Total Protein 7.7 6.5-8.0 g/dL Albumin Level 4.2 3.5-5.0 g/dL Alkaline Phosphatase 55 39-117 U/L IRON PROFILE Reviewed date:11/12/2024 08:02:02 AM Interpretation: Performing Lab:[address] [address] Notes/Report: Iron 145 45-160 mcg/dL Total Iron Binding Capacity 345 228-428 mcg/dL Percent Iron Saturation 42 15-50 % Unsaturated Iron Binding 200 Ferritin Reviewed date:11/12/2024 08:01:53 AM Interpretation: Performing Lab:[address] [address] Notes/Report: Ferritin 221 20-250 ng/mL Liver Fibrosis Pnl Reviewed date:11/17/2024 02:21:38 PM Interpretation: Performing Lab:[address], [place] [address] Notes/Report: Liver Fibrosis Score 0.07 Liver Fibrosis Stage F0 Liver Fibrosis Interpretation SEE NOTE no fibrosis Fibro Test Score (f) Metavir Score f>=0 and f<=0.21 : F0 (no fibrosis) f>0.21 and f<=0.27 : F0-F1 (no fibrosis) f>0.27 and f<=0.31 : F1 (minimal fibrosis) f>0.31 and f<=0.48 : F1-F2 (minimal fibrosis) f>0.48 and f<=0.58 : F2 (moderate fibrosis) f>0.58 and f<=0.72 : F3 (advanced fibrosis) f>0.72 and f<=0.74 : F3-F4 (advanced fibrosis) f>0.74 and f<=1.00 : F4 (severe fibrosis) Nec Inflam Act Score 0.09 Nec Inflam Act Grade A0 Nec Inflam Act Interpretation SEE NOTE no activity ActiTest Score (a) Metavir Score a>=0 and a<=0.17 : A0 (no activity) a>0.17 and a<=0.29 : A0-A1 (no activity) a>0.29 and a<=0.36 : A1 (minimal activity) a>0.36 and a<=0.52 : A1-A2 (minimal activity) a>0.52 and a<=0.60 : A2 (significant activity) a>0.60 and a<=0.62 : A2-A3 (significant activity) a>0.62 and a<=1.00 : A3 (severe activity) LIG-Enwwh-6-Macroglobuli n 105 106-279 mg/dL FIB-Haptoglobin 138 43-212 mg/dL FIB-Apolipoprotein A1 199 94-176 mg/dL FIB-Total Bilirubin 0.7 0.2-1.2 mg/dL FIB-GGT 34 3-85 U/L FIB-ALT 27 9-46 U/L Reference ID [id number] Footnote SEE NOTE The reliability of results is dependent on compliance with the preanalytical and analytical conditions recommended by [employer]. The tests have to be deferred for: acute hemolysis, acute hepatitis, acute inflammation, extra hepatic cholestasis. The advice of a specialist should be sought for interpretation in chronic hemolysis and Gilbert's syndrome. The test interpretation is not validated in liver transplant patients. Isolated extreme values of one of the components should lead to caution in interpreting the results. In case of discordance between a biopsy result and a test, it is recommended to seek the advice of a specialist. The causes of these discordances could be due to a flaw of the test or to a flaw in the biopsy: i.e. a liver biopsy has a 33% variability rate for one fibrosis stage. FibroTest is interpretable for chronic hepatitis B and C, alcoholic and non alcoholic steatosis. ActiTest is interpretable for chronic hepatitis B and C. The performance characteristics have been determined by [facility]. It has not been cleared or approved by the U.S. Food and Drug Administration. Performance characteristics refer to the analytical performance of the test. [employer], the associated logo, [employer] and all associated [employer] taveras are the registered trademarks of [employer]. All third constitution party taveras - (R) and (TM) - are the property of their respective owners. (C) 1589-7025 [employer]. All rights reserved. THIS TEST WAS PERFORMED AT: [employer] [facility] [place] [address] [place] [address] LASHA GRAHAM MD,PHD,THOR Reason For Referral No Information Medications Medication [...] Problem Status W/U Status Risk Notes Problem 788122374 Colon cancer screening (Z12.11) Active confirmed Problem 708103614 Elevated LFTs (R79.89) Active confirmed Problem 160553581 Fatty liver (K76.0) Active confirmed Problem 66557645 Hemorrhoids, unspecified hemorrhoid type (K64.9) Active confirmed Problem 274087292 Rectal carcinoid tumor (D3A.026) Active confirmed Problem 407843145 Chest pressure (R07.89) Active confirmed Problem 007498277 Gastroesophageal reflux disease, unspecified whether esophagitis present (K21.9) Active confirmed Problem 186423525 Black stools (K92.1) Active confirmed Vital Signs Blood pressure diastolic 00 mm Hg 08/06/2024 Height 73 in 08/06/2024 Blood pressure systolic 00 mm Hg 08/06/2024 Weight 243 lbs 08/06/2024 BMI 32.06 kg/m2 08/06/2024 Encounters Encounter Location Date Provider Diagnosis [facility] [address] [place] [phone] 08/06/2024 Franco Valdez Jr Fatty liver K76.0 ; Gastroesophageal reflux disease, unspecified whether esophagitis present K21.9 and Colon cancer screening Z12.11 [facility] [address] [place] [phone] 01/22/2024 Franco Valdez Jr Chest pressure R07.89 ; Elevated LFTs R79.89 and Black stools K92.1 [facility] [address] [place] [phone] 01/24/2024 Franco Valdez Jr [facility] [address] [place] [phone] 02/20/2024 Franco Valdez Jr Generalized abdominal pain R10.84 [facility] [address] [place] [phone] 02/27/2024 Franco Valdez Jr [facility] [address] [place] [phone] 06/09/2024 Franco Valdez Jr [facility] [address] [place] [phone] 11/17/2024 Franco Valdez Jr Assessments Encounter Date Diagnosis [...] COLONOSCOPY 06/16/2021 Next Appt Details Provider Name:Franco Jayson cassidy Jr, 08/05/2025 01:35:00 PM, [address] [facility], [address], [place], [address], Insurance Providers Payer Name Payer Address Payer Phone Subscriber Number Group Number Insured Name Patient Relationship to Insured Coverage Start Date Coverage End Date [facility] [address] [address] [place] [address] [id number] TOYIN CANNON Self - patient is the [...]
== END 2024-11-17 14:27 | disposition home or self-care (01) ==
LOC: HO.HMGCX 14:26
PROVIDERS: PCP Physician Assistant; Visit Provider Physician Assistant
DX: R22.32 Localized swelling, mass and lump, left upper limb (principal)
CPT/HCPCS: 76882

== ENCOUNTER → 2024-11-17 14:33 | Outpatient (BNV) | payer BC, SELFPAY | PROVIDERS: PCP Physician Assistant; Visit Provider Radiology Diagnostic Radiology | DX: R22.32 Localized swelling, mass and lump, left upper limb (principal) | CPT/HCPCS: 76882 ==

== ENCOUNTER 2024-11-30 12:37 | Outpatient (REF) | payer BC, SELFPAY ==
[2024-11-30 13:23] LABS: Uric Acid 5.9 mg/dL (3.4-7.0)
--- OUTSIDE RECORDS SUMMARY | 2024-11-30 14:15 | XMS_ITS ---
Author Organization [facility] Address [address] [place] [address] Care Team Providers Care Decorator Street And Building Name Role Phone Cameron Man Primary Care Provider Unavailab Franco Hernández Jr REASON FOR VISIT fatty liver Encounters Encounter Location Date Provider Diagnosis [facility] [address] [place] [address] 07/22/2024 Franco Valdez Jr Plan Of Treatment Next Appt Details Provider Name:Franco cassidy Jr, 08/05/2025 01:35:00 PM, [address], [address], [place], [address], Progress Notes * TOYIN CANNON EDOB: [birth year] (59 yo M)Acc No.[id number]:07/22/2024 Progress Notes Patient:?DAVIS TOYIN Reece Provider:?Franco Valdez MD :1965???Age:59 Y???Sex:Male Sal e:07/22/2024 Address:[address] [place] [place], [place] Pcp:Cameron Man Subjective: * Chief Complaints: * [...] MD Date:?1 09/21/2023 Generated for Lisy dodge/Tamika/Sonia on:?11/30/2024 02:15 PM EDT
--- OUTSIDE RECORDS SUMMARY | 2024-11-30 14:15 | XMS_ITS ---
Author Organization [facility] Address [address] [place] [address] Care Team Providers Care Four H Club Agent Name Role Phone Frank Manolas Primary Care [...] Problem Status W/U Status Risk Notes Problem 128387946 Gastroesophageal reflux disease, unspecified whether esophagitis present (K21.9) Active confirmed Vital Signs Blood pressure systolic 00 mm Hg 08/06/20 24 Blood pressure diastolic 00 mm Hg 024 Height 73 in 08/06/2024 Weight 243 lbs 08/06/2024 BMI 32.06 kg/m2 08/06/2024 Encounters Encounter Location Date Provider Diagnosis [facility] [address] [place] [address] 08/06/2024 Franco Valdez Jr Fatty liver K76.0 [...] 01:35:00 PM, [address], [address], [place], [address], Progress Notes * TOYIN CANNON EDOB: [birth year] (59 yo M)Acc No.[id number]:08/06/2024 Progress Notes Patient:?TOYIN CANNON Provider:?Franco Valdez MD :1965???Age:59 Y???Sex:Male Sal e:08/06/2024 Address: [facility] Pcp:Cameron Man Subjective: * Chief Complaints: * [...] Interpretation: Positive.?Miscellaneous:?Marital status: . 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 * Medications:?Taking Valsarta n 320 MG Tablet [...] Provider:?Franco Valdez MD Date:?1 10/07/2023 Generated for Pokelabo ng/Fajosé miguelg/eTransmitting on:?11/30/2024 02:15 PM EDT History and Physical Notes * [...]
--- OUTSIDE RECORDS SUMMARY | 2024-11-30 14:15 | XMS_ITS | Patient Health Record ---
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) Active confirmed Problem 82493100 Osteoarthritis o f left ankle and foot (M19.072) Active confirmed Encounters Encounter Location Date Provider Diagnosis [facility] [address] [place] [address] 02/18/2024 Jez Narvaez Plan Of Treatment Pending Test Test Name Order Date MRI : Foot, right 12/11/2017 X ray : Foot, left 3V 12/11/2017 X ray : Foot, right 3V 12/11/2017 X ray : Foot, right 3V 12/23/2020 Insurance Providers Payer Name Payer Address Payer Phone Subscriber Number Group Number Insured Name Patient Relationship to Insured Coverage Start Date Coverage End Date [facility] re-[id number] [address] [address] [place] [address] [id number] Jose Alberto Reina Self - patient is the insured Medical (General) History Medical History History ICD Code High blood pressure Surgical History Surgery Date(Month/Year) Hernia Repair 2014 achilles tendon repair 2007 appendectomy 1979
--- OUTSIDE RECORDS SUMMARY | 2024-11-30 14:16 | XMS_ITS ---
Author Organization [facility] Address [address] [place] [address] Care Team Providers Care Rubber Calender Helper Name Role Phone Cameron Man Primary Care Provider Unavailab Jez Bainchi Unavailable [phone] Encounters Encounter Location Date Provider [facility] [address] [address] 05/25/2024 Jez Narvaez Plan Of Treatment No Information Progress Notes * DAVISRicoJose Alberto EDOB: [birth year] (59 yo M)Acc No.[id number]:05/25/2024 Progress Notes Patient:?Jose Alberto CANNON Provider:?Jez Narvaez DPM :1965???Age:59 Y???Sex:Male Sal e:05/25/2024 Address:[address] [place], [place] [phone] Pcp:Cameron Man Subjective: * Chief Complaints: * ??? * Medical History:? Objective: * Vitals:? Assessment: Plan: * Treatment: * Images: * The named appointment provid er may or may not be the originator of this progress note, and it is not deemed complete until electronically signed by the appointment provider. Sign off status: Pending * Provider:?Jez Narveaz DPM Date:?2023 Generated for Printi dar/Faxing/eTransmitting on:?11/30/2024 02:15 PM EDT
--- OUTSIDE RECORDS SUMMARY | 2024-11-30 14:16 | XMS_ITS ---
Author Organization [facility] Address [address] [place] [address] Care Team Providers Care Malted Milk Supervisor Name Role Phone [place]on peck Primary Care Provider Unavailab Jez Bianchi Unavailable [phone] REASON FOR VISIT ON Encounters Encounter Location Date Provider Diagnosis [address] [address] 02/18/2024 Jez Narvaez Plan Of Treatment No Information Progress Notes * Jose Alberto CANNON EDOB: [birth year] (58 yo M)Acc No.[id number]:02/18/2024 Patient:?Jose Alberto Cannon :1965???Age:58 Y???Sex:Male Address:[address] [place] [address], [address] * true * Date:? Generated for Printi ng/Fajosé miguelg/eTransmitting on:?11/30/2024 02:16 PM EDT
--- OUTSIDE RECORDS SUMMARY | 2024-11-30 14:16 | XMS_ITS | Patient Health Record ---
Author Organization [facility] Address [address] [place] [address] Care Team Providers Care Manager Transport Name Role Phone Cameron Man Primary Care Provider Unavailab Franco Hernández Jr Unavailable [phone] Allergies Allergen (clinical drug ingredient) Drug/Non Drug Allergy documented on EMR Reaction Allergy Type Onset Date Status seasonal (uncoded) Unknown Allergy A ctive Results Component Value Reference Range Notes Complete Blood Count Auto Di ff Reviewed date:01/24/2024 04:42:12 PM Interpretation: Performing Lab:[facility], [address] [place] [address] Notes/Report: White Blood Count 6.2 4.8-10.8 X10*3/uL [...] Panel Reviewed date:01/24/2024 04:42:07 PM Interpretation: Performing Lab:[address] [address] Notes/Report: Bilirubin Total 0.6 0.0-1.0 mg/dL Bilirubin Direct 0.2 0.0-0.5 mg/dL Aspartate Amino Transferase 28 5-37 U/L Alanine Aminotransferase 54 0-40 U/L Total Protein 7.5 6.5-8.0 g/dL Albumin Level 4.2 3.5-5.0 g/dL Alkaline Phosphatase 54 39-117 U/L Lipase Reviewed date:01/24/2024 04:41:58 PM Interpretation: Performing Lab:[facility], [address] [place] [address] Notes/Report: Lipase 27 8-78 U/L US abdomen complete Reviewed date:02/27/2024 07:57:13 AM Interpretation: Performing Lab: Notes/Report: [address] [address] Ultrasound Report Signed with Almas Patient: Toyin Cannon MR#: [id number] : 1965 Acct:[id number] Age/Sex: 58 / M ADM Date: 02/06/24 Loc: HO.US Attending Dr: Franco Valdez MD Ordering Physician: Franco Valdez MD Date of Service: 02/06/24 Procedure(s): US abdomen complete Accession Number(s): [id number] cc: Franco Valdez MD; Cameron Man PA-C ADDENDUM . The previous of addendum is to clarify a discrepancy due to division sergeant error in the original report regarding gallbladder [...] in OV> 02/19/24 0929 DD/ 0830 TD/TT: Supervisor [employer]: [place] [address] Ultrasound Report Signed with Addenda Patient: Toyin Cannon MR#: [id number] : 1965 Acct:[id number] Age/Sex: 58 / M ADM Date: 02/06/24 Loc: HO.US Attending Dr: Melody Valdez MD Ordering Physician: Franco Valdez MD Date of Service: 02/06/24 Procedure(s): US abdomen complete Accession Number(s): [id number] cc: Franco Valdez MD; Cameron Man PA-C ADDENDUM . The previous of addendum is to clarify a discrepancy due to division sergeant error in the original report regarding gallbladder [...] in OV> 02/19/24 0929 DD/ 0830 TD/TT: Supervisor [employer]: Complete Blood Count Auto Di ff Reviewed date:11/12/2024 08:02:24 AM Interpretation: Performing Lab:[facility], [address] [place] [address] Notes/Report: White Blood Count 5.8 4.8-10.8 X10*3/uL [...] Panel Reviewed date:11/12/2024 08:02:15 AM Interpretation: Performing Lab:[address] [address] Notes/Report: Bilirubin Total 0.8 0.0-1.0 mg/dL Bilirubin Direct 0.2 0.0-0.5 mg/dL Aspartate Amino Transferase 26 5-37 U/L Alanine Aminotransferase 40 0-40 U/L Total Protein 7.7 6.5-8.0 g/dL Albumin Level 4.2 3.5-5.0 g/dL Alkaline Phosphatase 55 39-117 U/L IRON PROFILE Reviewed date:11/12/2024 08:02:02 AM Interpretation: Performing Lab:[address] [address] Notes/Report: Iron 145 45-160 mcg/dL Total Iron Binding Capacity 345 228-428 mcg/dL Percent Iron Saturation 42 15-50 % Unsaturated Iron Binding 200 Ferritin Reviewed date:11/12/2024 08:01:53 AM Interpretation: Performing Lab:[address] [address] Notes/Report: Ferritin 221 20-250 ng/mL Liver Fibrosis Pnl Reviewed date:11/17/2024 02:21:38 PM Interpretation: Performing Lab:[address], [place] [address] Notes/Report: Liver Fibrosis Score 0.07 Liver Fibrosis [...] a>0.62 and a<=1.00 : A3 (severe activity) IZP-Tsbhr-3-Macroglobuli n 105 106-279 mg/dL FIB-Haptoglobin 138 43-212 mg/dL FIB-Apolipoprotein A1 199 94-176 mg/dL FIB-Total Bilirubin 0.7 0.2-1.2 mg/dL FIB-GGT 34 3-85 U/L FIB-ALT 27 9-46 U/L Reference ID [id number] Footnote SEE NOTE The reliability of results [...] The performance characteristics have been determined by [facility]. It has not been cleared or approved by the U.S. Food and Drug Administration. Performance characteristics refer to the analytical performance of the test. Mir [employer]en, the associated logo, Zentric and all associated [employer] taveras are the registered trademarks of [employer]. All third green party taveras - (R) and (TM) - are the property of their respective owners. (C) 1360-4790 [employer]. All rights reserved. THIS TEST WAS PERFORMED AT: [employer] [facility] [place] [address] [place] [address] LASHA GRAHAM MD,PHD,THOR Mitochondrial Antibody Reviewed date:11/26/2024 11:44:03 AM Interpretation: Performing Lab:[address] [address] Notes/Report: Mitochondrial Antibodies NEGATIVE NEGATIVE The specimen was negative for cytoplasmic antibodies, however additional staining was observed suggesting the presence of Antinuclear Antibodies. Consider requesting order code 249, SAVANNAH Screen, IFA with Reflex to Titer and Pattern, or order code 38149, SAVANNAH Screen, IFA w/reflex Titer/Pattern, and Reflex to Multiplex 11 Ab [place], if clinically indicated. THIS TEST WAS PERFORMED AT: [employer] [address] [address] MICHAEL HERNANDEZ MD Mitochondrial Ab Titer TNP Smooth Muscle Antibody Reviewed date:11/26/2024 11:43:50 AM Interpretation: Performing Lab:[address] [address] Notes/Report: Smooth Muscle Antibody <20 <20 U Reference Range: <20 U: Negative >or=20 U: Positive Antibodies recognizing actin are the main component of smooth muscle antibodies associated with auto- immune liver disease. Actin antibodies are found in approximately 75% of patients with autoimmune hepatitis (AIH) type 1, approximately 65% of patients with autoimmune cholangitis, approximately 30% of patients with primary biliary cirrhosis and approximately 2% of healthy controls. High values are closely correlated with AIH type 1. THIS TEST WAS PERFORMED AT: [employer]/[address] [address] SAMI HINTON MD,PHD Reason For Referral No Information Medications Medication [...] Problem Status W/U Status Risk Notes Problem 049455817 Colon cancer screening (Z12.11) Active confirmed Problem 581764470 Elevated LFTs (R79.89) Active confirmed Problem 688875459 Fatty liver (K76.0) Active confirmed Problem 14904399 Hemorrhoids, unspecified hemorrhoid type (K64.9) Active confirmed Problem 868554096 Rectal carcinoid tumor (D3A.026) Active confirmed Problem 011554533 Chest pressure (R07.89) Active confirmed Problem 708344376 Gastroesophageal reflux disease, unspecified whether esophagitis present (K21.9) Active confirmed Problem 018828984 Black stools (K92.1) Active confirmed Vital Signs Blood pressure diastolic 00 mm Hg 08/06/2024 Height 73 in 08/06/2024 Blood pressure systolic 00 mm Hg 08/06/2024 Weight 243 lbs 08/06/2024 BMI 32.06 kg/m2 08/06/2024 Encounters Encounter Location Date Provider Diagnosis [facility] [address] [place] [address] 08/06/2024 Franco Valdez Jr Fatty liver K76.0 ; Gastroesophageal reflux disease, unspecified whether esophagitis present K21.9 and Colon cancer screening Z12.11 [facility] [address] [place] [address] 01/22/2024 Franco Valdez Jr Chest pressure R07.89 ; Elevated LFTs R79.89 and Black stools K92.1 [facility] [address] [place] [address] 01/24/2024 Franco Valdez Jr [facility] [address] [place] [address] 02/20/2024 Franco Valdez Jr Generalized abdominal pain R10.84 [facility] [address] [facility] [place] [address] 02/27/2024 Franco Valdez Jr [facility] [address] [place] [address] 06/09/2024 Franco Valdez Jr [facility] [address] [place] [address] 11/17/2024 Franco Valdez Jr Assessments Encounter Date [...] cassidy Jr, 08/05/2025 01:35:00 PM, [address] [facility], [address], [place], [address], Insurance Providers Payer Name Payer Address Payer Phone Subscriber Number Group Number Insured Name Patient Relationship to Insured Coverage Start Date Coverage End Date [facility] [address] [address] [place] [address] [id number] TOYIN CANNON Self - patient is the [...]
--- OUTSIDE RECORDS SUMMARY | 2024-11-30 14:16 | XMS_ITS ---
Author Organization [facility] Address [address] [place] [address] Care Team Providers Care Broker Name Role Phone Cameron Man Primary Care Provider Unavailab Franco Hernández Jr [phone] REASON FOR VISIT labs Encounters Encounter Location Date Provider Diagnosis [facility] [address] [facility] [address] [place] [address] 11/17/2024 Franco Valdez Jr Plan Of Treatment Next Appt Details Provider Name:Franco cassidy Jr, 08/05/2025 01:35:00 PM, [address] [facility] [address], [address], [place], [address], Progress Notes * TOYIN CANNON EDOB: [birth year] (59 yo M)Acc No.[id number]:11/17/2024 Patient:?TOYIN CANNON :1965???Age:59 Y???Sex:Male Address:[address], [place] [address] * true * Date:? Generated for Printi ng/Faxing/eTransmitting on:?11/30/2024 02:15 PM EDT
== END 2024-11-30 12:38 | disposition home or self-care (01) ==
LOC: HO.10HDL 12:37
PROVIDERS: Visit Provider Physician Assistant
DX: M10.9 Gout, unspecified (principal)
CPT/HCPCS: 36415; 84550

== ENCOUNTER 2024-12-29 12:28 | Outpatient (REF) | payer BC, SELFPAY ==
--- OUTSIDE RECORDS SUMMARY | 2024-12-29 14:24 | XMS_ITS ---
Author Organization [facility] Address [address] [place] [address] Care Team Providers Care Packaging Sales Consultant Name Role Phone Cameron Man Primary Care Provider Unavailab Jez Bianchi Unavailable [phone] Encounters Encounter Location Date Provider Diagnosis [facility] [address] [address] 05/25/2024 Jez Narvaez Plan Of Treatment No Information Progress Notes * DAVISRicoJose Alberto EDOB: [birth year] (59 yo M)Acc No.[id number]:05/25/2024 Progress Notes Patient:?Jose Alberto CANNON Provider:?Jez Narvaez DPM :1965???Age:59 Y???Sex:Male Sal e:05/25/2024 Address:[address] [place], [place] [id number] Pcp:Cameron Man Subjective: * Chief Complaints: * ??? * Medical History:? Objective: * Vitals:? Assessment: Plan: * Treatment: * Images: * The named appointment provid er may or may not be the originator of this progress note, and it is not deemed complete until electronically signed by the appointment provider. Sign off status: Pending * Provider:?Jez Narvaez DPM Date:?2023 Generated for Printi dar/Faxing/eTransmitting on:?12/29/2024 02:23 PM EDT
--- OUTSIDE RECORDS SUMMARY | 2024-12-29 14:24 | XMS_ITS ---
Author Organization [facility] Address [address] [place] [address] Care Team Providers Care Melt Supervisor Name Role Phone CantonCameron peck Primary Care Provider Unavailab Jez Bianchi Unavailable [phone] REASON FOR VISIT ON Encounters Encounter Location Date Provider Diagnosis [address] [address] 02/18/2024 Jez Narvaez Plan Of Treatment No Information Progress Notes * Jose Alberto CANNON EDOB: [birth year] (58 yo M)Acc No.[id number]:02/18/2024 Patient:?Jose Alberto Cannon :1965???Age:58 Y???Sex:Male Address:[address] [place] [address], [address] * true * Date:? Generated for Printi ng/Fajosé miguelg/eTransmitting on:?12/29/2024 02:24 PM EDT
--- OUTSIDE RECORDS SUMMARY | 2024-12-29 14:24 | XMS_ITS | Patient Health Record ---
Author [facility] [place] Address [address] [place] [address] Care Team Providers Care Compliance Clerk Name Role Phone Cameron Man Primary Care Provider Unavailab Jez Bianchi Unavailable [phone] Allergies No Known Allergies Reason For Referral [...] Problem Status W/U Status Risk Notes Problem 966674226 Equinus contract ure of right ankle (M24.571) Active confirmed Problem 03835096 Osteoarthritis o f left ankle and foot (M19.072) Active confirmed Encounters Encounter Location Date Provider Diagnosis [facility] [address] [place] [address] 02/18/2024 Jez Narvaez Plan Of Treatment Pending Test Test Name Order Date MRI : Foot, right 12/11/2017 X ray : Foot, left 3V 12/11/2017 X ray : Foot, right 3V 12/11/2017 X ray : Foot, right 3V 12/23/2020 Insurance Providers Payer Name Payer Address Payer Phone Subscriber Number Group Number Insured Name Patient Relationship to Insured Coverage Start Date Coverage End Date [facility] re-[address] [address] [address] [place] [address] [id number] Jose Alberto Reina Self - patient is the insured Medical (General) History Medical History History ICD Code High blood pressure Surgical History Surgery Date(Month/Year) Hernia Repair 2014 achilles tendon repair 2007 appendectomy 1979
[2024-12-29 14:45] LABS: Uric Acid 5.8 mg/dL (3.4-7.0)
== END 2024-12-29 12:29 | disposition home or self-care (01) ==
LOC: HO.10HDL 12:28
PROVIDERS: Visit Provider Physician Assistant
DX: M1A.49X1 Other secondary chronic gout, multiple sites, with tophus (tophi) (principal)
CPT/HCPCS: 36415; 84550

== ENCOUNTER 2025-02-11 12:38 | Outpatient (AMB) | payer BC, SELFPAY ==
--- NOTE | 2025-02-11 12:47 | MHC.OFFVIS ---
Vital Signs 02/11/25 12:48 Height 6 ft 1 in Weight 243 lb 6.245 oz BMI 32.1 BP 114/72 Blood Pressure Location Lt brachial Position Sitting Pulse 92 Pulse Source Monitor Intake Visit Reasons: 1 yr f/up s/p echo Motorcycle Designer Required: No Accompanied by: Self / Same As Patient Allergies No Known Allergies [No Known Allergies*] Allergy (Verified 11/11/24 14:21) Medication List - Last Reconciled 02/11/25 by Romel Starr MD allopurinol 200 mg (2 x 100 mg) PO DAILY 90 days amlodipine 2.5 mg PO DAILY aspirin (Adult Low Dose Aspirin) 81 mg PO DAILY betamethasone dipropionate 0.05% 1 appl topical DAILY PRN cholecalciferol (vitamin D3) (Vitamin D3) 25 mcg PO DAILY clotrimazole-betamethasone 1-0.05 % 1 appl topical BID 4 weeks colchicine 0.6 mg PO DAILY fexofenadine 180 mg PO DAILY PRN folic acid 1 mg PO DAILY Hyrimoz(CF) Pen (adalimumab-adaz) 40 mg (0.4 mL) subcut Q2W NS methotrexate sodium 15 mg (6 x 2.5 mg) PO QWEEK 90 days nystatin 1 appl topical DAILY PRN omega 1-bbg-fej-fish oil 1,000 (120-180) mg (Fish Oil) 1 cap PO DAILY valsartan 320 mg PO DAILY HPI Comments Details: Jose Alberto returns for follow-up. He has hypertension as well as enlarged aortic root. Overall, he states he feels well. Unlimited physical activity. He has not had any complaints like angina or shortness of breath or in fact anything cardiac related. He states he is getting along fine. He is doing activities like running, bicycling with no issues. He can bike as much as 45 minutes. [facility] Medical History (Updated 02/11/25 @ 13:26 by Romel Starr MD) Ascending aortic aneurysm Mallet deformity of right little finger Psoriatic arthritis Foot pain, bilateral DOROTHY (obstructive sleep apnea) Obesity (BMI 30-39.9) Hx of chest pain Rupture of left biceps tendon Carcinoid tumor, rectal, benign Seasonal allergies Snores Hyperlipidemia HTN (hypertension) Surgical History History of bunionectomy History of appendectomy History of Achilles tendon repair Hx of colonoscopy History of umbilical hernia repair Family History Mother Irregular heart beat Social History Housing: House Alcohol intake: current Alcohol intake frequency: a few times a week Alcohol type: beer and wine Patient Tobacco Use Status: Never used Tobacco e-Cigarette/Vaping Use: Never Used Second Hand Smoke Exposure: No service: No Current occupational status: employed 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 Current occupational exposures/hazards: No Cognitive needs: No Hearing needs: No Vision needs: No Review of Systems Const Denies chills, Denies fatigue, Denies fever(s), Denies frequent falls, Denies weakness, Denies weight gain and Denies weight loss ENT Denies dizziness Card Denies chest pain, Denies leg edema, Denies lightheadedness, Denies palpitations, Denies dyspnea and Denies dyspnea on exertion Resp Denies cough, Denies dyspnea and Denies dyspnea on exertion GI Denies hematochezia Musc Denies abnormal gait, Denies muscle weakness, Denies numbness, Denies radiating pain into limb and Denies tingling Neuro Denies abnormal gait, Denies dizziness, Denies frequent falls, Denies numbness, Denies tingling and Denies weakness Endo Denies fatigue and Denies palpitations Physical Exam Vital Signs: Last Vital Signs Pulse 92 02/11/25 12:48 BP 114/72 02/11/25 12:48 BMI result Body Mass Index 32.1 Const General: comfortable and no acute distress Orientation/consciousness: patient oriented x3 HEENT Other: Unremarkable Head: Yes normal to inspection Neck Neck: Yes normal visual inspection Chest Chest palpation & inspection: normal inspection of the chest Resp Auscultation: clear to auscultation bilaterally Cardio Palpation: normal PMI Heart sounds: S1 normal heart sound present, S2 normal heart sound present, no gallops, no murmurs and no rubs GI Palpation (GI): Soft to palpation Back/Spine/Pelvis Other: unremarkable Skin General skin exam: no rashes or lesions noted Neuro General: patient oriented x3 Extrem General: Yes normal to inspection Psych Mental Status: mental status grossly normal Office Procedures EKG Details: EKG with underlying sinus rhythm at 92/Min; no ischemic changes; [place] [address]-Akxybbtuqvfoqovlp, Complete Assessment & Plan Assessment & Plan (1) Ascending aortic aneurysm: Code(s): I71.2 - Thoracic aortic aneurysm, without rupture Category: Medical Plan: In the last echocardiogram from 2023, ascending aorta measures 4.6 cm sinus of Valsalva and 3.8 cm in the tubular portion. In 2022-it measured 4.5 cm at sinus of Valsalva and 3.7 cm in the tubular portion. To be rechecked. (2) Essential hypertension: Code(s): I10 - Essential (primary) hypertension Category: Medical Plan: On valsartan/amlodipine. Off hydrochlorothiazide due to cramps. Seems stable. (3) DOROTHY (obstructive sleep apnea): Comment: Code(s): G47.33 - Obstructive sleep apnea (adult) (pediatric) Category: Medical Plan: Home sleep study shows severe obstructive sleep apnea. He is using CPAP regularly. (4) Obesity (BMI 30-39.9): Code(s): E66.9 - Obesity, unspecified Category: Medical Plan: Weight is more or less the same as before. No real changes. We have discussed many times. Plan Discussion Notes I discussed with the patient the importance of monitoring his cardiovascular health closely, given his history of hypertension and emphasizing adherence to Amlodipine and Valsartan. I explained the purpose of the echocardiogram to monitor the aortic size. We discussed the potential impact of weight loss on blood pressure and heart rate management. The benefits of CPAP in his treatment plan were reviewed, and he acknowledged its positive effects. We agreed on the continuance of his exercise regimen, taking into account any limitations due to psoriatic arthritis. I informed him of the need for annual evaluations and encouraged him to reach out if new symptoms arise. Patient was informed and verbally consented to the use of an ambient scribe for clinic note documentation during this visit. Orders: Orders CA echo transthoracic complete 1 Year I71.2 - Thoracic aortic aneurysm, without rupture Patient Instructions: - Continue taking amlodipine and valsartan as prescribed. - Use CPAP every night as advised. - Maintain your exercise routine, modify if arthritis flares. - Monitor your heart rate and blood pressure regularly. - Plan for your echocardiogram in the next few weeks. - Schedule an annual follow-up visit. - Contact us if any new symptoms occur or if you have any concerns. Coding Level of Care Code Est Pt Level 4 (35127) Complex EM visit Add On G2211 Diagnoses Ascending aortic aneurysm I71.2 Essential hypertension I10 DOROTHY (obstructive sleep apnea) G47.33 Obesity (BMI 30-39.9) E66.9 CPT Codes EKG - CPT: 71254-Hrdhabnujheexjubb, Complete ([id number])
[2025-02-11 12:48] VITALS: BP 114/72; PULSE 92; BMI 32.1
== END 2025-02-11 13:05 | disposition home or self-care (01) ==
LOC: HO.HCS 12:40
PROVIDERS: PCP Physician Assistant; Visit Provider Internal Medicine
DX: I71.20 Thoracic aortic aneurysm, without rupture, unspecified (principal); I10 Essential (primary) hypertension; G47.33 Obstructive sleep apnea (adult) (pediatric); E66.9 Obesity, unspecified
CPT/HCPCS: 93010; 99214

== ENCOUNTER → 2025-02-11 12:38 | Outpatient (BNVA) | payer BC, SELFPAY | PROVIDERS: PCP Physician Assistant; Visit Provider Internal Medicine | DX: I71.21 Aneurysm of the ascending aorta, without rupture (principal); I10 Essential (primary) hypertension; G47.33 Obstructive sleep apnea (adult) (pediatric); E66.9 Obesity, unspecified; Z68.32 Body mass index [BMI] 32.0-32.9, adult | CPT/HCPCS: 93005 ==

== ENCOUNTER 2025-02-19 12:30 | Outpatient (REF) | payer BC, SELFPAY ==
--- OUTSIDE RECORDS SUMMARY | 2025-02-19 12:32 | XMS_ITS | Patient Health Record ---
Author Organization [facility] [place] Address [address] [place] [address] Care Team Providers Care Fire Official Name Role Phone Cameron Man Primary Care Provider Unavailab eJz Bianchi Unavailable [phone] Allergies No Known Allergies Reason For Referral [...] Problem Status W/U Status Risk Notes Problem 338281069 Equinus contract ure of right ankle (M24.571) Active confirmed Problem 18745495 Osteoarthritis o f left ankle and foot (M19.072) Active confirmed Plan Of Treatment Pending Test Test Name Order Date MRI : Foot, right 12/11/2017 X ray : Foot, left 3V 12/11/2017 X ray : Foot, right 3V 12/11/2017 X ray : Foot, right 3V 12/23/2020 Insurance Providers Payer Name Payer Address Payer Phone Subscriber Number Group Number Insured Name Patient Relationship to Insured Coverage Start Date Coverage End Date [facility] re-[id number] [address] [address] [place] [address] [id number] Jose Alberto Reina Self - patient is the insured Medical (General) History Medical History History ICD Code High blood pressure Surgical History Surgery Date(Month/Year) Hernia Repair 2015 achilles tendon repair 2007 appendectomy 1979
[2025-02-19 13:42] LABS: MANUAL DIFF FLAG NO
[2025-02-19 13:49] LABS: Basophils Absolute Auto 0.1 X10*3/uL (0.0-0.2); Eosinophils Absolute Auto 0.2 X10*3/uL (0.0-0.4); Eosinophils Percent Auto 2.7 % (0-4); Hematocrit 45.2 % (42.0-52.0); Hemoglobin 16.1 g/dl (14.0-18.0); Imm Gran Abs Auto 0.03 X10*3/uL (0.00-0.03); Imm Gran Pct Auto 0.4 % (0.0-0.4); Lymphocytes Absolute Auto 1.1 X10*3/uL (1.2-4.9); Mean Corpuscular HGB Conc 35.6 g/dl (31.0-36.0); Mean Corpuscular Hemoglobin 32.3 pg (27.0-33.0); Mean Corpuscular Volume 90.6 fL (80.0-98.0); Mean Platelet Volume 9.7 fL (9.4-12.4); Monocytes Absolute Auto 0.7 X10*3/uL (0.1-1.2); Monocytes Percent Auto 10.3 % (2-11); Neutrophils Absolute Auto 4.9 x10*3/uL (2.0-8.3); Neutrophils Percent Auto 69.6 % (45-73); Platelet Count 268 X10*3/uL (160-400); Red Blood Count 4.99 X10*6/uL (4.60-5.80); Red Cell Distribution Width 13.2 % (11.0-16.0)
[2025-02-19 14:21] LABS: Alanine Aminotransferase 57 U/L (0-40); Albumin Level 4.4 g/dL (3.5-5.0); Alkaline Phosphatase 50 U/L (39-117); Anion Gap 13 (12-20); Aspartate Amino Transferase 30 U/L (5-37); Bilirubin Total 0.6 mg/dL (0.0-1.0); Blood Urea Nitrogen 14 mg/dL (9-16); C Reactive Protein < 0.10 mg/dL (< or = 0.50); Calcium 9.4 mg/dL (8.4-10.2); Carbon Dioxide 26 mmol/L (22-29); Chloride 104 mmol/L (96-108); Estimated Glomerular Filt Rate > 60; Glucose Random 105 mg/dL (60-115); Potassium 4.6 mmol/L (3.3-5.1); Sodium 138 mmol/L (135-145); Total Protein 7.2 g/dL (6.5-8.0); Uric Acid 5.8 mg/dL (3.4-7.0)
[2025-02-19 14:26] LABS: Erythrocyte Sedimentation Rate 1 MM/HR (0-15)
[2025-02-20 08:53] LABS: HBc Num1 0.06 S/CO (0.00-0.79); HBsAGNum1 0.47 S/CO (0.00-0.99); HIV AB/AG Nonreactive (Nonreactive); HIV Num 1 0.06 S/CO (0.00-0.99); Hepatitis B Core Antibody Nonreactive (Nonreactive); Hepatitis B Surface Antigen Negative (Negative); ~HepC Num1 0.14 S/CO (0.00-0.79); ~Hepatitis A Antibody IgM Nonreactive (Nonreactive); ~Hepatitis B Surface Antibody NONREACTIVE (Nonreactive); ~Hepatitis C Antibody Nonreactive (Nonreactive)
[2025-02-22 01:33] LABS: TS Negative Control Passed; TS Panel A 0; TS Panel B 0; TS Positive Control Passed; TSpotTB Negative (Negative)
== END 2025-02-19 12:31 | disposition home or self-care (01) ==
LOC: HO.10HDL 12:30
PROVIDERS: Visit Provider Student in an Organized Health Care Education/Training Program
DX: M10.9 Gout, unspecified (principal); L40.50 Arthropathic psoriasis, unspecified
CPT/HCPCS: 36415; 80053; 84550; 85025; 85652; 86140; 86481; 86704; 86706; 86709; 86803; 87340; 87389

== ENCOUNTER 2025-03-30 13:07 | Outpatient (AMB) | payer BC, SELFPAY ==
--- OUTSIDE RECORDS SUMMARY | 2024-07-22 07:00 | XMS_ITS ---
Author Organization [facility] Address [address] [place] [address] Care Team Providers Care Installations Inspector Name Role Phone Cameron Man Primary Care Provider Unavailab Franco Hernández Jr [phone] REASON FOR VISIT fatty liver Encounters Encounter Location Date Provider Diagnosis [facility] [address] [place] [address] 07/22/2024 Franco Valdez Jr Plan Of Treatment Next Appt Details Provider Name:Franco cassidy Jr, 08/05/2025 01:35:00 PM, [address], [address], [place], [address], Progress Notes * DAVISTOYIN EDOB: [birth year] (60 yo M)Acc No.[id number]:07/22/2024 Progress Notes Patient: TOYIN AMAYA Provider: Zoe Valdez MD :1965 A ge:59 Y S ex:Male Date:07/22/2024 Address: [address] [place], [place] Pcp:Cameron Man Subjective: * Chief Complaints: * 1 . Fatty liver. * Medical History: Objective: * Vitals: Assessment: Plan: * Treatment: * * The named appointment provid er may or may not be the originator of this progress note, and it is not deemed complete until electronically signed by the appointment provider. Sign off status: Pending * Provider: Zoe Valdez MD Date: 1 09/21/2023 Generated for Lisy dodge/Tamika/Sonia on: 0 03/30/2025 01:54 PM EDT
--- NOTE | 2025-03-30 13:16 | A.OFFVIS_ITS ---
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 Telephone Answering Service Required: No Allergies No Known Allergies (No Known Allergies*) Allergy (Verified 03/30/25 13:39) Medication List - Last Reconciled 03/30/25 by Chastity Bond MD allopurinol 200 mg (2 x 100 mg) PO DAILY 90 days amlodipine 2.5 mg PO DAILY aspirin (Adult Low Dose Aspirin) 81 mg PO DAILY betamethasone dipropionate 0.05% 1 appl topical DAILY PRN cholecalciferol (vitamin D3) (Vitamin D3) 25 mcg PO DAILY clotrimazole-betamethasone 1-0.05 % 1 appl topical BID 4 weeks colchicine 0.6 mg PO DAILY fexofenadine 180 mg PO DAILY PRN folic acid 1 mg PO DAILY Hyrimoz(CF) Pen (adalimumab-adaz) 40 mg (0.4 mL) subcut Q2W NS methotrexate sodium 15 mg (6 x 2.5 mg) PO QWEEK 90 days nystatin 1 appl topical DAILY PRN omega 0-cfv-jsw-fish oil 1,000 (120-180) mg (Fish Oil) 1 cap PO DAILY valsartan 320 mg PO DAILY Do you need a note to return to daycare/school/sports/work: No HPI HPI Obstructive sleep apnea: Details: MR. CANNON , 60 YEARS OLD, GROSSLY OBESE WITH A ROUND FACE AND IS CASE OF OBSTRUCTIVE SLEEP APNEA. DOROTHY IS BEING TREATED WITH CPAP AND HE IS A VERY REGULAR USER. HE USES CPAP EVEN WHEN HE TRAVELS BY AIR AT NIGHTTIME. WHEN TRAVELING HE USES HIS SPARE CPAP DEVICE WHICH MAY NOT BE REGISTERED IN HIS COMPLIANCE REPORT. * HE SAY IS HE GAINED A FEW LB OF WEIGHT, BECAUSE HE TRAVELS TO [place]( [place] ) VISIT HIS IN-LAWS, AND THERE HE INDULGES IN EXTRA FOOD WELL WINE.. HE DOES WALK OVER THERE BUT LAST TIME HE WENT THERE HE SLIPPED ON A ROCK AND STRAINED HIS RIGHT THIGH. THAT IS NOW OKAY. HE HAS NO ISSUE WITH THE CPAP MASK OR THE DEVICE. [facility] Medical History Ascending aortic aneurysm Mallet deformity of right little finger Psoriatic arthritis Foot pain, bilateral DOROTHY (obstructive sleep apnea) Obesity (BMI 30-39.9) Hx of chest pain Rupture of left biceps tendon Carcinoid tumor, rectal, benign Seasonal allergies Snores Hyperlipidemia HTN (hypertension) Surgical History History of bunionectomy History of appendectomy History of Achilles tendon repair Hx of colonoscopy History of umbilical hernia repair Family History Mother Irregular heart beat Social History Housing: House Alcohol intake: current Alcohol intake frequency: a few times a week Alcohol type: beer and wine Patient Tobacco Use Status: Never used Tobacco e-Cigarette/Vaping Use: Never Used Second Hand Smoke Exposure: No service: No Current occupational status: employed 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 [employer] Current occupational exposures/hazards: No Cognitive needs: No Hearing needs: No Vision needs: No Review of Systems Const All systems reviewed & are unremarkable except as noted in HPI and below Eyes Reports no additional complaints ENT Reports nasal congestion (Mild occasional) Card Denies chest pain (History of , not at present), Denies irregular heart rhythm and Denies leg edema Resp Reports no additional complaints, Denies cough and Denies wheezing GI Reports no additional complaints Reports no additional complaints Musc Reports arthralgias (Shoulder and elbow) Skin/Breast Reports system reviewed and no additional complaints, except as documented Neuro Reports no additional complaints Psych Reports no additional complaints Aller/Immun Denies wheezing Physical Exam Vital Signs: Last Vital Signs Pulse 100 03/30/25 13:17 BP 142/80 H 03/30/25 13:17 Pulse Ox 95 03/30/25 13:17 Oxygen Delivery Method Room Air 03/30/25 13:17 BMI result Body Mass Index 32.9 Const General: healthy appearing (Except for being overweight), comfortable, no acute distress, alert and awake Orientation/consciousness: patient oriented x3 HEENT Head: Yes normal to inspection General nose exam: No nasal polyps present and No nasal discharge present Face and sinus: Yes sinuses nontender Mouth: oropharynx abnormals (Narrow and somewhat crowded, Mallampati class 4) Throat: Yes posterior oropharynx normal Eyes General: appearance normal, both eyes and all related structures Neck Neck: Yes normal visual inspection, Yes no lymphadenopathy, Yes trachea midline, Yes no JVD and Yes other (Neck circumference 18 in) Thyroid: Thyroid normal Chest Chest palpation & inspection: normal inspection of the chest, normal palpation of entire chest wall and no tenderness Resp Effort & Inspection: normal respiratory effort Auscultation: clear to auscultation bilaterally, no crackles and no wheezes Percussion: percussion normal Cardio Palpation: normal PMI Rate: regular rate Rhythm: regular rhythm Heart sounds: no gallops and no murmurs Peripheral pulses: Peripheral pulses 2+ throughout GI Palpation (GI): Soft to palpation, nontender, No hepatosplenomegaly present and no masses Auscultation: normal bowel sounds Back/Spine/Pelvis Thoracic/Lumbar Spine: thoracic and lumbar spine normal to inspection Skin General skin exam: no rashes or lesions noted Neuro General: patient oriented x3 and no focal motor deficits Cranial nerves: Yes CN's II-XII intact bilaterally Extrem General: Yes normal to inspection, Yes no clubbing, cyanosis or edema and Yes no calf tenderness Psych Appearance: grossly normal and well kempt Speech and movement: Normal speech and movement present Results Reviewed Results Reviewed: COMPLIANCE REPORT FOR THE LAST 30 NIGHTS IS REVIEWED AND HE HAS USED 27/30 NIGHTS, 90%. THE 3 NIGHTS THAT MISSED ON THIS REPORT HE USED HIS SPARE CPAP ,. WHILE TRAVELING AVERAGE USAGE 6 HOURS 58 MINUTES. HE IS REQUIRING LOW PRESSURE 8-9 CM. THERE IS NO SIGNIFICANT LEAK. AND RESIDUAL AHI 0.6 Assessment & Plan Assessment & Plan (1) Obesity (BMI 30-39.9): Comment: HE REMAINS MODERATELY OBESE, HE HAS A ROUND FACE, TYPICAL FEATURE OF OBSTRUCTIVE SLEEP APNEA. HE HAS NOT BEEN ABLE TO WALK MUCH, AND HENCE NOT ABLE TO LOSE WEIGHT Code(s): E66.9 - Obesity, unspecified Category: Medical Plan: WE DID TALK ABOUT THE WEIGHT AND HE IS GOING TO TRY HIS BEST TO CUT DOWN THE CALORIES INTAKE AND INCREASE HIS WALK (2) DOROTHY (obstructive sleep apnea): Comment: DOROTHY IS WELL CONTROLLED WITH THE USE OF CPAP. HE DENIES ANY DAYTIME SLEEPINESS Code(s): G47.33 - Obstructive sleep apnea (adult) (pediatric) Category: Medical Plan: COMMENDED FOR GOOD COMPLIANCE AND ADVISED TO KEEP ON USING THE CPAP REGULARLY Coding Level of Care Code Est Pt Level 3 (24309) Diagnoses Obesity (BMI 30-39.9) E66.9 DOROTHY (obstructive sleep apnea) G47.33
[2025-03-30 13:17] VITALS: BP 142/80; PULSE 100; O2SAT 95; BMI 32.9
--- OUTSIDE RECORDS SUMMARY | 2025-03-30 13:54 | XMS_ITS | Patient Health Record ---
[facility]is [place] Address [address] [place] [address] Care Team Providers Care Sql Server Bi Developer Name Role Phone Cameron Man Primary Care Provider Unavailab Jez Bianchi Unavailable [phone] Allergies No Known Allergies Reason For Referral No Information Medications Medication SIG (Take, Route, Frequency, Duration) Notes Start Date End Date Status Fexofenadine HCl 180 MG 1 tablet as need ed Orally Once a day Active Walking Boot/Pneumatic As directed Wear Daily; Duration: Until further notice 04/09/2018 Active Physical Therapy . . . 2-3x/week; Duration: 3-4 weeks 01/01/2018 Not-Taking Valsartan 160 MG [...] Problem Status W/U Status Risk Notes Problem Equinus contracture of right ankle (M24.571) Active confirmed Problem Localized, primary osteoarthritis of the ankle and/or foot (620506948) Osteoarthritis of left ankle and foot (M19.072) Active confirmed [...] Insured Coverage Start Date Coverage End Date [facility] re-[address] [address] [address] [place] [address] [id number] Jose Alberto Riena Self - patient is the insured Medical (General) History Medical History History ICD Code High blood pressure Surgical History Surgery Date(Month/Year) Hernia Repair 2014 achilles tendon repair 2007 appendectomy 1979
--- OUTSIDE RECORDS SUMMARY | 2025-03-30 13:54 | XMS_ITS ---
Author Name [facility] Organization Unknown History of Medication Use Medication Directions Dispensed Refills Start Date End Date Stat us doxycycline (VIBRA-TABS) 100 MG tablet Take 1 tablet (100 mg total) by mouth 2 (two) times a day for 5 days Not for /lactatio n 09/12/2024 09/18/2024 active allopurinoL (ZYLOPRIM) 100 MG tablet TAKE 1 TABLET BY MOUTH EVERY DAY 08/17/2024 active amLODIPine (NORVASC) 2.5 MG tablet TAKE 1 TABLET BY MOUTH EVERY DAY 06/26/2022 active colchicine 0.6 mg tablet TAKE 1 TABLET BY MOUTH EVERY DAY 12/30/2019 09/12/2024 aborted aspirin 81 MG chewable tablet 1 tablet active Problems Problem Status Onset Date Problem Type Date of Resolution Source Cough, unspecified type active [facility] Acute non-recurrent maxillary sinusitis active [facility] Encounters Encounter Type Encounter Reason Primary Diagnosis Location Date Ambulatory Mouth or throat complaint Acute maxillary sinusitis, unspecified [facility] 09/12/2024 Care Team Organization Name Specialty Phone Email Start Date End Da te [facility] NO PCP Primary Care 09/12
== END 2025-03-30 13:41 | disposition home or self-care (01) ==
LOC: HO.HPS 13:08
PROVIDERS: PCP Physician Assistant; Visit Provider Internal Medicine
DX: E66.9 Obesity, unspecified (principal); G47.33 Obstructive sleep apnea (adult) (pediatric)
CPT/HCPCS: 99213

== ENCOUNTER 2025-04-09 11:32 | Outpatient (REF) | payer BC, SELFPAY ==
--- OUTSIDE RECORDS SUMMARY | 2024-07-22 07:00 | XMS_ITS ---
Author Organization [facility] Address [address] [place] [address] Care Team Providers Care Gravure Printing Machinist Name Role Phone Cameron Man Primary Care Provider Unavailab Franco Hernández Jr [phone] REASON FOR VISIT fatty liver Encounters Encounter Location Date Provider Diagnosis [facility] [address] [place] [address] 07/22/2024 Franco Valdez Jr Plan Of Treatment Next Appt Details Provider Name:Franco cassidy Jr, 08/05/2025 01:35:00 PM, [address], [address], [place], [address], Progress Notes * TOYIN CANNON EDOB: [birth year] (60 yo M)Acc No.[id number]:07/22/2024 Progress Notes Patient: TOYIN AMAYA Provider: Zoe Valdez MD :1965 A ge:59 Y S ex:Male Date:07/22/2024 Address: [address] [place], [place] Pcp:Cameron Man Subjective: * Chief Complaints: * [...] 09/21/2023 Generated for Lisy dodge/Tamika/Sonia on: 0 04/09/2025 11:35 AM EDT
--- OUTSIDE RECORDS SUMMARY | 2025-04-09 11:35 | XMS_ITS | Patient Health Record ---
Author Organization [facility] [place] Address [address] [place] [address] Care Team Providers Care Cytopathology Technologist Name Role Phone Cameron Man Primary Care Provider Unavailab Jez Bianchi Unavailable [phone] Allergies No Known Allergies Reason For Referral [...] Problem Status W/U Status Risk Notes Problem Plantarflexion deformity of right foot (finding) (1347125763851519 ) Equinus contracture of right ankle (M24.571) Active confirmed Problem Localized, primary osteoarthritis of the ankle and/or foot (441898097) Osteoarthritis of left ankle and foot (M19.072) [...] Insured Coverage Start Date Coverage End Date [facility] [address] [address] [place] [address] [id number] Jose Alberto Reina Self - patient is the insured Medical (General) History Medical History History ICD Code High blood pressure Surgical History Surgery Date(Month/Year) Hernia Repair 2015 achilles tendon repair 2007 appendectomy 1978
[2025-04-09 14:06] LABS: Prostate Specific Antigen 1.21 ng/mL (<0.05-4.0)
== END 2025-04-09 11:33 | disposition home or self-care (01) ==
LOC: HO.10HDL 11:32
PROVIDERS: Visit Provider Urology
DX: Z12.5 Encounter for screening for malignant neoplasm of prostate (principal)
CPT/HCPCS: 36415; 84153

== ENCOUNTER 2025-04-14 12:35 | Outpatient (AMB) | payer BC, SELFPAY ==
--- OUTSIDE RECORDS SUMMARY | 2024-07-22 07:00 | XMS_ITS ---
Author Organization [facility] Address [address] [place] [address] Care Team Providers Care Guide Dog Mobility Instructor Name Role Phone Cameron Man Primary Care Provider Unavailab Franco Hernández Jr REASON FOR VISIT fatty liver Encounters Encounter Location Date Provider Diagnosis [facility] [address] [place] [address] 07/22/2024 Franco Valdez Jr Plan Of Treatment Next Appt Details Provider Name:Franco cassidy Jr, 08/05/2025 01:35:00 PM, [address], [address], [place], [address], Progress Notes * TOYIN CANNON EDOB: [birth year] (60 yo M)Acc No.[id number]:07/22/2024 Progress Notes Patient: TOYIN AMAYA Provider: Zoe Valdez MD :1965 A ge:59 Y S ex:Male Date:07/22/2024 Address: [address] [place], [place] Pcp:Cameron Man Subjective: * Chief Complaints: * [...] 09/21/2023 Generated for Lisy dodge/Tamika/Sonia on: 0 04/14/2025 01:10 PM EDT
--- NOTE | 2025-04-14 12:45 | MHC.OFFVIS ---
Intake Visit Reasons: med review Intake Note: Patient is present for follow up Med review Urology Med: ALLOPURINOL Blood Thinner: ASPIRIN Accompanied by: Self / Same As Patient Allergies No Known Allergies (No Known Allergies*) Allergy (Verified 04/20/25 12:58) HPI Comments Details: Jose Alberto is a pleasant male. He is a patient of Dr. Man. He is seen for the following urologic condition. 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 There is a relationship between autoimmune diseases and balanitis particularly uveitis. [facility] Medical History Ascending aortic aneurysm Mallet deformity of right little finger Psoriatic arthritis Foot pain, bilateral DOROTHY (obstructive sleep apnea) Obesity (BMI 30-39.9) Hx of chest pain Rupture of left biceps tendon Carcinoid tumor, rectal, benign Seasonal allergies Snores Hyperlipidemia HTN (hypertension) Surgical History History of bunionectomy History of appendectomy History of Achilles tendon repair Hx of colonoscopy History of umbilical hernia repair Family History Mother Irregular heart beat Social History Housing: House Alcohol intake: current Alcohol intake frequency: a few times a week Alcohol type: beer and wine Patient Tobacco Use Status: Never used Tobacco e-Cigarette/Vaping Use: Never Used Second Hand Smoke Exposure: No service: No Current occupational status: employed 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 Current occupational exposures/hazards: No Cognitive needs: No Hearing needs: No Vision needs: No Review of Systems Const Denies chills and Denies fever(s) Card Reports no additional complaints and Denies syncope Resp Denies cough GI Denies abdominal pain and Denies heartburn Reports as per HPI and Denies change in libido Neuro Denies syncope Psych Denies change in libido Endo Denies change in libido Physical Exam Const General: cooperative, healthy appearing, comfortable and no acute distress Orientation/consciousness: patient oriented x3 HEENT Face and sinus: Yes normal facial exam Mouth: moist mucous membranes Neck Neck: Yes normal visual inspection, Yes full ROM and Yes trachea midline Chest Chest palpation & inspection: normal inspection of the chest Resp Effort & Inspection: normal respiratory effort, able to speak in complete sentences and no respiratory distress GI Inspection: Yes normal to inspection Back/Spine/Pelvis Cervical Spine: normal cervical lordosis Thoracic/Lumbar Spine: thoracic and lumbar spine normal to inspection Skin General skin exam: no rashes or lesions noted Neuro General: patient oriented x3, gait normal, tone normal and moves all extremities Extrem General: Yes normal to inspection and Yes capillary refill normal Assessment & Plan Assessment & Plan (1) Balanitis: Code(s): N48.1 - Balanitis Category: Medical Plan 1 year follow-up to Patient Instructions: This note is constructed using voice recognition software. While every effort has been made to ensure accuracy graphic design assistant errors may have been included. Imaging studies, laboratory and physical exam results were discussed and reviewed in detail. No major barriers to patient understanding were identified. An opportunity to ask questions regarding the treatment plan was provided. All questions were answered. The patient expressed understanding and agreement with the above treatment plan. The patient is aware they should contact our office by phone for worsening of their current condition or the appearance of new urologic symptoms. Compliance is encouraged with any medications and followup testing that is ordered. It is a privilege to participate in the urologic care of your patient. If you have any questions or concerns regarding treatment for the above conditions, or other urologic issues, please do not hesitate to contact me. The office telephone contact is [phone]. Sincerely, Dr Juarez Elliott MD, [facility] - Urology Compassionate Specialist Care for the Genitourinary System Coding Level of Care Code Est Pt Level 4 (86235) Diagnoses Balanitis N48.1
--- OUTSIDE RECORDS SUMMARY | 2025-04-14 13:10 | XMS_ITS | Patient Health Record ---
Author Organization [facility] janis [place] Address [address] [place] [address] Care Team Providers Care Sustainable Development Policy Analyst Name Role Phone Cameron Man Primary Care Provider Unavailab Jez Bianchi Unavailable [phone] Allergies No Known Allergies Reason For Referral [...] Problem Plantarflexion deformity of right foot (finding) ([id number] ) Equinus contracture of right ankle (M24.571) Active confirmed Problem Localized, primary osteoarthritis of the ankle and/or foot (786067980) Osteoarthritis of left ankle and foot (M19.072) [...] Insured Coverage Start Date Coverage End Date [facility]-[address] [address] [address] [place] [address] [id number] Jose Alberto Reina Self - patient is the insured Medical (General) History Medical History History ICD Code High blood pressure Surgical History Surgery Date(Month/Year) Hernia Repair 2015 achilles tendon repair 2007 appendectomy 1978
== END 2025-04-14 13:41 | disposition home or self-care (01) ==
LOC: HO.HUSH 12:35
PROVIDERS: PCP Physician Assistant; Visit Provider Urology
DX: N48.1 Balanitis (principal)
CPT/HCPCS: 99214

== ENCOUNTER 2025-04-20 12:50 | Outpatient (AMB) | payer BC, SELFPAY ==
--- OUTSIDE RECORDS SUMMARY | 2024-07-22 07:00 | XMS_ITS ---
Author Organization [facility] Address [address] [place] [address] Care Team Providers Care Mandrel Press Hand Name Role Phone Cameron Man Primary Care Provider Unavailab Franco Hernández Jr REASON FOR VISIT fatty liver Encounters Encounter Location Date Provider Diagnosis [facility] [address] [place] [address] 07/22/2024 Franco Valdez Jr Plan Of Treatment Next Appt Details Provider Name:Franco cassidy Jr, 08/05/2025 01:35:00 PM, [address], [address], [place], [address], Progress Notes * TOYIN CANNON EDOB: [birth year] (60 yo M)Acc No.[id number]:07/22/2024 Progress Notes Patient: TOYIN AMAYA Provider: Zoe Valdez MD :1965 A ge:59 Y S ex:Male Date:07/22/2024 Address: [address] [place], [place] Pcp:Cameron Man Subjective: * Chief Complaints: * [...] 09/21/2023 Generated for Lisy dodge/Tamika/Sonia on: 0 04/20/2025 01:59 PM EDT
[2025-04-20 12:55] VITALS: BP 128/68; PULSE 94; O2SAT 95; BMI 32.7
--- NOTE | 2025-04-20 12:55 | MHC.OFFVIS ---
Vital Signs 04/20/25 12:55 Height 6 ft 1 in Weight 248 lb BMI 32.7 BP 128/68 Blood Pressure Location Lt brachial Position Sitting Pulse 94 Pulse Source Pulse Oximeter Pulse Oximetry (%) 95 Oxygen Delivery Method Room Air Intake Visit Reasons: PsA Intake Note: Patient presents for PSA follow up today. Patient would like refill of Hyrimoz today. Patient not taking Methotrexate or folic acid. Allergies No Known Allergies (No Known Allergies*) Allergy (Verified 04/20/25 12:58) HPI Comments Details: Patient is a 60 year old male with hypertension, hyperlipidemia complicated by ascending aortic aneurysm, non crystal proven gout, polyarticular osteoarthritis, psoriasis, and psoriatic arthritis here today for follow up Interval History: Patient last seen 11/05/2024 with me - On Hymiroz 40mg every 10 days - Restarted Hymiroz in September 2024 - complaining of pain and swelling is right great toe as well as pain his bilateral - added Mtx 15mg Today, - On Hymiroz 40mg every 10 days - Did not start the methotrexate due to concerns for the side effects - But now consistently on the Hymiroz - Still with PsO in his hands and ears, using topical vicks or clobetasol Rheumatologic History: PsO - Dx 2006 PsA - Dx 2019 - 08/2022. Started Humira - 12/2023. Switched to Hymrioz Initial history: The patient presents for evaluation of multiple areas of joint pain in the setting of a twenty year history of psoriasis. The psoriasis is mostly on the palms of his hands but sometimes in the scalp. This is controlled with a topical compound ointment prescribed by Dermatology. The patient had torn ligaments when in college at the right ankle. In 2006 he had a ruptured left Achilles tendon. This was surgically repaired. For about 8 or 9 years he has noted a lump on the right heel in the Achilles region. Surgery was proposed but it does not bother him all that much. He gets occasional painful swelling in the 1st toe bilaterally. He was given prn colchicine for this which seems to help when he experiences it. It is more likely to occur in the left 1st toe. There is also some pain and swelling of the 2nd and 4th toes. That seems to be more chronic but does worsen on some days. For about a year now he has been having left knee pain. There is a documented medial meniscal tear seen on MRI. He has been treating this with physical therapy. He ate seeking another orthopedic opinion about possible surgery. In April he had an injury to the biceps tendon lifting a heavy object. Around that time he also developed painful swelling of the left olecranon bursa. That improved with physical therapy. In December he noted some pain and swelling of the left wrist. This was while undergoing treatment for the bursitis with some compressive bandages. Also in December he developed some pain in the right 5th DIP joint. This was followed a few days later by a flexion deformity. He is thought to have an extensor tendon tear. Surgery is planned in a few days. He does take naproxen occasionally for symptoms, this is the [id number]-[id number], 1 or 2 a day but sometimes goes many days without any treatment. Current Rheumatology Medication(s): Hymiroz 40mg SC every 2 weeks Methotrexate 15mg PO (not taking) Folic acid 1mg (not taking) PFSH Medical History Ascending aortic aneurysm Mallet deformity of right little finger Psoriatic arthritis Foot pain, bilateral DOROTHY (obstructive sleep apnea) Obesity (BMI 30-39.9) Hx of chest pain Rupture of left biceps tendon Carcinoid tumor, rectal, benign Seasonal allergies Snores Hyperlipidemia HTN (hypertension) Surgical History History of bunionectomy History of appendectomy History of Achilles tendon repair Hx of colonoscopy History of umbilical hernia repair Family History Mother Irregular heart beat Social History Housing: House Alcohol intake: current Alcohol intake frequency: a few times a week Alcohol type: beer and wine Patient Tobacco Use Status: Never used Tobacco e-Cigarette/Vaping Use: Never Used Second Hand Smoke Exposure: No service: No Current occupational status: employed 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 Current occupational exposures/hazards: No Cognitive needs: No Hearing needs: No Vision needs: No Review of Systems Const Details: Review of Systems Constitutional: Denies fever, chills, weight loss ENT: Denies vision changes, eye pain or eye redness, dental caries, dry mouth GI: Denies nausea, vomiting, diarrhea, abdominal pain, change in BM Pulm: Denies SOB, WATERMAN, hemoptysis, wheezing Cards: Denies chest pain, palpitations Skin: Denies Raynaud's, nail changes, photosensitivity, ENGINEERING OPERATOR: Denies headaches, weakness, paresthesias, recurrent falls MSK: as per HPI All other systems reviewed and are unremarkable except noted above Physical Exam Exam Exam: Vital signs reviewed Physical Examination CONSTITUITIONAL Patient alert and cooperative. Well appearing and in no apparent painful distress HEENT Conjunctiva and sclera clear. No lymphadenopathy. MSK Hands Right Hand: Able to make a fist. No swelling or tenderness to palpation of these joints. Flexion deformity at the PIP. Synovial hypertrophy 2nd MCPs Left Hand: Able to make a fist. No swelling or tenderness to palpation of these joints. Synovial hypertrophy Palmar psoriasis to bilateral hands Wrists Right Wrist: Full ROM. 70 degrees of wrist flexion, 80 degrees of wrist extension. No swelling or TTP Left Wrist: Full ROM. 70 degrees of wrist flexion, 80 degrees of wrist extension. No swelling or TTP Elbows Right Elbow: Full ROM. No swelling or TTP. No TTP of the medial and lateral epicondyles Left Elbow: Full ROM. No swelling or TTP. No TTP of the medial and lateral epicondyles. Bursa swelling Shoulders Right shoulder: Full ROM. No swelling noted. No TTP of the AC joint, subacromial bursa or posterior shoulder Left shoulder: Full ROM. No swelling noted. No TTP of the AC joint, subacromial bursa or posterior shoulder Knees Right knee: Full ROM. No swelling noted. No TTP of the knee joint lie or pes anserine bursa Left knee: Full ROM. No swelling noted. No TTP of the knee joint lie or pes anserine bursa. Ankles Right ankle: Good ankle dorsiflexion and plantar flexion. No swelling. No TTP of the ankle joint. Swelling over the lateral malleolus Left ankle: Good ankle dorsiflexion and plantar flexion. No swelling. No TTP of the ankle joint Feet Right foot: Prominent 1st MTP Left foot: TTP of the 5th MTP Tender points? No tenderness to palpation of the bilateral trapezius, supraspinatus, anterior costochondral junctions, bilateral suboccipital muscle insertions SKIN Palmar PsO Vital Signs: Last Vital Signs Pulse 94 04/20/25 12:55 BP 128/68 04/20/25 12:55 Pulse Ox 95 04/20/25 12:55 Oxygen Delivery Method Room Air 04/20/25 12:55 BMI result Body Mass Index 32.7 Results Reviewed Results Reviewed: Laboratory Tests 02/19/25 12:35 WBC 7.0 RBC 4.99 Hgb 16.1 Hct 45.2 Plt Count 268 ESR 1 Sodium 138 Potassium 4.6 Chloride 104 Carbon Dioxide 26 BUN 14 Creatinine 0.79 Uric Acid 5.8 AST 30 ALT 57 H Alkaline Phosphatase 50 C-Reactive Protein < 0.10 Laboratory Tests 12/12/21 03/30/24 16:10 13:29 Rheumatoid Factor < 15.0 Cycl Citrul Peptide IgG <16 SAVANNAH Screen NEGATIVE HLA-B27 Negative Laboratory Tests 02/19/25 12:35 Hepatitis A IgM Ab Nonreactive Hep Bs Antigen Negative Hep Bs Antibody NONREACTIVE Hep B Core Total Ab Nonreactive Hepatitis C Ab (EIA) Nonreactive HIV 1&2 Ab/P24 Ag 4thGn Nonreactive TB Test (T-Spot) Com Negative Assessment & Plan Assessment & Plan (1) Psoriatic arthritis: Comment: PsO - Dx 2006 PsA - Dx 2019 - 08/2022. Started Humira - 12/2023. Switched to Hymrioz Code(s): L40.50 - Arthropathic psoriasis, unspecified Category: Medical Plan: #PsO/PsA Patient is a 60-year-old male with psoriasis complicated by psoriatic arthritis here today for follow up Doing well with no synovitis today on Hymiroz monotherapy Will increase the frequency, hopefully that will help the PsO, will see if patient is willing to try IL 17 inhibitors if no improvement in PsO Plan - Stop Mtx and folic acid - Cont Adalimumab 40mg every 7 days - RTC 4 months - Labs before visit: CBC, CMP, ESR, CRP (2) Gout: Code(s): M10.9 - Gout, unspecified Category: Medical Qualifiers: Gout site: multiple sites Gout etiology: other secondary cause Chronicity: chronic Presence of tophus: with tophus Qualified Code(s): M1A.49X1 - Other secondary chronic gout, multiple sites, with tophus (tophi) Plan: #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 Uric acid goal for this patient is less than 5. UA at goal Stop colchicine Plan - Allopurinol 200mg daily - Stop colchicine - Colchicine 0.6mg bid prn - Labs before visit: UA (3) Encounter for monitoring of adalimumab therapy: Code(s): Z51.81 - Encounter for therapeutic drug level monitoring; Z79.620 - half-way (current) use of immunosuppressive biologic Plan: #Long-term Use of TNF Inhibitors: Adalimumab Discussed with the patient the benefits and risks of TNF inhibitors for the management of the rheumatic condition Benefits include reduce pain, maintenance of remission and reduction of flares as well as ?progression of the disease Risks include injection sites/infusion reactions, serious infections (such as bacterial infections, opportunistic infections), malignancy, delaminating syndromes, autoimmune phenomena, CHF exacerbations, palmar plantar psoriasis and cytopenias Recommended rotating injection sites, and holding medication during and for up to 1 week after resolution of a febrile illness or open skin wound (4) On allopurinol therapy: Code(s): Z79.899 - Other long term care pharmacist (current) drug therapy Plan: #Long-term Current Use of Allopurinol Risks and benefits of allopurinol discussed with patient Benefits include decreased gout flares, remission of gout and reduction of tophi Risks include allopurinol hypersensitivity syndrome which is a severe cutaneous adverse reaction associated with allopurinol use particularly in patients who are HLA B*5801 positive, increased transaminases, GI upset including diarrhea, nausea and vomiting, and other dermatologic manifestations. Plan I spent 30 minutes reviewing the record and labs, taking a history, examining the patient, discussing the treatment plan and documenting in the medical record Medications: Changed From Hyrimoz(CF) Pen (adalimumab-adaz) 40 mg (0.4 mL) subcut Q2W 2 mL 5RF NS L40.50 - Arthropathic psoriasis, unspecified To Hyrimoz(CF) Pen (adalimumab-adaz) 40 mg (0.4 mL) subcut .every 10 days 1.2 mL 5RF NS L40.50 - Arthropathic psoriasis, unspecified From Hyrimoz(CF) Pen (adalimumab-adaz) 40 mg (0.4 mL) subcut .every 10 days 1.2 mL 5RF NS L40.50 - Arthropathic psoriasis, unspecified To Hyrimoz(CF) Pen (adalimumab-adaz) 40 mg (0.4 mL) subcut QWEEK 1.6 mL 5RF 30 days NS L40.50 - Arthropathic psoriasis, unspecified Discontinued methotrexate sodium Discontinued Reason: Doctor's Order 15 mg (6 x 2.5 mg) PO QWEEK 90 days 78 tabs 1RF L40.50 - Arthropathic psoriasis, unspecified folic acid Discontinued Reason: Doctor's Order 1 mg PO DAILY 90 tabs 1RF L40.50 - Arthropathic psoriasis, unspecified Coding Level of Care Code Est Pt Level 4 (94330) Complex EM visit Add On G2211 Diagnoses Psoriatic arthritis L40.50 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
--- OUTSIDE RECORDS SUMMARY | 2025-04-20 13:59 | XMS_ITS | Patient Health Record ---
[facility] [place] Address [address] [place] [address] Care Team Providers Care Ic Design Engineer Name Role Phone Cameron Mna Primary Care Provider Unavailab Jez Bianchi Unavailable [phone] Allergies No Known Allergies Reason For Referral [...] Problem Plantarflexion deformity of right foot (finding) (1237311544985792 ) Equinus contracture of right ankle (M24.571) Active confirmed Problem Localized, primary osteoarthritis of the ankle and/or foot (713728394) Osteoarthritis of left ankle and foot (M19.072) [...] Insured Coverage Start Date Coverage End Date [facility] [address] [address] [place] [address] [id number] Jose Alberto Reina Self - patient is the insured Medical (General) History Medical History History ICD Code High blood pressure Surgical History Surgery Date(Month/Year) Hernia Repair 2015 achilles tendon repair 2007 appendectomy 1978
== END 2025-04-20 13:34 | disposition home or self-care (01) ==
LOC: HO.RHES 12:50
PROVIDERS: PCP Physician Assistant; Visit Provider Student in an Organized Health Care Education/Training Program
DX: L40.50 Arthropathic psoriasis, unspecified (principal); M1A.49X1 Other secondary chronic gout, multiple sites, with tophus (tophi); Z51.81 Encounter for therapeutic drug level monitoring; Z79.620 Long term (current) use of immunosuppressive biologic; Z79.899 Other long term (current) drug therapy
CPT/HCPCS: 99214

== ENCOUNTER 2025-05-06 12:28 | Outpatient (REF) | payer BC, SELFPAY ==
--- OUTSIDE RECORDS SUMMARY | 2024-05-25 09:00 | XMS_ITS ---
Author Organization [facility] Address [address] [place] [address] Care Team Providers Care Finish Specialist Name Role Phone Cameron Man Primary Care Provider Unavailab Jez Bianchi Unavailable [phone] Encounters Encounter Location Date Provider Diagnosis [facility] [address] [address] 05/25/2024 Jez Narvaez Plan Of Treatment No Information Progress Notes * Jose Alberto CANNON EDOB: [birth year] (60 yo M)Acc No.[id number]:05/25/2024 Progress Notes Patient: Jose Alberto AMAYA Provider: Shanell Narvaez DPM :1965 A ge:59 Y S ex:Male Date:05/25/2024 Address:[address] [place], [place] [id number] Pcp:Cameron Man Subjective: * Chief Complaints: * * Medical History: Objective: * Vitals: Assessment: Plan: * Treatment: * Images: * The named appointment provid er may or may not be the originator of this progress note, and it is not deemed complete until electronically signed by the appointment provider. Sign off status: Pending * Provider: Shanell Narvaez DPM Date: 05/25/2024 Generated for [place]/Tamika/Dillansmitting on: 05/06/2025 01:48 PM EDT
--- OUTSIDE RECORDS SUMMARY | 2024-07-22 07:00 | XMS_ITS ---
Author Organization [facility] Address [address] [place] [address] Care Team Providers Care Professional Fee Coder Name Role Phone Cameron Man Primary Care Provider Unavailab Franco Hernández Jr REASON FOR VISIT fatty liver Encounters Encounter Location Date Provider Diagnosis [facility] [address] [place] [address] 07/22/2024 Franco Valdez Jr Plan Of Treatment Next Appt Details Provider Name:Franco cassidy Jr, 08/05/2025 01:35:00 PM, [address], [address], [place], [address], Progress Notes * TOYIN CANNON EDOB: [birth year] (60 yo M)Acc No.[id number]:07/22/2024 Progress Notes Patient: TOYIN AMAYA Provider: Zoe Valdez MD :1965 A ge:59 Y S ex:Male Date:07/22/2024 Address: [address] [place], [place] Pcp:Cameron Man Subjective: * Chief Complaints: * [...] 09/21/2023 Generated for Lisy dodge/Tamika/Sonia on: 0 05/06/2025 01:47 PM EDT
[2025-05-06 13:23] LABS: Hemoglobin A1C 139.7238 umol/L; Total Hemoglobin (HGBA1C) 4167.6354 umol/L
[2025-05-06 13:35] LABS: Alanine Aminotransferase 69 U/L (0-40); Albumin Level 4.4 g/dL (3.5-5.0); Alkaline Phosphatase 55 U/L (39-117); Anion Gap 11 (12-20); Aspartate Amino Transferase 37 U/L (5-37); Blood Urea Nitrogen 10 mg/dL (9-16); Calcium 9.1 mg/dL (8.4-10.2); Carbon Dioxide 24 mmol/L (22-29); Chloride 105 mmol/L (96-108); Cholesterol 203 mg/dL (<200); Estimated Glomerular Filt Rate > 60; HDL Cholesterol 46 mg/dL (>40); Potassium 4.1 mmol/L (3.3-5.1); Sodium 136 mmol/L (135-145); Total Protein 7.2 g/dL (6.5-8.0); Triglycerides 161 mg/dL (<150)
--- OUTSIDE RECORDS SUMMARY | 2025-05-06 13:48 | XMS_ITS | Patient Health Record ---
Author Organization [facility] Address [address] [place] [address] Care Team Providers Care Unit Receptionist Name Role Phone Cameron Man Primary Care Provider Unavailab Franco Hernández Jr Unavailable [phone] Allergies Allergen (clinical drug ingredient) Drug/Non Drug Allergy documented on EMR Reaction Allergy Type Onset Date Status seasonal (uncoded) Unknown Allergy A ctive Results Component Value Reference Range Notes Complete Blood Count Auto Di ff Reviewed date:11/12/2024 08:02:24 AM Interpretation: Performing Lab:[facility], [address] [place] [id number] Notes/Report: White Blood Count 5.8 4.8-10.8 X10*3/uL [...] Panel Reviewed date:11/12/2024 08:02:15 AM Interpretation: Performing Lab:[address] [phone] Notes/Report: Bilirubin Total 0.8 0.0-1.0 mg/dL Bilirubin Direct 0.2 0.0-0.5 mg/dL Aspartate Amino Transferase 26 5-37 U/L Alanine Aminotransferase 40 0-40 U/L Total Protein 7.7 6.5-8.0 g/dL Albumin Level 4.2 3.5-5.0 g/dL Alkaline Phosphatase 55 39-117 U/L IRON PROFILE Reviewed date:11/12/2024 08:02:02 AM Interpretation: Performing Lab:[facility], [address] [place] [phone] Notes/Report: Iron 145 45-160 mcg/dL Total Iron Binding Capacity 345 228-428 mcg/d L Percent Iron Saturation 42 15-50 % Unsaturated Iron Binding 200 Ferritin Reviewed date:11/12/2024 08:01:53 AM Interpretation: Performing Lab:[address] [phone] Notes/Report: Ferritin 221 20-250 ng/mL Liver Fibrosis Pnl Reviewed date:11/17/2024 02:21:38 PM Interpretation: Performing Lab:[address] [address] Notes/Report: Liver Fibrosis Score 0.07 Liver Fibrosis [...] a>0.62 and a<=1.00 : A3 (severe activity) QCX-Pawpp-5-Macroglobulin 105 106-279 mg/dL FIB-Haptoglobin 138 43-212 mg/dL FIB-Apolipoprotein A1 199 94-176 mg/dL FIB-Total Bilirubin 0.7 0.2-1.2 mg/dL FIB-GGT 34 3-85 U/L FIB-ALT 27 9-46 U/L Reference ID [id number] Footnote SEE NOTE The reliability of results [...] The performance characteristics have been determined by [employer], [place]. It has not been cleared or approved by the U.S. Food and Drug Administration. Performance characteristics refer to the analytical performance of the test. [employer], the associated logo, [employer] and all associated [employer] taveras are the registered trademarks of [employer]. All third alliance party taveras - (R) and (TM) - are the property of their respective owners. (C) [id number] [employer]. All rights reserved. THIS TEST WAS PERFORMED AT: [facility] [facility] [address] [place] [address] LASHA GRAHAM MD,PHD,THOR Mitochondrial Antibody Reviewed date:11/26/2024 11:44:03 AM Interpretation: Performing Lab:[address] [phone] Notes/Report: Mitochondrial Antibodies NEGATIVE NEGATIVE The specimen was negative for cytoplasmic antibodies, however additional staining was observed suggesting the presence of Antinuclear Antibodies. Consider requesting order code 249, SAVANNAH Screen, IFA with Reflex to Titer and Pattern, or order code 31208, SAVANNAH Screen, IFA w/reflex Titer/Pattern, and Reflex to Multiplex 11 Ab Goodwin, if clinically indicated. THIS TEST WAS PERFORMED AT: [facility] [address] [address] MICHAEL HERNANDEZ MD Mitochondrial Ab Titer TNP Smooth Muscle Antibody Reviewed date:11/26/2024 11:43:50 AM Interpretation: Performing Lab:[address] [phone] Notes/Report: Smooth Muscle Antibody <20 <20 U [...] type 1. THIS TEST WAS PERFORMED AT: [facility] [address] SAMI HINTON MD,PHD Reason For Referral No [...] Problem Status W/U Status Risk Notes Problem 550184738 Colon cancer screening (Z12.11) Active confirmed Problem 605773733 Elevated LFTs (R79.89) Active confirmed Problem 751626155 Fatty liver (K76.0) Active confirmed Problem 59450059 Hemorrhoids, unspecified hemorrhoid type (K64.9) Active confirmed Problem 889881076 Rectal carcinoid tumor (D3A.026) Active confirmed Problem 577613278 Chest pressure (R07.89) Active confirmed Problem 695930033 Gastroesophageal reflux disease, unspecified whether esophagitis present (K21.9) Active confirmed Problem 361292948 Black stools (K92.1) Active confirmed Vital Signs Blood pressure diastolic 00 mm Hg 08/06/2024 Height 73 in 08/06/2024 Blood pressure systolic 00 mm Hg 08/06/2024 Weight 243 lbs 08/06/2024 BMI 32.06 kg/m2 08/06/2024 Encounters Encounter Location Date Provider Diagnosis [facility] [address] [place] [address] 08/06/2024 Franco Valdez Jr Fatty liver K76.0 ; Gastroesophageal reflux disease, unspecified whether esophagitis present K21.9 and Colon cancer screening Z12.11 [facility] [address] [place] [address] 06/09/2024 Franco Valdez Jr [facility] [address] [place] [address] 11/17/2024 Franco Valdez Jr Assessments Encounter Date [...] We reviewed this today. Plan Of Treatment Pending Test Test Name [...] Jayson cassidy Jr, 08/05/2025 01:35:00 PM, [address], [address], [place], [address], Insurance Providers Payer Name Payer Address Payer Phone Subscriber Number Group Number Insured Name Patient Relationship to Insured Coverage Start Date Coverage End Date [facility] [address] [address] [place] [address] [phone] [id number] TOYIN CANNON Self - patient is the [...]
--- OUTSIDE RECORDS SUMMARY | 2025-05-06 13:48 | XMS_ITS | Patient Health Record ---
Author Organization [facility] [place] Address [address] [place] [address] Care Team Providers Care Office Inspector Name Role Phone Cameron Man Primary Care Provider Unavailab Jez Bianchi Unavailable [phone] Allergies No Known Allergies Reason For Referral [...] Problem Plantarflexion deformity of right foot (finding) (3762287667242637 ) Equinus contracture of right ankle (M24.571) Active confirmed Problem Localized, primary osteoarthritis of the ankle and/or foot (413376856) Osteoarthritis of left ankle and foot (M19.072) [...] Insured Coverage Start Date Coverage End Date [facility] [address] [address] [place] [address] [id number] Jose Alberto Reina Self - patient is the insured Medical (General) History Medical History History ICD Code High blood pressure Surgical History Surgery Date(Month/Year) Hernia Repair 2015 achilles tendon repair 2007 appendectomy 1978
== END 2025-05-06 12:29 | disposition home or self-care (01) ==
LOC: HO.10HDL 12:28
PROVIDERS: Visit Provider Physician Assistant
DX: Z12.5 Encounter for screening for malignant neoplasm of prostate (principal); R73.09 Other abnormal glucose; I10 Essential (primary) hypertension; E78.2 Mixed hyperlipidemia
CPT/HCPCS: 36415; 80053; 80061; 82570; 83036; 84153

== ENCOUNTER 2025-05-18 13:26 | Outpatient (AMB) | payer BC, SELFPAY ==
--- OUTSIDE RECORDS SUMMARY | 2024-05-25 09:00 | XMS_ITS ---
Author Organization [facility] Address [address] [place] [address] Care Team Providers Care Woodworking Machine Operator Name Role Phone Cameron Man Primary Care Provider Unavailab Jez Bianchi Unavailable [phone] Encounters Encounter Location Date Provider Diagnosis [facility] [address] [address] 05/25/2024 Jez Narvaez Plan Of Treatment No Information Progress Notes * Jose Alberto CANNON EDOB: [birth year] (60 yo M)Acc No.[id number]:05/25/2024 Progress Notes Patient: Jose Alberto AMAYA Provider: Shanell Narvaez DPM :1965 A ge:59 Y S ex:Male Date:05/25/2024 Address:[address] [place], [place] [phone] Pcp:Cameron Man Subjective: * Chief Complaints: * [...] Date: 05/25/2024 Generated for [place]/Tamika/Dillansmitting on: 05/18/2025 05:23 PM EDT
--- OUTSIDE RECORDS SUMMARY | 2024-07-22 07:00 | XMS_ITS ---
Author Organization [facility] Address [address] [place] [address] Care Team Providers Care Pool Hall Inspector Name Role Phone Cameron Man Primary Care Provider Unavailab Franco Hernández Jr [phone] REASON FOR VISIT fatty liver Encounters Encounter Location Date Provider Diagnosis [facility] [address] [place] [address] 07/22/2024 Franco Valdez Jr Plan Of Treatment Next Appt Details Provider Name:Franco cassidy Jr, 08/05/2025 01:35:00 PM, [address], [address], [place], [address], Progress Notes * TOYIN CANNON EDOB: [birth year] (60 yo M)Acc No.[id number]:07/22/2024 Progress Notes Patient: TOYIN AMAYA Provider: Zoe Valdez MD :1965 A ge:59 Y S ex:Male Date:07/22/2024 Address: [address] [place], [place] Pcp:Cameron Man Subjective: * Chief Complaints: * [...] 09/21/2023 Generated for Lisy dodge/Tamika/Sonia on: 0 05/18/2025 05:23 PM EDT
--- NOTE | 2025-05-18 13:32 | A.OFFPC_ITS ---
Vital Signs 3 05/18/25 13:33 Height 6 ft 1 in Weight 248 lb BMI 32.7 BP 130/70 Blood Pressure Location Lt brachial Position Sitting Pulse 89 Pulse Source Pulse Oximeter Temp 97.5 F Temp Source Temporal Artery Scan Pulse Oximetry (%) 95 Oxygen Delivery Method Room Air Intake Visit Reasons: Annual exam Intake Note: Patient is here today for a physical. 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: Not Required per policy Accompanied by: Self / Same As Patient Allergies No Known Allergies (No Known Allergies*) Allergy (Verified 05/18/25 14:13) Medication List - Last Reconciled 05/18/25 by Cameron Man PA-C allopurinol 200 mg (2 x 100 mg) PO DAILY 90 days amlodipine 2.5 mg PO DAILY aspirin (Adult Low Dose Aspirin) 81 mg PO DAILY betamethasone dipropionate 0.05% 1 appl topical DAILY PRN cholecalciferol (vitamin D3) (Vitamin D3) 25 mcg PO DAILY clotrimazole-betamethasone 1-0.05 % 1 appl topical BID 4 weeks colchicine 0.6 mg PO BID PRN fexofenadine 180 mg PO DAILY PRN Hyrimoz(CF) Pen (adalimumab-adaz) 40 mg (0.4 mL) subcut QWEEK 30 days NS nystatin 1 appl topical DAILY PRN omega 9-xvz-rhl-fish oil 1,000 (120-180) mg (Fish Oil) 1 cap PO DAILY valsartan 320 mg PO DAILY Tobacco use date assessed: 05/18/25 Dental Screening Dental Screen Date: 11/11/24 HPI Annual exam 2 HPI0 Details Rico is a 60 y/o M here today for a routine annual physical. Patient has a pmhx significant for HLD,? HTN, .DOROTHY, gout, Psoriatic arthritis Concern--> The patient has a possible abdominal hernia, with a lump noted below the umbilicus, which has been present for over a year without significant change in size. He has a history of umbilical hernia repair and expresses concern about the current lump, considering further evaluation with a CT scan. .. Elevated liver enzymes: Have noted elevated ALT, does have history of fatty liver disease. He does admit to dietary indiscretion and drinking a bit more alcohol over the summer recently. He will make dietary and lifestyle changes. .. Psoriatic arthritis: Followed by [facility] in has had workup consistent with psoriatic arthritis in his hands. Continues on disease modifying/ injectable therapy. Joint pains have been better though still has stiffness in certain areas.. He is followed by a herbicide sprayer as well for his psoriasis. .. GOUT--> continues on allopurinol 200 mg daily, most recent uric acid stable at 5.8. Will continue to follow The patient's long-standing psoriatic arthritis, previously managed with Humira, is under review due to decreased symptom control, though methotrexate is not favored due to concerns about side effects. .. ?.. ?HTN: Patient's blood pressure acceptable today in office, he reports it has been few stressful weeks due to family issues. He does not regularly check his blood pressure at home. He denies any chest pain, dizziness or headaches. .. Borderline high cholesterol: Most recent fasting lipid panel showing borderline high cholesterol. He will continue working on lifestyle and dietary modifications to reduce his cholesterol .. DOROTHY: Has started on CPAP machine and feels his sleep is much improved. Continues follow up with pulmonology He also has noted his blood pressures have been much more controlled. Colonoscopy-last done in? 2020--> tubular adenoma polyp Gets colon done q 5 years due to fmhx of colon Vaccines: Up-to-date with pneumonia, tetanus, shingles, COVID vaccine. Considering flu vaccine this fall [facility] [employer] Medical History Ascending aortic aneurysm Mallet deformity of right little finger Psoriatic arthritis Foot pain, bilateral DOROTHY (obstructive sleep apnea) Obesity (BMI 30-39.9) Hx of chest pain Rupture of left biceps tendon Carcinoid tumor, rectal, benign Seasonal allergies Snores Hyperlipidemia HTN (hypertension) Surgical History History of bunionectomy History of appendectomy History of Achilles tendon repair Hx of colonoscopy History of umbilical hernia repair Family History Mother Irregular heart beat Social History Housing: House Alcohol intake: current Alcohol intake frequency: a few times a week Alcohol type: beer and wine Patient Tobacco Use Status: Never used Tobacco e-Cigarette/Vaping Use: Never Used Second Hand Smoke Exposure: No service: No Current occupational status: employed 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 1. Little interest or pleasure in doing things: not at all 2. Feeling down, depressed, or hopeless: not at all 3. Trouble falling or staying asleep, or sleeping too much: not at all 4. Feeling tired or having little energy: not at all 5. Poor appetite or overeating: not at all 6. Feeling bad about yourself - or that you are a failure or have let yourself or your family down: not at all 7. Trouble concentrating on things, such as reading the newspaper or watching television: not at all 8. Moving or speaking so slowly that other people could have noticed. Or the opposite - being so fidgety or restless that you have been moving around a lot more than usual: not at all 9. Thoughts that you would be better off or of hurting yourself in some way: not at all Total score: 0 Depression Screening Interpretation: Negative Depression Screening Done: Yes 36530 - PHQ-9 Billing: Yes Source: Developed by Drs. Papi Roblero, Alisa Hernandez, Charles Colon and colleagues, with an educational paula from [employer]. Thrive Questionnaire Date Thrive assessed: 05/14/25 I am a: Patient What is your living situation today?: I have a steady place to live Within the past 12 months, did the food you bought not last and you didn't have the money to get more?: Never true Within the past 12 months, did you worry whether your food would run out before you got money to buy more?: Never true Do you have trouble paying for medicines?: No Do you have trouble getting transportation to medical appointments?: No Do you have trouble paying your heating and electricity bill?: No Do you have trouble taking care of your child, family member or friend?: No Do you have trouble with day-to-day activities such as bathing, preparing meals, shopping, managing finances, etc.?: No Are you currently unemployed and looking for a job?: No Are you interested in more education?: No Please select the resources that you would like help with: None Currently or been in a relationship where the following occur: No concerns reported THRIVE Score: 0 AUDIT C Alcohol Use Questionnaire (AUDIT-C) 1. How often do you have a drink containing alcohol?: 4 or more times a week Total Score: 4 KAREN-7 AMB Questionnaire KAREN-7 Date KAREN - 7 assessed: 11/11/24 Feeling nervous, anxious, or on edge: 0 = Not at all Not being able to stop or control worryin = Not at all Worrying too much about different things: 0 = Not at all Trouble relaxin = Not at all Being so restless that it is hard to sit still: 0 = Not at all Becoming easily annoyed or irritable: 0 = Not at all Feeling afraid as if something awful might happen: 0 = Not at all Total KAREN-7 score (0-4 normal; 5-9 mild; 10-14 moderate; 15-21 severe): 0 Source: Developed by Drs. Papi Roblero, Alisa Hernandez, Charles Colon and colleagues, with an educational paula from [employer]. Review of Systems Const Denies body aches, Denies chills, Denies excessive sweating, Denies fatigue, Denies fever(s) and Denies headache(s) Eyes Denies blurry vision ENT Denies dysphagia, Denies vertigo, Denies dizziness, Denies headache(s), Denies hearing loss and Denies tinnitus Card Denies chest pain, Denies chest pain with activity, Denies syncope, Denies irregular heart rhythm and Denies dyspnea Resp Denies chest congestion, Denies cough, Denies hemoptysis, Denies dyspnea and Denies wheezing GI Denies abdominal pain, Denies melena, Denies hematochezia, Denies coffee ground emesis, Denies dysphagia, Denies diarrhea, Denies nausea and Denies vomiting Denies difficulty urinating, Denies dysuria, Denies urinary frequency, Denies urinary hesitancy and Denies urinary urgency Musc Denies arthralgias, Denies limited range of motion, Denies muscle cramps and Denies muscle weakness Skin/Breast Denies rash and Denies skin ulcer Neuro Denies Abnormal speech present, Denies confusion, Denies vertigo, Denies dizziness, Denies syncope, Denies headache(s), Denies memory loss and Denies seizure-like activity Psych Denies anxiety, Denies confusion, Denies depression, Denies memory loss, Denies panic attacks and Denies paranoia Endo Denies excessive sweating, Denies fatigue, Denies flushing, Denies polydipsia and Denies polyuria Aller/Immun Denies wheezing Physical exam (Primary Care) Vital Signs: Last Vital Signs Temp 97.5 F 05/18/25 13:33 Pulse 89 05/18/25 13:33 BP 130/70 05/18/25 13:33 Pulse Ox 95 05/18/25 13:33 Oxygen Delivery Method Room Air 05/18/25 13:33 BMI result Body Mass Index 32.7 BMI Assessment/Plan discussion: High BMI High, discussed plan: lifestyle, weight reduction, dietary and physical activity Tobacco/Smoking Status: Tobacco use Status Tobacco use date assessed 05/18/25 05/18/25 13:38 Patient Tobacco Use Status Never used Tobacco 05/18/25 13:38 e-Cigarette/Vaping Use Never Used 05/18/25 13:38 PHQ-9: PHQ-9 Score PHQ-9: Total score 0 05/18/25 13:38 Depression Screening Interpretation: Negative Thrive Assessment: Date of Thrive Assessment Date Thrive assessed 05/14/25 05/18/25 13:38 Currently or been in a relationship where the following occur: No concerns reported Const Other: Obese General: cooperative, comfortable, no acute distress, alert and awake; No confusion Orientation/consciousness: oriented to person, oriented to place, patient oriented x3 and No confusion HENMT Head: Yes normocephalic Ears: external ears normal and TM's normal bilaterally Face and sinus: No sinus tenderness Mouth: Normal oral and palatal mucosa present and tongue normal Teeth and gingiva: dentition normal and gingiva normal Throat: Yes posterior oropharynx normal, Yes tonsils normal and Yes uvula midline Eyes Conjunctivae: conjunctivae normal Sclerae: sclerae normal Pupils: Equal, round and reactive pupils present EOM: EOMs intact bilaterally Direct Ophthalmoscopy: No no photophobia Neck Neck: Yes no lymphadenopathy, No tender and Yes no JVD Thyroid: Thyroid normal Carotids: no bruits Chest Chest palpation & inspection: no tenderness Resp Effort & Inspection: normal respiratory effort, no audible wheezes, not labored and no stridor Auscultation: no crackles, no rales, no rhonchi and no wheezes Cardio Jugular venous distension: no JVD Rate: regular rate, not bradycardic and not tachycardic Rhythm: regular rhythm Bruits: no carotid bruits Peripheral pulses: Peripheral pulses 2+ throughout GI Inspection: Yes normal to inspection, No abdominal wall ecchymosis and No visible herniation Palpation (GI): Soft to palpation, nontender, no guarding, not rigid and No hepatosplenomegaly present Auscultation: normoactive bowel sounds Abdomen image: 2 1. PALPABLE SOFT MASS NOTED IN THE AREA NOTED General: Yes no CVA tenderness Back/Spine/Pelvis Back: no CVA tenderness and No back tenderness Cervical Spine: cervical ROM normal Thoracic/Lumbar Spine: thoracic and lumbar spine normal to inspection, straight leg raise negative bilaterally, No thoraco-lumbar ROM limited and No lumbar spinal tenderness Skin Lesions: no lesions Rashes: no rashes Wounds: no wounds Neuro General: oriented to person, oriented to place, patient oriented x3, CN's II-XI intact bilaterally and No confusion Cranial nerves: Yes Equal, round and reactive pupils present and Yes Normal accommodation reflex present Cognition (Neuro): normal cognition Speech: No Abnormal speech present Gait exam (Neuro): Normal gait present Motor exam (neuro): 5/5 motor strength present throughout Extrem Right upper extremity: full ROM; no cyanosis Left upper extremity: full ROM; no cyanosis Right lower extremity: no edema Left lower extremity: no edema Psych Appearance: grossly normal Mental Status: mental status grossly normal Affect: normal affect Attitude: cooperative Thought process: Normal thought process present Coding Level of Care Code Est Pt Prev Care 40-64y(23031) Diagnoses Annual physical exam Z00.00 Primary hypertension I10 Hypertension type: primary hypertension 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 Gout site: multiple sites Gout etiology: other secondary cause Chronicity: chronic Presence of tophus: with tophus Psoriatic arthritis L40.50 Mixed hyperlipidemia E78.2 Hyperlipidemia type: mixed hyperlipidemia Class 1 obesity E66.811 Non-recurrent inguinal hernia with obstruction without gangrene, unspecified laterality K40.30 Hernia type: inguinal Obstruction and gangrene presence: with obstruction but without gangrene Laterality: unspecified laterality Recurrence: non-recurrent Additional Codes PHQ-9 - 06483 - PHQ-9 Billing: Yes ([id number]) Assessment & Plan Assessment & Plan (1) Annual physical exam: Code(s): Z00.00 - Encounter for general adult medical examination without abnormal findings Category: Medical Plan: PER HPI (2) HTN (hypertension): Code(s): I10 - Essential (primary) hypertension Category: Medical Qualifiers: Hypertension type: primary hypertension Qualified Code(s): I10 - Essential (primary) hypertension Plan: Patient's blood pressure acceptable today in office. Will continue his current dose antihypertensive medication with goal blood pressure to remain below 140/90 (3) Gout: Code(s): M10.9 - Gout, unspecified Category: Medical Qualifiers: Gout site: multiple sites Gout etiology: other secondary cause C hronicity: chronic Presence of tophus: with tophus Qualified Code(s): M1A.49X1 - Other secondary chronic gout, multiple sites, with tophus (tophi) Plan: Patient continues on allopurinol 200 mg daily. Most recent uric acid levels have been stable. Has not had any severe gout flares recently. (4) Psoriatic arthritis: Comment: PsO - Dx 2006 PsA - Dx 2019 - 08/2022. Started Humira - 12/2023. Switched to Ghadarioz Code(s): L40.50 - Arthropathic psoriasis, unspecified Category: Medical Plan: Continues to follow [facility]. Continues on disease modifying injectable medication which has helped reduce his joint pains. (5) Hyperlipidemia: Code(s): E78.5 - Hyperlipidemia, unspecified Category: Medical Qualifiers: Hyperlipidemia type: mixed hyperlipidemia Qualified Code(s): E78.2 - Mixed hyperlipidemia Plan: Cholesterol level slightly elevated at 203, he will work on dietary modification Monitoring and future testing planned per protocol. He is also on colchicine daily (6) Class 1 obesity: Code(s): E66.811 - Obesity, class 1 Category: Medical Plan: Patient does understand his BMI is over 30 will work on being more physically active and adapting to better eating habits to reduce his weight. (7) Abdominal hernia: Code(s): K46.9 - Unspecified abdominal hernia without obstruction or gangrene Category: Medical Qualifiers: Hernia type: inguinal Obstruction and gangrene presence: with obstruction but without gangrene Laterality: unspecified laterality R ecurrence: non-recurrent Qualified Code(s): K40.30 - Unilateral inguinal hernia, with obstruction, without gangrene, not specified as recurrent Plan: The patient has a possible abdominal hernia with a lump noted below the umbilicus. A CT scan is recommended to evaluate the presence and extent of the hernia. Orders: Orders 2 Uric Acid Today M1A.49X1 - Other secondary chronic gout, multiple sites, with tophus (tophi) Hemoglobin A1c Today R73.09 - Other abnormal glucose Microalbumin, Random (w Creat) Today I10 - Essential (primary) hypertension Lipid Panel Today E78.2 - Mixed hyperlipidemia CT abdomen pelvis wo IV con Today K40.30 - Unilateral inguinal hernia, with obstruction, without gangrene, not specified as recurrent Complete Blood Count no Diff Today R73.09 - Other abnormal glucose Comprehensive [place]. Panel Fast Today I10 - Essential (primary) hypertension Medications: Refilled 2 amlodipine 2.5 mg PO DAILY 90 tabs 3RF
[2025-05-18 13:33] VITALS: BP 130/70; PULSE 89; TEMP 36.4; O2SAT 95; BMI 32.7
--- OUTSIDE RECORDS SUMMARY | 2025-05-18 17:23 | XMS_ITS | Patient Health Record ---
[facility] [place] Address [address] [place] [address] Care Team Providers Care Strip Stamp Straightener Name Role Phone Cameron Man Primary Care Provider Unavailab Jez Bianchi Unavailable [phone] Allergies No Known Allergies Reason For Referral [...] Problem Plantarflexion deformity of right foot (finding) ([id number] ) Equinus contracture of right ankle (M24.571) Active confirmed Problem Localized, primary osteoarthritis of the ankle and/or foot (266854641) Osteoarthritis of left ankle and foot (M19.072) [...] Insured Coverage Start Date Coverage End Date [facility] [address] [address] [place] [address] [id number] Jose Alberto Reina Self - patient is the insured Medical (General) History Medical History History ICD Code High blood pressure Surgical History Surgery Date(Month/Year) Hernia Repair 2015 achilles tendon repair 2007 appendectomy 1978
--- OUTSIDE RECORDS SUMMARY | 2025-05-18 17:23 | XMS_ITS | Patient Health Record ---
Author Organization [facility] Address [address] [place] [address] Care Team Providers Care Power Brake Rebuilder Name Role Phone Cameron Man Primary Care Provider Unavailab Franco Hernández Jr Unavailable Allergies Allergen (clinical drug ingredient) Drug/Non Drug Allergy documented on EMR Reaction Allergy Type Onset Date Status seasonal (uncoded) Unknown Allergy A ctive Results Component Value Reference Range Notes Complete Blood Count Auto Di ff Reviewed date:11/12/2024 08:02:24 AM Interpretation: Performing Lab:[facility], [address] [place] [phone] Notes/Report: White Blood Count 5.8 4.8-10.8 X10*3/uL [...] Panel Reviewed date:11/12/2024 08:02:15 AM Interpretation: Performing Lab:[address] [phone] Notes/Report: Bilirubin Total 0.8 0.0-1.0 mg/dL Bilirubin Direct 0.2 0.0-0.5 mg/dL Aspartate Amino Transferase 26 5-37 U/L Alanine Aminotransferase 40 0-40 U/L Total Protein 7.7 6.5-8.0 g/dL Albumin Level 4.2 3.5-5.0 g/dL Alkaline Phosphatase 55 39-117 U/L IRON PROFILE Reviewed date:11/12/2024 08:02:02 AM Interpretation: Performing Lab:[facility], [address] [place] [phone] Notes/Report: Iron 145 45-160 mcg/dL Total Iron Binding Capacity 345 228-428 mcg/d L Percent Iron Saturation 42 15-50 % Unsaturated Iron Binding 200 Ferritin Reviewed date:11/12/2024 08:01:53 AM Interpretation: Performing Lab:[address] [address] Notes/Report: Ferritin 221 20-250 ng/mL Liver Fibrosis Pnl Reviewed date:11/17/2024 02:21:38 PM Interpretation: Performing Lab:[address] [phone] Notes/Report: Liver Fibrosis Score 0.07 Liver Fibrosis [...] a>0.62 and a<=1.00 : A3 (severe activity) NPG-Wrpwg-0-Macroglobulin 105 106-279 mg/dL FIB-Haptoglobin 138 43-212 mg/dL FIB-Apolipoprotein A1 199 94-176 mg/dL FIB-Total Bilirubin 0.7 0.2-1.2 mg/dL FIB-GGT 34 3-85 U/L FIB-ALT 27 9-46 U/L Reference ID [id number] Footnote SEE NOTE The reliability of results [...] The performance characteristics have been determined by [facility] [place]. It has not been cleared or approved by the U.S. Food and Drug Administration. Performance characteristics refer to the analytical performance of the test. Likewise Software, the associated logo, [employer] and all associated [employer] taveras are the registered trademarks of [employer]. All third alliance party taveras - (R) and (TM) - are the property of their respective owners. (C) [id number] [employer]. All rights reserved. THIS TEST WAS PERFORMED AT: [facility] [place] [address] [place] [address] LASHA GRAHAM MD,PHD,THOR Mitochondrial Antibody Reviewed date:11/26/2024 11:44:03 AM Interpretation: Performing Lab:[address] [address] Notes/Report: Mitochondrial Antibodies NEGATIVE NEGATIVE The specimen was negative for cytoplasmic antibodies, however additional staining was observed suggesting the presence of Antinuclear Antibodies. Consider requesting order code 249, SAVANNAH Screen, IFA with Reflex to Titer and Pattern, or order code [id number], SAVANNAH Screen, IFA w/reflex Titer/Pattern, and Reflex to Multiplex 11 Ab Evans, if clinically indicated. THIS TEST WAS PERFORMED AT: [facility] [address] [address] IMCHAEL HERNANDEZ MD Mitochondrial Ab Titer TNP Smooth Muscle Antibody Reviewed date:11/26/2024 11:43:50 AM Interpretation: Performing Lab:[address] [address] Notes/Report: Smooth Muscle Antibody <20 <20 U [...] type 1. THIS TEST WAS PERFORMED AT: [facility]/[address] [address] SAMI HINTON MD,PHD Reason For Referral No [...] Problem Status W/U Status Risk Notes Problem [id number] Colon cancer screening (Z12.11) Active confirmed Problem 019394796 Elevated LFTs (R79.89) Active confirmed Problem 782655471 Fatty liver (K76.0) Active confirmed Problem 38081548 Hemorrhoids, unspecified hemorrhoid type (K64.9) Active confirmed Problem 928180313 Rectal carcinoid tumor (D3A.026) Active confirmed Problem 783352364 Chest pressure (R07.89) Active confirmed Problem 476377382 Gastroesophageal reflux disease, unspecified whether esophagitis present (K21.9) Active confirmed Problem 039331712 Black stools (K92.1) Active confirmed Vital Signs Blood pressure diastolic 00 mm Hg 08/06/2024 Height 73 in 08/06/2024 Blood pressure systolic 00 mm Hg 08/06/2024 Weight 243 lbs 08/06/2024 BMI 32.06 kg/m2 08/06/2024 Encounters Encounter Location Date Provider Diagnosis [facility] [address] [place] [address] 08/06/2024 Franco Valdez Jr Fatty liver K76.0 ; Gastroesophageal reflux disease, unspecified whether esophagitis present K21.9 and Colon cancer screening Z12.11 [facility] [address] [place] [address] 06/09/2024 Franco Valdez Jr [facility] [address] [place] [address] 11/17/2024 Franco Valdez Jr Assessments Encounter Date [...] Jayson cassidy Jr, 08/05/2025 01:35:00 PM, [address], [address], [place], [address], Insurance Providers Payer Name Payer Address Payer Phone Subscriber Number Group Number Insured Name Patient Relationship to Insured Coverage Start Date Coverage End Date [facility] [address] [address] [place] [address] [phone] [id number] TOYIN CANNON Self - patient is the [...]
== END 2025-05-18 14:29 | disposition home or self-care (01) ==
LOC: HO.HMCH 13:27
PROVIDERS: PCP Physician Assistant; Visit Provider Physician Assistant
DX: Z00.00 Encounter for general adult medical examination without abnormal findings (principal); L40.50 Arthropathic psoriasis, unspecified; E66.811 Obesity, class 1; Z68.32 Body mass index [BMI] 32.0-32.9, adult; I10 Essential (primary) hypertension; M1A.49X1 Other secondary chronic gout, multiple sites, with tophus (tophi); E78.2 Mixed hyperlipidemia; K40.30 Unilateral inguinal hernia, with obstruction, without gangrene, not specified as recurrent

== ENCOUNTER → 2025-05-18 13:26 | Outpatient (BNVA) | payer BC, SELFPAY | PROVIDERS: PCP Physician Assistant; Visit Provider Physician Assistant | DX: Z00.00 Encounter for general adult medical examination without abnormal findings (principal); I10 Essential (primary) hypertension; L40.50 Arthropathic psoriasis, unspecified; G47.33 Obstructive sleep apnea (adult) (pediatric); M1A.49X1 Other secondary chronic gout, multiple sites, with tophus (tophi); E78.2 Mixed hyperlipidemia; E66.811 Obesity, class 1; K40.30 Unilateral inguinal hernia, with obstruction, without gangrene, not specified as recurrent; R73.09 Other abnormal glucose; Z99.89 Dependence on other enabling machines and devices | CPT/HCPCS: 96127 ==

== ENCOUNTER 2025-08-17 12:17 | Outpatient (REF) | payer BC, SELFPAY ==
--- OUTSIDE RECORDS SUMMARY | 2024-05-25 08:00 | XMS_ITS ---
Author Organization [facility] Address [address] [place] [address] Care Team Providers Care Floor Director Name Role Phone Cameron Man Primary Care Provider Unavailab Jez Bianchi Unavailable [phone] Encounters Encounter Location Date Provider Diagnosis [facility] [address] [address] 05/25/2024 Jez Narvaez Plan Of Treatment No Information Progress Notes * Jose Alberto CANNON EDOB: [birth year] (60 yo M)Acc No.[id number]:05/25/2024 Progress Notes Patient: Jose Alberto AMAYA Provider: Shanell Narvaez DPM :1965 A ge:59 Y S ex:Male Date:05/25/2024 Address:[address] [place], [place] [id number] Pcp:Cameron Man Subjective: * Chief Complaints: * * Medical History: Objective: * Vitals: Assessment: Plan: * Treatment: * Images: * The named appointment provid er may or may not be the originator of this progress note, and it is not deemed complete until electronically signed by the appointment provider. Sign off status: Pending * Provider: Shanell Narvaez DPM Date: 0 05/25/2024 Generated for [place]/Tamika/Dillansmitting on: 10/18/2024 04:09 PM EST
--- OUTSIDE RECORDS SUMMARY | 2024-07-22 06:00 | XMS_ITS ---
Author Organization [facility] Address [address] [place] [address] Care Team Providers Care Learning And Development Intern Name Role Phone Cameron Man Primary Care Provider Unavailab Franco Hernández Jr REASON FOR VISIT fatty liver Encounters Encounter Location Date Provider Diagnosis [facility] [address] [place] [address] 07/22/2024 Franco Valdez Jr Plan Of Treatment No Information Progress Notes * TOYIN CANNON EDOB: [birth year] (60 yo M)Acc No.[id number]:07/22/2024 Progress Notes Patient: TOYIN AMAYA Provider: Zoe Valdez MD :1965 A ge:59 Y S ex:Male Date:07/22/2024 Address:[address] [place], [place] Pcp:Cameron Man Subjective: * Chief Complaints: * F atty liver * The named appointment provid er may or may not be the originator of this progress note, and it is not deemed complete until electronically signed by the appointment provider. Sign off status: Pending * Provider: Zoe Valdez MD Date: 09/21/2023 Generated for Printi ng/Faxing/eTransmitting on: 10/18/2024 04:09 PM EST
--- OUTSIDE RECORDS SUMMARY | 2025-08-05 08:35 | XMS_ITS ---
Author Organization [facility] Address [address] [place] [phone] Care Team Providers Care Professional Shopper Name Role Phone Donovan, Cameron Primary Care Provider Unavailab Franco Hernández Jr Unavailable Allergies Allergen (clinical drug ingredient) Drug/Non Drug Allergy documented on EMR Reaction Allergy Type Onset Date Status seasonal (uncoded) Unknown Allergy A ctive REASON FOR VISIT Patient presents today for fatty liver Medications Medication SIG (Take, Route, Frequency, Duration) Notes Start Date End Date Status Hyrimoz 40 MG/0.4ML Solution Auto-injector Subcutaneous; Duration: 28 Active amLODIPine Besylate 2.5 MG Tablet Oral; Duration: 90 Active Vicky as needed Active Aspirin 81 81 MG Tablet Chewable 1 tablet Orally Once a day; Duration: 30 day(s) Active Allopurinol 100 MG Tablet Oral; Duration: 84 Days Active Fish Oil 1000 MG Capsule 1 capsule Orall y Once a day; Duration: 30 day(s) Active Vitamin D (Cholecalciferol) 25 MCG (1000 UT) Capsule 1 capsule Orally Once a day; Duration: 30 day(s) Active Multivitamin - Liquid as directed Orally Active Valsartan 320 MG Tablet 1 tablet Orally Once a day Active Immunizations Vaccine Route Administration Date Status Comme nts Influenza Unknown 08/05/2025 Refused Social History Social History Drug/Alcohol: Social Info Question Answer Notes AUDIT-C (Standard) Did you have a drink containing alcohol in the past year? Yes How often did you have a drink containing alcohol in the past year? 2 to 3 times a week (3 points) How many drinks did you have on a typical day when you were drinking in the past year? 3 or 4 drinks (1 point) How often did you have six or more drinks on one occasion in the past year? Never (0 point) Points 4 Interpretation Positive Additional Details Category Social Info Options Details Miscellaneous: Marital status: Occupation: [employer] direct or Vital Signs Blood pressure systolic 001 mm Hg 08/05/20 25 Blood pressure diastolic 01 mm Hg 025 Height 73 in 08/05/2025 Weight 254.4 lbs 08/05/2025 BMI 33.56 kg/m2 08/05/2025 Encounters Encounter Location Date Provider Diagnosis [facility] [address] [place] [phone] 08/05/2025 Franco Valdez Jr Fatty liver K76.0 ; Rectal carcinoid tumor D3A.026 and Colon cancer screening Z12.11 Assessments Encounter Date Diagnosis (ICD Code) Assessment Notes Treatment Notes Treatment Clinical Notes Section Notes 08/05/2025 Fatty liver (ICD-10 - K76.0) 08/05/2025 Rectal carcinoid tumor (ICD-10 - D3A.026) 08/05/2025 Colon cancer screening (ICD-10 - Z12.11) Plan Of Treatment Future Test Test Name Order Date COLONOSCOPY 08/05/2025 Progress Notes * TOYIN CANNON EDOB: [birth year] (60 yo M)Acc No.[id number]:08/05/2025 Progress Notes Patient: TOYIN AMAYA Provider: Zoe Valdez MD :1965 A ge:60 Y S ex:Male Date:08/05/2025 Address: [place] Pcp:Cameron Man Subjective: * Chief Complaints: * P atient presents today for fatty liver * Medical History: Seasonal allergies Rectal carcinoid, incidentally found at time of colonoscopy 2010, followup flexible sigmoidoscopy and colonoscopy negative. Hypertension Borderline high cholesterol Torn meniscus in left knee Torn biceps left arm Colonoscopy 07/23 2 to adenoma, five-year followup Psoriatic arthritis Medical History Verified * Surgical History: appendectomy Achilles tendon repair, left umbilical hernia repair bunionectomy 2023 tooth extraction 07/2025 Surgical History verified. * Hospitalization/Major Diagno stic Procedure: No Hospitalization Documented. Hospitalization Verified. * Family History: F ather: 75 yrs, pancreatic cancer. M other: alive. M sara Grand Mother: in age 40, diagnosed with Colon cancer. F amily History Verified.. Positive for colon polyps in his sister requiring surgery No Family hx of liver cancer sister and grandmother had colon cancer. * Social History: T obacco Use: T obacco Use/Smoking A re you a: nonsmoker. D rugs/Alcohol: A lcohol Screen P oints: 4, Interpretation: Positive. M iscellaneous: M arital status: . 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 D rug/Alcohol: A BRANDO-C (Standard) D id you have a drink containing alcohol in the past year? Y es,?How often did you have a drink containing alcohol in the past year? 2 to 3 times a week (3 points), H ow many drinks did you have on a typical day when you were drinking in the past year??3 or 4 drinks (1 point), H ow often did you have six or more drinks on one occasion in the past year? N ever (0 point), P oints 4 , I nterpretation P ositive. Social History Verified. * Medications: T akingValsartan 320 MG Tablet 1 tablet Orally Once a day Multivitamin - Liquid as directed Orally Vitamin D (Cholecalciferol) 25 MCG (1000 UT) Capsule 1 capsule Orally Once a day Fish Oil 1000 MG Capsule 1 capsule Orally Once a day Aspirin 81 81 MG Tablet Chewable 1 tablet Orally Once a day Vicky as needed amLODIPine Besylate 2.5 MG Tablet Oral Hyrimoz 40 MG/0.4ML Solution Auto-injector Subcutaneous Allopurinol 100 MG Tablet Oral Medication List reviewed and reconciled with the patientTaking Valsartan 320 MG Tablet 1 tablet Orally Once a day Taking Multivitamin - Liquid as directed Orally Taking Vitamin D (Cholecalciferol) 25 MCG (1000 UT) Capsule 1 capsule Orally Once a day Taking Fish Oil 1000 MG Capsule 1 capsule Orally Once a day Taking Aspirin 81 81 MG Tablet Chewable 1 tablet Orally Once a day Taking Vicky as needed Taking amLODIPine Besylate 2.5 MG Tablet Oral Taking Hyrimoz 40 MG/0.4ML Solution Auto-injector Subcutaneous Taking Allopurinol 100 MG Tablet Oral Medication List reviewed and reconciled with the patient * Allergies: s easonalyesAllergies Verified. Objective: * Vitals: W t:254.4lbs, Ht: 73 in, BMI:33.56Index, BP:001/01mm Hg, Ht-cm: 185.42 cm, Wt-k.4 kg. Assessment: * Assessment: 1. F atty liver - K76.0 (Primary) 2 . R ectal carcinoid tumor - D3A.026? 3. C olon cancer screening - Z12.11 Plan: * Treatment: 2.?Rectal carcinoid tumor?Procedure: COLONOSCOPY (Ordered for 08/05/2025)* ColonPaulette 08/05/2025 01: 59:28 PM EST > action created for 05/2026 to book colonoscopy in 07/[address] Valdez no ov needed first. 3.?Colon cancer screening?Procedure: COLONOSCOPY (Ordered for 08/05/2025)* Colon, Paulette 08/05/2025 01: 59:28 PM EST > action created for 05/2026 to book colonoscopy in 07/[address] Valdez no ov needed first. * Immunizations: Influenza (Not administered - Refused: Patient decision) * Preventive Medicine: Counseling: C are goal follow-up plan: A shade Normal BMI Follow-up D ietary management education, guidance, and counseling, B PR management provided Y es. Billing Information: * Procedure Codes: * The named appointment provid er may or may not be the originator of this progress note, and it is not deemed complete until electronically signed by the appointment provider. Sign off status: Pending * Provider: Zoe Valdez MD Date: 10/06/2024 Generated for Lisy dodge/Tamika/Sonia on: 10/18/2024 04:09 PM EST
[2025-08-17 13:53] LABS: MANUAL DIFF FLAG NO
[2025-08-17 14:30] LABS: Hematocrit 48.2 % (42.0-52.0); Hemoglobin 16.7 g/dl (14.0-18.0); Imm Gran Abs Auto 0.05 X10*3/uL (0.00-0.03); Imm Gran Pct Auto 0.8 % (0.0-0.4); Lymphocytes Absolute Auto 1.4 X10*3/uL (1.2-4.9); Mean Corpuscular HGB Conc 34.6 g/dl (31.0-36.0); Mean Corpuscular Hemoglobin 32.1 pg (27.0-33.0); Mean Corpuscular Volume 92.7 fL (80.0-98.0); NRBC Abs Auto 0.000 X10*3/uL (0.0-0.012); NRBC Pct Auto 0.0 /100WBC (0.0-0.2); Platelet Count 244 X10*3/uL (160-400); Red Blood Count 5.20 X10*6/uL (4.60-5.80); White Blood Count 6.4 X10*3/uL (4.8-10.8)
[2025-08-17 14:57] LABS: Alanine Aminotransferase 96 U/L (0-40); Albumin Level 4.4 g/dL (3.5-5.0); Alkaline Phosphatase 60 U/L (39-117); Anion Gap 11 (12-20); Aspartate Amino Transferase 46 U/L (5-37); Blood Urea Nitrogen 13 mg/dL (9-16); Calcium 9.4 mg/dL (8.4-10.2); Carbon Dioxide 26 mmol/L (22-29); Chloride 106 mmol/L (96-108); Estimated Glomerular Filt Rate > 60; Potassium 4.4 mmol/L (3.3-5.1); Sodium 139 mmol/L (135-145); Total Protein 7.2 g/dL (6.5-8.0); Uric Acid 5.8 mg/dL (3.4-7.0)
--- OUTSIDE RECORDS SUMMARY | 2025-08-17 16:09 | XMS_ITS | Patient Health Record ---
[facility] janis Pearsall Address [address] [place] [address] Care Team Providers Care Utility Worker Name Role Phone Cameron Man Primary Care Provider Unavailab Jez Bianchi Unavailable [phone] Allergies No Known Allergies Reason For Referral [...] Problem Plantarflexion deformity of right foot (finding) (2654901670562508 ) Equinus contracture of right ankle (M24.571) Active confirmed Problem Localized, primary osteoarthritis of the ankle and/or foot (063279252) Osteoarthritis of left ankle and foot (M19.072) [...] Insured Coverage Start Date Coverage End Date [facility] [address] [address] [place] [phone] [id number] Jose Alberto Reina Self - patient is the insured Medical (General) History Medical History History ICD Code High blood pressure Surgical History Surgery Date(Month/Year) Hernia Repair 2015 achilles tendon repair 2007 appendectomy 1978
--- OUTSIDE RECORDS SUMMARY | 2025-08-17 16:10 | XMS_ITS | Patient Health Record ---
Author Organization [facility] Address [address] [place] [address] Care Team Providers Care Line Department Supervisor Name Role Phone Cameron Man Primary Care Provider Unavailab Franco Hernández Jr Unavailable Allergies Allergen (clinical drug ingredient) Drug/Non Drug Allergy documented on EMR Reaction Allergy Type Onset Date Status seasonal (uncoded) Unknown Allergy A ctive Results Component Value Reference Range Flag Notes Complete Blood Count Auto Di ff Reviewed date:11/12/2024 08:02:24 AM Interpretation: Performing Lab:[facility], [address] [place] [phone] Notes/Report: White Blood Count 5.8 4.8-10.8 X10*3/uL N Red Blood Count 5.12 4.60-5.80 X10*6/uL N Hemoglobin 15.9 14.0-18.0 g/dl N Hematocrit 45.6 42.0-52.0 % N Mean Corpuscular Volume 89.1 80.0-98.0 fL N Mean Corpuscular Hemoglobin 31.1 27.0-33.0 pg N Mean Corpuscular HGB Conc 34.9 31.0-36.0 g/dl N Red Cell Distribution Width 13.3 11.0-16.0 % N Platelet Count 249 160-400 X10*3/uL N Mean Platelet Volume 9.4 9.4-12.4 fL N Neutrophils Percent Auto 60.5 45-73 % N Imm Gran Pct Auto 0.5 0.0-0.4 % H Lymphocytes Percent Auto 22.3 20-40 % N Monocytes Percent Auto 11.4 2-11 % H Eosinophils Percent Auto 4.3 0-4 % H Basophils Percent Auto 1.0 0-2 % N NRBC Pct Auto 0.0 0.0-0.2 /100WBC N Neutrophils Absolute Auto 3.5 2.0-8.3 x10*3/uL N Imm Gran Abs Auto 0.03 0.00-0.03 X10*3/uL N Lymphocytes Absolute Auto 1.3 1.2-4.9 X10*3/uL N Monocytes Absolute Auto 0.7 0.1-1.2 X10*3/uL N Eosinophils Absolute Auto 0.3 0.0-0.4 X10*3/uL N Basophils Absolute Auto 0.1 0.0-0.2 X10*3/uL N NRBC Abs Auto 0.000 0.0-0.012 X10*3/uL N Liver Panel Reviewed date:11/12/2024 08:02:15 AM Interpretation: Performing Lab:[facility], [address] [place] [phone] Notes/Report: Bilirubin Total 0.8 0.0-1.0 mg/dL N Bilirubin Direct 0.2 0.0-0.5 mg/dL N Aspartate Amino Transferase 26 5-37 U/L N Alanine Aminotransferase 40 0-40 U/L N Total Protein 7.7 6.5-8.0 g/dL N Albumin Level 4.2 3.5-5.0 g/dL N Alkaline Phosphatase 55 39-117 U/L N IRON PROFILE Reviewed date:11/12/2024 08:02:02 AM Interpretation: Performing Lab:[facility], [address] [place] [phone] Notes/Report: Iron 145 45-160 mcg/dL N Total Iron Binding Capacity 345 228-428 mcg/dL N Percent Iron Saturation 42 15-50 % N Unsaturated Iron Binding 200 Ferritin Reviewed date:11/12/2024 08:01:53 AM Interpretation: Performing Lab:[facility], [address] [place] [phone] Notes/Report: Ferritin 221 20-250 ng/mL N Liver Fibrosis Pnl Reviewed date:11/17/2024 02:21:38 PM Interpretation: Performing Lab:[facility], [address] [place] [phone] Notes/Report: Liver Fibrosis Score 0.07 Liver Fibrosis [...] a>0.62 and a<=1.00 : A3 (severe activity) LCI-Coycd-3-Macroglobulin 105 106-279 mg/dL A FIB-Haptoglobin 138 43-212 mg/dL FIB-Apolipoprotein A1 199 94-176 mg/dL A FIB-Total Bilirubin 0.7 0.2-1.2 mg/dL FIB-GGT 34 3-85 U/L FIB-ALT 27 9-46 U/L Reference ID [id number] Footnote SEE NOTE The reliability of results is dependent on compliance with the preanalytical and analytical conditions recommended by [employer]. The tests have to be deferred for: [...] The performance characteristics have been determined by [facility]. It has not been cleared or approved by the U.S. Food and Drug Administration. Performance characteristics refer to the analytical performance of the test. [employer], the associated logo, [employer] and all associated [employer] taveras are the registered trademarks of [employer]. All third republican taveras - (R) and (TM) - are the property of their respective owners. (C) 9156-8524 [employer]. All rights reserved. THIS TEST WAS PERFORMED AT: [employer] [facility] [address] [place] [address] LASHA GRAHAM MD,PHD,THOR Mitochondrial Antibody Reviewed date:11/26/2024 11:44:03 AM Interpretation: Performing Lab:[facility], [address] [place] [phone] Notes/Report: Mitochondrial Antibodies NEGATIVE NEGATIVE N The specimen was negative for cytoplasmic antibodies, however additional staining was observed suggesting the presence of Antinuclear Antibodies. Consider requesting order code 249, SAVANNAH Screen, IFA with Reflex to Titer and Pattern, or order code [id number], SAVANNAH Screen, IFA w/reflex Titer/Pattern, and Reflex to Multiplex 11 Ab [place], if clinically indicated. THIS TEST WAS PERFORMED AT: [employer] [address] [address] MICHAEL HERNANDEZ MD Mitochondrial Ab Titer TNP Smooth Muscle Antibody Reviewed date:11/26/2024 11:43:50 AM Interpretation: Performing Lab:[facility], [address] [place] [phone] Notes/Report: Smooth Muscle Antibody <20 <20 U [...] type 1. THIS TEST WAS PERFORMED AT: [employer]/[place] [id number] [place] [address] SAMI HINTON MD,PHD Reason For Referral No Information Medications Medication SIG (Take, Route, Frequency, Duration) Notes Start Date End Date Status Hyrimoz 40 MG/0.4ML Solution Auto-injector Subcutaneous; Duration: 28 Active amLODIPine Besylate 2.5 MG Tablet Oral; Duration: 90 Active Vicky as needed Active Aspirin 81 81 MG Tablet Chewable 1 tablet Orally Once a day; Duration: 30 day(s) Active Fish Oil 1000 MG Capsule 1 capsule Orall y Once a day; Duration: 30 day(s) Active Vitamin D (Cholecalciferol) 25 MCG (1000 UT) Capsule 1 capsule Orally Once a day; Duration: 30 day(s) Active Multivitamin - Liquid as directed Orally Active Valsartan 320 MG Tablet 1 tablet Orally Once a day Active Allopurinol 100 MG Tablet Oral; Duration: 84 Days Active Immunizations Vaccine Route Administration Date Status Comme nts Influenza Unknown 06/16/2021 Refused Influenza Unknown 08/05/2025 Refused Social History Social [...] Info Options Details Miscellaneous: Marital status: 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 Problems Problem Type SNOMED Code ICD Code Onset Dates Problem Status W/U Status Risk Notes Problem Colon cancer screening (086446060) Colon cancer screening (Z12.11) Active confirmed Problem Elevated liver enzymes level (381431385) Elevated LFTs (R79.89) Active confirmed Problem Fatty liver (696565636) Fatty liver (K76.0) Active confirmed Problem Hemorrhoids without complication (93771950) Hemorrhoids, unspecified hemorrhoid type (K64.9) Active confirmed Problem Benign carcinoid tumor of rectum (249313964318604) Rectal carcinoid tumor (D3A.026) Active confirmed Problem Pressure in Chest (26937225) Chest pressure (R07.89) Active confirmed Problem Gastroesophageal reflux disease (891726337) Gastroesophageal reflux disease, unspecified whether esophagitis present (K21.9) Active confirmed Problem Black stools (44827413) Black stools (K92.1) Active confirmed Vital Signs Blood pressure diastolic 01 mm Hg 08/05/2025 Height 73 in 08/05/2025 Blood pressure systolic 001 mm Hg 08/05/2025 Weight 254.4 lbs 08/05/2025 BMI 33.56 kg/m2 08/05/2025 Encounters Encounter Location Date Provider Diagnosis [facility] [address] [place] [phone] 08/05/2025 Franco Valdez Jr Fatty liver K76.0 ; Rectal carcinoid tumor D3A.026 and Colon cancer screening Z12.11 [facility] [address] [place] [phone] 11/17/2024 Franco Valdez Jr Assessments Encounter Date Diagnosis (ICD Code) Assessment Notes Treatment Notes Treatment Clinical Notes Section Notes 08/05/2025 Fatty liver (ICD-10 - K76.0) 08/05/2025 Rectal carcinoid tumor (ICD-10 - D3A.026) 08/05/2025 Colon cancer screening (ICD-10 - Z12.11) Plan Of Treatment Pending Test Test Name [...] Name Order Date COLONOSCOPY 01/11/2016 COLONOSCOPY 06/16/2021 COLONOSCOPY 08/05/2025 Insurance Providers Payer Name Payer Address Payer Phone Subscriber Number Group Number Insured Name Patient Relationship to Insured Coverage Start Date Coverage End Date [facility] [address] [place] [address] [id number] TOYIN CANNON Self - patient is the [...]
== END 2025-08-17 12:18 | disposition home or self-care (01) ==
LOC: HO.10HDL 12:17
PROVIDERS: Visit Provider Student in an Organized Health Care Education/Training Program
DX: M10.9 Gout, unspecified (principal); Z79.899 Other long term (current) drug therapy
CPT/HCPCS: 36415; 80053; 84550; 85025; 85652; 86140

== ENCOUNTER 2025-08-20 12:41 | Outpatient (AMB) | payer BC, SELFPAY ==
--- OUTSIDE RECORDS SUMMARY | 2024-05-25 08:00 | XMS_ITS ---
Author Organization [facility] Address [address] [place] [address] Care Team Providers Care Die Repairer Trimmer Dies Name Role Phone Cameron Man Primary Care Provider Unavailab Jez Bianchi Unavailable [phone] Encounters Encounter Location Date Provider Diagnosis [facility] [address] [address] 05/25/2024 Jez Narvaez Plan Of Treatment No Information Progress Notes * Jose Alberto CANNON EDOB: [birth year] (60 yo M)Acc No.[id number]:05/25/2024 Progress Notes Patient: Jose Alberto AMAYA Provider: Shanell Narvaez DPM :1965 A ge:59 Y S ex:Male Date:05/25/2024 Address:[address] [place], [place] [id number] Pcp:Cameron Man Subjective: * Chief Complaints: * [...] 0 05/25/2024 Generated for [place]/Tamika/Dillansmitting on: 10/21/2024 02:30 PM EST
--- OUTSIDE RECORDS SUMMARY | 2024-07-22 06:00 | XMS_ITS ---
Author Organization [facility] Address [address] [place] [address] Care Team Providers Care Trademark Attorney Name Role Phone Cameron Man Primary Care Provider Unavailab Franco Hernández Jr REASON FOR VISIT fatty liver Encounters Encounter Location Date Provider Diagnosis [facility] [address] [place] [address] 07/22/2024 Franco Valdez Jr Plan Of Treatment No Information Progress Notes * TOYIN CANNON EDOB: [birth year] (60 yo M)Acc No.[id number]:07/22/2024 Progress Notes Patient: TOYIN AMAYA Provider: Zoe Valdez MD :1965 A ge:59 Y S ex:Male Date:07/22/2024 Address:[address] [place], [place] Pcp:Cameron Man Subjective: * Chief Complaints: * F atty liver * The named appointment provid er may or may not be the originator of this progress note, and it is not deemed complete until electronically signed by the appointment provider. Sign off status: Pending * Provider: Zoe Valdez MD Date: 09/21/2023 Generated for Printi ng/Faxing/eTransmitting on: 10/21/2024 02:30 PM EST
--- OUTSIDE RECORDS SUMMARY | 2025-08-05 08:35 | XMS_ITS ---
Author Organization [facility] Address [address] [place] [phone] Care Team Providers Care Java Developer With Security Clearance Name Role Phone Donovan, Cameron Primary Care Provider Unavailab Franco Hernández Jr Unavailable [phone] Allergies Allergen (clinical drug ingredient) Drug/Non [...] Info Options Details Miscellaneous: Marital status: Occupation: [employer] direct or Vital Signs Blood pressure systolic 001 mm Hg 08/05/20 25 Blood pressure diastolic 01 mm Hg 025 Height 73 in 08/05/2025 Weight 254.4 lbs 08/05/2025 BMI 33.56 kg/m2 08/05/2025 Encounters Encounter Location Date Provider Diagnosis [facility] [address] [place] [phone] 08/05/2025 Franco Valdez Jr Fatty liver K76.0 [...] TOYIN CANNON EDOB: [birth year] (60 yo M)Acc No.[id number]:08/05/2025 Progress Notes Patient: TOYIN AMAYA Provider: Zoe Valdez MD :1965 A ge:60 Y S ex:Male Date:08/05/2025 Address: [place] Pcp:Cameron Man Subjective: * Chief Complaints: * [...] M iscellaneous: M arital status: . 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 D rug/Alcohol: A BRANDO-C (Standard) D id [...] 2.?Rectal carcinoid tumor?Procedure: COLONOSCOPY (Ordered for 08/05/2025)* Paulette Velazquez 08/05/2025 01: 59:28 PM EST > action [...] Valdez MD Date: 10/06/2024 Generated for Lisy dodge/Tamika/Bronwynitting on: 10/21/2024 02:30 PM EST
--- NOTE | 2025-08-20 12:48 | MHC.OFFVIS ---
Vital Signs 08/20/25 12:55 Height 6 ft 1 in Weight 253 lb 1.451 oz BMI 33.4 BP 140/92 H Blood Pressure Location Lt brachial Position Sitting Pulse 87 Pulse Source Pulse Oximeter Pulse Oximetry (%) 97 Oxygen Delivery Method Room Air Intake Visit Reasons: 4 months Intake Note: Patient presents today for PsA follow up today and test results. County Director Welfare Required: No Information Interpreted: non-clinical & clinical Accompanied by: Self / Same As Patient Allergies No Known Allergies (No Known Allergies*) Allergy (Verified 08/20/25 12:54) Medication List - Last Reconciled 08/20/25 by Jessica Cervantes MD allopurinol 200 mg (2 x 100 mg) PO DAILY 90 days amlodipine 2.5 mg PO DAILY aspirin (Adult Low Dose Aspirin) 81 mg PO DAILY betamethasone dipropionate 0.05% 1 appl topical DAILY PRN cholecalciferol (vitamin D3) (Vitamin D3) 25 mcg PO DAILY clotrimazole-betamethasone 1-0.05 % 1 appl topical BID 4 weeks colchicine 0.6 mg PO BID PRN fexofenadine 180 mg PO DAILY PRN Hyrimoz(CF) Pen (adalimumab-adaz) 40 mg (0.4 mL) subcut QWEEK 30 days NS nystatin 1 appl topical DAILY PRN omega 7-pyc-dqq-fish oil 1,000 (120-180) mg (Fish Oil) 1 cap PO DAILY valsartan 320 mg PO DAILY HPI Comments Details: Patient is a 60 year old male with hypertension, hyperlipidemia complicated by ascending aortic aneurysm, non crystal proven gout, polyarticular osteoarthritis, psoriasis, and psoriatic arthritis here today for follow up Interval History: Patient last seen 04/10/2025 with me - On Hymiroz 40mg every 10 days - Did not start the methotrexate due to concerns for the side effects - But now consistently on the Hymiroz - Still with PsO in his hands and ears, using topical vicks or clobetasol Today - On Hymiroz 40mg SC every 10 days - Had minor dental surgery and was off Hymiroz for about 3 weeks - During that time he noticed worsening joint pain - He restarted Hymiroz 10 days after the procedure (around Jul 27) and is starting to feel better - PsO: While off the Hymiroz he also noted the worsening hand PsO but this is better now that he is back on the Hymiroz - Had surgery about a year ago on his foot, but still noting a bunion on the left foot Rheumatologic History: PsO - Dx 2006 PsA - Dx 2019 - 08/2022. Started Humira - 12/2023. Switched to Hymrioz Initial history: The patient presents for evaluation of multiple areas of joint pain in the setting of a twenty year history of psoriasis. The psoriasis is mostly on the palms of his hands but sometimes in the scalp. This is controlled with a topical compound ointment prescribed by Dermatology. The patient had torn ligaments when in college at the right ankle. In 2006 he had a ruptured left Achilles tendon. This was surgically repaired. For about 8 or 9 years he has noted a lump on the right heel in the Achilles region. Surgery was proposed but it does not bother him all that much. He gets occasional painful swelling in the 1st toe bilaterally. He was given prn colchicine for this which seems to help when he experiences it. It is more likely to occur in the left 1st toe. There is also some pain and swelling of the 2nd and 4th toes. That seems to be more chronic but does worsen on some days. For about a year now he has been having left knee pain. There is a documented medial meniscal tear seen on MRI. He has been treating this with physical therapy. He ate seeking another orthopedic opinion about possible surgery. In April he had an injury to the biceps tendon lifting a heavy object. Around that time he also developed painful swelling of the left olecranon bursa. That improved with physical therapy. In December he noted some pain and swelling of the left wrist. This was while undergoing treatment for the bursitis with some compressive bandages. Also in December he developed some pain in the right 5th DIP joint. This was followed a few days later by a flexion deformity. He is thought to have an extensor tendon tear. Surgery is planned in a few days. He does take naproxen occasionally for symptoms, this is the yzra-jiv-teivoti, 1 or 2 a day but sometimes goes many days without any treatment. Current Rheumatology Medication(s): Hymiroz 40mg SC every 2 weeks [facility] Medical History Ascending aortic aneurysm Mallet deformity of right little finger Psoriatic arthritis Foot pain, bilateral DOROTHY (obstructive sleep apnea) Obesity (BMI 30-39.9) Hx of chest pain Rupture of left biceps tendon Carcinoid tumor, rectal, benign Seasonal allergies Snores Hyperlipidemia HTN (hypertension) Surgical History History of bunionectomy History of appendectomy History of Achilles tendon repair Hx of colonoscopy History of umbilical hernia repair Family History Mother Irregular heart beat Social History Housing: House Alcohol intake: current Alcohol intake frequency: a few times a week Alcohol type: beer and wine Patient Tobacco Use Status: Never used Tobacco e-Cigarette/Vaping Use: Never Used Second Hand Smoke Exposure: No service: No Current occupational status: employed 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 Current occupational exposures/hazards: No Cognitive needs: No Hearing needs: No Vision needs: No Review of Systems Narrative Review of Systems Constitutional: Denies fever, chills, weight loss ENT: Denies vision changes, eye pain or eye redness, dental caries, dry mouth GI: Denies nausea, vomiting, diarrhea, abdominal pain, change in BM Pulm: Denies SOB, WATERMAN, hemoptysis, wheezing Cards: Denies chest pain, palpitations DIRECTOR OF SOFTWARE DEVELOPMENT: Denies headaches, weakness, paresthesias, recurrent falls MSK: as per HPI All other systems reviewed and are unremarkable except noted above Physical Exam Exam Exam: Vital signs reviewed Physical Examination CONSTITUITIONAL Patient alert and cooperative. Well appearing and in no apparent painful distress MSK Hands Right Hand: Able to make a fist. No swelling or tenderness to palpation of these joints. Flexion deformity at the PIP. Synovial hypertrophy 2nd MCPs Left Hand: Able to make a fist. No swelling or tenderness to palpation of these joints. Synovial hypertrophy Palmar psoriasis to bilateral hands Wrists Right Wrist: Full ROM. 70 degrees of wrist flexion, 80 degrees of wrist extension. No swelling or TTP Left Wrist: Full ROM. 70 degrees of wrist flexion, 80 degrees of wrist extension. No swelling or TTP Elbows Right Elbow: Full ROM. No swelling or TTP. No TTP of the medial and lateral epicondyles Left Elbow: Full ROM. No swelling or TTP. No TTP of the medial and lateral epicondyles. Bursa swelling, non tender Shoulders Right shoulder: Full ROM. No swelling noted. No TTP of the AC joint, subacromial bursa or posterior shoulder Left shoulder: Full ROM. No swelling noted. No TTP of the AC joint, subacromial bursa or posterior shoulder Knees Right knee: Full ROM. No swelling noted. No TTP of the knee joint lie or pes anserine bursa Left knee: Full ROM. No swelling noted. No TTP of the knee joint lie or pes anserine bursa. Ankles Right ankle: Good ankle dorsiflexion and plantar flexion. No swelling. No TTP of the ankle joint. Left ankle: Good ankle dorsiflexion and plantar flexion. No swelling. No TTP of the ankle joint Feet Right foot: Prominent 1st MTP Left foot: TTP of the 5th MTP Tender points? No tenderness to palpation of the bilateral trapezius, supraspinatus, anterior costochondral junctions, bilateral suboccipital muscle insertions SKIN Palmar PsO Vital Signs: Last Vital Signs Pulse 87 08/20/25 12:55 BP 140/92 H 08/20/25 12:55 Pulse Ox 97 08/20/25 12:55 Oxygen Delivery Method Room Air 08/20/25 12:55 BMI result Body Mass Index 33.4 Results Reviewed Results Reviewed: Laboratory Tests 08/17/25 12:18 WBC 6.4 RBC 5.20 Hgb 16.7 Hct 48.2 Plt Count 244 ESR 2 Sodium 139 Potassium 4.4 Chloride 106 Carbon Dioxide 26 BUN 13 Creatinine 0.76 AST 46 H ALT 96 H C-Reactive Protein 0.19 08/17/25 12:18 Uric Acid 5.8 Assessment & Plan Assessment & Plan (1) Psoriatic arthritis: Comment: PsO - Dx 2006 PsA - Dx 2019 - 08/2022. Started Humira - 12/2023. Switched to Hymrioz Code(s): L40.50 - Arthropathic psoriasis, unspecified Category: Medical Plan: #PsO/PsA Patient is a 60-year-old male with psoriasis complicated by psoriatic arthritis here today for follow up Doing well with no synovitis today on Hymiroz monotherapy On adalimumab every 10 days but noting worsening liver function tests. 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 Uric acid goal for this patient is less than 5. UA at goal Plan - Allopurinol 200mg daily - Colchicine 0.6mg bid prn - Labs before visit: uric acid (3) Encounter for monitoring of adalimumab therapy: Code(s): Z51.81 - Encounter for therapeutic drug level monitoring; Z79.620 - predatory animal exterminator (current) use of immunosuppressive biologic Plan: #Long-term Use of TNF Inhibitors: Adalimumab Discussed with the patient the benefits and risks of TNF inhibitors for the management of the rheumatic condition Benefits include reduce pain, maintenance of remission and reduction of flares as well as ?progression of the disease Risks include injection sites/infusion reactions, serious infections (such as bacterial infections, opportunistic infections), malignancy, delaminating syndromes, autoimmune phenomena, CHF exacerbations, palmar plantar psoriasis and cytopenias Recommended rotating injection sites, and holding medication during and for up to 1 week after resolution of a febrile illness or open skin wound (4) On allopurinol therapy: Code(s): Z79.899 - Other senior living (current) drug therapy Plan: #Long-term Current Use of Allopurinol Risks and benefits of allopurinol discussed with patient Benefits include decreased gout flares, remission of gout and reduction of tophi Risks include allopurinol hypersensitivity syndrome which is a severe cutaneous adverse reaction associated with allopurinol use particularly in patients who are HLA B*5801 positive, increased transaminases, GI upset including diarrhea, nausea and vomiting, and other dermatologic manifestations. 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
[2025-08-20 12:55] VITALS: BP 140/92; PULSE 87; O2SAT 97; BMI 33.4
--- OUTSIDE RECORDS SUMMARY | 2025-08-20 14:31 | XMS_ITS | Patient Health Record ---
Author Organization [facility] Address [address] [place] [address] Care Team Providers Care Briefcase Sewer Name Role Phone Cameron Man Primary Care Provider Unavailab Franco Hernández Jr Unavailable Allergies Allergen (clinical drug ingredient) Drug/Non Drug Allergy documented on EMR Reaction Allergy Type Onset Date Status seasonal (uncoded) Unknown Allergy A ctive Results Component Value Reference Range Flag Notes Complete Blood Count Auto Di ff Reviewed date:11/12/2024 08:02:24 AM Interpretation: Performing Lab:[facility], [address] [place] [phone] Notes/Report: White Blood Count 5.8 4.8-10.8 X10*3/uL [...] Panel Reviewed date:11/12/2024 08:02:15 AM Interpretation: Performing Lab:[facility], [address] [place] [phone] Notes/Report: Bilirubin Total 0.8 0.0-1.0 mg/dL N Bilirubin Direct 0.2 0.0-0.5 mg/dL N Aspartate Amino Transferase 26 5-37 U/L N Alanine Aminotransferase 40 0-40 U/L N Total Protein 7.7 6.5-8.0 g/dL N Albumin Level 4.2 3.5-5.0 g/dL N Alkaline Phosphatase 55 39-117 U/L N IRON PROFILE Reviewed date:11/12/2024 08:02:02 AM Interpretation: Performing Lab:[facility], [address] [place] [phone] Notes/Report: Iron 145 45-160 mcg/dL N Total Iron Binding Capacity 345 228-428 mcg/dL N Percent Iron Saturation 42 15-50 % N Unsaturated Iron Binding 200 Ferritin Reviewed date:11/12/2024 08:01:53 AM Interpretation: Performing Lab:[facility], [address] [place] [phone] Notes/Report: Ferritin 221 20-250 ng/mL N Liver Fibrosis Pnl Reviewed date:11/17/2024 02:21:38 PM Interpretation: Performing Lab:[facility], [address] [place] [phone] Notes/Report: Liver Fibrosis Score 0.07 Liver Fibrosis [...] a>0.62 and a<=1.00 : A3 (severe activity) UHN-Rxcav-2-Macroglobulin 105 106-279 mg/dL A FIB-Haptoglobin 138 43-212 mg/dL FIB-Apolipoprotein A1 199 94-176 mg/dL A FIB-Total Bilirubin 0.7 0.2-1.2 mg/dL FIB-GGT 34 3-85 U/L FIB-ALT 27 9-46 U/L Reference ID [id number] Footnote SEE NOTE The reliability of results is dependent on compliance with the preanalytical and analytical conditions recommended by [employer]. The tests have to be deferred for: [...] The performance characteristics have been determined by [employer] [employer]. It has not been cleared or approved by the U.S. Food and Drug Administration. Performance characteristics refer to the analytical performance of the test. [employer], the associated logo, [employer] and all associated [employer] taveras are the registered trademarks of [employer] ([employer]). All third alliance party taveras - (R) and (TM) - are the property of their respective owners. (C) 0582-8299 [employer] ([employer]. All rights reserved. THIS TEST WAS PERFORMED AT: [facility] [place] [address] [place] [address] LASHA GRAHAM MD,PHD,THOR Mitochondrial Antibody Reviewed date:11/26/2024 11:44:03 AM Interpretation: Performing Lab:[facility], [address] [place] [phone] Notes/Report: Mitochondrial Antibodies NEGATIVE NEGATIVE N The specimen was negative for cytoplasmic antibodies, however additional staining was observed suggesting the presence of Antinuclear Antibodies. Consider requesting order code 249, SAVANNAH Screen, IFA with Reflex to Titer and Pattern, or order code 96949, SAVANANH Screen, IFA w/reflex Titer/Pattern, and Reflex to Multiplex 11 Ab [place], if clinically indicated. THIS TEST WAS PERFORMED AT: [facility] [address] [address] MICHAEL HERNANDEZ MD Mitochondrial Ab Titer TNP Smooth Muscle Antibody Reviewed date:11/26/2024 11:43:50 AM Interpretation: Performing Lab:[facility], [address] [place] [phone] Notes/Report: Smooth Muscle Antibody <20 <20 U [...] type 1. THIS TEST WAS PERFORMED AT: [facility] [id number] [place] [address] SAMI HINTON MD,PHD Reason For Referral No [...] Status Risk Notes Problem Colon cancer screening (293336932) Colon cancer screening (Z12.11) Active confirmed Problem Elevated liver enzymes level (292856502) Elevated LFTs (R79.89) Active confirmed Problem Fatty liver (169787369) Fatty liver (K76.0) Active confirmed Problem Hemorrhoids without complication (47493467) Hemorrhoids, unspecified hemorrhoid type (K64.9) Active confirmed Problem Benign carcinoid tumor of rectum (214729940760572) Rectal carcinoid tumor (D3A.026) Active confirmed Problem Pressure in Chest (78746400) Chest pressure (R07.89) Active confirmed Problem Gastroesophageal reflux disease (170057613) Gastroesophageal reflux disease, unspecified whether esophagitis present (K21.9) Active confirmed Problem Black stools (93605049) Black stools (K92.1) Active confirmed Vital Signs Blood pressure diastolic 01 mm Hg 08/05/2025 Height 73 in 08/05/2025 Blood pressure systolic 001 mm Hg 08/05/2025 Weight 254.4 lbs 08/05/2025 BMI 33.56 kg/m2 08/05/2025 Encounters Encounter Location Date Provider Diagnosis [facility] [address] [place] [phone] 08/05/2025 Franco Valdez Jr Fatty liver K76.0 ; Rectal carcinoid tumor D3A.026 and Colon cancer screening Z12.11 [facility] [address] [place] [phone] 11/17/2024 Franco Valdez Jr Assessments Encounter Date [...] Insured Coverage Start Date Coverage End Date [facility] [address] [place] [address] [id number] TOYIN CANNON Self - patient is [...]
--- OUTSIDE RECORDS SUMMARY | 2025-08-20 14:31 | XMS_ITS | Patient Health Record ---
Author Organization [facility] [place] [place] Address [address] [place] [address] Care Team Providers Care Layout Designer Name Role Phone Cameron Man Primary Care Provider Unavailab Jez Bianchi Unavailable [phone] Allergies No Known Allergies Reason For Referral [...] Problem Plantarflexion deformity of right foot (finding) (6375284812214040 ) Equinus contracture of right ankle (M24.571) Active confirmed Problem Localized, primary osteoarthritis of the ankle and/or foot (330111638) Osteoarthritis of left ankle and foot (M19.072) [...] Insured Coverage Start Date Coverage End Date [facility] [address] [address] [place] [address] [id number] Jose Alberto Reina Self - patient is the insured Medical (General) History Medical History History ICD Code High blood pressure Surgical History Surgery Date(Month/Year) Hernia Repair 2015 achilles tendon repair 2007 appendectomy 1978
== END 2025-08-20 13:15 | disposition home or self-care (01) ==
LOC: HO.RHES 12:42
PROVIDERS: PCP Physician Assistant; Visit Provider Student in an Organized Health Care Education/Training Program
DX: L40.50 Arthropathic psoriasis, unspecified (principal); M1A.49X1 Other secondary chronic gout, multiple sites, with tophus (tophi); Z51.81 Encounter for therapeutic drug level monitoring; Z79.620 Long term (current) use of immunosuppressive biologic; Z79.899 Other long term (current) drug therapy
CPT/HCPCS: 99214